=== PATIENT | female | born 1960 | race Caucasian/White ===

== ENCOUNTER 2021-04-23 08:30 | Inpatient (IN) ==
[~2021-04-23 08:30] MED LIST: MULTI-VITAMIN INFUSION 10 ML, THIAMINE HCL 100 MG, FOLIC ACID 1 MG in SODIUM CHLORIDE 0... IV ONE; SODIUM CHLORIDE 0.9% 1000ML 1,000 ML IV ONE; cefTRIAXone SODIUM 2,000 MG/70 ML BAG IV STA
--- NOTE | 2021-04-23 08:54 | Emergency Department Note ---
Impression & Plan Hypothermia, Acute kidney injury, Wide-complex tachycardia, Acute alteration in mental status, History of alcohol abuse, Hypokalemia ED Provider Note NAME: JUNG METCALF AGE: 60 SEX: F : 1960 ARRIVES VIA: Ambulance INFORMANT: EMS ED PROVIDER(S): Lico Delgadillo DO CHIEF COMPLAINT: Altered mental status HPI: The patient is a 60-year-old female who presented to the emergency department for evaluation of altered mental status. According to the patient's significant other she has been ill over the course the last week. She has had nausea and vomiting as well as diarrhea. She has a history of chronic alcohol abuse and has not been drinking for the last week. The patient was not feeling well but appeared to be answering questions well last night when her significant other went to work. Went over the significant other came to check on her this morning she was obtunded and not answering questions. We received a prehospital notification about the patient. She is not answering questions. She was found to be very cold and mottled. Her blood pressure was low. She was not answering questions. The patient was placed directly in room D1. ROS: See above HPI for pertinent positives & negatives. A total of 10 systems reviewed and were otherwise negative. PAST MEDICAL HISTORY: See Below PAST SURGICAL HISTORY: See Below FAMILY HISTORY: See Below SOCIAL HISTORY: See Below HOME MEDICATIONS: See Below ALLERGIES: See Below VITALS: See Below PHYSICAL EXAMINATION: GENERAL: The patient is looking around the room. She does not follow commands or answer questions appropriately. EYES: The conjunctivae are pale. The pupils are round and reactive. EARS, NOSE, MOUTH AND THROAT: The nose is without any evidence of any deformity. Mucous membranes are dry NECK: The neck is nontender and supple. RESPIRATORY: Shallow respirations were noted. There is no definite rales rhonchi or wheezing. CARDIOVASCULAR: Regular rate and rhythm was noted to auscultation. Heart sounds were very distant. GASTROINTESTINAL: The abdomen was mildly distended. There was no guarding or rigidity. MUSCULOSKELETAL/EXTREMITIES: There is no evidence of gross deformity full range of motion is noted in the hips and shoulders. SKIN: Skin was cold and mottled. There was no significant pedal edema. Pulses were symmetric but diminished in both groins and feet. NEUROLOGIC: Patient is looking around the room. She does not follow commands or answer questions. She intermittently moves her extremities and appears to move both sides. MEDICAL DECISION MAKING: The patient is a 60-year-old female who presented to emergency department for altered mental status. The patient was unable to give much history initially. The patient's significant other stated that she was having episodes of blurred vision and maybe double vision but also diarrhea and some vomiting. The patient was hypotensive and mottled initially. She was treated with aggressive IV hydration. Delatorre catheter was placed. Triple-lumen catheter was also placed. The patient tolerated this procedure well. The patient was reevaluated multiple times. I discussed the patient's laboratory and radiographic studies with her significant other. [facility] have agreed to evaluate the patient in the emergency department for further management and disposition. The patient's symptoms slowly improved while she was in the emergency department. She was treated with external warming. She was treated with warm fluids. She started having episodes of intermittent wide-complex tachycardia. Initially I thought this could be the patient shivering or possibly an abnormality with her monitoring but she continued to have episodes throughout her stay. They were very brief and not prolonged. It could be related to the hypothermia so I thought best that we continue to monitor and not start the patient on antidysrhythmic's until her temperature was stabilized. Triage Nursing notes reviewed. Prior medical records reviewed Vital Signs: reviewed and remarkable for hypotension tachycardia and hypothermia. Differential diagnosis: Infection, hypoglycemia, electrolyte abnormalities, overdose, toxicologic, cardiac sources, intracerebral event, neurologic, trauma, as well as other pathologies. ER treatment provided: See below Diagnostics interpreted by me: ECG: EKG was obtained in the emergency department. My interpretation is poor baseline with probably underlying sinus rhythm. [address] segment abnormalities were noted. A second EKG was obtained in the emergency department. It appears to be consistent with rapid atrial fibrillation with a wide complex underlying. It appears to be 182 bpm. This is difficult to ascertain if this is just poor baseline or an underlying rapid atrial fibrillation. Cardiac Monitoring: An order was placed for continuous cardiac monitoring. The monitor shows a rate of 90 bpm with sinus rhythm. Laboratory studies: As stated above and show below. Imaging studies: See below Consultation(s): I discussed this case with Norma Parish who [facility] They will evaluate the patient in the emergency department. ED COURSE: Procedures: Lumbar Puncture Indication: Altered mental status. Verbal consent was obtained after the risks and benefits were explained, including but not limited to headache, bleeding/clotting, scarring, infection, pain, and bone/joint/nerve damage. At this time, the risks of the procedure are less than the risks of NOT performing the procedure. A time out was taken and the correct patient and site identified. The patient was placed in the left lateral recumbentposition and the back was prepped with betadine and draped in the standard fashion. The L3 intervertebral space was identified, anesthetized locally with 1% lidocaine without epinephrine, and the spinal needle was inserted through the skin with the bevel parallel to the dural fibers. The needle was carefully advanced into the lumbar cistern and 4 tubes of clearCSF wa s obtained. The stylet was replaced and the needle was removed. A bandaid was placed and the patient was placed in the supine position. The patient tolerated the procedure well and there were no complications. Femoral Central Venous Catheter Indication: Sepsis and hypothermia Catheter Type: Triple-lumen Location: Left femoral vein Verbal consent was obtained after the risks and benefits were explained, including but not limited to intra-abdominal injury, vessel injury, bleeding, scarring, infection, pain, and bone/joint/nerve damage. At this time, the risks of the procedure are less than the risks of NOT performing the procedure. A time out was taken and the correct patient and site identified. The patient was placed in the supine position and the skin was prepped in the standard fashion with chlorhexidine and full sterile drapes applied. The proper landmarks were identified with ultrasound, anesthetized with 1% lidocaine without epinephrine, and the needle was inserted through the skin in the standard fashion. The needle was carefully advanced into blood vessel lumen with ultrasound guidance. The guidewire was placed uneventfully. The vessel is dilated and the catheter was placed. It was sutured into position. There was good blood return from all ports. The patient tolerated the procedure well and there were no complications. PDMP:reviewed and no issues Critical Care: I have personally spent greater than 120 minutes of critical care time in the direct management of this patient. This includes bedside care, interpretation of diagnostic studies, and testing, discussion with consultants, patient, and family members, and other required patient management activities. This 120 minutes is in excess of all separately billable procedures. Past Med/Surg History Medical History (Updated 04/23/21 @ 16:12 by Lico Delgadillo DO) Alcohol abuse Cirrhosis Diabetes mellitus, type II Hypertension Surgical History (Updated 04/23/21 @ 14:24 by Norma Parish PA-C) H/O colonoscopy History of cryosurgery History of esophagogastroduodenoscopy (EGD) Family History Other Diabetes Hypertension Kidney disease Social History Smoking Status: Unknown if ever smoked Preferred Language: Malay Feels Safe at Home: Yes Allergies Allergies Allergy/AdvReac Type Severity Reaction Status Date / Time Bactrim Allergy Unknown RASH Verified 06/14/17 07:47 Penicillins Allergy Unknown unknown Unverified 04/23/21 09:58 sulfamethoxazole Allergy Unknown RASH Verified 04/23/21 09:58 trimethoprim Allergy Unknown RASH Verified 04/23/21 09:58 SULFA Allergy Unknown RASH Uncoded 04/23/21 09:58 Home Meds Home Medications Medication Instructions Recorded Confirmed omeprazole 20 mg capsule,delayed 20 mg PO DAILY 04/23/21 04/23/21 release Results & Data (ED) Vital Signs Vital Signs - 24 hr 04/23/21 08:50 04/23/21 08:55 04/23/21 09:00 Temperature 32.9 C L Temperature Source Rectal Pulse Rate 91 H 84 90 Pulse Rate from SpO2 Sensor 78 84 Respiratory Rate 21 17 20 Respiratory Effort / Characteristics Non-Labored Spontaneous Respiratory Depth Normal Respiratory Pattern Regular Blood Pressure 126/90 Blood Pressure Mean 102 Blood Pressure Position Lying Pulse Oximetry 100 100 96 Oxygen Delivery Method Room Air Room Air Room Air Sepsis Recent Fever Within 48 Hours No Sepsis New/Unexplained Change in Mental Status Yes Sepsis Action Taken by Nursing Previously Notified 04/23/21 09:01 04/23/21 09:10 04/23/21 09:20 Temperature Temperature Source Pulse Rate 104 H 111 H Pulse Rate from SpO2 Sensor 71 74 Respiratory Rate 17 17 Respiratory Effort / Characteristics Respiratory Depth Respiratory Pattern Blood Pressure Blood Pressure Mean Blood Pressure Position Pulse Oximetry 100 100 Oxygen Delivery Method Room Air Room Air Room Air Sepsis Recent Fever Within 48 Hours Sepsis New/Unexplained Change in Mental Status Sepsis Action Taken by Nursing 04/23/21 09:30 04/23/21 09:39 04/23/21 09:45 Temperature Temperature Source Pulse Rate 73 73 Pulse Rate from SpO2 Sensor 74 Respiratory Rate 15 19 Respiratory Effort / Characteristics Respiratory Depth Respiratory Pattern Blood Pressure Blood Pressure Mean Blood Pressure Position Pulse Oximetry 100 Oxygen Delivery Method Room Air Room Air Sepsis Recent Fever Within 48 Hours Sepsis New/Unexplained Change in Mental Status Sepsis Action Taken by Nursing 04/23/21 10:00 04/23/21 10:30 04/23/21 10:39 Temperature 32.1 C L Temperature Source Rectal Pulse Rate 93 H 80 Pulse Rate from SpO2 Sensor 75 82 Respiratory Rate 16 13 Respiratory Effort / Characteristics Respiratory Depth Respiratory Pattern Blood Pressure 103/69 Blood Pressure Mean 80 Blood Pressure Position Pulse Oximetry 100 Oxygen Delivery Method Sepsis Recent Fever Within 48 Hours Sepsis New/Unexplained Change in Mental Status Sepsis Action Taken by Nursing 04/23/21 10:40 04/23/21 10:45 04/23/21 11:00 Temperature Temperature Source Pulse Rate 80 81 Pulse Rate from SpO2 Sensor 82 81 Respiratory Rate 22 14 Respiratory Effort / Characteristics Non-Labored Spontaneous Respiratory Depth Respiratory Pattern Blood Pressure 94/68 L 104/67 Blood Pressure Mean 76 79 Blood Pressure Position Pulse Oximetry 93 100 Oxygen Delivery Method Sepsis Recent Fever Within 48 Hours Sepsis New/Unexplained Change in Mental Status Sepsis Action Taken by Nursing 04/23/21 11:15 04/23/21 11:30 04/23/21 11:45 Temperature Temperature Source Pulse Rate 82 84 Pulse Rate from SpO2 Sensor 82 88 Respiratory Rate 15 Respiratory Effort / Characteristics Respiratory Depth Respiratory Pattern Blood Pressure 102/74 127/88 105/75 Blood Pressure Mean 83 101 85 Blood Pressure Position Pulse Oximetry 100 95 Oxygen Delivery Method Sepsis Recent Fever Within 48 Hours Sepsis New/Unexplained Change in Mental Status Sepsis Action Taken by Nursing 04/23/21 12:00 04/23/21 12:15 04/23/21 12:30 Temperature Temperature Source Pulse Rate 86 88 88 Pulse Rate from SpO2 Sensor 86 89 89 Respiratory Rate 15 15 21 Respiratory Effort / Characteristics Respiratory Depth Respiratory Pattern Blood Pressure 103/78 104/77 114/73 Blood Pressure Mean 86 86 86 Blood Pressure Position Pulse Oximetry 100 100 96 Oxygen Delivery Method Sepsis Recent Fever Within 48 Hours Sepsis New/Unexplained Change in Mental Status Sepsis Action Taken by Nursing 04/23/21 12:45 04/23/21 13:00 04/23/21 13:01 Temperature 34.5 C L Temperature Source Delatorre Cath ( Temp Sensing) Pulse Rate 91 H 92 H Pulse Rate from SpO2 Sensor 92 H 91 H Respiratory Rate 18 16 Respiratory Effort / Characteristics Respiratory Depth Respiratory Pattern Blood Pressure 97/73 L 99/62 L Blood Pressure Mean 81 74 Blood Pressure Position Pulse Oximetry 100 100 Oxygen Delivery Method Sepsis Recent Fever Within 48 Hours Sepsis New/Unexplained Change in Mental Status Sepsis Action Taken by Nursing 04/23/21 13:15 04/23/21 13:30 04/23/21 13:45 Temperature Temperature Source Pulse Rate 90 150 H Pulse Rate from SpO2 Sensor 80 90 95 H Respiratory Rate 19 20 19 Respiratory Effort / Characteristics Respiratory Depth Respiratory Pattern Blood Pressure 80/58 L Blood Pressure Mean 65 Blood Pressure Position Pulse Oximetry 100 97 Oxygen Delivery Method Sepsis Recent Fever Within 48 Hours Sepsis New/Unexplained Change in Mental Status Sepsis Action Taken by [facility]sp Medications Current Medication List: was personally reviewed by me Laboratory Data Attestation: I reviewed the patient's lab results. Result diagrams: 04/23/21 08:45 04/23/21 08:45 Lab Results 04/23/21 04/23/21 04/23/21 Range/Units 08:45 08:45 08:45 WBC 11.17 H (4.8-10.8) K/uL RBC 4.00 L (4.2-5.4) M/uL Hgb 12.9 (12.0-16.0) g/dL Hct 37.7 (37-47) % MCV 94.3 (80-100) fL MCH 32.3 (25-34) pg MCHC 34.2 (32-36) g/dL RDW Std Deviation 57.6 H (36.4-46.3) fL RDW Coeff of Radha 16.7 H (11.5-14.5) % Plt Count 222 (130-400) K/uL MPV 10.3 (7.4-10.4) fL Immature Gran % (Auto) 0.3 % Neut % (Auto) 77.8 % Lymph % (Auto) 15.8 % [place] % (Auto) 5.8 % Eos % (Auto) 0.2 % Baso % (Auto) 0.1 % Neut # (Auto) 8.70 H (1.4-6.5) K/uL Lymph # (Auto) 1.76 (1.2-3.4) K/uL [place] # (Auto) 0.65 H (0.11-0.59) K/uL Eos # (Auto) 0.02 (0-0.5) K/uL Baso # (Auto) 0.01 (0-0.2) K/uL Immature Gran # (Auto) 0.03 H (0.00-0.02) K/uL Absolute Nucleated RBC 0.05 H (0-0) K/uL Nucleated RBC % (auto) 0.5 % PT 12.9 H (9.0-12.0) Seconds INR 1.3 H (0.9-1.1) APTT 29.2 (21.0-31.0) Seconds PTT Ratio 1.1 VBG pH (7.36-7.41) VBG pCO2 (38-50) mmHg VBG pO2 mmHg VBG HCO3 mmol/L VBG O2 Saturation % VBG Base Excess mEq/L Barometric Pressure mm/Hg Sodium 131 L (136-145) mmol/L Potassium 2.3 L* (3.5-5.1) mmol/L Chloride 86 L (98-107) mmol/L Carbon Dioxide 22 (21-32) mmol/L Anion Gap 23.0 H (3-11) BUN 63 H (7-18) mg/dl Creatinine 3.08 H (0.6-1.2) mg/dl Est Cr Clr Drug Dosing 17.9 ml/min Est GFR ( Amer) 18.5 ml/min Est GFR (Non-Af Amer) 15.9 ml/min BUN/Creatinine Ratio 20.3 H (10-20) Glucose 175 H (70-99) mg/dl Lactate (0.4-2.0) mmol/L Calcium 10.3 H (8.5-10.1) mg/dl Magnesium 1.9 (1.8-2.4) mg/dl Total Bilirubin 1.2 H (0.2-1) mg/dl AST 73 H (15-37) U/L ALT 91 H (12-78) U/L Alkaline Phosphatase 225 H (45-117) U/L Total Creatine Kinase 54 (26-192) U/L CK-MB (CK-2) 1.1 (0.5-3.6) ng/ml CK/CKMB % Calc 2.0 (0-3.0) Troponin I < 0.015 (0-0.045) ng/ml C-Reactive Protein (0-0.29) mg/dl Total Protein 8.5 H (6.4-8.2) gm/dl Albumin 3.0 L (3.4-5.0) gm/dl Globulin 5.5 H (2.5-4.0) gm/dl Albumin/Globulin Ratio 0.5 L (0.9-2) Procalcitonin (0-0.5) ng/ml TSH 3.880 (0.300-4.500) uIu/ml Fluid Comment CSF Appearance CSF Color Xanthrochromic CSF WBC (0-5) /uL CSF RBC (0-) /uL CSF Cell Count Tube # CSF Chemistry Tube # CSF Glucose (40-70) mg/dl CSF Total Protein (15-45) mg/dl CSF C.neoform/gat PCR (NotDetected) CSF CMV DNA (PCR) (NotDetected) CSF Enterovirus (PCR) (NotDetected) CSF E. coli K1 (PCR) (NotDetected) CSF H. influenzae (PCR) (NotDetected) CSF HSV I (PCR) (NotDetected) CSF HSV II (PCR) (NotDetected) CSF HHV 6 (PCR) (NotDetected) CSF L.monocytogenes PCR (NotDetected) CSF N. meningitidis PCR (NotDetected) CSF Parechovirus (PCR) (NotDetected) CSF S. agalactiae (PCR) (NotDetected) CSF S. pneumoniae (PCR) (NotDetected) CSF VZV DNA (PCR) (NotDetected) Nasal Screen MRSA (PCR) (Negative) Salicylates (2.8-20) mg/dl Acetaminophen (10-30) ug/ml Ethyl Alcohol mg/dL (0-3) mg/dl Adenovirus (PCR) (NotDetected) B. pertussis DNA (PCR) (NotDetected) B.parapertussis DNA PCR (NotDetected) C. pneumoniae DNA (PCR) (NotDetected) Coronavirus OC43 (PCR) (NotDetected) Coronavirus HKU1 (PCR) (NotDetected) Coronavirus 229E (PCR) (NotDetected) SARS-CoV-2 (PCR) (NotDetected) Coronavirus NL63 (PCR) (NotDetected) Human Metapneumovir PCR (NotDetected) Influenza Type A (PCR) (NotDetected) Influenza Type B (PCR) (NotDetected) M. pneumoniae (PCR) (NotDetected) Parainfluenza 1 (PCR) (NotDetected) Parainfluenza 2 (PCR) (NotDetected) Parainfluenza 3 (PCR) (NotDetected) Parainfluenza 4 (PCR) (NotDetected) RSV (PCR) (NotDetected) Entero/Rhino (PCR) (NotDetected) Blood Type Antibody Screen 04/23/21 04/23/21 04/23/21 Range/Units 08:45 08:45 08:45 WBC (4.8-10.8) K/uL RBC (4.2-5.4) M/uL Hgb (12.0-16.0) g/dL Hct (37-47) % MCV (80-100) fL MCH (25-34) pg MCHC (32-36) g/dL RDW Std Deviation (36.4-46.3) fL RDW Coeff of Radha (11.5-14.5) % Plt Count (130-400) K/uL MPV (7.4-10.4) fL Immature Gran % (Auto) % Neut % (Auto) % Lymph % (Auto) % [place] % (Auto) % Eos % (Auto) % Baso % (Auto) % Neut # (Auto) (1.4-6.5) K/uL Lymph # (Auto) (1.2-3.4) K/uL [place] # (Auto) (0.11-0.59) K/uL Eos # (Auto) (0-0.5) K/uL Baso # (Auto) (0-0.2) K/uL Immature Gran # (Auto) (0.00-0.02) K/uL Absolute Nucleated RBC (0-0) K/uL Nucleated RBC % (auto) % PT (9.0-12.0) Seconds INR (0.9-1.1) APTT (21.0-31.0) Seconds PTT Ratio VBG pH (7.36-7.41) VBG pCO2 (38-50) mmHg VBG pO2 mmHg VBG HCO3 mmol/L VBG O2 Saturation % VBG Base Excess mEq/L Barometric Pressure mm/Hg Sodium (136-145) mmol/L Potassium (3.5-5.1) mmol/L Chloride (98-107) mmol/L Carbon Dioxide (21-32) mmol/L Anion Gap (3-11) BUN (7-18) mg/dl Creatinine (0.6-1.2) mg/dl Est Cr Clr Drug Dosing ml/min Est GFR ( Amer) ml/min Est GFR (Non-Af Amer) ml/min BUN/Creatinine Ratio (10-20) Glucose (70-99) mg/dl Lactate 3.6 H* (0.4-2.0) mmol/L Calcium (8.5-10.1) mg/dl Magnesium (1.8-2.4) mg/dl Total Bilirubin (0.2-1) mg/dl AST (15-37) U/L ALT (12-78) U/L Alkaline Phosphatase (45-117) U/L Total Creatine Kinase (26-192) U/L CK-MB (CK-2) (0.5-3.6) ng/ml CK/CKMB % Calc (0-3.0) Troponin I (0-0.045) ng/ml C-Reactive Protein (0-0.29) mg/dl Total Protein (6.4-8.2) gm/dl Albumin (3.4-5.0) gm/dl Globulin (2.5-4.0) gm/dl Albumin/Globulin Ratio (0.9-2) Procalcitonin 0.75 H (0-0.5) ng/ml TSH (0.300-4.500) uIu/ml Fluid Comment CSF Appearance CSF Color Xanthrochromic CSF WBC (0-5) /uL CSF RBC (0-) /uL CSF Cell Count Tube # CSF Chemistry Tube # CSF Glucose (40-70) mg/dl CSF Total Protein (15-45) mg/dl CSF C.neoform/gat PCR (NotDetected) CSF CMV DNA (PCR) (NotDetected) CSF Enterovirus (PCR) (NotDetected) CSF E. coli K1 (PCR) (NotDetected) CSF H. influenzae (PCR) (NotDetected) CSF HSV I (PCR) (NotDetected) CSF HSV II (PCR) (NotDetected) CSF HHV 6 (PCR) (NotDetected) CSF L.monocytogenes PCR (NotDetected) CSF N. meningitidis PCR (NotDetected) CSF Parechovirus (PCR) (NotDetected) CSF S. agalactiae (PCR) (NotDetected) CSF S. pneumoniae (PCR) (NotDetected) CSF VZV DNA (PCR) (NotDetected) Nasal Screen MRSA (PCR) (Negative) Salicylates (2.8-20) mg/dl Acetaminophen (10-30) ug/ml Ethyl Alcohol mg/dL (0-3) mg/dl Adenovirus (PCR) Not Detected (NotDetected) B. pertussis DNA (PCR) Not Detected (NotDetected) B.parapertussis DNA PCR Not Detected (NotDetected) C. pneumoniae DNA (PCR) Not Detected (NotDetected) Coronavirus OC43 (PCR) Not Detected (NotDetected) Coronavirus HKU1 (PCR) Not Detected (NotDetected) Coronavirus 229E (PCR) Not Detected (NotDetected) SARS-CoV-2 (PCR) Not Detected (NotDetected) Coronavirus NL63 (PCR) Not Detected (NotDetected) Human Metapneumovir PCR Not Detected (NotDetected) Influenza Type A (PCR) Not Detected (NotDetected) Influenza Type B (PCR) Not Detected (NotDetected) M. pneumoniae (PCR) Not Detected (NotDetected) Parainfluenza 1 (PCR) Not Detected (NotDetected) Parainfluenza 2 (PCR) Not Detected (NotDetected) Parainfluenza 3 (PCR) Not Detected (NotDetected) Parainfluenza 4 (PCR) Not Detected (NotDetected) RSV (PCR) Not Detected (NotDetected) Entero/Rhino (PCR) Not Detected (NotDetected) Blood Type Antibody Screen 04/23/21 04/23/21 04/23/21 Range/Units 08:45 09:16 09:16 WBC (4.8-10.8) K/uL RBC (4.2-5.4) M/uL Hgb (12.0-16.0) g/dL Hct (37-47) % MCV (80-100) fL MCH (25-34) pg MCHC (32-36) g/dL RDW Std Deviation (36.4-46.3) fL RDW Coeff of Radha (11.5-14.5) % Plt Count (130-400) K/uL MPV (7.4-10.4) fL Immature Gran % (Auto) % Neut % (Auto) % Lymph % (Auto) % [place] % (Auto) % Eos % (Auto) % Baso % (Auto) % Neut # (Auto) (1.4-6.5) K/uL Lymph # (Auto) (1.2-3.4) K/uL [place] # (Auto) (0.11-0.59) K/uL Eos # (Auto) (0-0.5) K/uL Baso # (Auto) (0-0.2) K/uL Immature Gran # (Auto) (0.00-0.02) K/uL Absolute Nucleated RBC (0-0) K/uL Nucleated RBC % (auto) % PT (9.0-12.0) Seconds INR (0.9-1.1) APTT (21.0-31.0) Seconds PTT Ratio VBG pH (7.36-7.41) VBG pCO2 (38-50) mmHg VBG pO2 mmHg VBG HCO3 mmol/L VBG O2 Saturation % VBG Base Excess mEq/L Barometric Pressure mm/Hg Sodium (136-145) mmol/L Potassium (3.5-5.1) mmol/L Chloride (98-107) mmol/L Carbon Dioxide (21-32) mmol/L Anion Gap (3-11) BUN (7-18) mg/dl Creatinine (0.6-1.2) mg/dl Est Cr Clr Drug Dosing ml/min Est GFR ( Amer) ml/min Est GFR (Non-Af Amer) ml/min BUN/Creatinine Ratio (10-20) Glucose (70-99) mg/dl Lactate (0.4-2.0) mmol/L Calcium (8.5-10.1) mg/dl Magnesium (1.8-2.4) mg/dl Total Bilirubin (0.2-1) mg/dl AST (15-37) U/L ALT (12-78) U/L Alkaline Phosphatase (45-117) U/L Total Creatine Kinase (26-192) U/L CK-MB (CK-2) (0.5-3.6) ng/ml CK/CKMB % Calc (0-3.0) Troponin I (0-0.045) ng/ml C-Reactive Protein 4.16 H (0-0.29) mg/dl Total Protein (6.4-8.2) gm/dl Albumin (3.4-5.0) gm/dl Globulin (2.5-4.0) gm/dl Albumin/Globulin Ratio (0.9-2) Procalcitonin (0-0.5) ng/ml TSH (0.300-4.500) uIu/ml Fluid Comment CSF Appearance CSF Color Xanthrochromic CSF WBC (0-5) /uL CSF RBC (0-) /uL CSF Cell Count Tube # CSF Chemistry Tube # CSF Glucose (40-70) mg/dl CSF Total Protein (15-45) mg/dl CSF C.neoform/gat PCR (NotDetected) CSF CMV DNA (PCR) (NotDetected) CSF Enterovirus (PCR) (NotDetected) CSF E. coli K1 (PCR) (NotDetected) CSF H. influenzae (PCR) (NotDetected) CSF HSV I (PCR) (NotDetected) CSF HSV II (PCR) (NotDetected) CSF HHV 6 (PCR) (NotDetected) CSF L.monocytogenes PCR (NotDetected) CSF N. meningitidis PCR (NotDetected) CSF Parechovirus (PCR) (NotDetected) CSF S. agalactiae (PCR) (NotDetected) CSF S. pneumoniae (PCR) (NotDetected) CSF VZV DNA (PCR) (NotDetected) Nasal Screen MRSA (PCR) (Negative) Salicylates (2.8-20) mg/dl Acetaminophen (10-30) ug/ml Ethyl Alcohol mg/dL < 3.0 (0-3) mg/dl Adenovirus (PCR) (NotDetected) B. pertussis DNA (PCR) (NotDetected) B.parapertussis DNA PCR (NotDetected) C. pneumoniae DNA (PCR) (NotDetected) Coronavirus OC43 (PCR) (NotDetected) Coronavirus HKU1 (PCR) (NotDetected) Coronavirus 229E (PCR) (NotDetected) SARS-CoV-2 (PCR) (NotDetected) Coronavirus NL63 (PCR) (NotDetected) Human Metapneumovir PCR (NotDetected) Influenza Type A (PCR) (NotDetected) Influenza Type B (PCR) (NotDetected) M. pneumoniae (PCR) (NotDetected) Parainfluenza 1 (PCR) (NotDetected) Parainfluenza 2 (PCR) (NotDetected) Parainfluenza 3 (PCR) (NotDetected) Parainfluenza 4 (PCR) (NotDetected) RSV (PCR) (NotDetected) Entero/Rhino (PCR) (NotDetected) Blood Type O Negative Antibody Screen NEGATIVE 04/23/21 04/23/21 04/23/21 Range/Units 09:16 09:16 11:29 WBC (4.8-10.8) K/uL RBC (4.2-5.4) M/uL Hgb (12.0-16.0) g/dL Hct (37-47) % MCV (80-100) fL MCH (25-34) pg MCHC (32-36) g/dL RDW Std Deviation (36.4-46.3) fL RDW Coeff of Radha (11.5-14.5) % Plt Count (130-400) K/uL MPV (7.4-10.4) fL Immature Gran % (Auto) % Neut % (Auto) % Lymph % (Auto) % [place] % (Auto) % Eos % (Auto) % Baso % (Auto) % Neut # (Auto) (1.4-6.5) K/uL Lymph # (Auto) (1.2-3.4) K/uL [place] # (Auto) (0.11-0.59) K/uL Eos # (Auto) (0-0.5) K/uL Baso # (Auto) (0-0.2) K/uL Immature Gran # (Auto) (0.00-0.02) K/uL Absolute Nucleated RBC (0-0) K/uL Nucleated RBC % (auto) % PT (9.0-12.0) Seconds INR (0.9-1.1) APTT (21.0-31.0) Seconds PTT Ratio VBG pH 7.43 H (7.36-7.41) VBG pCO2 28 L (38-50) mmHg VBG pO2 50 mmHg VBG HCO3 18 mmol/L VBG O2 Saturation 80.3 % VBG Base Excess -5.7 mEq/L Barometric Pressure 727.1 mm/Hg Sodium (136-145) mmol/L Potassium (3.5-5.1) mmol/L Chloride (98-107) mmol/L Carbon Dioxide (21-32) mmol/L Anion Gap (3-11) BUN (7-18) mg/dl Creatinine (0.6-1.2) mg/dl Est Cr Clr Drug Dosing ml/min Est GFR ( Amer) ml/min Est GFR (Non-Af Amer) ml/min BUN/Creatinine Ratio (10-20) Glucose (70-99) mg/dl Lactate 1.0 (0.4-2.0) mmol/L Calcium (8.5-10.1) mg/dl Magnesium (1.8-2.4) mg/dl Total Bilirubin (0.2-1) mg/dl AST (15-37) U/L ALT (12-78) U/L Alkaline Phosphatase (45-117) U/L Total Creatine Kinase (26-192) U/L CK-MB (CK-2) (0.5-3.6) ng/ml CK/CKMB % Calc (0-3.0) Troponin I (0-0.045) ng/ml C-Reactive Protein (0-0.29) mg/dl Total Protein (6.4-8.2) gm/dl Albumin (3.4-5.0) gm/dl Globulin (2.5-4.0) gm/dl Albumin/Globulin Ratio (0.9-2) Procalcitonin (0-0.5) ng/ml TSH (0.300-4.500) uIu/ml Fluid Comment CSF Appearance CSF Color Xanthrochromic CSF WBC (0-5) /uL CSF RBC (0-) /uL CSF Cell Count Tube # CSF Chemistry Tube # CSF Glucose (40-70) mg/dl CSF Total Protein (15-45) mg/dl CSF C.neoform/gat PCR (NotDetected) CSF CMV DNA (PCR) (NotDetected) CSF Enterovirus (PCR) (NotDetected) CSF E. coli K1 (PCR) (NotDetected) CSF H. influenzae (PCR) (NotDetected) CSF HSV I (PCR) (NotDetected) CSF HSV II (PCR) (NotDetected) CSF HHV 6 (PCR) (NotDetected) CSF L.monocytogenes PCR (NotDetected) CSF N. meningitidis PCR (NotDetected) CSF Parechovirus (PCR) (NotDetected) CSF S. agalactiae (PCR) (NotDetected) CSF S. pneumoniae (PCR) (NotDetected) CSF VZV DNA (PCR) (NotDetected) Nasal Screen MRSA (PCR) (Negative) Salicylates < 1.7 L (2.8-20) mg/dl Acetaminophen 8 L (10-30) ug/ml Ethyl Alcohol mg/dL (0-3) mg/dl Adenovirus (PCR) (NotDetected) B. pertussis DNA (PCR) (NotDetected) B.parapertussis DNA PCR (NotDetected) C. pneumoniae DNA (PCR) (NotDetected) Coronavirus OC43 (PCR) (NotDetected) Coronavirus HKU1 (PCR) (NotDetected) Coronavirus 229E (PCR) (NotDetected) SARS-CoV-2 (PCR) (NotDetected) Coronavirus NL63 (PCR) (NotDetected) Human Metapneumovir PCR (NotDetected) Influenza Type A (PCR) (NotDetected) Influenza Type B (PCR) (NotDetected) M. pneumoniae (PCR) (NotDetected) Parainfluenza 1 (PCR) (NotDetected) Parainfluenza 2 (PCR) (NotDetected) Parainfluenza 3 (PCR) (NotDetected) Parainfluenza 4 (PCR) (NotDetected) RSV (PCR) (NotDetected) Entero/Rhino (PCR) (NotDetected) Blood Type Antibody Screen 04/23/21 04/23/21 04/23/21 Range/Units 11:45 11:45 11:45 WBC (4.8-10.8) K/uL RBC (4.2-5.4) M/uL Hgb (12.0-16.0) g/dL Hct (37-47) % MCV (80-100) fL MCH (25-34) pg MCHC (32-36) g/dL RDW Std Deviation (36.4-46.3) fL RDW Coeff of Radha (11.5-14.5) % Plt Count (130-400) K/uL MPV (7.4-10.4) fL Immature Gran % (Auto) % Neut % (Auto) % Lymph % (Auto) % [place] % (Auto) % Eos % (Auto) % Baso % (Auto) % Neut # (Auto) (1.4-6.5) K/uL Lymph # (Auto) (1.2-3.4) K/uL [place] # (Auto) (0.11-0.59) K/uL Eos # (Auto) (0-0.5) K/uL Baso # (Auto) (0-0.2) K/uL Immature Gran # (Auto) (0.00-0.02) K/uL Absolute Nucleated RBC (0-0) K/uL Nucleated RBC % (auto) % PT (9.0-12.0) Seconds INR (0.9-1.1) APTT (21.0-31.0) Seconds PTT Ratio VBG pH (7.36-7.41) VBG pCO2 (38-50) mmHg VBG pO2 mmHg VBG HCO3 mmol/L VBG O2 Saturation % VBG Base Excess mEq/L Barometric Pressure mm/Hg Sodium (136-145) mmol/L Potassium (3.5-5.1) mmol/L Chloride (98-107) mmol/L Carbon Dioxide (21-32) mmol/L Anion Gap (3-11) BUN (7-18) mg/dl Creatinine (0.6-1.2) mg/dl Est Cr Clr Drug Dosing ml/min Est GFR ( Amer) ml/min Est GFR (Non-Af Amer) ml/min BUN/Creatinine Ratio (10-20) Glucose (70-99) mg/dl Lactate (0.4-2.0) mmol/L Calcium (8.5-10.1) mg/dl Magnesium (1.8-2.4) mg/dl Total Bilirubin (0.2-1) mg/dl AST (15-37) U/L ALT (12-78) U/L Alkaline Phosphatase (45-117) U/L Total Creatine Kinase (26-192) U/L CK-MB (CK-2) (0.5-3.6) ng/ml CK/CKMB % Calc (0-3.0) Troponin I (0-0.045) ng/ml C-Reactive Protein (0-0.29) mg/dl Total Protein (6.4-8.2) gm/dl Albumin (3.4-5.0) gm/dl Globulin (2.5-4.0) gm/dl Albumin/Globulin Ratio (0.9-2) Procalcitonin (0-0.5) ng/ml TSH (0.300-4.500) uIu/ml Fluid Comment CSF Appearance Clear CSF Color Colorless Xanthrochromic No xanthochromia CSF WBC 0 (0-5) /uL CSF RBC 1 (0-) /uL CSF Cell Count Tube # 3 CSF Chemistry Tube # 1 CSF Glucose 98 H (40-70) mg/dl CSF Total Protein 100.8 H (15-45) mg/dl CSF C.neoform/gat PCR Not Detected (NotDetected) CSF CMV DNA (PCR) Not Detected (NotDetected) CSF Enterovirus (PCR) Not Detected (NotDetected) CSF E. coli K1 (PCR) Not Detected (NotDetected) CSF H. influenzae (PCR) Not Detected (NotDetected) CSF HSV I (PCR) Not Detected (NotDetected) CSF HSV II (PCR) Not Detected (NotDetected) CSF HHV 6 (PCR) Not Detected (NotDetected) CSF L.monocytogenes PCR Not Detected (NotDetected) CSF N. meningitidis PCR Not Detected (NotDetected) CSF Parechovirus (PCR) Not Detected (NotDetected) CSF S. agalactiae (PCR) Not Detected (NotDetected) CSF S. pneumoniae (PCR) Not Detected (NotDetected) CSF VZV DNA (PCR) Not Detected (NotDetected) Nasal Screen MRSA (PCR) (Negative) Salicylates (2.8-20) mg/dl Acetaminophen (10-30) ug/ml Ethyl Alcohol mg/dL (0-3) mg/dl Adenovirus (PCR) (NotDetected) B. pertussis DNA (PCR) (NotDetected) B.parapertussis DNA PCR (NotDetected) C. pneumoniae DNA (PCR) (NotDetected) Coronavirus OC43 (PCR) (NotDetected) Coronavirus HKU1 (PCR) (NotDetected) Coronavirus 229E (PCR) (NotDetected) SARS-CoV-2 (PCR) (NotDetected) Coronavirus NL63 (PCR) (NotDetected) Human Metapneumovir PCR (NotDetected) Influenza Type A (PCR) (NotDetected) Influenza Type B (PCR) (NotDetected) M. pneumoniae (PCR) (NotDetected) Parainfluenza 1 (PCR) (NotDetected) Parainfluenza 2 (PCR) (NotDetected) Parainfluenza 3 (PCR) (NotDetected) Parainfluenza 4 (PCR) (NotDetected) RSV (PCR) (NotDetected) Entero/Rhino (PCR) (NotDetected) Blood Type Antibody Screen 04/23/21 Range/Units 12:55 WBC (4.8-10.8) K/uL RBC (4.2-5.4) M/uL Hgb (12.0-16.0) g/dL Hct (37-47) % MCV (80-100) fL MCH (25-34) pg MCHC (32-36) g/dL RDW Std Deviation (36.4-46.3) fL RDW Coeff of Radha (11.5-14.5) % Plt Count (130-400) K/uL MPV (7.4-10.4) fL Immature Gran % (Auto) % Neut % (Auto) % Lymph % (Auto) % [place] % (Auto) % Eos % (Auto) % Baso % (Auto) % Neut # (Auto) (1.4-6.5) K/uL Lymph # (Auto) (1.2-3.4) K/uL [place] # (Auto) (0.11-0.59) K/uL Eos # (Auto) (0-0.5) K/uL Baso # (Auto) (0-0.2) K/uL Immature Gran # (Auto) (0.00-0.02) K/uL Absolute Nucleated RBC (0-0) K/uL Nucleated RBC % (auto) % PT (9.0-12.0) Seconds INR (0.9-1.1) APTT (21.0-31.0) Seconds PTT Ratio VBG pH (7.36-7.41) VBG pCO2 (38-50) mmHg VBG pO2 mmHg VBG HCO3 mmol/L VBG O2 Saturation % VBG Base Excess mEq/L Barometric Pressure mm/Hg Sodium (136-145) mmol/L Potassium (3.5-5.1) mmol/L Chloride (98-107) mmol/L Carbon Dioxide (21-32) mmol/L Anion Gap (3-11) BUN (7-18) mg/dl Creatinine (0.6-1.2) mg/dl Est Cr Clr Drug Dosing ml/min Est GFR ( Amer) ml/min Est GFR (Non-Af Amer) ml/min BUN/Creatinine Ratio (10-20) Glucose (70-99) mg/dl Lactate (0.4-2.0) mmol/L Calcium (8.5-10.1) mg/dl Magnesium (1.8-2.4) mg/dl Total Bilirubin (0.2-1) mg/dl AST (15-37) U/L ALT (12-78) U/L Alkaline Phosphatase (45-117) U/L Total Creatine Kinase (26-192) U/L CK-MB (CK-2) (0.5-3.6) ng/ml CK/CKMB % Calc (0-3.0) Troponin I (0-0.045) ng/ml C-Reactive Protein (0-0.29) mg/dl Total Protein (6.4-8.2) gm/dl Albumin (3.4-5.0) gm/dl Globulin (2.5-4.0) gm/dl Albumin/Globulin Ratio (0.9-2) Procalcitonin (0-0.5) ng/ml TSH (0.300-4.500) uIu/ml Fluid Comment CSF Appearance CSF Color Xanthrochromic CSF WBC (0-5) /uL CSF RBC (0-) /uL CSF Cell Count Tube # CSF Chemistry Tube # CSF Glucose (40-70) mg/dl CSF Total Protein (15-45) mg/dl CSF C.neoform/gat PCR (NotDetected) CSF CMV DNA (PCR) (NotDetected) CSF Enterovirus (PCR) (NotDetected) CSF E. coli K1 (PCR) (NotDetected) CSF H. influenzae (PCR) (NotDetected) CSF HSV I (PCR) (NotDetected) CSF HSV II (PCR) (NotDetected) CSF HHV 6 (PCR) (NotDetected) CSF L.monocytogenes PCR (NotDetected) CSF N. meningitidis PCR (NotDetected) CSF Parechovirus (PCR) (NotDetected) CSF S. agalactiae (PCR) (NotDetected) CSF S. pneumoniae (PCR) (NotDetected) CSF VZV DNA (PCR) (NotDetected) Nasal Screen MRSA (PCR) Negative (Negative) Salicylates (2.8-20) mg/dl Acetaminophen (10-30) ug/ml Ethyl Alcohol mg/dL (0-3) mg/dl Adenovirus (PCR) (NotDetected) B. pertussis DNA (PCR) (NotDetected) B.parapertussis DNA PCR (NotDetected) C. pneumoniae DNA (PCR) (NotDetected) Coronavirus OC43 (PCR) (NotDetected) Coronavirus HKU1 (PCR) (NotDetected) Coronavirus 229E (PCR) (NotDetected) SARS-CoV-2 (PCR) (NotDetected) Coronavirus NL63 (PCR) (NotDetected) Human Metapneumovir PCR (NotDetected) Influenza Type A (PCR) (NotDetected) Influenza Type B (PCR) (NotDetected) M. pneumoniae (PCR) (NotDetected) Parainfluenza 1 (PCR) (NotDetected) Parainfluenza 2 (PCR) (NotDetected) Parainfluenza 3 (PCR) (NotDetected) Parainfluenza 4 (PCR) (NotDetected) RSV (PCR) (NotDetected) Entero/Rhino (PCR) (NotDetected) Blood Type Antibody Screen Administered Medications Potassium Chloride 40 meq/ (Sodium Chloride) 1,020 mls @ 125 mls/hr IV .Q8H10M ALEXIS Stop: 05/23/21 12:29 Last Admin: 04/23/21 12:43 Dose: 125 mls/hr Documented by: [id number] Doxycycline Hyclate 100 mg/ (Dextrose) 110 mls @ 55 mls/hr IV Q12H ALEXIS Stop: 04/30/21 11:59 Last Infusion: 04/23/21 14:37 Dose: 0 mls/hr Documented by: [id number] Admin: 04/23/21 12:37 Dose: 55 mls/hr Documented by: [id number] Thiamine HCl 500 mg/ Sodium (Chloride) 55 mls @ 220 mls/hr IV Q8H ALEXIS Stop: 05/23/21 13:59 Last Infusion: 04/23/21 14:10 Dose: 0 mls/hr Documented by: [id number] Admin: 04/23/21 13:55 Dose: 220 mls/hr Documented by: [id number] Norepinephrine Bitartrate (Levophed/D5w) 8 mg in 508 mls @ 12.783 mls/hr IV .Q24H ALEXIS; Protocol Stop: 05/23/21 13:59 Last Titration: 04/23/21 15:46 Dose: 0.07 mcg/kg/min, 17.9 mls/hr Documented by: [id number] Admin: 04/23/21 14:22 Dose: 0.05 mcg/kg/min, 12.8 mls/hr Documented by: [id number] Cosigned by: [id number] Sodium Chloride (Nss 1000ml) 1,000 mls @ 999 mls/hr IV .Q1H1M ONE Stop: 04/23/21 16:25 Last Admin: 04/23/21 15:50 Dose: Not Given Documented by: [id number] Discontinued Medications Sodium Chloride (Nss 1000ml) 1,000 mls @ 999 mls/hr IV .Q1H1M ONE Stop: 04/23/21 09:30 Last Infusion: 04/23/21 09:59 Dose: 0 mls/hr Documented by: [id number] Admin: 04/23/21 09:02 Dose: 999 mls/hr Documented by: [id number] Ceftriaxone Sodium (Rocephin) 2,000 mg in 70 mls @ 140 mls/hr IV NOW STA Stop: 04/23/21 08:59 Last Infusion: 04/23/21 09:59 Dose: 0 mls/hr Documented by: [id number] Admin: 04/23/21 09:27 Dose: 140 mls/hr Documented by: [id number] Multivitamins 10 ml/ Thiamine HCl 100 mg/ Folic Acid 1 mg/Sodium Chloride 1,011.2 mls @ 1,011.2 mls/hr IV .Q1H ONE Stop: 04/23/21 09:29 Last Infusion: 04/23/21 09:59 Dose: 0 mls/hr Documented by: [id number] Admin: 04/23/21 09:03 Dose: 1,011.2 mls/hr Documented by: [id number] Potassium Chloride (K Leroy / Wtr) 10 meq in 100 mls @ 100 mls/hr IV ONE ONE Stop: 04/23/21 10:38 Last Infusion: 04/23/21 11:00 Dose: 0 mls/hr Documented by: [id number] Admin: 04/23/21 09:53 Dose: 100 mls/hr Documented by: [id number] Sodium Chloride (Nss 1000ml) 1,000 mls @ 999 mls/hr IV .Q1H1M ONE Stop: 04/23/21 10:39 Last Infusion: 04/23/21 11:07 Dose: 0 mls/hr Documented by: [id number] Admin: 04/23/21 09:59 Dose: 999 mls/hr Documented by: [id number] Potassium Chloride (K Leroy / Wtr) 10 meq in 100 mls @ 100 mls/hr IV Q1H ALEXIS Stop: 04/23/21 15:04 Last Infusion: 04/23/21 15:51 Dose: 0 mls/hr Documented by: [id number] Admin: 04/23/21 14:26 Dose: 100 mls/hr Documented by: [id number] Infusion: 04/23/21 14:26 Dose: 0 mls/hr Documented by: [id number] Admin: 04/23/21 13:25 Dose: 100 mls/hr Documented by: [id number] Infusion: 04/23/21 13:25 Dose: 0 mls/hr Documented by: [id number] Admin: 04/23/21 12:19 Dose: 100 mls/hr Documented by: [id number] Lactated Ringer's (Lr) 1,000 mls @ 999 mls/hr IV .Q1H1M ONE Stop: 04/23/21 12:44 Last Admin: 04/23/21 12:37 Dose: Not Given Documented by: [id number] Vancomycin HCl 1,250 mg/ (Sodium Chloride) 275 mls @ 200 mls/hr IV ONE STA Stop: 04/23/21 13:11 Last Infusion: 04/23/21 13:53 Dose: 0 mls/hr Documented by: [id number] Admin: 04/23/21 12:29 Dose: 200 mls/hr Documented by: [id number] Piperacillin Sod/Tazobactam (Sod 3.375 gm/ Dextrose) 115 mls @ 230 mls/hr IV NOW ONE; Protocol Stop: 04/23/21 14:29 Last Infusion: 04/23/21 15:50 Dose: 0 mls/hr Documented by: [id number] Admin: 04/23/21 14:42 Dose: 230 mls/hr Documented by: [id number] Imaging Data Radiologist's Impression: Chest X-Ray 04/23/21 08:30 XR chest 1V portable CLINICAL HISTORY: SEPSIS. Evaluate cardiopulmonary status COMPARISON STUDY: 08/12/2019 TECHNIQUE: 1 view of the chest FINDINGS: Single frontal view of the chest demonstrates the cardiomediastinal silhouette to be within normal limits. The lungs are clear of alveolar opacities. There is no evidence for pleural effusion. There is no evidence for vascular congestion. There is no acute osseous pathology. IMPRESSION: No acute cardiopulmonary disease. ACT 112: Negative or not required by law. Electronically signed by: Kobi Bear M.D. 04/23/2021 9:[address] 04/23/21 08:30 CT head/brain wo con CLINICAL HISTORY: Altered mental status. Patient found down and unresponsive COMPARISON STUDY: 08/12/2019 TECHNIQUE: Standard CT of the Brain was performed without IV contrast. A dose lowering technique was utilized adhering to the principles of ALARA. FINDINGS: Extraaxial space: There is no evidence for subdural hematoma. There are no extra-axial fluid collections. Ventricles and cisterns: The ventricles are mildly dilated bilaterally. There is no evidence for midline shift or mass effect. Parenchyma: There is no subarachnoid or intraparenchymal hemorrhage. There is no evidence for an acute infarct or cerebral edema. There is homogeneous attenuation of the brain parenchyma. There are no gross mass lesions. Osseous structures: There is no evidence for an acute fracture. The visualized paranasal sinuses are clear. The mastoid air cells are clear bilaterally. Soft tissues: There is no evidence for focal soft tissue swelling. IMPRESSION: No acute intracerebral pathology. ACT 112: Negative or not required by law. Electronically signed by: Kobi Bear M.D. 04/23/2021 10:[address] 04/23/21 08:38 CT cervical spine wo con CLINICAL HISTORY: Altered mental status. Patient found down and unresponsive. COMPARISON STUDY: No previous studies for comparison. CT DOSE: 2098.21 mGy.cm TECHNIQUE: Standard CT of the Cervical Spine was performed without IV contrast. A dose lowering technique was utilized adhering to the principles of ALARA. FINDINGS: Bones: There is no evidence for an acute fracture or malalignment. The heights of the vertebral bodies are maintained. The vertebral bodies are in anatomic alignment. The odontoid is intact. Degenerative changes are seen at the atlantoaxial articulation. Disc spaces:There is mild to moderate disc space narrowing from C5 through C7 with minimal endplate osteophyte formation. Apophyseal joints:Mild degenerative apophyseal joint disease is also present bilaterally. Soft tissues:The prevertebral soft tissues are within normal limits. IMPRESSION: No acute abnormality with mild degenerative disc and degenerative naveen int disease. ACT 112: Negative or not required by law. Electronically signed by: Kobi Bear M.D. 04/23/2021 10:41 AM Abdomen/Pelvis CT 04/23/21 09:41 CT abd pelvis wo con CLINICAL HISTORY: Altered mental status. Patient found down unresponsive. Abdominal distention. COMPARISON STUDY: No previous studies for comparison. TECHNIQUE: Standard CT of the Abdomen and Pelvis was performed without IV contrast. The patient did not receive oral contrast. A dose lowering technique was utilized adhering to the principles of ALARA. FINDINGS: Abdominal cavity: There is no evidence for abdominal mass, adenopathy or ascites. Liver: The liver is homogeneous in attenuation on these limited noncontrast images.. Spleen: The spleen is homogeneous in attenuation on these limited noncontrast images. Pancreas: The pancreas is homogeneous in attenuation on these limited noncontrast images. Gall Bladder: The gallbladder is distended with cholelithiasis. There is no CT evidence for acute cholecystitis. Adrenal glands: The adrenal glands are normal in size and attenuation on these limited noncontrast images. Kidneys: The kidneys are homogeneous in attenuation on these limited noncontrast images. There is no evidence for gross renal mass, calculus or hydronephrosis bilaterally. Bowel: The stomach is distended with liquid and food stuff. The bowel loops are normally placed within the abdomen and pelvis without evidence for dilatation or obstruction. There is no evidence for mass lesion. There are no inflammatory changes present. There is no evidence for free air. There is a normal appendix in the right lower quadrant. Bladder: Delatorre catheter is present within the bladder. : There is no evidence for pelvic mass or adenopathy. Vasculature: There is no evidence for focal aneurysmal dilatation of the abdominal aorta. Atherosclerotic calcification is present. Osseous structures: There is no acute osseous pathology. Degenerative changes are seen within the spine. IMPRESSION: 1. The stomach is distended with liquid and food stuff. 2. The gallbladder is distended with cholelithiasis. There is no CT evidence for acute cholecystitis. 3. No other evidence for acute intra-abdominal or pelvic abnormality on these limited noncontrast images. 4. Additional nonacute findings as delineated above. ACT 112: Negative or not required by law. Electronically signed by: Kobi Bear M.D. 04/23/2021 11:[address] 04/23/21 09:41 CT chest diagnostic wo con CLINICAL HISTORY: ams . Patient found down and unresponsive COMPARISON STUDY: No previous studies for comparison. TECHNIQUE: Standard CT of the Chest was performed without IV contrast. A dose lowering technique was utilized adhering to the principles of ALARA. FINDINGS: Airway: The airway is clear. No endobronchial lesion is identified. Lungs: There are small patchy alveolar opacities within the right lower lobe posteromedially suspicious for early pneumonia. No air bronchograms are seen. The remainder of the lungs are clear of acute alveolar opacities, air bronchograms or pulmonary nodules. Pleura: There is no evidence for pleural effusion. There is no evidence for pneumothorax. Mediastinum: There is no evidence for pathologic adenopathy on these limited noncontrast images. The heart size is within normal limits. The thoracic aorta is within normal limits. There is no evidence for pericardial effusion. Osseous structures: There is no acute osseous pathology. IMPRESSION: 1. There are small patchy alveolar opacities within the right lower lobe posterior medially suspicious for early pneumonia. 2. There is no other evidence for no acute chest disease on these noncontrast images. ACT 112: Negative or not required by law. Electronically signed by: Kobi Bear M.D. 04/23/2021 10:52 AM Discharge Plan Visit Data Chief Complaint: Hypothermia Stated Complaint: ILLNESS ED Provider: Lico Delgadillo Discharge Problem: Hypothermia, Acute kidney injury, Wide-complex tachycardia, Acute alteration in mental status, History of alcohol abuse, Hypokalemia Patient Disposition: Admitted As Inpatient Discharge Instructions Interventions: ED Discharge Assessment Last Done: 04/23/21 15:23
[2021-04-23 09:02] LABS: Basophils # (auto) 0.01 K/uL (0-0.2); Basophils % (auto) 0.1 %; Eosinophils # (auto) 0.02 K/uL (0-0.5); Eosinophils % (auto) 0.2 %; Hematocrit (blood only) 37.7 % (37-47); Hemoglobin 12.9 g/dL (12.0-16.0); Immature Granulocytes # (auto) 0.03 K/uL (0.00-0.02); Immature Granulocytes % (auto) 0.3 %; Lymphocytes # (auto) 1.76 K/uL (1.2-3.4); Lymphocytes % (auto) 15.8 %; Mean Corpuscular Hemoglobin 32.3 pg (25-34); Mean Corpuscular Hgb Conc 34.2 g/dL (32-36); Mean Corpuscular Volume 94.3 fL (80-100); Mean Platelet Volume 10.3 fL (7.4-10.4); Monocytes # (auto) 0.65 K/uL (0.11-0.59); Monocytes % (auto) 5.8 %; Neutrophils % (auto) 77.8 %; Nucleated RBC # (auto) 0.05 K/uL (0-0); Nucleated RBC % (auto) 0.5 %; Platelet Count 222 K/uL (130-400); RDW Coefficient of Variation 16.7 % (11.5-14.5); RDW Standard Deviation 57.6 fL (36.4-46.3); White Blood Count 11.17 K/uL (4.8-10.8)
[2021-04-23 09:12] LABS: INR 1.3 (0.9-1.1); Partial Thromboplastin Ratio 1.1; Partial Thromboplastin Time 29.2 Seconds (21.0-31.0); Prothrombin Time 12.9 Seconds (9.0-12.0)
[2021-04-23 09:19] LABS: Appearance Urine Clear (Clear); Bacteria Urine Automated Negative (Negative); Blood Urine Negative (Negative); Color Urine Orange; Epithelial Cell Urine Auto 20-30 /lpf (0-5); Glucose Urine UA Negative (Negative); Ketones Urine Negative (Negative); Leukocyte Esterase Urine 1+ (Negative); Nitrite Urine Positive (Negative); Protein Urine 1+ (Negative); RBC Urine Automated 0-4 /hpf (0-4); Specific Gravity Urine 1.024 (1.000-1.030); Urobilinogen Urine Negative (Negative)
[2021-04-23 09:30] LABS: Base Excess VBG -5.7 mEq/L; Oxygen Saturation VBG 80.3 %; pH VBG 7.43 (7.36-7.41)
[2021-04-23 09:31] LABS: Bilirubin Urine 3+ (Negative)
[2021-04-23 09:38] LABS: Alanine Aminotransferase 91 U/L (12-78); Albumin Globulin Ratio 0.5 (0.9-2); Alkaline Phosphatase 225 U/L (45-117); Aspartate Aminotransferase 73 U/L (15-37); BUN Creatinine Ratio 20.3 (10-20); Bilirubin,Total 1.2 mg/dl (0.2-1); Blood Urea Nitrogen 63 mg/dl (7-18); Calcium 10.3 mg/dl (8.5-10.1); Carbon Dioxide 22 mmol/L (21-32); Chloride 86 mmol/L (98-107); Creatine Kinase 54 U/L (26-192); Creatine Kinase MB 1.1 ng/ml (0.5-3.6); Creatinine Clr Calc Pharmacy 17.9 ml/min; Est GFR (African American) 18.5 ml/min; Est GFR (Non-African American) 15.9 ml/min; Globulin 5.5 gm/dl (2.5-4.0); Glucose 175 mg/dl (70-99); Magnesium 1.9 mg/dl (1.8-2.4); Potassium 2.3 mmol/L (3.5-5.1); Sodium 131 mmol/L (136-145); Total Protein 8.5 gm/dl (6.4-8.2); Troponin I < 0.015 ng/ml (0-0.045)
[2021-04-23] MEDS ORDERED: POTASSIUM CHLORIDE / WTR 10 MEQ/100 ML PLCT IV ONE (09:39)
[2021-04-23] MEDS ORDERED: SODIUM CHLORIDE 0.9% 1000ML 1,000 ML IV ONE ×2 (09:39→15:25)
[2021-04-23 09:59] LABS: Adenovirus PCR Not Detected (NotDetected); Bordetella parapertussis PCR Not Detected (NotDetected); Bordetella pertussis PCR Not Detected (NotDetected); Chlamydia pneumoniae PCR Not Detected (NotDetected); Coronavirus 229E PCR Not Detected (NotDetected); Coronavirus CoV-2 (COVID19)PCR Not Detected (NotDetected); Coronavirus HKU1 PCR Not Detected (NotDetected); Coronavirus NL63 PCR Not Detected (NotDetected); Coronavirus OC43PCR Not Detected (NotDetected); Human Metapneumovirus PCR Not Detected (NotDetected); Influenza A PCR Not Detected (NotDetected); Influenza B PCR Not Detected (NotDetected); Mycoplasma pneumoniae PCR Not Detected (NotDetected); Parainfluenza Virus 1 PCR Not Detected (NotDetected); Parainfluenza Virus 2 PCR Not Detected (NotDetected); Parainfluenza Virus 3 PCR Not Detected (NotDetected); Parainfluenza Virus 4 PCR Not Detected (NotDetected); Respiratory Syncytial VirusPCR Not Detected (NotDetected); Rhinovirus/Enterovirus PCR Not Detected (NotDetected)
--- NOTE | 2021-04-23 09:59 | XRay Report ---
XR chest 1V portable CLINICAL HISTORY: SEPSIS. Evaluate cardiopulmonary status COMPARISON STUDY: 08/12/2019 TECHNIQUE: 1 view of the chest FINDINGS: Single frontal view of the chest demonstrates the cardiomediastinal silhouette to be within normal li mits. The lungs are clear of alveolar opacities. There is no evidence for pleural effusion. There is no evidence for vascular congestion. There is no acute osseous pathology. IMPRESSION: No acute cardiopulmonary disease. ACT 112: Negative or not required by law. Electronically signed by: Kobi Bear M.D. 04/23/2021 9:57 AM
[2021-04-23 10:01] LABS: Acetaminophen 8 ug/ml (10-30); Salicylate < 1.7 mg/dl (2.8-20)
[2021-04-23 10:14] LABS: Amphetamines+Metham, Urine Neg (Neg); Barbiturates, Urine Neg (Neg); Benzodiazepine, Urine Neg (Neg); Cocaine, Urine Neg (Neg); MDMA (Ecstacy), Urine Neg (Neg); Methadone, Urine Neg (Neg); Opiate, Urine Neg (Neg); Phencyclidine, Urine Neg (Neg)
--- NOTE | 2021-04-23 10:38 | CT Scan Report ---
CT head/brain wo con CLINICAL HISTORY: Altered mental status. Patient found down and unresponsive COMPARISON STUDY: 08/12/2019 TECHNIQUE: Standard CT of the Brain was performed without IV contrast. A dose lowering technique was utilized adhering to the principles of ALARA. FINDINGS: Extraaxial space: There is no evidence for subdural hematoma. There are no extra-axial fluid collecti ons. Ventricles and cisterns: The ventricles are mildly dilated bilaterally. There is no evidence for mid line shift or mass effect. Parenchyma: There is no subarachnoid or intraparenchymal hemorrhage. There is no evidence for an acu te infarct or cerebral edema. There is homogeneous attenuation of the brain parenchyma. There are no gross mass lesions. Osseous structures: There is no evidence for an acute fracture. The visualized paranasal sinuses are clear. The mastoid air cells are clear bilaterally. Soft tissues: There is no evidence for focal soft tissue swelling. IMPRESSION: No acute intracerebral pathology. ACT 112: Negative or not required by law. Electronically signed by: Kobi Bear M.D. 04/23/2021 10:36 AM
--- NOTE | 2021-04-23 10:42 | CT Scan Report ---
CT cervical spine wo con CLINICAL HISTORY: Altered mental status. Patient found down and unresponsive. COMPARISON STUDY: No previous studies for comparison. CT DOSE: 2098.21 mGy.cm TECHNIQUE: Standard CT of the Cervical Spine was performed without IV contrast. A dose lowering te chnique was utilized adhering to the principles of ALARA. FINDINGS: Bones: There is no evidence for an acute fracture or malalignment. The heights of the vertebral margarita s are maintained. The vertebral bodies are in anatomic alignment. The odontoid is intact. Degenerativ e changes are seen at the atlantoaxial articulation. Disc spaces:There is mild to moderate disc space narrowing from C5 through C7 with minimal endplate o steophyte formation. Apophyseal joints:Mild degenerative apophyseal joint disease is also present bilaterally. Soft tissues:The prevertebral soft tissues are within normal limits. IMPRESSION: No acute abnormality with mild degenerative disc and degenerative joint disease. ACT 112: Negative or not required by law. Electronically signed by: Kobi Bear M.D. 04/23/2021 10:41 AM
--- NOTE | 2021-04-23 10:46 | Electrocardiogram Report ---
Test Reason : Blood Pressure : / mmHG Vent. Rate : 073 BPM Atrial Rate : 073 BPM P-R Int : 176 ms QRS Dur : 092 ms QT Int : 508 ms P-R-T Axes : 102 074 -69 degrees QTc Int : 559 ms Poor data quality, interpretation may be adversely affected Sinus rhythm with Premature supraventricular complexes possible Inferior infarct (cited on or before 12-AUG-2019) Abnormal ECG When compared with ECG of 12-AUG-2019 11:39, Premature supraventricular complexes are now Present T wave inversion now evident in Inferior leads QT has lengthened Confirmed by Tim Ragland ([id number]) on 04/23/2021 10:46:22 AM Referred By: NO PCP Confirmed By:Ramon Ragland
--- NOTE | 2021-04-23 10:54 | CT Scan Report ---
CT chest diagnostic wo con CLINICAL HISTORY: ams . Patient found down and unresponsive COMPARISON STUDY: No previous studies for comparison. TECHNIQUE: Standard CT of the Chest was performed without IV contrast. A dose lowering technique was utilized adhering to the principles of ALARA. FINDINGS: Airway: The airway is clear. No endobronchial lesion is identified. Lungs: There are small patchy alveolar opacities within the right lower lobe posteromedially suspicio us for early pneumonia. No air bronchograms are seen. The remainder of the lungs are clear of acute a lveolar opacities, air bronchograms or pulmonary nodules. Pleura: There is no evidence for pleural effusion. There is no evidence for pneumothorax. Mediastinum: There is no evidence for pathologic adenopathy on these limited noncontrast images. The heart size is within normal limits. The thoracic aorta is within normal limits. There is no evidence for pericardial effusion. Osseous structures: There is no acute osseous pathology. IMPRESSION: 1. There are small patchy alveolar opacities within the right lower lobe posterior medially suspiciou s for early pneumonia. 2. There is no other evidence for no acute chest disease on these noncontrast images. ACT 112: Negative or not required by law. Electronically signed by: Kobi Bear M.D. 04/23/2021 10:52 AM
--- NOTE | 2021-04-23 11:03 | CT Scan Report ---
CT abd pelvis wo con CLINICAL HISTORY: Altered mental status. Patient found down unresponsive. Abdominal distention. COMPARISON STUDY: No previous studies for comparison. TECHNIQUE: Standard CT of the Abdomen and Pelvis was performed without IV contrast. The patient did not receive oral contrast. A dose lowering technique was utilized adhering to the principles of SELIN Lacey. FINDINGS: Abdominal cavity: There is no evidence for abdominal mass, adenopathy or ascites. Liver: The liver is homogeneous in attenuation on these limited noncontrast images.. Spleen: The spleen is homogeneous in attenuation on these limited noncontrast images. Pancreas: The pancreas is homogeneous in attenuation on these limited noncontrast images. Gall Bladder: The gallbladder is distended with cholelithiasis. There is no CT evidence for acute cho lecystitis. Adrenal glands: The adrenal glands are normal in size and attenuation on these limited noncontrast im ages. Kidneys: The kidneys are homogeneous in attenuation on these limited noncontrast images. There is no evidence for gross renal mass, calculus or hydronephrosis bilaterally. Bowel: The stomach is distended with liquid and food stuff. The bowel loops are normally placed withi n the abdomen and pelvis without evidence for dilatation or obstruction. There is no evidence for mas s lesion. There are no inflammatory changes present. There is no evidence for free air. There is a no rmal appendix in the right lower quadrant. Bladder: Delatorre catheter is present within the bladder. : There is no evidence for pelvic mass or adenopathy. Vasculature: There is no evidence for focal aneurysmal dilatation of the abdominal aorta. Atheroscler otic calcification is present. Osseous structures: There is no acute osseous pathology. Degenerative changes are seen within the spi ne. IMPRESSION: 1. The stomach is distended with liquid and food stuff. 2. The gallbladder is distended with cholelithiasis. There is no CT evidence for acute cholecystitis. 3. No other evidence for acute intra-abdominal or pelvic abnormality on these limited noncontrast jessi ges. 4. Additional nonacute findings as delineated above. ACT 112: Negative or not required by law. Electronically signed by: Kobi Bear M.D. 04/23/2021 11:01 AM
[2021-04-23] MEDS ORDERED: LACTATED RINGER'S 1,000 ML IV ONE (11:44)
--- NOTE | 2021-04-23 11:47 | History & Physical Report ---
Date of Service April 23, 2021 Assessment & Plan (1) Septic shock: Plan: This is a 60yo F with a PMH of alcoholism with cirrhosis, history of esophageal varices, type 2 diabetes, hypertension and other medical problems listed below who presents with altered mental status known since this morning presenting with hypothermia and septic shock. Found to be obtunded and covered in vomit this morning by boyfriend after 6 days of intractable nausea, vomiting and generalized weakness Presented with AMS temp of 32 C, as well as hypotensive with SBP 80s-90s Initial lactate 3, normalized with fluid resuscitation. Procalcitonin 0.75 Mentation has improved with 4 L fluid given total including banana bag. SBP still high 80s-90s. Norepi ordered Wearing Bertrand hugger with temp improved to now 34.[address] head, c-spine without abnormality. CXR with possible RLL PNA. CT abd/pelvis with stomach distended with liquid. GB with cholelithiasis but not cholecystitis. Otherwise no evidence of acute intra-abdominal or pelvic abn Started on zosyn, vanco and doxy for empiric coverage LP performed in ED showing elevated CSF protein of 100.8. No WBC, CSF glucose 98. Remainder of infectious LP labs pending Discussed with Dr. Coto of neuro, who feels CSF protein elevation consistent with sepsis. Recommends ID consult Dr. Dominguez aware and patient will go to unit if still requiring pressors (2) Acute metabolic encephalopathy: Plan: In setting of sepsis, concern for Wernicke's encephalopathy given chronic alcoholism, poor nutrition, oculomotor irregularities and hypothermia CT head, c-spine without abnormality LP with elevated protein and glucose. WBC wnl Continue empiric antibiotics, follow cultures. UDS unremarkable Continue IV fluid resuscitation Initiated IV Thiamine 500 Q8H for concern for Wernicke's, obtain brain MRI once stable Neuro consulted (3) Hypothermia: Plan: Temp initially 32 C, improved to 34.5 C with bertrand hugger in place In setting of sepsis and concern for Wernike's encephalopathy Continue warmer (4) Acute hypokalemia: Plan: In setting of nausea and vomiting over past week Replacing potassium, repeat BMP at 1500 Telemetry monitoring (5) Cardiac arrhythmia: Plan: Arrhythmia while in ED - artifact vs wide complex tachycardia Reviewed rhythm strips with Dr Muniz who feels consistent with artifact Expect improvement with lyte replacement, warming, abx Repeat EKG pending. Initial troponin negative Routine cardiology consult (6) Acute kidney injury: Plan: Cr elevated at 3 (baseline ~ 0.9) in setting of sepsis, poor PO intake Expect pre-renal etiology, repeat BMP pending for this afternoon Avoid nephrotoxic agents when able (7) Alcohol abuse: (8) Cirrhosis: Plan: Denies etoh use for past week. No s/sx of seizure, CK wnl On diuretics per [facility] med rec, will need to clarify medrec with patient when mentation improves (9) Hypertension: Plan: Currently requiring IV pressor support for low BP in setting of sepsis (10) Diabetes mellitus, type II: Plan: Most recent a1c 6.7 in 08/13. Will repeat in AM Hold home agents SSI while in-patient BSG AC HS DVT Ppx: SQ heparin Code status: FULL PCP: Sammy Dispo: Admitted to ICU Patient seen in collaboration with Dr. Ortega. Please see addendum. History of Present Illness Chief Complaint: nausea, AMS, double vision Primary Care Provider: Jesse Christianson DO This is a 60yo F with a PMH of alcoholism with cirrhosis, history of esophageal varices, type 2 diabetes, hypertension and other medical problems listed below who presents with altered mental status known since this morning. History obtained from patient and boyfriend at bedside. Patient has been feeling unwell for the past week with nausea and vomiting. Limited ability to keep down food and water with bilious emesis intermittently over the past week. Did have one episode that was red in color this morning but boyfriend attributes this to multivitamin Gummies. Has felt to weak and sick to get out of bed. Patient has been week and endorses falling out of bed 3 days ago, remaining on the floor for 12 hours. Since then, boyfriend has noticed unusual eye movements and staring. Patient also complaining of double vision over the past few days. Does have history of vertigo but states this feels different and vision is more affected. No focal weakness. Has been intermittently confused over the past few days and refused medical care, per boyfriend. When he returned from working overnight shift he found patient obtunded and covered in vomit in bed. Called EMS and patient was brought to ED for further evaluation. Was initially disoriented with T of 32 C and hypotensive with SBP 80s-90s. Mentation has improved with 4 L fluid given total including banana bag. SBP still 80s-90. Wearing Bertrand hugger with T now 34.5 C. Continues to experience double vision but not feeling nausea at the moment. Denies any headache. Unsure if she has had fever at home but endorses chills. Intermittent chest and abdominal discomfort in past few days but does not have either right now. No palpitations. Most recent vomiting this morning. No dysuria. No bowel movement in past 5 days in setting of limited PO intake. Is a chronic drinker but has not felt well enough to drink for past week. Allergies Allergy/AdvReac Type Severity Reaction Status Date / Time Bactrim Allergy Unknown RASH Verified 06/14/17 07:47 Penicillins Allergy Unknown unknown Unverified 04/23/21 09:58 sulfamethoxazole Allergy Unknown RASH Verified 04/23/21 09:58 trimethoprim Allergy Unknown RASH Verified 04/23/21 09:58 SULFA Allergy Unknown RASH Uncoded 04/23/21 09:58 Home Medications Medication Instructions Recorded Confirmed Type atorvastatin 40 mg tablet 40 mg PO DAILY 04/23/21 04/23/21 History ferrous sulfate 325 mg (65 mg 325 mg PO BID 04/23/21 04/23/21 History iron) tablet magnesium chloride 64 mg 128 mg PO DAILY 04/23/21 04/23/21 History tablet,extended release metformin 500 mg tablet,extended 1,000 mg PO BID 04/23/21 04/23/21 History release 24 hr multivitamin 1 tab PO DAILY 04/23/21 04/23/21 History omeprazole 20 mg capsule,delayed 20 mg PO DAILY 04/23/21 04/23/21 History release pantoprazole 40 mg tablet,delayed 40 mg PO DAILY 04/23/21 04/23/21 History release propranolol 60 mg tablet 60 mg PO DAILY 04/23/21 04/23/21 History semaglutide (Ozempic) See Rx Instructions .ROUTE .COMPLEX 04/23/21 History spironolactone 100 mg tablet 100 mg PO DAILY 04/23/21 04/23/21 History Past Med/Surg History Medical History (Updated 04/23/21 @ 16:12 by Lico Delgadillo DO) Alcohol abuse Cirrhosis Diabetes mellitus, type II Hypertension Surgical History (Updated 04/23/21 @ 14:24 by Norma Parish PA-C) H/O colonoscopy History of cryosurgery History of esophagogastroduodenoscopy (EGD) Family History Other Diabetes Hypertension Kidney disease Social History Smoking Status: Former smoker Hx Alcohol Use: Yes Alcohol type: wine Hx Substance Use: No Preferred Language: Turkmen Communication Ability: Effective Agency Recruiter Required: No Beliefs That Will Affect Care: None Current Living Situation: Other Current Living Situation Comment: Lives with friend Other Information That Helps Us Care for You: No Feels Safe at Home: Yes Safety Concerns: Feels Safe At This Time Assistive Devices: Walker Review of Systems Review of Systems: At least ten systems reviewed and negative except as noted in the HPI. Physical Exam Physical Exam: General Appearance: vitals as above, lying in bed, alert and responding to questions, shivering with Bertrand hugger in place Head: normocephalic, atraumatic Eyes: PERRL, conjunctivae normal, anicteric sclerae, + L eye with lateral gaze palsy ENT: external ear and nose normal, oropharynx normal Neck: normal visual inspection, trachea midline, no thyromegaly Respiratory: normal respiratory effort, coarse breath sounds, no wheeze, rales, rhonchi. No accessory muscle use Cardiovascular: regular rate, rhythm, no murmur appreciated, normal peripheral pulses, no BLE edema. Vessels: no JVD Chest: normal inspection of chest Abdomen/GI: normal bowel sounds, soft, nontender, no hepatosplenomegaly Extremities/Musculoskeletal: no cyanosis or clubbing, extremities motor strength 5/5 Neurologic: PERRL, EOMI, accommodation nl, no face palsy, no dysarthria, CN's II-XI intact bilaterally and moves all extremities Psychiatric: A+Ox3, euthymic affect Skin: no rashes, normal color, warm/dry Results & Data Results & Data ([facility]) Vital Signs (Past 12 Hours) Vital Signs Temp Pulse Resp BP Pulse Ox 04/23/21 10:39 32.1 C L 04/23/21 09:30 73 15 100 04/23/21 09:20 111 H 17 100 04/23/21 09:10 104 H 17 100 04/23/21 09:00 90 20 96 04/23/21 08:55 32.9 C L 84 17 126/90 100 04/23/21 08:50 91 H 21 100 Laboratory Results Short CBC 04/23/21 Range/Units 08:45 WBC 11.17 H (4.8-10.8) K/uL Hgb 12.9 (12.0-16.0) g/dL Hct 37.7 (37-47) % Plt Count 222 (130-400) K/uL BMP 04/23/21 08:45 Sodium 131 L Potassium 2.3 L* Chloride 86 L Carbon Dioxide 22 BUN 63 H Creatinine 3.08 H Glucose 175 H Calcium 10.3 H Cardiac Enzymes 04/23/21 Range/Units 08:45 Total Creatine Kinase 54 (26-192) U/L CK-MB (CK-2) 1.1 (0.5-3.6) ng/ml Troponin I < 0.015 (0-0.045) ng/ml Liver Function 04/23/21 Range/Units 08:45 Total Bilirubin 1.2 H (0.2-1) mg/dl AST 73 H (15-37) U/L ALT 91 H (12-78) U/L Alkaline Phosphatase 225 H (45-117) U/L Albumin 3.0 L (3.4-5.0) gm/dl Urine 04/23/21 Range/Units Unknown Urine Color Ware Urine Appearance Clear (Clear) Urine pH 5.0 (4.5-7.5) Ur Specific [place] 1.024 (1.000-1.030) Urine Protein 1+ H (Negative) Urine Glucose (UA) Negative (Negative) Diagnostic Findings Chest X-Ray 04/23/21 08:30 XR chest 1V portable CLINICAL HISTORY: SEPSIS. Evaluate cardiopulmonary status COMPARISON STUDY: 08/12/2019 TECHNIQUE: 1 view of the chest FINDINGS: Single frontal view of the chest demonstrates the cardiomediastinal silhouette to be within normal limits. The lungs are clear of alveolar opacities. There is no evidence for pleural effusion. There is no evidence for vascular congestion. There is no acute osseous pathology. IMPRESSION: No acute cardiopulmonary disease. ACT 112: Negative or not required by law. Electronically signed by: Kobi Bear M.D. 04/23/2021 9:[address] 04/23/21 08:30 CT head/brain wo con CLINICAL HISTORY: Altered mental status. Patient found down and unresponsive COMPARISON STUDY: 08/12/2019 TECHNIQUE: Standard CT of the Brain was performed without IV contrast. A dose lowering technique was utilized adhering to the principles of ALARA. FINDINGS: Extraaxial space: There is no evidence for subdural hematoma. There are no extra-axial fluid collections. Ventricles and cisterns: The ventricles are mildly dilated bilaterally. There is no evidence for midline shift or mass effect. Parenchyma: There is no subarachnoid or intraparenchymal hemorrhage. There is no evidence for an acute infarct or cerebral edema. There is homogeneous attenuation of the brain parenchyma. There are no gross mass lesions. Osseous structures: There is no evidence for an acute fracture. The visualized paranasal sinuses are clear. The mastoid air cells are clear bilaterally. Soft tissues: There is no evidence for focal soft tissue swelling. IMPRESSION: No acute intracerebral pathology. ACT 112: Negative or not required by law. Electronically signed by: Kobi Bear M.D. 04/23/2021 10:[address] 04/23/21 08:38 CT cervical spine wo con CLINICAL HISTORY: Altered mental status. Patient found down and unresponsive. COMPARISON STUDY: No previous studies for comparison. CT DOSE: 2098.21 mGy.cm TECHNIQUE: Standard CT of the Cervical Spine was performed without IV contrast. A dose lowering technique was utilized adhering to the principles of ALARA. FINDINGS: Bones: There is no evidence for an acute fracture or malalignment. The heights of the vertebral bodies are maintained. The vertebral bodies are in anatomic alignment. The odontoid is intact. Degenerative changes are seen at the atlantoaxial articulation. Disc spaces:There is mild to moderate disc space narrowing from C5 through C7 with minimal endplate osteophyte formation. Apophyseal joints:Mild degenerative apophyseal joint disease is also present bilaterally. Soft tissues:The prevertebral soft tissues are within normal limits. IMPRESSION: No acute abnormality with mild degenerative disc and degenerative joint disease. ACT 112: Negative or not required by law. Electronically signed by: Kobi Bear M.D. 04/23/2021 10:41 AM Abdomen/Pelvis CT 04/23/21 09:41 CT abd pelvis wo con CLINICAL HISTORY: Altered mental status. Patient found down unresponsive. Abdominal distention. COMPARISON STUDY: No previous studies for comparison. TECHNIQUE: Standard CT of the Abdomen and Pelvis was performed without IV co ntrast. The patient did not receive oral contrast. A dose lowering technique was utilized adhering to the principles of ALARA. FINDINGS: Abdominal cavity: There is no evidence for abdominal mass, adenopathy or ascites. Liver: The liver is homogeneous in attenuation on these limited noncontrast images.. Spleen: The spleen is homogeneous in attenuation on these limited noncontrast images. Pancreas: The pancreas is homogeneous in attenuation on these limited noncontrast images. Gall Bladder: The gallbladder is distended with cholelithiasis. There is no CT evidence for acute cholecystitis. Adrenal glands: The adrenal glands are normal in size and attenuation on these limited noncontrast images. Kidneys: The kidneys are homogeneous in attenuation on these limited noncontrast images. There is no evidence for gross renal mass, calculus or hydronephrosis bilaterally. Bowel: The stomach is distended with liquid and food stuff. The bowel loops are normally placed within the abdomen and pelvis without evidence for dilatation or obstruction. There is no evidence for mass lesion. There are no inflammatory changes present. There is no evidence for free air. There is a normal appendix in the right lower quadrant. Bladder: Delatorre catheter is present within the bladder. : There is no evidence for pelvic mass or adenopathy. Vasculature: There is no evidence for focal aneurysmal dilatation of the abdominal aorta. Atherosclerotic calcification is present. Osseous structures: There is no acute osseous pathology. Degenerative changes are seen within the spine. IMPRESSION: 1. The stomach is distended with liquid and food stuff. 2. The gallbladder is distended with cholelithiasis. There is no CT evidence for acute cholecystitis. 3. No other evidence for acute intra-abdominal or pelvic abnormality on these limited noncontrast images. 4. Additional nonacute findings as delineated above. ACT 112: Negative or not required by law. Electronically signed by: Kobi Bear M.D. 04/23/2021 11:[address] 04/23/21 09:41 CT chest diagnostic wo con CLINICAL HISTORY: ams . Patient found down and unresponsive COMPARISON STUDY: No previous studies for comparison. TECHNIQUE: Standard CT of the Chest was performed without IV contrast. A dose lowering technique was utilized adhering to the principles of ALARA. FINDINGS: Airway: The airway is clear. No endobronchial lesion is identified. Lungs: There are small patchy alveolar opacities within the right lower lobe posteromedially suspicious for early pneumonia. No air bronchograms are seen. The remainder of the lungs are clear of acute alveolar opacities, air bronchograms or pulmonary nodules. Pleura: There is no evidence for pleural effusion. There is no evidence for pneumothorax. Mediastinum: There is no evidence for pathologic adenopathy on these limited noncontrast images. The heart size is within normal limits. The thoracic aorta is within normal limits. There is no evidence for pericardial effusion. Osseous structures: There is no acute osseous pathology. IMPRESSION: 1. There are small patchy alveolar opacities within the right lower lobe posterior medially suspicious for early pneumonia. 2. There is no other evidence for no acute chest disease on these noncontrast images. ACT 112: Negative or not required by law. Electronically signed by: Kobi Bear M.D. 04/23/2021 10:52 AM Supervising Physician Co-Signing Physician Notes Attending addendum: Patient was seen and examined in the emergency room in presence of significant other She has been almost bedbound for the last 7 days with weakness, nausea and vomiting and minimal pain in the abdomen. She has had diplopia today or yesterday and has had a fall recently. This morning she was noted to be very weak and lethargic and hypothermic and was brought in to the emergency room for further evaluation. During my examination she was conversing normally with me and she did not have any diplopia and remains generally weak. Denies any fever and/or chills,. Denies any problem with urine and or bowel habit. Has generalized weakness but no focal weakness. No photophobia and/or headache. On examination Blood pressure was noted to be in the lower side at systolic 80s Remained hypothermic Chest-decreased breath sounds bilaterally Heart-S1-S2, irregular Abdomen-not distended, nontender, bowel sounds sluggish Extremities-no edema NUMEROLOGIST-alert and awake. Generally weak. No dysarthria and/or dysphagia, no facial droop, no visual abnormalities and no diplopia on examination. Generally weak without any focal neuro deficit Her admission labs, EKG and imaging studies reviewed Presented with hypothermia and sepsis with septic shock Received intravenous antibiotic and fluid boluses and required pressor agents to maintain blood pressure Acute metabolic Encephalopathy with questionable diplopia and noted to have high CSF protein without any elevation of white count Could be secondary to Wernicke type encephalopathy-neuro consulted and high doses of vitamin B1 administered Significant history of alcoholism with significant electrolyte abnormalities, we will watch out for any withdrawal symptoms Acute renal failure likely secondary to significant dehydration Has cirrhosis and will check ammonia level Agree with assessment and plan as outlined above by DARSHAN Hackett Dr
[2021-04-23] MEDS ORDERED: VANCOMYCIN HCL 1,250 MG in SODIUM CHLORIDE 0.9% 250 ML IV STA (11:49)
[2021-04-23] MEDS ORDERED: VANCOMYCIN CONSULT ACTIVE PRN (11:52)
[2021-04-23 12:17] LABS: Appearance CSF Clear; CSF Count Tube # 3; CSF Xanthrochromic No xanthochromia; Color CSF Colorless; Red Blood Cell CSF (A) 1 /uL (0-); Red Blood Cell CSF (B) 3 /uL (0-); White Blood Cell CSF (A) 0 /uL (0-5); White Blood Cell CSF (B) 0 /uL (0-5)
[2021-04-23] MEDS: POTASSIUM CHLORIDE / WTR 10 MEQ/100 ML PLCT IV SCH ×3 (12:19→14:26)
[2021-04-23] MEDS ORDERED: POTASSIUM CHLORIDE 40 MEQ in SODIUM CHLORIDE 0.9% 1000ML 1,000 ML IV SCH (12:30)
[2021-04-23 12:33] LABS: Total Protein CSF 100.8 mg/dl (15-45)
[2021-04-23] MEDS: DOXYCYCLINE HYCLATE 100 MG in DEXTROSE 5% 100 ML IV SCH (12:37)
[2021-04-23 13:38] LABS: Cryptococcus neoformans/ga PCR Not Detected (NotDetected); Cytomegalovirus PCR Not Detected (NotDetected); Enterovirus PCR Not Detected (NotDetected); Escherichia coli K1 PCR Not Detected (NotDetected); Haemophilius influenzae PCR Not Detected (NotDetected); Herpes Simplex Virus 1 PCR Not Detected (NotDetected); Herpes Simplex Virus 2 PCR Not Detected (NotDetected); Human Herpes Virus 6 PCR Not Detected (NotDetected); Human Parechovirus PCR Not Detected (NotDetected); Listeria monocytogenes PCR Not Detected (NotDetected); Neisseria meningitidis PCR Not Detected (NotDetected); Streptococcus agalactiae PCR Not Detected (NotDetected); Streptococcus pneumoniae PCR Not Detected (NotDetected); Varicella Zoster Virus PCR Not Detected (NotDetected)
[2021-04-23] MEDS: THIAMINE HCL 500 MG in SODIUM CHLORIDE 0.9% 50 ML IV SCH ×2 (13:55→21:51)
[2021-04-23] MEDS ORDERED: STAT IV Infusion **Titration per Protocol STA (13:58)
[2021-04-23] MEDS ORDERED: PIPERACILLIN/TAZOBACTAM 3.375 GM in DEXTROSE 5% 100 ML IV ONE (14:00)
[2021-04-23] MEDS ORDERED: NOREPINEPHRINE/D5W 8 MG/508 ML BAG IV SCH (14:00)
[2021-04-23] MEDS ORDERED: PIPERACILL/TAZOBAC CONSULT ACTIVE PRN (15:23)
--- NOTE | 2021-04-23 15:41 | Pharmacy Report ---
Pharmacy Vanc AUC Short Note - Date of Service April 23, 2021 - Assessment & Plan Assessment * 60 year old F receiving VANCOMYCIN + DOXYCYCLINE + ZOSYN for treatment of septic shock, possibly from GI or pulm source (concern for aspiration). * Pertinent microbiologic data includes: MRSA nasal swab pending, CSF with elevated protein but no WBC - BioFire pending, BLCX's x 2 ordered * PMH significant for: EtOH use, cirrhosis, varicies, and DM * Day # 1 of antimicrobial therapy. Plan Vancomycin * AUC/BRADLEY is the preferred PK/PD target for vancomycin HOWEVER this patient is not a candidate due to severe JAZMINE * Patient received 1250mg IV x 1 (~19mg/kg) * Given predicted half-life of > 24 hrs, will order random levels to guide redosing. Random level has been ordered w/ AM labs tomorrow. Plan to redose when level < 20 or anticipated to be so. Zosyn * eCrCl < 20, BMI < 35, however pt critically ill and requiring pressor support therefore will use higher dose of 4.5gm EI Q 12 hrs Pharmacy will continue to follow and will adjust dose/frequency as necessary. Thank you.
[2021-04-23] MEDS ORDERED: ICU PROTOCOL FOR HYPERGLYCEMIA PRN (15:48)
[2021-04-23 16:33] LABS: BUN Creatinine Ratio 25.9 (10-20); Calcium 7.8 mg/dl (8.5-10.1); Creatinine Clr Calc Pharmacy 26.5 ml/min; Est GFR (African American) 29.7 ml/min; Est GFR (Non-African American) 25.6 ml/min; Potassium 2.8 mmol/L (3.5-5.1)
--- NOTE | 2021-04-23 17:06 | Consultation Report ---
NEUROLOGY CONSULTATION NOTE DATE OF CONSULTATION: 04/23/2021. CHIEF COMPLAINT: Altered mental status. HISTORY OF PRESENT ILLNESS: A 60-year-old woman with a history of chronic alcohol use and cirrhosis as well as type 2 diabetes and hypertension, admitted to the Emergency Department or presenting to [facility] Emergency Department this morning for altered mental status. The patient upon arrival was hypother mireille and concerned for septic shock. She was obtunded and covered in vomit this morning. Family or s ignificant other noted that she had 6 days of intractable nausea, vomiting and generalized weakness. On arrival, she had a temperature of 32 degrees Celsius as well as was hypotensive with systolic blo od pressure in the 80s to 90s. Procalcitonin was mildly elevated. Mentation improved with 4 liters of fluids. A Amber Hugger was placed due to the low temperature. CT head and cervical spine imaging was negative. Chest x-ray showed possible right lower lobe pneumonia. CT chest, abdomen, and pelvis showed cholelithiasis. She was started on Zosyn, vancomycin and doxycycline for empiric coverage. A lumbar puncture was performed in the Emergency Department, which showed elevated CSF protein, no WB Cs. CSF glucose was elevated. Neurology was consulted upon admission. ALLERGIES: BACTRIM, PENICILLINS, SULFAMETHOXAZOLE, TRIMETHOPRIM, SULFA. HOME MEDICATIONS: Omeprazole. PAST MEDICAL HISTORY: Chronic alcohol use, type 2 diabetes, hypertension, esophageal varices, cirrho sis. PAST SURGICAL HISTORY: Colonoscopy, cryosurgery, EGD. FAMILY HISTORY: Diabetes, hypertension, chronic kidney disease. SOCIAL HISTORY: Nonsmoker, chronically uses alcohol. States she drinks 2 glasses of wine per day. She is currently not working. REVIEW OF SYSTEMS: Positive for nausea, vomiting, poor appetite, weakness, double vision. All other review of systems were negative. PHYSICAL EXAMINATION: GENERAL: Appears acutely ill under a Amber Hugger. Appears older than stated age. HEENT: Head is normocephalic and atraumatic. Normal eyelids. Eyes are midline. NECK: Supple. LUNGS: Normal respiratory effort. CARDIAC: Pulses are normal. ABDOMEN: Nondistended. SKIN: Dry skin on the lower extremities. NEUROLOGIC: Flat affect, she is awake, oriented to age and place. Speech is slow and soft. She is following commands. Speech is clear. Extraocular movements are sluggish. Pupils are symmetric. Fac ial sensation is intact. No facial asymmetry. Tongue is midline with no abrasions. Gait evaluation deferred. She has mild tremor with outstretched hands, sensation is intact to light touch. Muscle tone is normal. No focal weakness. DIAGNOSTIC TESTING AND LABORATORY VALUES: WBC 11.17, hemoglobin 12.9, platelet count 222. Sodium 13 1, potassium 2.3, chloride 86, BUN 63, creatinine 3.08, glucose 175. Lactate 3.6, AST 73, ALT 91, al kaline phosphatase 225, creatine kinase is 54. Troponin was negative. CRP was 4.16. Procalcitonin was 0.75. TSH was 3.88. Urinalysis showed positive nitrites, 3+ bilirubin. Chest CT showed small pa tchy alveolar opacities within the right lower lobe suspicious for early pneumonia. CT head noncontr ast showed no acute intracranial pathology. ASSESSMENT AND PLAN: A 60-year-old woman with a history of chronic alcohol use, and recent poor p.o. intake due to nausea, vomiting and diarrhea, admitted with encephalopathy, which may be multifactori al due to acute renal failure or acute kidney injury versus septic shock versus Wernicke's encephalop athy. The patient hypothermic on arrival with reported diplopia earlier today and sluggish eye movem ents. This would be supportive of possible Wernicke's encephalopathy. Patient is high risk given th e chronic alcohol use as well as recent poor p.o. intake. Discussed with primary care team and recom mend starting IV thiamine aggressively as well as obtaining a thiamine level. Would recommend obtain ing an MRI of the brain without contrast. CSF studies reviewed with Norma Parish PA-C and elevated p rotein nonspecific, although may be suggestive of underlying sepsis. We will defer to primary team f or broad spectrum antimicrobial coverage/further workup of possible septic shock. Mentation does jose ear to have improved with the use of fluid resuscitation. Hypokalemia, as well as other electrolyte abnormalities may be responsible for generalized weakness. No obvious focal neuro deficits noted on exam this afternoon. Neurology will continue to follow. Job ID: [id number]
[2021-04-23] MEDS ORDERED: FLUARIX QUADRIVALENT 0.5 ML SYR IM ONE (17:09)
--- NOTE | 2021-04-23 17:20 | Electrocardiogram Report ---
Test Reason : Blood Pressure : / mmHG Vent. Rate : 090 BPM Atrial Rate : 090 BPM P-R Int : 174 ms QRS Dur : 084 ms QT Int : 464 ms P-R-T Axes : 057 047 076 degrees QTc Int : 567 ms Normal sinus rhythm Possible Left atrial enlargement Low voltage QRS Inferior infarct (cited on or before 12-AUG-2019) Prolonged QT Abnormal ECG When compared with ECG of 23-APR-2021 13:37, (unconfirmed) Nonspecific T wave abnormality no longer evident in Inferior leads Confirmed by Tim Ragland ([id number]) on 04/23/2021 5:19:38 PM Referred By: NO PCP Confirmed By:Ramon Ragland
--- NOTE | 2021-04-23 17:20 | Electrocardiogram Report ---
Test Reason : Blood Pressure : / mmHG Vent. Rate : 095 BPM Atrial Rate : 095 BPM P-R Int : 156 ms QRS Dur : 086 ms QT Int : 458 ms P-R-T Axes : 067 061 068 degrees QTc Int : 575 ms Poor data quality, interpretation may be adversely affected probably Normal sinus rhythm Inferior infarct (cited on or before 12-AUG-2019) Abnormal ECG When compared with ECG of 23-APR-2021 09:31, (unconfirmed) Vent. rate has decreased BY 87 BPM Right bundle branch block is no longer Present Borderline criteria for Lateral infarct are no longer Present Confirmed by Tim Ragland ([id number]) on 04/23/2021 5:19:31 PM Referred By: NO PCP Confirmed By:Ramon Ragland
--- NOTE | 2021-04-23 17:21 | Electrocardiogram Report ---
Test Reason : Blood Pressure : / mmHG Vent. Rate : 182 BPM Atrial Rate : 077 BPM P-R Int : 000 ms QRS Dur : 162 ms QT Int : 288 ms P-R-T Axes : 000 100 214 degrees QTc Int : 501 ms Poor data quality, interpretation may be adversely affected Not interpretable Confirmed by Tim Ragland ([id number]) on 04/23/2021 5:20:43 PM Referred By: NO PCP Confirmed By:Ramon Ragland
--- NOTE | 2021-04-23 19:24 | Critical Care Consultation ---
Date of Consultation April 23, 2021 Assessment & Plan (1) Admitted to intensive care unit: Reason Critically Ill: 60-year-old female with severe sepsis and septic shock in the setting of possible UTI versus pulmonary pathology requiring close hemodynamic monitoring status post aggressive IV fluid resuscitation and current need for vasopressor support. Patient also with profound hypokalemia requiring aggressive replacement and monitoring for dysrhythmia. NEURO - * CAM ICU: NEGATIVE * Altered mental status: * Has apparently shown some improvement from initial presentation. * No focal neurological deficits on exam. * CT head without acute findings. * CSF analysis not consistent with meningitis. * Mental status improving. * Continue to monitor improvement in mental status as clinical status improves. * Likely more related to acuity of illness at this point. * Continue with high-dose thiamine in the setting of alcohol abuse. * History of alcohol abuse: * Will hold on AWSS protocol until patient shows more improvement from her presenting conditions. * Patient ~1wk out from last drink which is encouraging that she is note having worsening withdraw symptoms to this point. CARDIAC/VASCULAR - * Hypotension: * In the setting of sepsis and ARF. * Received appropriate IVF --> Levophed. * Titrate down pressors as tolerated. * Continue w/ IVF * AM Cortisol * EKG: NSR w/ poor quality ECG. Rate [address] elevations noted. QTc 567ms. * Monitor on telemetry. RESPIRATORY - * ??RLL Pneumonia: * Noted on CT chest. * Agree with aggressive antibiotics including anaerobic coverage w/ recent h/o vomiting. * Saturating well on room air currently. GI/NUTRITION - * N/V/D: * Of ?? etiology at this point. Could add stool studies if she is noted to have increased output. ?? degree of withdraw related symptoms as she has not drank in ~1 wk as well. * Continue to provide IVF and antiemetics as needed. * Will add Lipase * Cirrhosis: * Likely 2/2 h/o EtOH abuse. * No concerning laboratory or imaging findings at this time. * Encourage abstinence from EtOH * Outpatient GI f/u * Prophylaxis: Famotidine RENAL/LYTES - * ARF: * Cr >3 w/ baseline <1. * Likely prerenal in the setting of GI losses and sepsis. * Received appropriate IVF resuscitation. * Pressors for now. * Continue w/ IVF and monitor urine output closely. * Hypokalemia: * Likely 2/2 GI losses. * Received supplementation in the ED. * Will trend labs and replace as needed. * IVF: Normosol @ 125 mL/hr - * Delatorre in place - Strict I&Os. ENDO - * DMII * BSGs per unit protocol. ISS --> gtt per unit policy. HEME - * Stable H&H ID - * Severe Sepsis: * ?? Urinary source. Small RLL pna likely not resulting in presenting sympt oms. * PCT wnl. * Lactate trending down. * Question if this may all be profound dehydration. * Regardless, continue Abx while cultures pend. LINES/IV ACCESS - * PIVs x2 * RIGHT Femoral CVL * Delatorre DVT PROPHYLAXIS - * Heparin sq * SCDs I have personally spent 45 minutes of critical care time in the direct management of this patient. This is a life/limb threatening event. This includes time spent evaluating patient, direct bedside care, chart review, placing orders, interpretation of diagnostic studies, discussion with consultants, patient, and family members, as well as other required patient management activities. This time is exclusive of all separately billable procedures, and teaching time and separate from and in addition to any other critical care service time. Thank you for allowing us to participate in the care of this patient. Please refer to my attending physician's documentation for any further recommendations. (2) Septic shock: (3) Pneumonia: (4) UTI (urinary tract infection): (5) Cirrhosis: (6) Diabetes mellitus, type II: (7) Hypothermia: (8) Acute hypokalemia: (9) Acute metabolic encephalopathy: (10) History of alcohol abuse: (11) Acute kidney injury: History of Present Illness Attending Physician: Monica Ortega MD History of Present Illness Patient is a 60-year-old female with a significant past medical history of alcohol abuse, hypertension, type 2 diabetes. She presented to the emergency department earlier this morning when her significant other found her to be altered. Apparently, the patient does have a significant past medical history of alcohol abuse with associated cirrhosis. She reportedly has not drank for the past week as she is felt to poor. She has had associated nausea and vomiting over the last week. She was mentating fine last evening, but was found to be altered and confused which prompted visit to the emergency department today. Initially, the patient was found to be hypothermic and hypotensive upon arrival in the emergency department. She was resuscitated with IV fluid and was rewarmed. Despite this, the patient had persistent hypotension and eventually required initiation of Levophed. Central line had been placed in the emergency department upon arrival. CT of head and neck were otherwise unremarkable. CSF fluid was assessed and did not suggest pattern of meningitis. Chest x-ray concerning for possible RIGHT lower lobe infiltrative process. The patient was treated with Zosyn, vancomycin, and doxycycline. Patient admitted to the ICU for ongoing management and close hemodynamic monitoring. Upon evaluation in the ICU, the patient is alert yet confused. She answers si mple questions appropriately. She does complain of some pain to her shins bilaterally which she reports has been ongoing since her fall a few days ago. She states that she does have a history of hypertension and was supposed to be taking medications, but has not taken them for the past year or so after losing her job and her insurance. She reports that she does follow with [employer], but again has not followed with them since losing her insurance. She admits to a history of alcohol abuse and states that she drinks 2 to 3 glasses of red wine when it is available, but reports that she has not done so over the last week. Currently, the patient denies complaints of headaches, chest pain, palpitations, shortness of breath, pleuritic pain, nausea, vomiting, or abdominal discomfort. Allergies Allergy/AdvReac Type Severity Reaction Status Date / Time Bactrim Allergy Unknown RASH Verified 06/14/17 07:47 Penicillins Allergy Unknown unknown Unverified 04/23/21 09:58 sulfamethoxazole Allergy Unknown RASH Verified 04/23/21 09:58 trimethoprim Allergy Unknown RASH Verified 04/23/21 09:58 SULFA Allergy Unknown RASH Uncoded 04/23/21 09:58 Home Medications Medication Instructions Recorded Confirmed Type atorvastatin 40 mg tablet 40 mg PO DAILY 04/23/21 04/23/21 History ferrous sulfate 325 mg (65 mg 325 mg PO BID 04/23/21 04/23/21 History iron) tablet magnesium chloride 64 mg 128 mg PO DAILY 04/23/21 04/23/21 History tablet,extended release metformin 500 mg tablet,extended 1,000 mg PO BID 04/23/21 04/23/21 History release 24 hr multivitamin 1 tab PO DAILY 04/23/21 04/23/21 History omeprazole 20 mg capsule,delayed 20 mg PO DAILY 04/23/21 04/23/21 History release pantoprazole 40 mg tablet,delayed 40 mg PO DAILY 04/23/21 04/23/21 History release propranolol 60 mg tablet 60 mg PO DAILY 04/23/21 04/23/21 History semaglutide (Ozempic) See Rx Instructions .ROUTE .COMPLEX 04/23/21 History spironolactone 100 mg tablet 100 mg PO DAILY 04/23/21 04/23/21 History Patient History Medical History Alcohol abuse Cirrhosis Diabetes mellitus, type II Hypertension Surgical History H/O colonoscopy History of cryosurgery History of esophagogastroduodenoscopy (EGD) Family History Other Diabetes Hypertension Kidney disease Social History Smoking Status: Former smoker Hx Alcohol Use: Yes Alcohol type: wine Hx Substance Use: No Preferred Language: [place]ian Communication Ability: Effective Looper Operator Required: No Beliefs That Will Affect Care: None Current Living Situation: Other Current Living Situation Comment: Lives with friend Other Information That Helps Us Care for You: No Feels Safe at Home: Yes Safety Concerns: Feels Safe At This Time Assistive Devices: Walker Review of Systems 2 Review of Systems: A complete 10 point review of systems was reviewed with the patient with pertinent positives and negatives as per history of present illness . All else were negative. Physical Exam Physical Exam: VITAL SIGNS - Vital signs and nursing notes were reviewed. GENERAL - 60-year-old female appearing her stated age who is in no acute distress. Pleasantly confused, but does answer some questions appropriately. SKIN - Without rashes. HEAD - NC/AT. EYES - PERRL with EOMI bilaterally. Sclera anicteric. Palpebral conjunctiva pink and moist with no injection noted. EARS - No deformities of external structures noted on gross examination bilaterally. NOSE - Midline and without cyanosis. No epistaxis or purulent drainage noted. MOUTH/OROPHARYNX - Without perioral cyanosis. Buccal mucosa pink and dry. NECK - Neck with FROM. Supple to palpation. No nuchal rigidity. LUNGS - Chest wall symmetric without accessory muscle use, intercostals retractions, or central cyanosis. Normal vesicular breath sounds CTA B/L. No wheezes, rales, or rhonchi appreciated. CARDIAC - RRR with S1/S2. No murmur, rubs, or gallops appreciated. ABDOMEN - Abdominal contour protuberant without pulsations or visible masses. BS normoactive all four quadrants. No tenderness, palpable masses, hepatosplenomegaly noted. EXTREMITIES - No clubbing or peripheral cyanosis. No pretibial edema present. +2/5 radial and dorsalis pedis pulses palpated throughout. +4/5 strength noted in UE/LE bilaterally. NEUROLOGIC - Cranial nerves II through XII grossly intact. Sensory intact to light touch throughout. PSYCH - A&Ox3 but drowsy and slightly confused. Does appear to be answering questions more appropriately than on presentation, but still not the best historian. Results & Data Results & Data ([facility]) Vital Signs (Past 12 Hours) Vital Signs Temp Pulse Pulse Resp BP BP Pulse Ox 04/23/21 18:00 36.6 C 89 14 98/65 L 99 04/23/21 17:50 88 04/23/21 17:45 36.6 C 91 H 22 101/67 96 04/23/21 17:30 36.6 C 91 H 15 97/62 L 100 04/23/21 17:15 36.6 C 92 H 12 101/65 100 04/23/21 17:00 36.7 C 94 H 13 89/63 L 98 04/23/21 16:45 36.7 C 90 23 119/70 88 L 04/23/21 16:30 36.7 C 90 17 100 04/23/21 16:15 36.6 C 92 H 89 15 100 04/23/21 16:02 36.8 C 97 H 17 104/67 99 04/23/21 15:46 36.7 C 98 H 14 77/55 L 99 04/23/21 14:34 35.8 C L 04/23/21 14:30 136 H 20 100/71 99 04/23/21 14:15 104 H 21 68/51 L 99 04/23/21 14:00 108 H 24 100 04/23/21 13:45 150 H 19 97 04/23/21 13:30 20 80/58 L 100 04/23/21 13:15 90 19 04/23/21 13:01 34.5 C L 04/23/21 13:00 92 H 16 99/62 L 100 04/23/21 12:45 91 H 18 97/73 L 100 04/23/21 12:30 88 21 114/73 96 04/23/21 12:15 88 15 104/77 100 04/23/21 12:00 86 15 103/78 100 04/23/21 11:45 84 105/75 95 04/23/21 11:30 127/88 100 04/23/21 11:15 82 15 102/74 04/23/21 11:00 81 14 104/67 100 04/23/21 10:45 80 22 94/68 L 93 04/23/21 10:39 32.1 C L 04/23/21 10:30 80 13 04/23/21 10:00 93 H 16 103/69 100 04/23/21 09:45 73 19 04/23/21 09:30 73 15 100 04/23/21 09:20 111 H 17 100 04/23/21 09:10 104 H 17 100 04/23/21 09:00 90 20 96 04/23/21 08:55 32.9 C L 84 17 126/90 100 04/23/21 08:50 91 H 21 100 Coding Level of Care Code Critical Care 1st 30-74 mins Diagnoses Admitted to intensive care unit Z78.9 Septic shock A41.9; R65.21 Pneumonia J18.9 UTI (urinary tract infection) N39.0 Cirrhosis K74.60 Diabetes mellitus, type II E11.9 Hypothermia T68.XXXA Acute hypokalemia E87.6 Acute metabolic encephalopathy G93.41 History of alcohol abuse F10.11 Acute kidney injury N17.9 Time Spent (min) 45
[2021-04-23 20:12] LABS: BUN Creatinine Ratio 24.2 (10-20); Calcium 7.8 mg/dl (8.5-10.1); Creatinine Clr Calc Pharmacy 25.8 ml/min; Est GFR (African American) 28.7 ml/min; Est GFR (Non-African American) 24.7 ml/min; Magnesium 1.2 mg/dl (1.8-2.4); Potassium 2.9 mmol/L (3.5-5.1)
[2021-04-23 20:17] LABS: Albumin Globulin Ratio 0.5 (0.9-2); Bilirubin,Total 0.9 mg/dl (0.2-1); Phosphorus 2.3 mg/dl (2.5-4.9)
[2021-04-23] MEDS: PIPERACILLIN/TAZOBACTAM 4.5 GM in DEXTROSE 5% 100 ML IV SCH (21:51)
[2021-04-23] MEDS: HEPARIN SOD 5,000 UNIT/0.5 ML VIAL SQ SCH (21:51)
[2021-04-23] MEDS ORDERED: POTASSIUM PHOS 3 MMOL/1 ML INFUSION IV STA (21:54)
[2021-04-23] MEDS: MAGNESIUM SULFATE / D5W 1 GM/100 ML BAG IV SCH (22:30)
[2021-04-23] MEDS ORDERED: POTASSIUM PHOSPHATE 15 MMOL in SODIUM CHLORIDE 0.9% 250 ML IV ONE (22:30)
[2021-04-23] MEDS: NORMOSOL-R 1,000 ML IV SCH (22:30)
[2021-04-23] MEDS: POTASSIUM CHLORIDE / WTR 20 MEQ/100 ML PLCT IV SCH (22:35)
[2021-04-24] MEDS: POTASSIUM CHLORIDE / WTR 20 MEQ/100 ML PLCT IV SCH ×3 (00:03→08:19)
[2021-04-24] MEDS: MAGNESIUM SULFATE / D5W 1 GM/100 ML BAG IV SCH ×2 (00:03→01:51)
[2021-04-24] MEDS: DOXYCYCLINE HYCLATE 100 MG in DEXTROSE 5% 100 ML IV SCH ×3 (01:02→23:31)
[2021-04-24] MEDS: THIAMINE HCL 500 MG in SODIUM CHLORIDE 0.9% 50 ML IV SCH ×3 (05:19→21:16)
[2021-04-24] MEDS: NORMOSOL-R 1,000 ML IV SCH ×2 (05:20→13:40)
[2021-04-24] MEDS: HEPARIN SOD 5,000 UNIT/0.5 ML VIAL SQ SCH ×2 (05:20→13:41)
[2021-04-24 05:43] LABS: Albumin Level 1.9 gm/dl (3.4-5.0); BUN Creatinine Ratio 23.5 (10-20); Calcium 8.3 mg/dl (8.5-10.1); Creatinine Clr Calc Pharmacy 29.6 ml/min; Est GFR (African American) 30.7 ml/min; Est GFR (Non-African American) 26.5 ml/min; Magnesium 2.6 mg/dl (1.8-2.4); Potassium 3.2 mmol/L (3.5-5.1)
[2021-04-24 05:46] LABS: INR 1.2 (0.9-1.1); Prothrombin Time 11.7 Seconds (9.0-12.0)
[2021-04-24 05:51] LABS: Bilirubin Direct 0.5 mg/dl (0-0.2); Bilirubin,Total 0.8 mg/dl (0.2-1); Phosphorus 3.3 mg/dl (2.5-4.9); Total Protein 5.7 gm/dl (6.4-8.2)
[2021-04-24 06:14] LABS: Eosinophils # (auto) 0.05 K/uL (0-0.5); Eosinophils % (auto) 0.6 %; Hematocrit (blood only) 25.5 % (37-47); Hemoglobin 8.4 g/dL (12.0-16.0); Immature Granulocytes # (auto) 0.03 K/uL (0.00-0.02); Immature Granulocytes % (auto) 0.3 %; Lymphocytes % (auto) 17.2 %; Mean Corpuscular Hemoglobin 31.5 pg (25-34); Mean Corpuscular Hgb Conc 32.9 g/dL (32-36); Mean Corpuscular Volume 95.5 fL (80-100); Mean Platelet Volume 9.3 fL (7.4-10.4); Monocytes # (auto) 0.64 K/uL (0.11-0.59); Monocytes % (auto) 7.3 %; Neutrophils % (auto) 74.6 %; Platelet Count 139 K/uL (130-400); RDW Standard Deviation 59.3 fL (36.4-46.3); Red Blood Count 2.67 M/uL (4.2-5.4); White Blood Count 8.72 K/uL (4.8-10.8)
--- NOTE | 2021-04-24 07:21 | Critical Care Progress Note ---
Date of Service April 24, 2021 Assessment & Plan (1) Admitted to intensive care unit: Plan: Reason critically ill: 60-year-old female with severe sepsis and septic shock in the setting of possible UTI versus pulmonary pathology requiring close hemodyn amic monitoring status post aggressive IV fluid resuscitation and current need for vasopressor support. Patient also with profound hypokalemia requiring aggressive replacement and monitoring for dysrhythmia. NEURO: CAM ICU: NEGATIVE Altered mental status: Has apparently shown some improvement from initial presentation. No focal neurological deficits on exam. CT head without acute findings. CSF analysis not consistent with meningitis. Mental status improving. Continue to monitor improvement in mental status as clinical status improves. Likely more related to acuity of illness at this point. Continue with high-dose thiamine in the setting of alcohol abuse. History of alcohol abuse: Will hold on AWSS protocol until patient shows more improvement from her presenting conditions. Patient ~1wk out from last drink which is encouraging that she is note having worsening withdraw symptoms to this point. CARDIAC/VASCULAR: Hypotension: In the setting of sepsis and ARF. Received appropriate IVF --> Levophed. Titrate down pressors as tolerated. Continue w/ IVF AM Cortisol EKG: NSR w/ poor quality ECG. Rate [address] elevations noted. QTc 567ms. Monitor on telemetry. RESPIRATORY: ??RLL Pneumonia: Noted on CT chest. Agree with aggressive antibiotics including anaerobic coverage w/ recent h/o vomiting. Saturating well on room air currently. GI/NUTRITION: N/V/D: Of ?? etiology at this point. Could add stool studies if she is noted to have increased output. ?? degree of withdraw related symptoms as she has not drank in ~1 wk as well. Continue to provide IVF and antiemetics as needed. Lipase wnl Cirrhosis: Likely 2/2 h/o EtOH abuse. No concerning laboratory or imaging findings at this time. Encourage abstinence from EtOH Outpatient GI f/u Prophylaxis: Famotidine RENAL/LYTES: ARF: Cr >3 w/ baseline <1. Likely prerenal in the setting of GI losses and sepsis. Received appropriate IVF resuscitation. Pressors for now. Continue w/ IVF and monitor urine output closely. Hypokalemia: Likely 2/2 GI losses. Received supplementation in the ED. Will trend labs and replace as needed. IVF: Normosol @ 125 mL/hr : Delatorre in place - Strict I&Os ENDO: DMII: BSGs per unit protocol, ISS --> gtt per unit policy HEME: Anemia: Hgb fell from 12.9 to 8.4 on hospital day 2, likely some element of hemodilution given proportional drops in all cell lines ID: Severe sepsis: ?? Urinary source. Small RLL pna likely not resulting in presenting symptoms. PCT wnl. Lactate trending down. Question if this may all be profound dehydration. Regardless, continue Abx while cultures pend. LINES/IV ACCESS: PIVs x2 RIGHT Femoral CVL Delatorre DVT PROPHYLAXIS: Heparin sq, SCDs Thank you for allowing us to participate in the care of this patient. Please refer to Dr. Reyez's documentation for any further recommendations. (2) Acute alteration in mental status: (3) Pneumonia: (4) Septic shock: Admission and Anticipated Discharge Date Admission Date: April 23, 2021 Results & Data Results & Data ([facility]) Vital Signs (Past 12 Hours) Vital Signs Temp Pulse Resp BP Pulse Ox 04/24/21 05:30 36.1 C L 83 20 86/67 L 100 04/24/21 05:00 36.2 C L 77 16 93/67 L 100 04/24/21 04:30 36.3 C L 21 95/62 L 97 04/24/21 04:00 36.3 C L 77 19 99/72 L 100 04/24/21 03:30 36.3 C L 83 17 105/74 100 04/24/21 03:00 36.3 C L 79 17 98/69 L 99 04/24/21 02:30 36.3 C L 81 17 87/67 L 100 04/24/21 02:00 36.3 C L 77 21 98/73 L 99 04/24/21 01:30 36.4 C L 77 14 105/70 99 04/24/21 01:00 36.5 C 80 16 129/76 100 04/24/21 00:30 36.5 C 83 18 100/70 100 04/24/21 00:00 36.5 C 82 17 104/68 100 04/23/21 23:30 36.5 C 81 18 105/73 100 04/23/21 23:11 82 04/23/21 23:00 36.6 C 85 16 104/70 100 04/23/21 22:30 36.6 C 82 19 102/71 100 04/23/21 22:15 36.7 C 91 H 20 102/64 100 04/23/21 22:00 36.7 C 90 17 103/70 100 04/23/21 21:45 36.7 C 104 H 16 101/70 100 04/23/21 21:30 36.7 C 83 16 106/70 100 04/23/21 21:15 36.7 C 82 21 108/72 04/23/21 21:00 36.7 C 83 19 101/73 100 04/23/21 20:45 36.6 C 84 26 H 99/71 L 84 L 04/23/21 20:30 36.6 C 87 19 100 04/23/21 20:15 36.6 C 81 16 126/53 L 100 04/23/21 20:00 36.6 C 85 18 100/66 100 04/23/21 19:45 36.6 C 87 30 H 94/58 L 98 04/23/21 19:30 36.6 C 90 15 99/67 L 100
[2021-04-24 07:50] LABS: Estimated Average Glucose 111 mg/dl; Hemoglobin A1C 5.5 % (4.5-5.6)
--- NOTE | 2021-04-24 08:15 | Critical Care Progress Note ---
Date of Service April 24, 2021 Assessment & Plan (1) Admitted to intensive care unit: Plan: Reason Critically Ill: 60-year-old female with severe sepsis and septic shock in the setting of possible UTI versus pulmonary pathology requiring close hemodynamic monitoring status post aggressive IV fluid resuscitation and current need for vasopressor support. Patient also with profound hypokalemia requiring aggressive replacement and monitoring for dysrhythmia. NEURO - * CAM ICU: NEGATIVE * Altered mental status: * Has apparently shown some improvement from initial presentation. * No focal neurological deficits on exam. * CT head without acute findings. * CSF analysis not consistent with meningitis. * Mental status improving. * Continue with high-dose thiamine in the setting of alcohol abuse due to concerns of Wernicke's encephalopathy. * MRI brain ordered per neuro recommendations. Appreciate their input. * History of alcohol abuse: * Will hold on AWSS protocol until patient shows more improvement from her presenting conditions. * Patient ~1wk out from last drink which is encouraging that she is note having worsening withdraw symptoms to this point. CARDIAC/VASCULAR - * Hypotension: * In the setting of sepsis and ARF. * Received appropriate IVF --> Levophed. * Weaning levophed off. * Continue w/ IVF * AM Cortisol * EKG: NSR w/ poor quality ECG. Rate [address] elevations noted. QTc 567ms. * Monitor on telemetry. RESPIRATORY - * ??RLL Pneumonia: * Noted on CT chest. * Agree with aggressive antibiotics including anaerobic coverage w/ recent h/o vomiting. * Saturating well on room air currently. GI/NUTRITION - * N/V/D: * Of ?? etiology at this point. Could add stool studies if she is noted to have increased output. ?? degree of withdraw related symptoms as she has not drank in ~1 wk as well. * Continue to provide IVF and antiemetics as needed. * Lipase wnl * Cirrhosis: * Likely 2/2 h/o EtOH abuse. * No concerning laboratory or imaging findings at this time. * Encourage abstinence from EtOH * Outpatient GI f/u * Prophylaxis: Famotidine changed to 40 mg IV BID RENAL/LYTES - * ARF: * Cr >3 w/ baseline <1. * Likely prerenal JAZMINE in the setting of GI losses and sepsis, improving. * Received appropriate IVF resuscitation. * Pressors for now. * Continue w/ IVF and monitor urine output closely. * Hypokalemia: * Likely 2/2 GI losses. * Received supplementation in the ED. * Will trend labs and replace as needed. * IVF: Normosol @ 125 mL/hr - * Delatorre in place - Strict I&Os. ENDO - * DMII * BSGs per unit protocol. ISS --> gtt per unit policy. HEME - * H/H decreased. Possible hemodilution. Monitor for signs of bleeding. Will recheck cbc. ID - * Severe Sepsis: * ?? Urinary source. * PCT wnl. * Lactate trending down. * Question if this may all be profound dehydration. * Regardless, continue Abx while cultures pend. * Procal trending down LINES/IV ACCESS - * PIVs x2 * RIGHT Femoral CVL * Delatorre DVT PROPHYLAXIS - * Heparin sq on hold. * SCDs I have personally spent 41 minutes of critical care time in the direct management of this patient. This is a life/limb threatening event. This includes time spent evaluating patient, direct bedside care, chart review, placing orders, interpretation of diagnostic studies, discussion with consultants, patient, and family members, as well as other required patient management activities. This time is exclusive of all separately billable procedures, and teaching time and separate from and in addition to any other critical care service time. Thank you for allowing us to participate in the care of this patient. Please refer to my attending physician's documentation for any further recommendations. (2) Septic shock: (3) Pneumonia: (4) UTI (urinary tract infection): (5) Cirrhosis: (6) Diabetes mellitus, type II: (7) Hypothermia: (8) Acute hypokalemia: (9) Acute metabolic encephalopathy: (10) History of alcohol abuse: (11) Acute kidney injury: Admission and Anticipated Discharge Date Admission Date: April 23, 2021 Subjective Patient seen and examined. Remains slightly encephalopathic. She thinks that she is currently at home. She endorses pain in her knees and shins. She denies chest pain. No nausea or vomiting this morning. She remains on low-dose of Levophed. Review of Systems Review of Systems: All systems reviewed & are unremarkable except as noted in HPI & below Physical Exam Physical Exam: VITAL SIGNS - Vital signs and nursing notes were reviewed. GENERAL - 60-year-old female appearing her stated age who is in no acute distress. Pleasantly confused, but does answer some questions appropriately. SKIN - Without rashes. HEAD - NC/AT. EYES - PERRL with EOMI bilaterally. Sclera anicteric. Palpebral conjunctiva pink and moist with no injection noted. EARS - No deformities of external structures noted on gross examination bilaterally. NOSE - Midline and without cyanosis. No epistaxis or purulent drainage noted. MOUTH/OROPHARYNX - Without perioral cyanosis. Buccal mucosa pink and dry. NECK - Neck with FROM. Supple to palpation. No nuchal rigidity. LUNGS - Chest wall symmetric without accessory muscle use, intercostals retractions, or central cyanosis. Normal vesicular breath sounds CTA B/L. No wheezes, rales, or rhonchi appreciated. CARDIAC - RRR with S1/S2. No murmur, rubs, or gallops appreciated. ABDOMEN - Abdominal contour protuberant without pulsations or visible masses. BS normoactive all four quadrants. No tenderness, palpable masses, hepatosplenomegaly noted. EXTREMITIES - No clubbing or peripheral cyanosis. No pretibial edema present. +2/5 radial and dorsalis pedis pulses palpated throughout. +4/5 strength noted in UE/LE bilaterally. NEUROLOGIC - Cranial nerves II through XII grossly intact. Sensory intact to light touch throughout. PSYCH -does not appear overly anxious. Drowsy at times. She is not oriented to place. She is oriented to person and time. Results & Data Results & Data ([facility]) Vital Signs (Past 12 Hours) Vital Signs Temp Pulse Resp BP Pulse Ox 04/24/21 05:30 36.1 C L 83 20 86/67 L 100 04/24/21 05:00 36.2 C L 77 16 93/67 L 100 04/24/21 04:30 36.3 C L 21 95/62 L 97 04/24/21 04:00 36.3 C L 77 19 99/72 L 100 04/24/21 03:30 36.3 C L 83 17 105/74 100 04/24/21 03:00 36.3 C L 79 17 98/69 L 99 04/24/21 02:30 36.3 C L 81 17 87/67 L 100 04/24/21 02:00 36.3 C L 77 21 98/73 L 99 04/24/21 01:30 36.4 C L 77 14 105/70 99 04/24/21 01:00 36.5 C 80 16 129/76 100 04/24/21 00:30 36.5 C 83 18 100/70 100 04/24/21 00:00 36.5 C 82 17 104/68 100 04/23/21 23:30 36.5 C 81 18 105/73 100 04/23/21 23:11 82 04/23/21 23:00 36.6 C 85 16 104/70 100 04/23/21 22:30 36.6 C 82 19 102/71 100 04/23/21 22:15 36.7 C 91 H 20 102/64 100 04/23/21 22:00 36.7 C 90 17 103/70 100 04/23/21 21:45 36.7 C 104 H 16 101/70 100 04/23/21 21:30 36.7 C 83 16 106/70 100 04/23/21 21:15 36.7 C 82 21 108/72 04/23/21 21:00 36.7 C 83 19 101/73 100 04/23/21 20:45 36.6 C 84 26 H 99/71 L 84 L 04/23/21 20:30 36.6 C 87 19 100 04/23/21 20:15 36.6 C 81 16 126/[address] chest reviewed from yesterday with patchy opacities in the right lower lobe concerning for possible aspiration pneumonitis. Coding Level of Care Code Critical Care 1st 30-74 mins Diagnoses Admitted to intensive care unit Z78.9 Septic shock A41.9; R65.21 Pneumonia J18.9 UTI (urinary tract infection) N39.0 Cirrhosis K74.60 Diabetes mellitus, type II E11.9 Hypothermia T68.XXXA Acute hypokalemia E87.6 Acute metabolic encephalopathy G93.41 History of alcohol abuse F10.11 Acute kidney injury N17.9 Time Spent (min) 41
[2021-04-24] MEDS ORDERED: FAMOTIDINE 20 MG in SYRINGE 3 ML IV SCH (09:00)
[2021-04-24 09:33] LABS: Hematocrit (blood only) 24.8 % (37-47); Hemoglobin 8.4 g/dL (12.0-16.0); Mean Corpuscular Hemoglobin 32.4 pg (25-34); Mean Corpuscular Hgb Conc 33.9 g/dL (32-36); Mean Corpuscular Volume 95.8 fL (80-100); Mean Platelet Volume 9.3 fL (7.4-10.4); Platelet Count 116 K/uL (130-400); RDW Coefficient of Variation 17.1 % (11.5-14.5); RDW Standard Deviation 59.5 fL (36.4-46.3); Red Blood Count 2.59 M/uL (4.2-5.4); White Blood Count 7.44 K/uL (4.8-10.8)
[2021-04-24] MEDS: PIPERACILLIN/TAZOBACTAM 4.5 GM in DEXTROSE 5% 100 ML IV SCH ×2 (09:44→18:32)
[2021-04-24] MEDS: PANTOprazole 40 MG in SYRINGE 0 ML IV SCH ×2 (09:44→21:39)
--- NOTE | 2021-04-24 10:00 | Cardiology Consultation ---
Date of Consultation April 24, 2021 Assessment & Plan (1) Septic shock: (2) Cardiac arrhythmia: (3) Hypothermia: (4) Acute hypokalemia: Telemetry this morning reveals sinus rhythm in the 80s, without significant arrhythmia. Although transient wide-complex tachycardia captured on twelve-lead EKG on presentation to emergency room, this took place in the setting of hypothermia, tremor, and electrolyte imbalance. The patient has had serial EKG tracings in the meantime, most of which have been technically limited due to tremor, however tracing performed this morning at 456 is a much better quality revealing sinus rhythm 81 bpm, mild nonspecific repolarization changes: The QT interval does remain prolonged at 578 ms. Compared to her baseline tracing dating back to 2019, mild QT prolongation of 490 ms noted at that time, as well as age-indeterminate inferior infarction pattern noted on 01/14/2020 tracing. At present, would recommend ongoing efforts with regards to optimizing her electrolytes including her potassium and magnesium. Avoid QT prolonging agents. Ongoing supportive care for presumed sepsis. I have ordered a resting transthoracic echocardiogram for assessment of underlying structural heart disease. Agree with SQ heparin for DVT prophylaxis. Case discussed with patient's nurse and Dr Reyez for coordination of care. History of Present Illness Attending Physician: Giancarlo Maldonado MD History of Present Illness Marcelina Sanchez is a 60 year old female seen in cardiology consultation per the request of Norma Parish PA-C for the evaluation of arrhythmia. Patient is a history of alcoholism with cirrhosis, esophageal varices, type 2 diabetes mellitus and hypertension. She presented on 04/23/2021 with 1 week history of nauseousness and vomiting. Her boyfriend found her in bed on the morning of presentation, obtunded, covered in vomit. She was hypothermic on presentation with initial temperature 32 C and her systolic blood pressure was in the 80s to 90s. She has since been admitted to the intensive care unit, has received fluid resuscitation, is on a low-dose of norepinephrine for blood pressure support, with most recent blood pressure measurement of 86/67, with tentative working diagnosis of sepsis related to pneumonia or urinary tract infection. At the time of presentation, an EKG was concerning for wide-complex tachycardia, however per review of the tracing, paper copy on patient's chart, is difficult to interpret with noted baseline artifact, patient had tremor at that time, as noted was hypothermic, and potassium was low on presentation at 2.3 mmol/L. The patient has been warmed, although I do not think her mental status is normal, it has improved significantly over the last 24 hours, she remains mildly hypertensive, but her temperature is trending toward improvement. Potassium the most recent measurement this morning was 3.2 mmol/L, and she continues to receive electrolyte replacement. Allergies Allergy/AdvReac Type Severity Reaction Status Date / Time Bactrim Allergy Unknown RASH Verified 06/14/17 07:47 Penicillins Allergy Unknown unknown Unverified 04/24/21 08:29 sulfamethoxazole Allergy Unknown RASH Verified 04/23/21 09:58 trimethoprim Allergy Unknown RASH Verified 04/23/21 09:58 Home Medications Medication Instructions Recorded Confirmed Type atorvastatin 40 mg tablet 40 mg PO DAILY 04/23/21 04/23/21 History ferrous sulfate 325 mg (65 mg 325 mg PO BID 04/23/21 04/23/21 History iron) tablet magnesium chloride 64 mg 128 mg PO DAILY 04/23/21 04/23/21 History tablet,extended release metformin 500 mg tablet,extended 1,000 mg PO BID 04/23/21 04/23/21 History release 24 hr multivitamin 1 tab PO DAILY 04/23/21 04/23/21 History omeprazole 20 mg capsule,delayed 20 mg PO DAILY 04/23/21 04/23/21 History release pantoprazole 40 mg tablet,delayed 40 mg PO DAILY 04/23/21 04/23/21 History release propranolol 60 mg tablet 60 mg PO DAILY 04/23/21 04/23/21 History semaglutide (Ozempic) See Rx Instructions .ROUTE .COMPLEX 04/23/21 History spironolactone 100 mg tablet 100 mg PO DAILY 04/23/21 04/23/21 History Patient History Medical History Alcohol abuse Cirrhosis Diabetes mellitus, type II Hypertension Surgical History H/O colonoscopy History of cryosurgery History of esophagogastroduodenoscopy (EGD) Family History Other Diabetes Hypertension Kidney disease Social History Smoking Status: Former smoker Hx Alcohol Use: Yes Alcohol type: wine Hx Substance Use: No Preferred Language: Arabic Communication Ability: Effective Mine Expert Required: No Beliefs That Will Affect Care: None Current Living Situation: Other Current Living Situation Comment: Lives with friend Other Information That Helps Us Care for You: No Feels Safe at Home: Yes Safety Concerns: Feels Safe At This Time Assistive Devices: Walker Review of Systems Review of Systems: Other (Comprehensive review of systems somewhat limited due to patient's mental status. No current complaints.) Physical Exam Physical Exam: Temp Pulse Resp BP Pulse Ox 36.1 C L 83 20 86/67 L 100 04/24/21 05:30 04/24/21 05:30 04/24/21 05:30 04/24/21 05:30 04/24/21 05:30 Constitutional: + ill appearing; no acute distress Respiratory: normal respiratory effort, lungs clear to auscultation Cardiovascular: RRR, no murmur, no edema Gastrointestinal (Abdomen): normal bowel sounds, soft, nontender, no hepatosplenomegaly Neurologic: follow commands, moves all 4 extremities Genitourinary: Delatorre catheter in place, draining clear yellow urine. Results & Data ([facility]) Vital Signs (Past 12 Hours) Vital Signs Temp Pulse Resp BP Pulse Ox 04/24/21 05:30 36.1 C L 83 20 86/67 L 100 04/24/21 05:00 36.2 C L 77 16 93/67 L 100 04/24/21 04:30 36.3 C L 21 95/62 L 97 04/24/21 04:00 36.3 C L 77 19 99/72 L 100 04/24/21 03:30 36.3 C L 83 17 105/74 100 04/24/21 03:00 36.3 C L 79 17 98/69 L 99 04/24/21 02:30 36.3 C L 81 17 87/67 L 100 04/24/21 02:00 36.3 C L 77 21 98/73 L 99 04/24/21 01:30 36.4 C L 77 14 105/70 99 04/24/21 01:00 36.5 C 80 16 129/76 100 04/24/21 00:30 36.5 C 83 18 100/70 100 11/29/21 00:00 36.5 C 82 17 104/68 100 04/23/21 23:30 36.5 C 81 18 105/73 100 04/23/21 23:11 82 04/23/21 23:00 36.6 C 85 16 104/70 100 04/23/21 22:30 36.6 C 82 19 102/71 100 04/23/21 22:15 36.7 C 91 H 20 102/64 100 04/23/21 22:00 36.7 C 90 17 103/70 100 Laboratory Results Cardiac Enzymes 04/23/21 04/24/21 Range/Units 19:44 05:12 AST 57 H 50 H (15-37) U/L Coagulation 04/24/21 Range/Units 05:12 PT 11.7 (9.0-12.0) Seconds CBC 04/24/21 04/24/21 Range/Units 05:12 09:21 WBC 8.72 7.44 (4.8-10.8) K/uL RBC 2.67 L 2.59 L (4.2-5.4) M/uL Hgb 8.4 L D 8.4 L (12.0-16.0) g/dL Hct 25.5 L 24.8 L (37-47) % Plt Count 139 116 L (130-400) K/uL Neut # (Auto) 6.50 (1.4-6.5) K/uL Lymph # (Auto) 1.50 (1.2-3.4) K/uL Routt # (Auto) 0.64 H (0.11-0.59) K/uL Eos # (Auto) 0.05 (0-0.5) K/uL Baso # (Auto) 0.00 (0-0.2) K/uL Comprehensive Metabolic Panel 04/23/21 04/23/21 04/24/21 Range/Units 16:02 19:44 05:12 Sodium 136 139 137 (136-145) mmol/L Potassium 2.8 L D 2.9 L 3.2 L (3.5-5.1) mmol/L Chloride 101 104 104 (98-107) mmol/L Carbon Dioxide 22 18 L 20 L (21-32) mmol/L BUN 54 H 52 H 47 H (7-18) mg/dl Creatinine 2.08 H D 2.14 H 2.02 H (0.6-1.2) mg/dl Glucose 107 H 96 139 H (70-99) mg/dl Calcium 7.8 L D 7.8 L 8.3 L (8.5-10.1) mg/dl Direct Bilirubin 0.5 H (0-0.2) mg/dl AST 57 H 50 H (15-37) U/L ALT 63 57 (12-78) U/L Alkaline Phosphatase 155 H 149 H (45-117) U/L Total Protein 6.0 L D 5.7 L (6.4-8.2) gm/dl Albumin 2.0 L 1.9 L (3.4-5.0) gm/dl Intake and Output 04/23/21 04/24/21 04/24/21 22:59 06:59 14:59 Intake Total 1325.522 / 7143.940 1997.218 / 7143.940 100 / 100 Output Total 105 / 1030 225 / 1030 Balance 1220.522 / 6113.940 1772.218 / 6113.940 100 / 100 Intake: IV 1325.522 / 7143.940 1997.218 / 7143.940 100 / 100 Doxycycline Hyclate 100 mg In 110 / 220 Dextrose 5% 100 ml @ 55 mls/hr IV Q12H [facility] Rx#:[id number] Magnesium Sulfate / D5w 1 gm In 267.5 / 267.5 100 ml @ 50 mls/hr IV Q2H [facility] Rx#:[id number] Norepinephrine/D5w 8 mg In 508 35.522 / 197.740 162.218 / 197.740 ml @ 0.03 MCG/KG/MIN 7.67 mls/ hr IV .Q24H [facility] Rx#:[id number] Normosol-R 1,000 ml @ 125 mls/ 854.167 / 854.[address] [facility] Rx#:[id number] Piperacillin/Tazobactam 3.375 115 / 115 gm In Dextrose 5% 100 ml @ 230 mls/hr IV NOW ONE Rx#:[id number] Piperacillin/Tazobactam 4.5 gm 120 / 120 In Dextrose 5% 100 ml @ 30 mls/ hr IV Q12H [facility] Rx#:[id number] Potassium Chloride / Wtr 10 meq 100 / 300 In 100 ml @ 100 mls/hr IV Q1H [facility] Rx#:[id number] Potassium Chloride / Wtr 20 meq 173.333 / 173.333 100 / 100 In 100 ml @ 50 mls/hr IV Q2H [facility] Rx#:[id number] Potassium Chloride 40 meq In 1020 / 1020 Sodium Chloride 0.9% 1000ML 1, 000 ml @ 125 mls/hr IV .Q8H10M [facility] Rx#:[id number] Potassium Phosphate 15 mmol In 255 / 255 Sodium Chloride 0.9% 250 ml @ 125 mls/hr IV ONE ONE Rx#: [id number] Thiamine HCl 500 mg In Sodium 55 / 165 55 / 165 Chloride 0.9% 50 ml @ 220 mls/ hr IV Q8H [facility] Rx#:[id number] Oral 0 / 0 Output: Urine 75 / 75 Urine Amount (Catheter) 105 / 955 150 / 955 Delatorre/Indwelling 105 / 955 150 / 955 Other: Weight 66.9 kg 68.8 kg Weight Measurement Method Built in [facility] Built in [facility]
[2021-04-24] MEDS ORDERED: GLUCOSE 40% GEL 15 GM TUBE PO PRN (11:00)
[2021-04-24] MEDS ORDERED: DEXTROSE 50% 50 ML SYRINGE IV PRN (11:00)
[2021-04-24] MEDS ORDERED: GLUCOSE 10 TABS/TUBE PO PRN (11:00)
[2021-04-24] MEDS ORDERED: CARBOHYDRATES FOR HYPOGLYCEMIA PO PRN (11:00)
[2021-04-24] MEDS ORDERED: GLUCAGON FOR INJ 1 MG VIAL IM PRN (11:00)
[2021-04-24] MEDS: INSULIN ASPART 100 UNITS/ML 3 ML PEN SC SCH ×3 (11:39→21:07)
--- NOTE | 2021-04-24 13:16 | Magnetic Resonance Report ---
MRI OF THE BRAIN WITHOUT IV CONTRAST CLINICAL HISTORY: Encephalopathy. COMPARISON STUDY: CT of the brain dated 04/23/2021 TECHNIQUE: MRI of the brain was performed utilizing various T1 and T2-weighted sequences in the axial , sagittal, and coronal planes. IV contrast was not administered for this examination. FINDINGS: Brain parenchyma: There is age-related involutional change noting mild subcortical and periventricula r microangiopathic disease. There is no hemorrhage or mass effect. There is no restricted diffusion t o suggest acute ischemia. Galaviz-white matter differentiation is preserved. No extra-axial fluid collec tion is seen. The cerebellar tonsils are normal in configuration. Ventricles, sulci, and cisterns: Prominent secondary to involutional change. Pituitary and sella: Unremarkable. Intracranial vasculature: Normal flow voids are maintained at the skull base. Orbits: The bony orbits are grossly intact. Orbital contents are normal in appearance. Sinuses and mastoids: There is mild mucosal thickening within the maxillary antra. Trace fluid is not ed in the sphenoid sinuses. There is also trace mucosal thickening in the ethmoid sinuses. The mastoi d air cells are clear. Calvarium: Unremarkable. Cervical cord: Partially visualized cervical spinal cord is normal in morphology and signal intensity . IMPRESSION: No acute intracranial abnormality. ACT 112: Negative or not required by law. Electronically signed by: Guille Chery M.D. 04/24/2021 1:15 PM
--- NOTE | 2021-04-24 14:26 | Electrocardiogram Report ---
Test Reason : Blood Pressure : / mmHG Vent. Rate : 081 BPM Atrial Rate : 081 BPM P-R Int : 172 ms QRS Dur : 086 ms QT Int : 498 ms P-R-T Axes : 062 055 045 degrees QTc Int : 578 ms Poor data quality, interpretation may be adversely affected Normal sinus rhythm Nonspecific ST and T wave abnormality Abnormal ECG When compared with ECG of 23-APR-2021 13:47, Criteria for Inferior infarct are no longer Present Confirmed by Tim Ragland ([id number] on 04/24/2021 2:26:03 PM Referred By: NO PCP Confirmed By:Ramon Ragland
--- NOTE | 2021-04-24 18:24 | Hospitalist Progress Note ---
Date of Service April 24, 2021 Assessment & Plan (1) Septic shock: Plan: Per admitting service notes with addendum including the assessment and below This is a 60yo F with a PMH of alcoholism with cirrhosis, history of esophageal varices, type 2 diabetes, hypertension and other medical problems listed below who presents with altered mental status known since this morning presenting with hypothermia and septic shock. Found to be obtunded and covered in vomit this morning by boyfriend after 6 days of intractable nausea, vomiting and generalized weakness Presented with AMS temp of 32 C, as well as hypotensive with SBP 80s-90s Initial lactate 3, normalized with fluid resuscitation. Procalcitonin 0.75 Mentation has improved with 4 L fluid given total including banana bag. SBP still high 80s-90s. Norepi ordered Wearing Amber hugger with temp improved to now 34.[address] head, c-spine without abnormality. CXR with possible RLL PNA. CT abd/pelvis with stomach distended with liquid. GB with cholelithiasis but not cholecystitis. Otherwise no evidence of acute intra-abdominal or pelvic abn Started on zosyn, vanco and doxy for empiric coverage LP performed in ED showing elevated CSF protein of 100.8. No WBC, CSF glucose 98. Remainder of infectious LP labs pending Discussed with Dr. Coto of neuro, who feels CSF protein elevation consistent with sepsis. Recommends ID consult Dr. Dominguez aware and patient will go to unit if still requiring pressors 04/24/2021 Off Levophed Blood pressure stable since 12:00 Follow-up cultures Continue Zosyn and doxycycline (2) Acute metabolic encephalopathy: Plan: In setting of sepsis, concern for Wernicke's encephalopathy given chronic alcoholism, poor nutrition, oculomotor irregularities and hypothermia CT head, c-spine without abnormality LP with elevated protein and glucose. WBC wnl Continue empiric antibiotics, follow cultures. UDS unremarkable Continue IV fluid resuscitation Initiated IV Thiamine 500 Q8H for concern for Wernicke's, obtain brain MRI once stable Neuro consulted 04/24/2021 Seems to be improving Continue antibiotics for management of sepsis Continue thiamine for Wernicke's encephalopathy PT OT evaluation (3) Hypothermia: Plan: Temp initially 32 C, improved to 34.5 C with amber hugger in place In setting of sepsis and concern for Wernike's encephalopathy Continue warmer 04/24/2021 Temperature now stable (4) Acute hypokalemia: Plan: In setting of nausea and vomiting over past week Replacing potassium, repeat BMP at 1500 Telemetry monitoring 04/24/2021 Continue monitoring and replacement as needed (5) Cardiac arrhythmia: Plan: Arrhythmia while in ED - artifact vs wide complex tachycardia Reviewed rhythm strips with Dr Muniz who feels consistent with artifact Expect improvement with lyte replacement, warming, abx Repeat EKG pending. Initial troponin negative Routine cardiology consult 04/24/2021 Likely related to septic shock, hypothermia Echocardiogram pending Appreciate cardiology service recommendations (6) Acute kidney injury: Plan: Cr elevated at 3 (baseline ~ 0.9) in setting of sepsis, poor PO intake Expect pre-renal etiology, repeat BMP pending for this afternoon Avoid nephrotoxic agents when able 04/24/2021 Creatinine improving from 3-2 Continue IV fluids (7) Alcohol abuse: (8) Cirrhosis: Plan: Denies etoh use for past week. No s/sx of seizure, CK wnl On diuretics per [facility] med rec, will need to clarify medrec with patient when mentation improves 04/24/2021 No signs of acute withdrawal at this time Continue to monitor Ammonia level normal (9) Hypertension: Plan: Off Levophed (10) Diabetes mellitus, type II: Plan: Most recent a1c 6.7 in 08/13. Will repeat in AM Hold home agents SSI while in-patient BSG AC HS DVT Ppx: SQ heparin Code status: FULL PCP: Sammy Dispo: Pending Lives at home PT OT evaluation Admission and Anticipated Discharge Date Admission Date: April 23, 2021 Subjective Follow-up for septic shock, pneumonia, encephalopathy, etc. Seen sitting up in bed, comfortable, not in distress Awake, alert, oriented x2, somewhat slow to answer but answers most questions appropriately Denies headache, dizziness, focal neurologic symptoms no chest pain, dyspnea, palpitations, dizziness Denies shortness of breath, has occasional cough No fevers or chills Denies abdominal pain, nausea vomiting No other symptom Review of Systems Review of Systems: all noted and negative except for above Physical Exam Physical Exam: General- oriented x 2, not in distress, speaks in sentences with no effort or accessory muscle use Head- atraumatic Eyes- PERRL, EOMI, anicteric ENT- oropharynx clear Neck- supple, no JVD, no adenopathy, no thyromegaly; carotids +2/2, no bruits appreciated Lungs-mild rhonchi right base, clear on the left No wheezing Heart- normal rate, regular rhythm; no murmur, no gallop, no rub appreciated Abdomen- normal bowel sounds, nondistended, soft, nontender, no masses or hepatosplenomegaly Extremities- no pretibial edema, no calf tenderness; peripheral pulses intact Neuro- alert, oriented x 3; CN 2-12 grossly intact; motor 5/5 bilaterally;sensation 100% on all extremities; no other gross focal neurologic deficits Skin- warm & dry Results & Data Results & Data ([facility]) Vital Signs (Past 12 Hours) Vital Signs Temp Pulse Pulse Resp BP BP Pulse Ox 04/24/21 17:45 36.5 C 79 17 99 04/24/21 17:30 36.5 C 81 17 96 04/24/21 17:15 36.5 C 79 20 96 04/24/21 17:00 36.5 C 79 20 100/68 90 04/24/21 16:45 36.5 C 81 24 96 04/24/21 16:30 36.5 C 83 20 92 04/24/21 16:15 36.4 C L 80 20 97 04/24/21 16:00 36.4 C L 80 19 99/69 L 95 04/24/21 15:45 36.3 C L 82 18 96 04/24/21 15:30 36.3 C L 80 20 96 04/24/21 15:15 36.3 C L 83 18 97 04/24/21 15:00 36.3 C L 80 22 105/62 97 04/24/21 14:45 36.3 C L 81 24 95 04/24/21 14:30 36.3 C L 83 17 98 04/24/21 14:15 36.3 C L 84 22 95 04/24/21 14:00 36.3 C L 87 11 L 93/65 L 95 04/24/21 13:45 36.3 C L 80 16 103/63 96 04/24/21 13:30 80 16 100/61 96 04/24/21 13:15 83 25 H 96/63 L 04/24/21 13:14 83 19 04/24/21 13:05 83 106/57 L 96 04/24/21 12:47 83 99/60 L 95 04/24/21 12:15 36.5 C 85 14 95/64 L 97 04/24/21 12:00 36.4 C L 80 15 96 04/24/21 11:45 36.5 C 84 9 L 98 04/24/21 11:30 36.4 C L 79 13 97/61 L 93 04/24/21 11:15 36.3 C L 19 100 04/24/21 11:00 36.3 C L 93 H 19 100 04/24/21 10:45 36.3 C L 81 15 100 04/24/21 10:30 36.4 C L 80 19 96/64 L 100 04/24/21 10:15 36.4 C L 78 18 96 04/24/21 10:00 36.4 C L 82 14 99/65 L 100 04/24/21 09:00 36.4 C L 82 12 107/59 L 99 04/24/21 08:00 36.3 C L 81 21 101/72 100 04/24/21 07:00 36.1 C L 81 16 102/69 100 Pulse Ox 04/24/21 17:45 04/24/21 17:30 04/24/21 17:15 04/24/21 17:00 04/24/21 16:45 04/24/21 16:30 04/24/21 16:15 04/24/21 16:00 04/24/21 15:45 04/24/21 15:30 04/24/21 15:15 04/24/21 15:00 04/24/21 14:45 04/24/21 14:30 04/24/21 14:15 04/24/21 14:00 04/24/21 13:45 04/24/21 13:30 04/24/21 13:15 04/24/21 13:14 04/24/21 13:05 04/24/21 12:47 04/24/21 12:15 04/24/21 12:00 04/24/21 11:45 04/24/21 11:30 04/24/21 11:15 04/24/21 11:00 04/24/21 10:45 04/24/21 10:30 04/24/21 10:15 04/24/21 10:00 04/24/21 09:00 100 04/24/21 08:00 04/24/21 07:00 all noted and reviewed including below
--- NOTE | 2021-04-24 19:04 | XRay Report ---
LEFT KNEE 2 VIEWS CLINICAL HISTORY: Fall. Left knee pain. FINDINGS: AP and crosstable lateral views of the left knee are compared to study dated 03/09/2016. Th e skeletal structures are osteopenic. No acute fracture is identified. There is chronic posttraumatic deformity of the proximal tibial metadiaphysis. There is mild to moderate tricompartmental degenerat zulay joint space narrowing, greatest in the medial and patellofemoral compartments. There are marginal osteophytes. A calcified fabella is incidentally noted. There a small joint effusion. Mild prepatell ar soft tissue swelling is observed. IMPRESSION: Soft tissue swelling and small joint effusion with no fracture identified. Electronically signed by: Guille Chery M.D. 04/24/2021 7:03 PM
--- NOTE | 2021-04-24 19:08 | XRay Report ---
RIGHT KNEE 2 VIEWS CLINICAL HISTORY: Fall with right knee injury. FINDINGS: AP and crosstable lateral views of the right knee are obtained. No prior studies are availa ble for comparison at the time of dictation. The skeletal structures are osteopenic. No fracture is i dentified. There is mild tricompartmental degenerative joint space narrowing. Marginal osteophytes ar e observed. A calcified fabella is incidentally noted. There is a small joint effusion. Mild soft tis aruna edema is seen around the knee. IMPRESSION: Soft tissue swelling and small joint effusion with no acute bony abnormality identified. Electronically signed by: Guille Chery M.D. 04/24/2021 7:07 PM
[2021-04-24] MEDS: ACETAMINOPHEN 1,000 MG/100 ML VIAL IV SCH (19:11)
[2021-04-24 20:03] LABS: Hematocrit (blood only) 22.3 % (37-47); Hemoglobin 7.4 g/dL (12.0-16.0); Mean Corpuscular Hgb Conc 33.2 g/dL (32-36); Mean Corpuscular Volume 96.5 fL (80-100); Mean Platelet Volume 9.9 fL (7.4-10.4); Platelet Count 102 K/uL (130-400); RDW Standard Deviation 59.9 fL (36.4-46.3); Red Blood Count 2.31 M/uL (4.2-5.4); White Blood Count 5.73 K/uL (4.8-10.8)
--- NOTE | 2021-04-24 20:27 | Progress Notes ---
NEUROLOGY PROGRESS NOTE DATE OF SERVICE: 04/24/2021 A 60-year-old female. CHIEF COMPLAINT: Altered mental status, diplopia. SUBJECTIVE: The patient was seen and examined. The patient is awake, lying in bed. Son is at the b edside. The patient reports feeling much better, although states she feels generalized weak and unab le to walk. She denies double vision. She is feeling better compared to yesterday. She denies any other new symptoms. OBJECTIVE: VITAL SIGNS: Blood pressure 103/63, pulse is 80, respiratory rate 16, temperature is 36.3 degrees Ce lsius. The patient is awake, alert, oriented to person, place, and time. Speech is slow, speech is soft. S he is following simple commands. Tongue is midline without abrasion. Eyes are midline. Pupils are symmetric. Face is symmetric. Breathing is nonlabored. Cardiac pulses are intact. She has a amarilis l mood. She is moving all 4 extremities. Sensation is intact to light touch. Extraocular muscles a re intact. She has no tremor or myoclonic jerks. Some mild tremulous with outstretched arms. DIAGNOSTIC TESTING: WBC 7.44, hemoglobin 8.4, platelet count 116. INR is 1.2. Glucose is 104. Sod ium is 137, potassium 3.2, chloride 104, carbon dioxide 20, BUN 47, creatinine 2.02, glucose 139. He moglobin A1c 5.5. Magnesium 2.6. AST 50, ALT 57. Random cortisol 21.98. Procalcitonin 0.40. Lipas e 78. CSF Gram stain and culture showed no growth. Blood culture showed no growth to date. MRI bra in imaging without contrast showed age-related involutional changes noting mild subcortical and periv entricular microangiopathic disease. No hemorrhage or mass effect. No acute intracranial abnormalit y. ASSESSMENT AND PLAN: A 60-year-old woman with a history of chronic alcoholism, presenting with encep halopathy, likely multifactorial due to acute kidney injury, dehydration, and multiple electrolyte ab normalities as well as suspected nutritional deficiencies. High concern for thiamine deficiency give n chronic alcohol use and poor p.o. intake. Recommend to continue aggressive thiamine replacement. The patient's mental status does appear improved with the use of fluid as well as electrolyte replace ment. Potassium as well as magnesium remain low, although are trending in the right direction. Kidne y function is also improving. To date, infectious workup looks reassuring. Blood cultures and cereb rospinal fluid cultures are negative. We will defer to the primary team for deescalation of antimicr obials as appropriate. Otherwise, would continue thiamine 100 mg daily indefinitely after receiving intravenous replacement for 5 days. No additional neurological testing is necessary at this time. N eurology will sign off for now. Please contact me with any additional questions or concerns. Job ID: [id number]
[2021-04-24 20:28] LABS: Basophils # (auto) 0.01 K/uL (0-0.2); Basophils % (auto) 0.2 %; Eosinophils # (auto) 0.06 K/uL (0-0.5); Immature Granulocytes # (auto) 0.01 K/uL (0.00-0.02); Immature Granulocytes % (auto) 0.2 %; Lymphocytes # (auto) 1.08 K/uL (1.2-3.4); Lymphocytes % (auto) 18.8 %; Monocytes # (auto) 0.41 K/uL (0.11-0.59); Monocytes % (auto) 7.2 %; Neutrophils # (auto) 4.16 K/uL (1.4-6.5); Neutrophils % (auto) 72.6 %; RBC Morphology Unremarkable
[2021-04-25] MEDS: PIPERACILLIN/TAZOBACTAM 4.5 GM in DEXTROSE 5% 100 ML IV SCH ×3 (03:50→18:39)
[2021-04-25] MEDS: THIAMINE HCL 500 MG in SODIUM CHLORIDE 0.9% 50 ML IV SCH ×3 (05:32→21:07)
[2021-04-25] MEDS: ACETAMINOPHEN 1,000 MG/100 ML VIAL IV SCH ×2 (05:32→18:39)
[2021-04-25 06:47] LABS: Creatinine Clr Calc Pharmacy 36.5 ml/min; Est GFR (African American) 39.3 ml/min; Est GFR (Non-African American) 33.9 ml/min
[2021-04-25] MEDS: INSULIN ASPART 100 UNITS/ML 3 ML PEN SC SCH ×4 (07:39→21:19)
[2021-04-25 09:44] LABS: Hematocrit (blood only) 23.9 % (37-47); Hemoglobin 7.8 g/dL (12.0-16.0); Mean Corpuscular Hemoglobin 31.5 pg (25-34); Mean Corpuscular Hgb Conc 32.6 g/dL (32-36); Mean Corpuscular Volume 96.4 fL (80-100); RDW Coefficient of Variation 16.9 % (11.5-14.5); RDW Standard Deviation 59.6 fL (36.4-46.3); Red Blood Count 2.48 M/uL (4.2-5.4); White Blood Count 4.57 K/uL (4.8-10.8)
[2021-04-25 10:04] LABS: Albumin Level 1.8 gm/dl (3.4-5.0); Calcium 8.7 mg/dl (8.5-10.1); Creatinine Clr Calc Pharmacy 34.4 ml/min; Est GFR (African American) 36.6 ml/min; Est GFR (Non-African American) 31.5 ml/min; Magnesium 2.2 mg/dl (1.8-2.4); Potassium 3.4 mmol/L (3.5-5.1)
[2021-04-25 10:05] LABS: Basophils # (auto) 0.01 K/uL (0-0.2); Basophils % (auto) 0.2 %; Eosinophils # (auto) 0.05 K/uL (0-0.5); Eosinophils % (auto) 1.1 %; Immature Granulocytes # (auto) 0.02 K/uL (0.00-0.02); Immature Granulocytes % (auto) 0.4 %; Lymphocytes % (auto) 21.9 %; Mean Platelet Volume 9.2 fL (7.4-10.4); Monocytes # (auto) 0.54 K/uL (0.11-0.59); Monocytes % (auto) 11.8 %; Neutrophils # (auto) 2.95 K/uL (1.4-6.5); Neutrophils % (auto) 64.6 %; Platelet Count 98 K/uL (130-400); Platelet Estimate Decreased (Normal)
[2021-04-25 10:07] LABS: Albumin Globulin Ratio 0.4 (0.9-2); Bilirubin,Total 0.9 mg/dl (0.2-1); Globulin 4.2 gm/dl (2.5-4.0)
[2021-04-25] MEDS ORDERED: POTASSIUM CHLORIDE CRTAB 20 MEQ TABCR PO STA ×2 (10:07→12:42)
--- NOTE | 2021-04-25 10:11 | Cardiology Progress Note ---
Date of Service April 25, 2021 Assessment & Plan (1) Acute hypokalemia: Plan: K 3.2 today, add potassium chloride 40 meq this am. Mg is normal. (2) Septic shock: Plan: BP improved. Off norepinephrine. (3) Wide-complex tachycardia: Plan: Likely artifactual. No further arrhythmias. (4) Acute kidney injury: Plan: Creatinine trending toward improvement. Plan: THROMBOCYTOPENIA Platelets down to 98 K. Follow on SQ heparin. Echo with normal biventricular function. Grade II diastolic dysfunction noted. Admission and Anticipated Discharge Date Admission Date: April 23, 2021 Subjective Patient seen in cardiology follow up. She is awake, but not oriented to being in the hospital. Telemetry reveals SR in the 70s to 80s without arrhythmia. Review of Systems Review of Systems: Unobtainable due to cognitive status Physical Exam Physical Exam: Temp Pulse Resp BP Pulse Ox 36.0 C L 76 16 133/74 99 04/25/21 08:00 04/25/21 09:46 04/25/21 08:00 04/25/21 08:00 04/25/21 08:00 Constitutional: WD/WN, vitals as above Respiratory: normal respiratory effort, lungs clear to auscultation Gastrointestinal (Abdomen): normal bowel sounds, soft, nontender, no hepatosplenomegaly Neurologic: confused, moves all 4 extremities Results & Data ([facility]) Vital Signs (Past 12 Hours) Vital Signs Temp Pulse Pulse Resp BP Pulse Ox 04/25/21 09:46 76 04/25/21 08:00 36.0 C L 81 16 133/74 99 04/25/21 04:00 36.2 C L 84 20 102/67 98 04/24/21 23:30 35.9 C L 78 79 18 105/71 99
[2021-04-25] MEDS: PANTOprazole 40 MG in SYRINGE 0 ML IV SCH ×2 (11:06→20:53)
--- NOTE | 2021-04-25 13:25 | Electrocardiogram Report ---
Test Reason : Blood Pressure : / mmHG Vent. Rate : 079 BPM Atrial Rate : 079 BPM P-R Int : 168 ms QRS Dur : 094 ms QT Int : 460 ms P-R-T Axes : 045 015 002 degrees QTc Int : 527 ms Sinus rhythm with Premature atrial complexes Low voltage QRS Prolonged QT Abnormal ECG When compared with ECG of 24-APR-2021 04:56, Premature atrial complexes are now Present Nonspecific T wave abnormality no longer evident in Anterior leads QT has shortened Confirmed by Tim Ragland ([id number] on 04/25/2021 1:25:04 PM Referred By: RENAY PCP Confirmed By:Ramon Ragland
[2021-04-25] MEDS: NSS + 20MEQ KCL 20 MEQ/1,000 ML BAG IV SCH (13:32)
[2021-04-25] MEDS: DOXYCYCLINE HYCLATE 100 MG in DEXTROSE 5% 100 ML IV SCH (13:33)
[2021-04-25] MEDS ORDERED: LORazepam 0.5 MG/1 ML VIAL IV PRN (19:03)
[2021-04-25] MEDS ORDERED: LORazepam 1 MG/2 ML VIAL IV PRN (19:23)
[2021-04-25] MEDS ORDERED: GABAPENTIN 600 MG TAB PO ONE (19:23)
[2021-04-25] MEDS ORDERED: GABAPENTIN 1200MG ALCOHOL WITHDRAWAL LOAD PO STA (19:23)
--- NOTE | 2021-04-25 19:31 | Hospitalist Progress Note ---
Date of Service April 25, 2021 delayed entry date of service noted above Assessment & Plan (1) Septic shock: Plan: Per admitting service notes with addendum including the assessment and below This is a 60yo F with a PMH of alcoholism with cirrhosis, history of esophageal varices, type 2 diabetes, hypertension and other medical problems listed below who presents with altered mental status known since this morning presenting with hypothermia and septic shock. Found to be obtunded and covered in vomit this morning by boyfriend after 6 days of intractable nausea, vomiting and generalized weakness Presented with AMS temp of 32 C, as well as hypotensive with SBP 80s-90s Initial lactate 3, normalized with fluid resuscitation. Procalcitonin 0.75 Mentation has improved with 4 L fluid given total including banana bag. SBP still high 80s-90s. Norepi ordered Wearing Amber hugger with temp improved to now 34.[address] head, c-spine without abnormality. CXR with possible RLL PNA. CT abd/pelvis with stomach distended with liquid. GB with cholelithiasis but not ch olecystitis. Otherwise no evidence of acute intra-abdominal or pelvic abn Started on zosyn, vanco and doxy for empiric coverage LP performed in ED showing elevated CSF protein of 100.8. No WBC, CSF glucose 98. Remainder of infectious LP labs pending Discussed with Dr. Coto of neuro, who feels CSF protein elevation consistent with sepsis. Recommends ID consult Dr. Dominguez aware and patient will go to unit if still requiring pressors 04/24/2021 Off Levophed Blood pressure stable since 12:00 Follow-up cultures Continue Zosyn and doxycycline 04/25 BP stable, afebrile WBC 4.7 cultures negative so far continue Zosyn + Doxy Day 2 (2) Acute metabolic encephalopathy: Plan: In setting of sepsis, concern for Wernicke's encephalopathy given chronic alcoholism, poor nutrition, oculomotor irregularities and hypothermia CT head, c-spine without abnormality LP with elevated protein and glucose. WBC wnl Continue empiric antibiotics, follow cultures. UDS unremarkable Continue IV fluid resuscitation Initiated IV Thiamine 500 Q8H for concern for Wernicke's, obtain brain MRI once stable Neuro consulted 04/24/2021 Seems to be improving Continue antibiotics for management of sepsis Continue thiamine for Wernicke's encephalopathy PT OT evaluation confusion has escalated also having tremors possible Alcohol Withdrawal start Alcohol Withdrawal Protocol, including Gabapentin protocol continue IV Thiamine for Wernicke's encephalopathy (3) Hypothermia: Plan: Temp initially 32 C, improved to 34.5 C with amber hugger in place In setting of sepsis and concern for Wernike's encephalopathy Continue warmer 04/25/2021 Temperature now stable (4) Acute hypokalemia: Plan: In setting of nausea and vomiting over past week Replacing potassium, repeat BMP at 1500 Telemetry monitoring 04/25/2021 Continue monitoring and replacement as needed (5) Cardiac arrhythmia: Plan: Arrhythmia while in ED - artifact vs wide complex tachycardia Reviewed rhythm strips with Dr Muniz who feels consistent with artifact Expect improvement with lyte replacement, warming, abx Repeat EKG pending. Initial troponin negative Routine cardiology consult 04/25/2021 Likely related to septic shock, hypothermia Echocardiogram EF 55%, Grade II diastolic dysfunction Appreciate cardiology service recommendations (6) Acute kidney injury: Plan: Cr elevated at 3 (baseline ~ 0.9) in setting of sepsis, poor PO intake Expect pre-renal etiology, repeat BMP pending for this afternoon Avoid nephrotoxic agents when able 04/25/2021 Creatinine improving from 3--> 2 --> 1.7 Continue IV fluids (7) Alcohol abuse: (8) Cirrhosis: Plan: Denies etoh use for past week. No s/sx of seizure, CK wnl On diuretics per [facility] med rec, will need to clarify medrec with patient when mentation improves 04/25/2021 Ammonia level normal Alcohol Withdrawal management as per #2 (9) Hypertension: Plan: Off Levophed (10) Diabetes mellitus, type II: Plan: a1c 5.5 Hold home agents SSI while in-patient BSG AC HS DVT Ppx: SQ heparin Code status: FULL PCP: Sammy Dispo: Pending Lives at home PT OT evaluation Admission and Anticipated Discharge Date Admission Date: April 23, 2021 Subjective ff up for septic shock, pneumonia, encephalopathy etc seen resting in bed, not in distress, comfortable patient confused, not oriented saying illogical things per RN, patient has been having visual hallucinations denies chest pain, dyspnea, palpitations, dizziness denies cough, abdominal pain ,nausea no other symptoms Review of Systems Review of Systems: all noted and negative except for above Physical Exam Physical Exam: General- oriented x0 , not in distress, speaks in sentences with no effort or accessory muscle use Eyes- anicteric Neck- no JVD Lungs- clear breath sounds bilaterally, no rales/wheezes Heart- normal rate, regular rhythm; no murmurs Abdomen- normal bowel sounds, nondistended, soft, nontender Extremities- no pretibial edema, no calf tenderness (+) mild tremors bilateral hands Neuro- alert, oriented x 0;very confused, no gross focal neurologic deficits Skin- warm & dry Results & Data Results & Data ([facility]) Vital Signs (Past 12 Hours) Vital Signs Temp Pulse Pulse Resp BP Pulse Ox 04/25/21 13:53 36.1 C L 93 H 18 100/67 98 04/25/21 09:46 76 04/25/21 08:00 36.0 C L 81 16 133/74 99 all noted and reviewed including below
[2021-04-26] MEDS: DOXYCYCLINE HYCLATE 100 MG in DEXTROSE 5% 100 ML IV SCH ×2 (00:25→13:54)
[2021-04-26] MEDS: NSS + 20MEQ KCL 20 MEQ/1,000 ML BAG IV SCH ×2 (01:39→14:03)
[2021-04-26] MEDS: PIPERACILLIN/TAZOBACTAM 4.5 GM in DEXTROSE 5% 100 ML IV SCH ×3 (01:40→17:47)
[2021-04-26] MEDS: THIAMINE HCL 500 MG in SODIUM CHLORIDE 0.9% 50 ML IV SCH (05:40)
[2021-04-26] MEDS: ACETAMINOPHEN 1,000 MG/100 ML VIAL IV SCH ×2 (05:40→16:56)
[2021-04-26 05:56] LABS: Basophils # (auto) 0.01 K/uL (0-0.2); Basophils % (auto) 0.2 %; Eosinophils # (auto) 0.07 K/uL (0-0.5); Eosinophils % (auto) 1.5 %; Hematocrit (blood only) 24.9 % (37-47); Hemoglobin 8.2 g/dL (12.0-16.0); Immature Granulocytes # (auto) 0.03 K/uL (0.00-0.02); Immature Granulocytes % (auto) 0.6 %; Lymphocytes # (auto) 0.86 K/uL (1.2-3.4); Lymphocytes % (auto) 18.2 %; Mean Corpuscular Hemoglobin 31.9 pg (25-34); Mean Corpuscular Hgb Conc 32.9 g/dL (32-36); Mean Corpuscular Volume 96.9 fL (80-100); Mean Platelet Volume 9.6 fL (7.4-10.4); Monocytes # (auto) 0.63 K/uL (0.11-0.59); Monocytes % (auto) 13.3 %; Neutrophils # (auto) 3.12 K/uL (1.4-6.5); Neutrophils % (auto) 66.2 %; Platelet Count 114 K/uL (130-400); Red Blood Count 2.57 M/uL (4.2-5.4); White Blood Count 4.72 K/uL (4.8-10.8)
[2021-04-26 06:33] LABS: BUN Creatinine Ratio 18.6 (10-20); Calcium 9.2 mg/dl (8.5-10.1); Creatinine Clr Calc Pharmacy 42.4 ml/min; Est GFR (African American) 47.1 ml/min; Est GFR (Non-African American) 40.6 ml/min; Potassium 3.6 mmol/L (3.5-5.1)
[2021-04-26 06:46] LABS: RBC Morphology Unremarkable
[2021-04-26] MEDS: INSULIN ASPART 100 UNITS/ML 3 ML PEN SC SCH ×4 (08:51→21:00)
[2021-04-26] MEDS: GABAPENTIN 600 MG TAB PO SCH ×2 (08:52→16:51)
[2021-04-26] MEDS: FOLIC ACID 1 MG TAB PO SCH (08:52)
[2021-04-26] MEDS: PANTOprazole 40 MG in SYRINGE 0 ML IV SCH ×2 (08:54→21:39)
--- NOTE | 2021-04-26 10:46 | Cardiology Progress Note ---
Date of Service April 26, 2021 Assessment & Plan (1) Acute hypokalemia: Plan: K 3.6 today, continue normal saline and KCL at 75 ml/hr. (2) Septic shock: Plan: BP improved. Off norepinephrine. Continue antibiotics. (3) Wide-complex tachycardia: Plan: Likely artifactual. No further arrhythmias. (4) Acute kidney injury: Plan: Creatinine trending toward improvement. was 3.08 on admission, down to 1.42 Plan: THROMBOCYTOPENIA Platelets down to 98 on 04/25, 114 K today. SQ heparin on hold. Echo with normal biventricular function. Grade II diastolic dysfunction noted. Admission and Anticipated Discharge Date Admission Date: April 23, 2021 Subjective Pt seen in cardiology follow up. Still not oriented to place. Telemetry reveals SR in the 80s without arrhythmia. Review of Systems Review of Systems: Unobtainable due to cognitive status Physical Exam Physical Exam: Temp Pulse Resp BP Pulse Ox 35.9 C L 81 18 122/89 100 04/26/21 07:55 04/26/21 08:00 04/26/21 07:55 04/26/21 07:55 04/26/21 07:55 Constitutional: WD/WN, vitals as above Respiratory: normal respiratory effort, lungs clear to auscultation Cardiovascular: RRR, no murmur, no edema Gastrointestinal (Abdomen): normal bowel sounds, soft, nontender, no hepatosplenomegaly Neurologic: moves all 4 extremities. Results & Data ([facility]) Vital Signs (Past 12 Hours) Vital Signs Temp Pulse Pulse Resp BP BP Pulse Ox 04/26/21 08:00 81 04/26/21 07:55 35.9 C L 72 18 122/89 100 04/26/21 04:00 36.0 C L 81 21 128/92 99 04/26/21 01:00 35.8 C L 70 20 124/79 99 04/26/21 00:30 35.8 C L 77 19 116/74 97 04/26/21 00:00 35.8 C L 70 19 126/83 98 04/25/21 23:30 35.7 C L 71 19 127/89 97 04/25/21 23:00 35.7 C L 80 22 124/77 100 Laboratory Results 04/26/21 04/26/21 04/26/21 Range/Units 07:34 05:21 05:21 WBC 4.72 L (4.8-10.8) K/uL RBC 2.57 L (4.2-5.4) M/uL Hgb 8.2 L (12.0-16.0) g/dL Hct 24.9 L (37-47) % MCV 96.9 (80-100) fL MCH 31.9 (25-34) pg MCHC 32.9 (32-36) g/dL RDW Std Deviation 60.0 H (36.4-46.3) fL RDW Coeff of Radha 17.0 H (11.5-14.5) % Plt Count 114 L (130-400) K/uL MPV 9.6 (7.4-10.4) fL Immature Gran % (Auto) 0.6 % Neut % (Auto) 66.2 % Lymph % (Auto) 18.2 % Maries % (Auto) 13.3 % Eos % (Auto) 1.5 % Baso % (Auto) 0.2 % Neut # (Auto) 3.12 (1.4-6.5) K/uL Lymph # (Auto) 0.86 L (1.2-3.4) K/uL Maries # (Auto) 0.63 H (0.11-0.59) K/uL Eos # (Auto) 0.07 (0-0.5) K/uL Baso # (Auto) 0.01 (0-0.2) K/uL Immature Gran # (Auto) 0.03 H (0.00-0.02) K/uL RBC Morphology Unremarkable Sodium 140 (136-145) mmol/L Potassium 3.6 (3.5-5.1) mmol/L Chloride 114 H (98-107) mmol/L Carbon Dioxide 18 L (21-32) mmol/L Anion Gap 8.0 (3-11) BUN 26 H (7-18) mg/dl Creatinine 1.42 H D (0.6-1.2) mg/dl Est Cr Clr Drug Dosing 42.4 ml/min Est GFR ( Amer) 47.1 ml/min Est GFR (Non-Af Amer) 40.6 ml/min BUN/Creatinine Ratio 18.6 (10-20) Glucose 77 (70-99) mg/dl POC Glucose 76 (70-99) mg/dl Calcium 9.2 (8.5-10.1) mg/dl 04/25/21 04/25/21 Range/Units 21:19 11:30 WBC (4.8-10.8) K/uL RBC (4.2-5.4) M/uL Hgb (12.0-16.0) g/dL Hct (37-47) % MCV (80-100) fL MCH (25-34) pg MCHC (32-36) g/dL RDW Std Deviation (36.4-46.3) fL RDW Coeff of Radha (11.5-14.5) % Plt Count (130-400) K/uL MPV (7.4-10.4) fL Immature Gran % (Auto) % Neut % (Auto) % Lymph % (Auto) % Maries % (Auto) % Eos % (Auto) % Baso % (Auto) % Neut # (Auto) (1.4-6.5) K/uL Lymph # (Auto) (1.2-3.4) K/uL Maries # (Auto) (0.11-0.59) K/uL Eos # (Auto) (0-0.5) K/uL Baso # (Auto) (0-0.2) K/uL Immature Gran # (Auto) (0.00-0.02) K/uL RBC Morphology Sodium (136-145) mmol/L Potassium (3.5-5.1) mmol/L Chloride (98-107) mmol/L Carbon Dioxide (21-32) mmol/L Anion Gap (3-11) BUN (7-18) mg/dl Creatinine (0.6-1.2) mg/dl Est Cr Clr Drug Dosing ml/min Est GFR ( Amer) ml/min Est GFR (Non-Af Amer) ml/min BUN/Creatinine Ratio (10-20) Glucose (70-99) mg/dl POC Glucose 82 86 (70-99) mg/dl Calcium (8.5-10.1) mg/dl
--- NOTE | 2021-04-26 18:45 | Hospitalist Progress Note ---
Date of Service April 26, 2021 Assessment & Plan (1) Septic shock: Plan: Patient is a 60 yr female with H/O Alcoholism with cirrhosis, history of esophageal varices, type 2 diabetes, hypertension and other medical problems listed below who presents with altered mental status known since this morning presenting with hypothermia and septic shock. (As per Admitting team: Found to be obtunded and covered in vomit this morning by boyfriend after 6 days of intractable nausea, vomiting and generalized weakness. Presented with AMS temp of 32 C, as well as hypotensive with SBP 80s-90s) Septic shock Hypothermia Pneumonia, possibly due to aspiration Lactic acidosis: Normalized with IV fluids Procalcitonin 0.75 Blood cultures negative to date S/P LP: CSF culture negative Off pressors Currently on Zosyn, doxy Day #3 Appreciate critical care, neurology input Appreciate ID input We will plan to stop antibiotics and observe as recommended by ID tomorrow. (2) Acute metabolic encephalopathy: Plan: Acute Metabolic Encephalopathy--Likely Multifactorial -MRI Brain:No acute intracranial abnormality As per Prior hospitalist:In setting of sepsis, concern for Wernicke's encephalopathy given chronic alcoholism, poor nutrition, oculomotor irregularities and hypothermia Continue IV thiamine Appreciate Neurology Input Mental status improving Continue to monitor for withdrawal On gabapentin protocol (3) Hypothermia: Plan: Temp initially 32 C Improving Continue current management (4) Acute hypokalemia: Plan: Likely secondary to GI losses :nausea and vomiting, poor oral intake Replace electrolytes as needed Monitor (5) Cardiac arrhythmia: Plan: Wide-complex tachycardia Likely artifactual Continue monitor Appreciate cardiology input Replace electrolytes as needed (6) Acute kidney injury: Plan: Cr elevated at 3 (baseline ~ 0.9) Creatinine improved to 1.42 Continue IV fluids Avoid nephrotoxic agents as able (7) Alcohol abuse: Plan: Counseled to quit (8) Cirrhosis: Plan: On diuretics per [employer] med rec Normal ammonia level Resume home diuretics as able (clarify with patient when mentation improves) (9) Hypertension: Plan: Off Levophed (10) Diabetes mellitus, type II: Plan: HbA1c 5.5 Monitor blood glucose levels SSI while in-patient Thrombocytopenia Likely secondary to cirrhosis, alcohol use Monitor DVT Px: SQ heparin Code status: FULL CODE Disposition PT OT prior to discharge Admission and Anticipated Discharge Date Admission Date: April 23, 2021 Subjective Patient is seen and examined at bedside On and off confused as per RN Patient is oriented during my encounter States having chronic leg pain Denies any chest pain, shortness of breath, dizziness, nausea, abdominal pain Offers no other complaints Review of Systems Review of Systems: All systems reviewed & are unremarkable except as noted in Subjective Physical Exam Physical Exam: Physical Exam: Vitals signs as noted above General Appearance:Moderately built and nourished, no apparent distress Head: normocephalic, Atraumatic Eyes: normal inspection, EOMI Neck: supple, Trachea midline Respiratory/Chest: Normal breath sounds, CTA, No accessory muscle use Cardiovascular: S1, S2, No murmur Abdomen/GI:Soft, Non tender, Bowel sounds present Extremities/Musculoskeletal:normal inspection, no edema Neurologic/Psych:AAO, grossly no focal neurological deficits Skin: normal color, warm Results & Data Results & Data ([facility]) Vital Signs (Past 12 Hours) Vital Signs Temp Pulse Pulse Resp BP Pulse Ox 04/26/21 16:00 81 04/26/21 14:56 36.6 C 80 11 L 120/78 99 04/26/21 11:00 36.3 C L 83 20 126/79 98 04/26/21 08:00 81 04/26/21 07:55 35.9 C L 72 18 122/89 100 Laboratory Results Short CBC 04/26/21 Range/Units 05:21 WBC 4.72 L (4.8-10.8) K/uL Hgb 8.2 L (12.0-16.0) g/dL Hct 24.9 L (37-47) % Plt Count 114 L (130-400) K/uL BMP 04/26/21 05:21 Sodium 140 Potassium 3.6 Chloride 114 H Carbon Dioxide 18 L BUN 26 H Creatinine 1.42 H D Glucose 77 Calcium 9.2
[2021-04-27] MEDS: GABAPENTIN 600 MG TAB PO SCH ×3 (01:08→16:29)
[2021-04-27] MEDS: DOXYCYCLINE HYCLATE 100 MG in DEXTROSE 5% 100 ML IV SCH ×2 (01:09→11:44)
[2021-04-27] MEDS: PIPERACILLIN/TAZOBACTAM 4.5 GM in DEXTROSE 5% 100 ML IV SCH ×3 (03:08→16:33)
[2021-04-27] MEDS: NSS + 20MEQ KCL 20 MEQ/1,000 ML BAG IV SCH (03:09)
[2021-04-27 05:52] LABS: Basophils # (auto) 0.02 K/uL (0-0.2); Basophils % (auto) 0.4 %; Eosinophils % (auto) 1.8 %; Hematocrit (blood only) 25.7 % (37-47); Hemoglobin 8.4 g/dL (12.0-16.0); Immature Granulocytes # (auto) 0.03 K/uL (0.00-0.02); Immature Granulocytes % (auto) 0.5 %; Lymphocytes # (auto) 1.12 K/uL (1.2-3.4); Lymphocytes % (auto) 19.8 %; Mean Corpuscular Hemoglobin 32.1 pg (25-34); Mean Corpuscular Hgb Conc 32.7 g/dL (32-36); Mean Corpuscular Volume 98.1 fL (80-100); Mean Platelet Volume 10.6 fL (7.4-10.4); Monocytes # (auto) 0.68 K/uL (0.11-0.59); Neutrophils % (auto) 65.5 %; Platelet Count 130 K/uL (130-400); RDW Coefficient of Variation 17.7 % (11.5-14.5); RDW Standard Deviation 62.4 fL (36.4-46.3); Red Blood Count 2.62 M/uL (4.2-5.4); White Blood Count 5.65 K/uL (4.8-10.8)
[2021-04-27 06:27] LABS: BUN Creatinine Ratio 14.8 (10-20); Calcium 9.3 mg/dl (8.5-10.1); Creatinine Clr Calc Pharmacy 42.4 ml/min; Est GFR (African American) 47.1 ml/min; Est GFR (Non-African American) 40.6 ml/min; Magnesium 1.5 mg/dl (1.8-2.4)
[2021-04-27] MEDS: ACETAMINOPHEN 1,000 MG/100 ML VIAL IV SCH (06:44)
[2021-04-27] MEDS: INSULIN ASPART 100 UNITS/ML 3 ML PEN SC SCH ×4 (07:48→20:34)
[2021-04-27] MEDS: FOLIC ACID 1 MG TAB PO SCH (07:50)
[2021-04-27] MEDS: PANTOprazole 40 MG in SYRINGE 0 ML IV SCH ×2 (07:51→20:41)
--- NOTE | 2021-04-27 09:52 | Cardiology Progress Note ---
Date of Service April 27, 2021 Assessment & Plan (1) Acute hypokalemia: (2) Prolonged QT interval: Plan: EKG performed 04/25, Sr at 79 with occasional PACs, QT prolongation QTc 527. Potassium normal today, 4 mmol/l. Magnesium 1.5- will replace. Avoid QT prolonging agents. No cardiomyopathy on echocardiogram. Continue supportive care / antibiotics. Platelets up to 130 K. SQ heparin on hold. Differ DVT prophylaxis to primary service, needs to be reassessed daily. Admission and Anticipated Discharge Date Admission Date: April 23, 2021 Subjective Pt seen in follow up. Mental status a bit improved. Aware she is in hospital. Telemetry reveals SR at 80 bpm with rare PVCs. No sustained arrhythmias. Review of Systems Review of Systems: Other (limited due to cognitive status, but negative.) Physical Exam Constitutional: no acute distress Respiratory: normal respiratory effort, lungs clear to auscultation Cardiovascular: RRR, no murmur, no edema Gastrointestinal (Abdomen): normal bowel sounds, soft, nontender, no hepatosplenomegaly Neurologic: moves all 4 extremities Genitourinary: Delatorre catheter in place draining clear yellow urine. Results & Data ([facility]) Vital Signs (Past 12 Hours) Vital Signs Temp Pulse Pulse Resp BP BP Pulse Ox 04/27/21 07:22 36.7 C 86 19 114/72 97 04/27/21 04:00 98 H 18 123/72 99 04/27/21 00:00 36.7 C 83 85 11 L 109/45 L 100 Laboratory Results CBC 04/27/21 Range/Units 05:16 WBC 5.65 (4.8-10.8) K/uL RBC 2.62 L (4.2-5.4) M/uL Hgb 8.4 L (12.0-16.0) g/dL Hct 25.7 L (37-47) % Plt Count 130 (130-400) K/uL Neut # (Auto) 3.70 (1.4-6.5) K/uL Lymph # (Auto) 1.12 L (1.2-3.4) K/uL [place] # (Auto) 0.68 H (0.11-0.59) K/uL Eos # (Auto) 0.10 (0-0.5) K/uL Baso # (Auto) 0.02 (0-0.2) K/uL Comprehensive Metabolic Panel 04/27/21 Range/Units 05:16 Sodium 141 (136-145) mmol/L Potassium 4.0 (3.5-5.1) mmol/L Chloride 115 H (98-107) mmol/L Carbon Dioxide 18 L (21-32) mmol/L BUN 21 H (7-18) mg/dl Creatinine 1.42 H (0.6-1.2) mg/dl Glucose 80 (70-99) mg/dl Calcium 9.3 (8.5-10.1) mg/dl Intake and Output 04/26/21 04/27/21 04/27/21 22:59 06:59 14:59 Intake Total 450 / 3565.0 1685.0 / 3565.0 Output Total 2375 1950 / 2376 Balance 449 / 1189.0 -265.0 / 1189.0 Intake: IV 450 / 2585.0 1205.0 / 2585.0 Acetaminophen 1,000 mg In 100 100 / 100 ml @ 400 mls/hr IV Q12H [facility] Rx# :[id number] Doxycycline Hyclate 100 mg In 110 / 220 110 / 220 Dextrose 5% 100 ml @ 55 mls/hr IV Q12H [facility] Rx#:[id number] Nss + 20Meq KCl 20 meq In 1,000 982.5 / 1912.5 ml @ 75 mls/hr IV .[id number] [facility] Rx#:[id number] Piperacillin/Tazobactam 4.5 gm 240 / 352.5 112.5 / 352.5 In Dextrose 5% 100 ml @ 30 mls/ hr IV Q8H [facility] Rx#:[id number] Oral 480 / 980 Output: Urine 1275 / 1275 Urine Amount (Catheter) 675 / 1100 Delatorre/Indwelling 675 / 1100 # Bowel Movements Other: Weight 72.2 kg Weight Measurement Method Built in [facility]
[2021-04-27] MEDS: MAGNESIUM SULFATE / D5W 1 GM/100 ML BAG IV SCH ×2 (10:09→11:47)
[2021-04-27] MEDS: LACTATED RINGER'S 1,000 ML IV SCH ×2 (10:10→22:02)
--- NOTE | 2021-04-27 16:43 | Hospitalist Progress Note ---
Date of Service April 27, 2021 Assessment & Plan (1) Septic shock: Plan: Patient is a 60 yr female with H/O Alcoholism with cirrhosis, history of esophageal varices, type 2 diabetes, hypertension and other medical problems listed below who presents with altered mental status known since this morning presenting with hypothermia and septic shock. (As per Admitting team: Found to be obtunded and covered in vomit this morning by boyfriend after 6 days of intractable nausea, vomiting and generalized weakness. Presented with AMS temp of 32 C, as well as hypotensive with SBP 80s-90s) Septic shock Hypothermia Pneumonia, possibly due to aspiration Lactic acidosis: Normalized with IV fluids Procalcitonin 0.75 Blood cultures negative to date S/P LP: CSF culture negative Off pressors Currently on Zosyn, doxy Day #4/5 Appreciate critical care, neurology input Appreciate ID input (2) Acute metabolic encephalopathy: Plan: Acute Metabolic Encephalopathy--Likely Multifactorial -MRI Brain:No acute intracranial abnormality As per Prior hospitalist:In setting of sepsis, concern for Wernicke's encephalopathy given chronic alcoholism, poor nutrition, oculomotor irregularities and hypothermia Continue IV thiamine Appreciate Neurology Input Continue to monitor for withdrawal On gabapentin protocol Mental status slowly improved (3) Hypothermia: Plan: Temp initially 32 C Improving Continue current management (4) Acute hypokalemia: Plan: Likely secondary to GI losses :nausea and vomiting, poor oral intake Replace electrolytes as needed Monitor Hypomagnesemia Replace electrolytes as needed (5) Cardiac arrhythmia: Plan: Wide-complex tachycardia Likely artifactual Continue monitor Appreciate cardiology input Replace electrolytes as needed (6) Acute kidney injury: Plan: Cr elevated at 3 (baseline ~ 0.9) Creatinine improved to 1.42 Continue IV fluids Avoid nephrotoxic agents as able (7) Alcohol abuse: Plan: Counseled to quit (8) Cirrhosis: Plan: On diuretics per [employer] med rec Normal ammonia level Resume home diuretics as able (clarify with patient when mentation improves) (9) Hypertension: Plan: BP stable (10) Diabetes mellitus, type II: Plan: HbA1c 5.5 Monitor blood glucose levels SSI while in-patient Thrombocytopenia Likely secondary to cirrhosis, alcohol use Monitor DVT Px: SQ heparin Code status: FULL CODE Disposition PT OT prior to discharge Admission and Anticipated Discharge Date Admission Date: April 23, 2021 Subjective Patient is seen and examined at bedside Mental status slowly improving Denies any hallucinations Denies any chest pain, shortness of breath, dizziness, nausea, abdominal pain Minimal Tremor on exam Review of Systems Review of Systems: All systems reviewed & are unremarkable except as noted in Subjective Physical Exam Physical Exam: Physical Exam: Vitals signs as noted above General Appearance:Moderately built and nourished, no apparent distress Head: normocephalic, Atraumatic Eyes: normal inspection, EOMI Neck: supple, Trachea midline Respiratory/Chest: Normal breath sounds, CTA, No accessory muscle use Cardiovascular: S1, S2, No murmur Abdomen/GI:Soft, Non tender, Bowel sounds present Extremities/Musculoskeletal:normal inspection, no edema Neurologic/Psych:AAO, grossly no focal neurological deficits Skin: normal color, warm Results & Data Results & Data ([facility]) Vital Signs (Past 12 Hours) Vital Signs Temp Pulse Pulse Resp BP Pulse Ox 04/27/21 16:20 36.7 C 94 H 14 119/78 98 04/27/21 13:00 36.3 C L 89 19 124/72 100 04/27/21 08:00 96 H 04/27/21 07:22 36.7 C 86 19 114/72 97 Laboratory Results Short CBC 04/27/21 Range/Units 05:16 WBC 5.65 (4.8-10.8) K/uL Hgb 8.4 L (12.0-16.0) g/dL Hct 25.7 L (37-47) % Plt Count 130 (130-400) K/uL BMP 04/27/21 05:16 Sodium 141 Potassium 4.0 Chloride 115 H Carbon Dioxide 18 L BUN 21 H Creatinine 1.42 H Glucose 80 Calcium 9.3
[2021-04-27] MEDS ORDERED: PROMETHAZINE HCL 12.5 MG in SODIUM CHLORIDE 0.9% 50 ML IV PRN (20:02)
[2021-04-27] MEDS: THIAMINE HCL 250 MG in SODIUM CHLORIDE 0.9% 50 ML IV SCH (22:02)
[2021-04-27] MEDS: HEPARIN SOD 5,000 UNIT/0.5 ML VIAL SQ SCH (22:03)
[2021-04-28] MEDS: DOXYCYCLINE HYCLATE 100 MG in DEXTROSE 5% 100 ML IV SCH ×2 (00:30→13:34)
[2021-04-28] MEDS: PIPERACILLIN/TAZOBACTAM 4.5 GM in DEXTROSE 5% 100 ML IV SCH ×3 (02:01→16:51)
[2021-04-28 04:56] LABS: Hematocrit (blood only) 24.9 % (37-47); Hemoglobin 8.1 g/dL (12.0-16.0)
[2021-04-28 05:23] LABS: BUN Creatinine Ratio 14.1 (10-20); Calcium 9.2 mg/dl (8.5-10.1); Est GFR (African American) 44.4 ml/min; Est GFR (Non-African American) 38.3 ml/min; Magnesium 1.6 mg/dl (1.8-2.4); Potassium 3.7 mmol/L (3.5-5.1)
[2021-04-28] MEDS: GABAPENTIN 600 MG TAB PO SCH ×2 (05:32→16:50)
[2021-04-28] MEDS ORDERED: STAT IV STA (08:06)
[2021-04-28] MEDS ORDERED: SODIUM BICARBONATE 8.4% 75 MEQ in SODIUM CHLORIDE 0.45 % 1,000 ML IV ONE (08:07)
[2021-04-28] MEDS: INSULIN ASPART 100 UNITS/ML 3 ML PEN SC SCH ×4 (08:09→22:12)
[2021-04-28] MEDS: MAGNESIUM SULFATE / D5W 1 GM/100 ML BAG IV SCH ×2 (08:17→09:06)
[2021-04-28] MEDS: MAGNESIUM CHLORIDE 64MG DELAYED REL TAB PO SCH ×2 (08:22→21:39)
[2021-04-28] MEDS: FOLIC ACID 1 MG TAB PO SCH (08:22)
[2021-04-28] MEDS: HEPARIN SOD 5,000 UNIT/0.5 ML VIAL SQ SCH ×2 (08:23→21:39)
[2021-04-28] MEDS: PANTOprazole 40 MG in SYRINGE 0 ML IV SCH ×2 (08:24→21:39)
--- NOTE | 2021-04-28 08:54 | Ultrasound Report ---
RENAL ULTRASOUND CLINICAL HISTORY: Acute kidney injury. COMPARISON STUDY: CT of the abdomen and pelvis April 23, 2021. TECHNIQUE: Sonography of the kidneys and the urinary bladder was performed. FINDINGS: There is no hydronephrosis. The right kidney measures 11.3 x 5.8 x 7.5 cm and the left saba ures 11.2 x 6.1 x 6.8 cm. The kidneys appear mildly echogenic. Trace right perinephric fluid is of do ubtful significance. Delatorre balloon within the bladder is noted. Small amount of pelvic ascites is pre sent. IMPRESSION: 1. No hydronephrosis. 2. Mild increased renal echogenicity. 3. Small amount of fluid within the pelvis. ACT 112: Negative or not required by law. Electronically signed by: Rao Brown M.D. 04/28/2021 8:52 AM
[2021-04-28] MEDS: THIAMINE HCL 250 MG in SODIUM CHLORIDE 0.9% 50 ML IV SCH ×2 (08:55→21:40)
[2021-04-28] MEDS ORDERED: POTASSIUM CHLORIDE CRTAB 20 MEQ TABCR PO STA (09:49)
--- NOTE | 2021-04-28 09:55 | Cardiology Progress Note ---
Date of Service April 28, 2021 Assessment & Plan (1) Septic shock: Plan: BP improved. Off pressors. Given development of narrow complex tachycardia on telemetry of 108 -110 bpm, update EKG. Start metoprolol tartrate 12.5 mg BID. (2) Acute hypokalemia: Plan: Potassium improved, but still below goal, with measurement of 3.7 mmol/l today. Replace with KCl 40 meq. Typically on spironolactone 100 mg as outpt, will resume at 25 mg daily as BP is stable. (3) Prolonged QT interval: Plan: Repeat EKG, add meoprolol for now. On nonselective BBocker propranolol as outpt due to h/o liver disease, varices. Plan: DVT prophylaxis: Platelet count improved to 130 K, SQ heparin resumed. SCDs ordered. Admission and Anticipated Discharge Date Admission Date: April 23, 2021 Subjective Pt seen in follow up. No complaints. Mental status still not normal, but stable. Review of Systems Review of Systems: Unobtainable due to cognitive status Physical Exam Constitutional: no acute distress Respiratory: normal respiratory effort, lungs clear to auscultation Cardiovascular: RRR, no murmur, no edema Gastrointestinal (Abdomen): normal bowel sounds, soft, nontender, no hepatosplenomegaly Neurologic: moves all 4 extremities Results & Data ([facility]) Vital Signs (Past 12 Hours) Vital Signs Temp Pulse Pulse Resp BP Pulse Ox 04/28/21 07:51 106 H 04/28/21 07:00 37 C 82 19 126/88 100 04/28/21 03:03 37 C 93 H 20 132/87 99 04/27/21 22:59 36.1 C L 114 H 18 125/89 95
[2021-04-28] MEDS: METOPROLOL TARTRATE 25 MG TAB PO SCH ×2 (11:34→21:39)
[2021-04-28] MEDS: SPIRONOLACTONE 25 MG TAB PO SCH (11:34)
--- NOTE | 2021-04-28 11:46 | Communication Note ---
Date of Service: April 28, 2021 EKG 04/28/21= SR at 94 with age undetermined inferior infarct and anterior infarct patterns (noted intermittently on prior tracings), QTC improved to 452 ms. Continue with plans to replace potassium, trial of low dose Beta justine. Consider transition back to propranolol if BP remains stable.
--- NOTE | 2021-04-28 14:02 | Hospitalist Progress Note ---
Date of Service April 28, 2021 Assessment & Plan (1) Septic shock: Plan: Patient is a 60 yr female with H/O Alcoholism with cirrhosis, history of esophageal varices, type 2 diabetes, hypertension and other medical problems listed below who presents with altered mental status known since this morning presenting with hypothermia and septic shock. (As per Admitting team: Found to be obtunded and covered in vomit this morning by boyfriend after 6 days of intractable nausea, vomiting and generalized weakness. Presented with AMS temp of 32 C, as well as hypotensive with SBP 80s-90s) Septic shock Hypothermia Pneumonia, possibly due to aspiration Lactic acidosis: Normalized with IV fluids Procalcitonin 0.75 Blood cultures negative to date S/P LP: CSF culture negative Off pressors Plan to complete 5 day course of Zosyn, doxy and STOP Appreciate critical care, neurology input Appreciate ID input Hypothermia resolved (2) Acute metabolic encephalopathy: Plan: Acute Metabolic Encephalopathy--Likely Multifactorial -MRI Brain:No acute intracranial abnormality As per Prior hospitalist:In setting of sepsis, concern for Wernicke's e ncephalopathy given chronic alcoholism, poor nutrition, oculomotor irregularities and hypothermia Continue IV thiamine Appreciate Neurology Input Continue to monitor for withdrawal On gabapentin protocol Oriented but Mental status not completely back to baseline (3) Hypothermia: Plan: Temp initially 32 C Continue current management (4) Acute hypokalemia: Plan: Likely secondary to GI losses :nausea and vomiting, poor oral intake Replace electrolytes as needed Monitor Hypomagnesemia Replace electrolytes as needed (5) Cardiac arrhythmia: Plan: Wide-complex tachycardia Likely artifactual Continue monitor Appreciate cardiology input Replace electrolytes as needed Trial of Metoprolol 12.5mg BID Plan to transition back to Propranolol if BP remains stable as per Cardiology (6) Acute kidney injury: Plan: Metabolic acidosis Cr elevated at 3 (baseline ~ 0.9) Creatinine improved to 1.42 Continue IV fluids Avoid nephrotoxic agents as able (7) Alcohol abuse: Plan: Counseled to quit (8) Cirrhosis: Plan: On diuretics per [employer] med rec Normal ammonia level Resume home diuretics as able (clarify with patient when mentation improves) (9) Hypertension: Plan: BP stable (10) Diabetes mellitus, type II: Plan: HbA1c 5.5 Monitor blood glucose levels SSI while in-patient Thrombocytopenia Likely secondary to cirrhosis, alcohol use Monitor DVT Px: SQ heparin Code status: FULL CODE Disposition PT OT prior to discharge Admission and Anticipated Discharge Date Admission Date: April 23, 2021 Subjective Patient is seen and examined at bedside Oriented but Mental status not back to baseline yet Denies any chest pain, shortness of breath, dizziness, nausea, abdominal pain No signs of withdrawal Review of Systems Review of Systems: All systems reviewed & are unremarkable except as noted in Subjective Physical Exam Physical Exam: Physical Exam: Vitals signs as noted above General Appearance:Moderately built and nourished, no apparent distress Head: normocephalic, Atraumatic Eyes: normal inspection, EOMI Neck: supple, Trachea midline Respiratory/Chest: Normal breath sounds, CTA, No accessory muscle use Cardiovascular: S1, S2, No murmur Abdomen/GI:Soft, Non tender, Bowel sounds present Extremities/Musculoskeletal:normal inspection, no edema Neurologic/Psych:AAO, grossly no focal neurological deficits Skin: normal color, warm Results & Data Results & Data ([facility]) Vital Signs (Past 12 Hours) Vital Signs Temp Pulse Pulse Resp BP BP Pulse Ox 04/28/21 11:40 36.6 C 98 H 14 119/79 99 04/28/21 07:51 106 H 04/28/21 07:00 37 C 82 19 126/88 100 04/28/21 03:03 37 C 93 H 20 132/87 99 Laboratory Results Short CBC 04/28/21 Range/Units 04:00 Hgb 8.1 L (12.0-16.0) g/dL Hct 24.9 L (37-47) % BMP 04/28/21 04:00 Sodium 141 Potassium 3.7 Chloride 115 H Carbon Dioxide 17 L BUN 21 H Creatinine 1.49 H Glucose 110 H Calcium 9.2
[2021-04-29] MEDS: PIPERACILLIN/TAZOBACTAM 4.5 GM in DEXTROSE 5% 100 ML IV SCH ×2 (02:12→09:10)
[2021-04-29 05:54] LABS: Basophils # (auto) 0.01 K/uL (0-0.2); Basophils % (auto) 0.2 %; Eosinophils # (auto) 0.08 K/uL (0-0.5); Eosinophils % (auto) 1.6 %; Hematocrit (blood only) 24.5 % (37-47); Hemoglobin 7.9 g/dL (12.0-16.0); Immature Granulocytes # (auto) 0.04 K/uL (0.00-0.02); Immature Granulocytes % (auto) 0.8 %; Lymphocytes # (auto) 0.94 K/uL (1.2-3.4); Lymphocytes % (auto) 18.8 %; Mean Corpuscular Hemoglobin 31.7 pg (25-34); Mean Corpuscular Hgb Conc 32.2 g/dL (32-36); Mean Corpuscular Volume 98.4 fL (80-100); Mean Platelet Volume 10.5 fL (7.4-10.4); Neutrophils # (auto) 3.33 K/uL (1.4-6.5); Neutrophils % (auto) 66.6 %; Platelet Count 143 K/uL (130-400); RDW Coefficient of Variation 18.5 % (11.5-14.5); RDW Standard Deviation 65.4 fL (36.4-46.3); Red Blood Count 2.49 M/uL (4.2-5.4)
[2021-04-29 06:13] LABS: BUN Creatinine Ratio 13.9 (10-20); Calcium 9.1 mg/dl (8.5-10.1); Creatinine Clr Calc Pharmacy 43.4 ml/min; Est GFR (African American) 46.7 ml/min; Est GFR (Non-African American) 40.3 ml/min; Magnesium 1.5 mg/dl (1.8-2.4); Potassium 3.7 mmol/L (3.5-5.1)
[2021-04-29 06:28] LABS: RBC Morphology Unremarkable
[2021-04-29] MEDS ORDERED: GABAPENTIN 600 MG TAB PO SCH (07:30)
[2021-04-29] MEDS: INSULIN ASPART 100 UNITS/ML 3 ML PEN SC SCH ×4 (08:58→22:04)
[2021-04-29] MEDS: HEPARIN SOD 5,000 UNIT/0.5 ML VIAL SQ SCH ×2 (08:59→22:04)
[2021-04-29] MEDS: FOLIC ACID 1 MG TAB PO SCH (08:59)
[2021-04-29] MEDS: METOPROLOL TARTRATE 25 MG TAB PO SCH ×2 (09:00→22:05)
[2021-04-29] MEDS: SPIRONOLACTONE 25 MG TAB PO SCH (09:01)
[2021-04-29] MEDS: THIAMINE HCL 250 MG in SODIUM CHLORIDE 0.9% 50 ML IV SCH ×2 (09:10→22:08)
[2021-04-29] MEDS: PANTOprazole 40 MG in SYRINGE 0 ML IV SCH ×2 (09:30→22:05)
[2021-04-29] MEDS: MAGNESIUM CHLORIDE 64MG DELAYED REL TAB PO SCH ×3 (09:39→22:07)
[2021-04-29] MEDS: MAGNESIUM SULFATE / D5W 1 GM/100 ML BAG IV SCH ×2 (10:40→12:37)
--- NOTE | 2021-04-29 12:05 | Electrocardiogram Report ---
Test Reason : Blood Pressure : / mmHG Vent. Rate : 094 BPM Atrial Rate : 094 BPM P-R Int : 160 ms QRS Dur : 088 ms QT Int : 362 ms P-R-T Axes : 040 021 016 degrees QTc Int : 452 ms Normal sinus rhythm Low voltage QRS Inferior infarct , age undetermined Poor R wave progression, consider anterior ID vs. lead placement vs. LVH Abnormal ECG When compared with ECG of 25-APR-2021 05:53, Premature atrial complexes are no longer Present QT has shortened Confirmed by Lico Blue ([id number]) on 04/29/2021 12:04:39 PM Referred By: NO PCP Confirmed By:Lico Blue
--- NOTE | 2021-04-29 16:09 | Cardiology Progress Note ---
Date of Service April 29, 2021 Assessment & Plan (1) Septic shock: Plan: BP improved. Off pressors. She has tolerated initiation of metoprolol tartrate 12.5 mg twice daily, on 04/28/2021. She remains on Zosyn. (2) Acute hypokalemia: Plan: Potassium 3.7. Continue spironolactone. (3) Prolonged QT interval: Plan: Corrected QT interval improved to 452 ms on EKG 04/28/2021. Continue metoprolol tartrate. On nonselective BBocker propranolol as outpt due to h/o liver disease, varices. Plan: DVT prophylaxis: Continue subcutaneous heparin Admission and Anticipated Discharge Date Admission Date: April 23, 2021 Subjective Patient seen in follow-up. Mental status about the same as yesterday. She is working on ordering her dinner at the time of my assessment. Telemetry reveals sinus rhythm in the range of 8090 bpm. Review of Systems Review of Systems: Unobtainable due to cognitive status Physical Exam Physical Exam: Temp Pulse Resp BP Pulse Ox 35.9 C L 81 18 122/89 100 04/26/21 07:55 04/26/21 08:00 04/26/21 07:55 04/26/21 07:55 04/26/21 07:55 Constitutional: WD/WN, vitals as above + ill appearing; no acute distress Respiratory: normal respiratory effort, lungs clear to auscultation Cardiovascular: RRR, no murmur, no edema Gastrointestinal (Abdomen): normal bowel sounds, soft, nontender, no hepatosplenomegaly Results & Data ([facility]) Vital Signs (Past 12 Hours) Vital Signs Temp Pulse Pulse Resp BP BP Pulse Ox 04/29/21 11:30 36.7 C 86 13 115/72 98 04/29/21 08:00 87 04/29/21 07:36 36.6 C 80 17 127/86 98 Laboratory Results CBC 04/29/21 Range/Units 05:32 WBC 5.00 (4.8-10.8) K/uL RBC 2.49 L (4.2-5.4) M/uL Hgb 7.9 L (12.0-16.0) g/dL Hct 24.5 L (37-47) % Plt Count 143 (130-400) K/uL Neut # (Auto) 3.33 (1.4-6.5) K/uL Lymph # (Auto) 0.94 L (1.2-3.4) K/uL [place] # (Auto) 0.60 H (0.11-0.59) K/uL Eos # (Auto) 0.08 (0-0.5) K/uL Baso # (Auto) 0.01 (0-0.2) K/uL Comprehensive Metabolic Panel 04/29/21 Range/Units 05:32 Sodium 141 (136-145) mmol/L Potassium 3.7 (3.5-5.1) mmol/L Chloride 114 H (98-107) mmol/L Carbon Dioxide 20 L (21-32) mmol/L BUN 20 H (7-18) mg/dl Creatinine 1.43 H (0.6-1.2) mg/dl Glucose 136 H (70-99) mg/dl Calcium 9.1 (8.5-10.1) mg/dl Intake and Output 04/29/21 04/29/21 04/29/21 06:59 14:59 22:59 Intake Total 420 / 3690.833 270.0 / 370.0 100 / 370.0 Output Total 325 / 2124 850 / 850 Balance 95 / 1565.833 -580.0 / -480.0 100 / -480.0 Intake: IV 120 / 2790.833 270.0 / 370.0 100 / 370.0 Magnesium Sulfate / D5w 1 gm In 97.5 / 197.5 100 / 197.5 100 ml @ 50 mls/hr IV TODAY@ 0945,1145 [facility] Rx#:[id number] Piperacillin/Tazobactam 4.5 gm 120 / 360 120 / 120 In Dextrose 5% 100 ml @ 30 mls/ hr IV Q8H [facility] Rx#:[id number] Thiamine HCl 250 mg In Sodium 52.5 / 52.5 Chloride 0.9% 50 ml @ 210 mls/ hr IV BID [facility] Rx#:[id number] Oral 300 / 900 Output: Urine Amount (Catheter) 2124 850 / 850 Delatorre/Indwelling 2124 850 / 850 Other: Weight 74.6 kg Weight Measurement Method Built in [facility]
--- NOTE | 2021-04-29 19:03 | Hospitalist Progress Note ---
Date of Service April 29, 2021 Assessment & Plan (1) Septic shock: Plan: Patient is a 60 yr female with H/O Alcoholism with cirrhosis, history of esophageal varices, type 2 diabetes, hypertension and other medical problems listed below who presents with altered mental status known since this morning presenting with hypothermia and septic shock. (As per Admitting team: Found to be obtunded and covered in vomit this morning by boyfriend after 6 days of intractable nausea, vomiting and generalized weakness. Presented with AMS temp of 32 C, as well as hypotensive with SBP 80s-90s) Septic shock Hypothermia Pneumonia, possibly due to aspiration Lactic acidosis: Normalized with IV fluids Procalcitonin 0.75 Blood cultures negative to date S/P LP: CSF culture negative Off pressors Completed 5-day course of antibiotics :Zosyn doxy Appreciate critical care, neurology input Appreciate ID input Hypothermia resolved Monitor off antibiotics IV fluids discontinued (2) Acute metabolic encephalopathy: Plan: Acute Metabolic Encephalopathy--Likely Multifactorial -MRI Brain:No acute intracranial abnormality As per Prior hospitalist:In setting of sepsis, concern for Wernicke's encephalopathy given chronic alcoholism, poor nutrition, oculomotor irregularities and hypothermia Continue IV thiamine Appreciate Neurology Input Continue to monitor for withdrawal Completed gabapentin protocol Mental status slowly improving (3) Hypothermia: Plan: Temp initially 32 C Continue current management (4) Acute hypokalemia: Plan: Likely secondary to GI losses :nausea and vomiting, poor oral intake Replace electrolytes as needed Monitor Hypomagnesemia Replace electrolytes as needed (5) Cardiac arrhythmia: Plan: Wide-complex tachycardia Likely artifactual Continue monitor Appreciate cardiology input Replace electrolytes as needed Trial of Metoprolol 12.5mg BID Was on propranolol (6) Acute kidney injury: Plan: Metabolic acidosis Cr elevated at 3 (baseline ~ 0.9) Creatinine improved to 1.4 Received IV fluids Avoid nephrotoxic agents as able (7) Alcohol abuse: Plan: Counseled to quit (8) Cirrhosis: Plan: On diuretics per [facility] med rec Normal ammonia level Resumed on spironolactone (9) Hypertension: Plan: BP stable (10) Diabetes mellitus, type II: Plan: HbA1c 5.5 Monitor blood glucose levels SSI while in-patient Thrombocytopenia Likely secondary to cirrhosis, alcohol use Monitor DVT Px: SQ heparin Code status: FULL CODE Disposition PT OT prior to discharge Admission and Anticipated Discharge Date Admission Date: April 23, 2021 Subjective Patient is seen and examined at bedside States having neuropathy leg pain Mental status about the same as yesterday Slow to respond Denies any chest pain, shortness of breath, dizziness, nausea, abdominal pain l Review of Systems Review of Systems: All systems reviewed & are unremarkable except as noted in Subjective Physical Exam Physical Exam: Physical Exam: Vitals signs as noted above General Appearance:Moderately built and nourished, no apparent distress Head: normocephalic, Atraumatic Eyes: normal inspection, EOMI Neck: supple, Trachea midline Respiratory/Chest: Normal breath sounds, CTA, No accessory muscle use Cardiovascular: S1, S2, No murmur Abdomen/GI:Soft, Non tender, Bowel sounds present Extremities/Musculoskeletal:normal inspection, no edema Neurologic/Psych:AAO, grossly no focal neurological deficits Skin: normal color, warm Results & Data Results & Data ([facility]) Vital Signs (Past 12 Hours) Vital Signs Temp Pulse Pulse Resp BP BP Pulse Ox 04/29/21 16:00 82 04/29/21 11:30 36.7 C 86 13 115/72 98 04/29/21 08:00 87 04/29/21 07:36 36.6 C 80 17 127/86 98 Laboratory Results Short CBC 04/29/21 Range/Units 05:32 WBC 5.00 (4.8-10.8) K/uL Hgb 7.9 L (12.0-16.0) g/dL Hct 24.5 L (37-47) % Plt Count 143 (130-400) K/uL BMP 04/29/21 05:32 Sodium 141 Potassium 3.7 Chloride 114 H Carbon Dioxide 20 L BUN 20 H Creatinine 1.43 H Glucose 136 H Calcium 9.1
[2021-04-29] MEDS: GABAPENTIN 100 MG CAP PO SCH (22:03)
[2021-04-30 07:10] LABS: Hematocrit (blood only) 23.7 % (37-47); Hemoglobin 7.8 g/dL (12.0-16.0)
[2021-04-30] MEDS: INSULIN ASPART 100 UNITS/ML 3 ML PEN SC SCH ×4 (07:43→21:33)
[2021-04-30 07:47] LABS: BUN Creatinine Ratio 14.6 (10-20); Calcium 9.6 mg/dl (8.5-10.1); Creatinine Clr Calc Pharmacy 47.5 ml/min; Est GFR (African American) 52.4 ml/min; Est GFR (Non-African American) 45.2 ml/min; Magnesium 1.7 mg/dl (1.8-2.4); Potassium 3.9 mmol/L (3.5-5.1)
[2021-04-30] MEDS: PANTOprazole 40 MG in SYRINGE 0 ML IV SCH (08:08)
[2021-04-30] MEDS: METOPROLOL TARTRATE 25 MG TAB PO SCH ×2 (08:08→21:51)
[2021-04-30] MEDS: SPIRONOLACTONE 25 MG TAB PO SCH (08:08)
[2021-04-30] MEDS: MAGNESIUM CHLORIDE 64MG DELAYED REL TAB PO SCH ×3 (08:08→21:34)
[2021-04-30] MEDS: THIAMINE HCL 250 MG in SODIUM CHLORIDE 0.9% 50 ML IV SCH (08:08)
[2021-04-30] MEDS: FOLIC ACID 1 MG TAB PO SCH (08:09)
[2021-04-30] MEDS: GABAPENTIN 100 MG CAP PO SCH ×2 (08:09→21:34)
[2021-04-30] MEDS: HEPARIN SOD 5,000 UNIT/0.5 ML VIAL SQ SCH ×2 (08:09→21:32)
[2021-04-30] MEDS ORDERED: MAGNESIUM SULFATE / D5W 1 GM/100 ML BAG IV ONE (08:30)
--- NOTE | 2021-04-30 15:53 | Cardiology Progress Note ---
Date of Service April 30, 2021 Assessment & Plan (1) Septic shock: Plan: BP improved. Off pressors. Off antibiotics. (2) Acute hypokalemia: Plan: Potassium 3.9. Continue spironolactone. (3) Prolonged QT interval: Plan: Corrected QT interval improved to 452 ms on EKG 04/28/2021. Transition to propranolol 05/01/2021, as she is on this as an outpatient given her history of esophageal varices. Stable degree of anemia noted, hemoglobin 7.8. Plan: DVT prophylaxis: Continue subcutaneous heparin Admission and Anticipated Discharge Date Admission Date: April 23, 2021 Subjective Patient seen in follow-up. Denies subjective complaints. Mental status is still subnormal. Telemetry reveals sinus rhythm and sinus tachycardia with rates of 90 to 100 bpm. Blood pressure is trended up. Physical Exam Constitutional: no acute distress Respiratory: normal respiratory effort, lungs clear to auscultation Cardiovascular: RRR, no murmur, no edema Gastrointestinal (Abdomen): normal bowel sounds, soft, nontender, no hepatosplenomegaly Genitourinary: Delatorre catheter draining clear yellow urine Results & Data ([facility]) Vital Signs (Past 12 Hours) Vital Signs Temp Pulse Pulse Resp BP Pulse Ox 04/30/21 08:00 36.6 C 96 H 95 H 16 142/90 H 95 04/30/21 04:11 37.1 C 97 H 16 136/84 97
--- NOTE | 2021-04-30 16:20 | Hospitalist Progress Note ---
Date of Service April 30, 2021 Assessment & Plan (1) Septic shock: Plan: Patient is a 60 yr female with H/O Alcoholism with cirrhosis, history of esophageal varices, type 2 diabetes, hypertension and other medical problems listed below who presents with altered mental status known since this morning presenting with hypothermia and septic shock. (As per Admitting team: Found to be obtunded and covered in vomit this morning by boyfriend after 6 days of intractable nausea, vomiting and generalized weakness. Presented with AMS temp of 32 C, as well as hypotensive with SBP 80s-90s) Septic shock Hypothermia Pneumonia, possibly due to aspiration Lactic acidosis: Normalized with IV fluids Procalcitonin 0.75 Blood cultures negative to date S/P LP: CSF culture negative Off pressors Completed 5-day course of antibiotics :arun Andrew Appreciate critical care, neurology input Appreciate ID input Hypothermia resolved Monitor off antibiotics IV fluids discontinued Resolved (2) Acute metabolic encephalopathy: Plan: Acute Metabolic Encephalopathy--Likely Multifactorial -MRI Brain:No acute intracranial abnormality As per Prior hospitalist:In setting of sepsis, concern for Wernicke's encephalopathy given chronic alcoholism, poor nutrition, oculomotor irregularities and hypothermia Continue IV thiamine >> transition to p.o. thiamine tomorrow Appreciate Neurology Input Continue to monitor for withdrawal Completed gabapentin protocol Mental status slowly improving (3) Hypothermia: Plan: Temp initially 32 C Continue current management (4) Acute hypokalemia: Plan: Likely secondary to GI losses :nausea and vomiting, poor oral intake Replace electrolytes as needed Monitor Hypomagnesemia Replace electrolytes as needed (5) Cardiac arrhythmia: Plan: Wide-complex tachycardia Likely artifactual Continue monitor Appreciate cardiology input Replace electrolytes as needed On Metoprolol 12.5mg BID>> Transition to propranolol tomorrow given H/O esophageal varices (6) Acute kidney injury: Plan: Metabolic acidosis Cr elevated at 3 (baseline ~ 0.9) Creatinine improved to 1.4 Received IV fluids Avoid nephrotoxic agents as able (7) Alcohol abuse: Plan: Counseled to quit (8) Cirrhosis: Plan: On diuretics per [facility] rec Normal ammonia level Resumed on spironolactone (9) Hypertension: Plan: BP stable (10) Diabetes mellitus, type II: Plan: HbA1c 5.5 Monitor blood glucose levels SSI while in-patient Thrombocytopenia Likely secondary to cirrhosis, alcohol use Monitor DVT Px: SQ heparin Code status: FULL CODE Disposition PT OT prior to discharge Admission and Anticipated Discharge Date Admission Date: April 23, 2021 Subjective Patient is seen and examined at bedside Mental status seem to be slowly improving but but not back to baseline Neuropathy flank pain improving Remains slow to respond Denies any chest pain, shortness of breath, dizziness, nausea, abdominal pain No new complaints Review of Systems Review of Systems: All systems reviewed & are unremarkable except as noted in Subjective Physical Exam Physical Exam: Physical Exam: Vitals signs as noted above General Appearance:Moderately built and nourished, no apparent distress Head: normocephalic, Atraumatic Eyes: normal inspection, EOMI Neck: supple, Trachea midline Respiratory/Chest: Normal breath sounds, CTA, No accessory muscle use Cardiovascular: S1, S2, No murmur Abdomen/GI:Soft, Non tender, Bowel sounds present Extremities/Musculoskeletal:normal inspection, no edema Neurologic/Psych:AAO, grossly no focal neurological deficits Skin: normal color, warm Results & Data Results & Data ([facility]) Vital Signs (Past 12 Hours) Vital Signs Temp Pulse Pulse Resp BP Pulse Ox 04/30/21 15:56 36.6 C 95 H 18 140/90 95 04/30/21 08:00 36.6 C 96 H 95 H 16 142/90 H 95 Laboratory Results Short CBC 04/30/21 Range/Units 06:41 Hgb 7.8 L (12.0-16.0) g/dL Hct 23.7 L (37-47) % BMP 04/30/21 06:41 Sodium 140 Potassium 3.9 Chloride 112 H Carbon Dioxide 22 BUN 19 H Creatinine 1.30 H Glucose 99 Calcium 9.6
[2021-04-30] MEDS: PANTOprazole 40 MG TAB PO SCH (21:34)
[2021-05-01 05:27] LABS: Hematocrit (blood only) 23.7 % (37-47); Hemoglobin 7.7 g/dL (12.0-16.0); Mean Corpuscular Hemoglobin 32.2 pg (25-34); Mean Corpuscular Hgb Conc 32.5 g/dL (32-36); Mean Corpuscular Volume 99.2 fL (80-100); Mean Platelet Volume 9.4 fL (7.4-10.4); Platelet Count 189 K/uL (130-400); RDW Coefficient of Variation 18.7 % (11.5-14.5); RDW Standard Deviation 67.4 fL (36.4-46.3); Red Blood Count 2.39 M/uL (4.2-5.4)
--- NOTE | 2021-05-01 05:37 | Communication Note ---
Date of Service: May 01, 2021 Hematochezia without abdominal pain complaints as per RN this anthony Calderon GIB Hold heparin subcu for now Will relay to AM provider.
[2021-05-01 05:47] LABS: BUN Creatinine Ratio 15.4 (10-20); Calcium 9.6 mg/dl (8.5-10.1); Creatinine Clr Calc Pharmacy 48.3 ml/min; Est GFR (African American) 53.4 ml/min; Magnesium 1.5 mg/dl (1.8-2.4); Potassium 3.5 mmol/L (3.5-5.1)
[2021-05-01] MEDS: PROPRANOLOL HCL LA 80 MG CAPCR PO SCH (07:49)
[2021-05-01] MEDS: THIAMINE HCL 100 MG TAB PO SCH (07:49)
[2021-05-01] MEDS: SPIRONOLACTONE 25 MG TAB PO SCH (07:49)
[2021-05-01] MEDS: PANTOprazole 40 MG TAB PO SCH ×2 (07:49→19:44)
[2021-05-01] MEDS: MAGNESIUM CHLORIDE 64MG DELAYED REL TAB PO SCH ×3 (07:49→19:51)
[2021-05-01] MEDS: FOLIC ACID 1 MG TAB PO SCH (07:50)
[2021-05-01] MEDS: GABAPENTIN 100 MG CAP PO SCH ×2 (07:50→19:43)
[2021-05-01] MEDS: INSULIN ASPART 100 UNITS/ML 3 ML PEN SC SCH ×4 (07:51→19:46)
[2021-05-01] MEDS ORDERED: MAGNESIUM SULFATE / D5W 1 GM/100 ML BAG IV ONE (08:00)
[2021-05-01] MEDS ORDERED: POTASSIUM CHLORIDE CRTAB 20 MEQ TABCR PO ONE ×2 (08:01→10:45)
--- NOTE | 2021-05-01 11:03 | Cardiology Progress Note ---
Date of Service May 01, 2021 Assessment & Plan (1) Septic shock: Plan: BP improved. Off pressors. Off antibiotics. (2) Acute hypokalemia: Plan: Potassium 3.5. Continue spironolactone. Add daily KCL 20 meq. (3) Prolonged QT interval: Plan: Corrected QT interval improved to 452 ms on EKG 04/28/2021. Transitioned to propranolol 05/01/2021, as she is on this as an outpatient given her history of esophageal varices. Stable degree of anemia noted, hemoglobin 7.7.Normacytic anemia, in setting of ETOH use and liver disease.Continue folic acid and thiamine. -doing well with the exception of mental status still not appropriate. She was covered in Cheerios at tme of my interview with her (which I helped her throw away) and still unable to tell me that she is in the hospital. Brain MRI OK earlier this hospital stay. Remains on SQ heparin for DVT prophylaxis. Plan: DVT prophylaxis: Continue subcutaneous heparin Admission and Anticipated Discharge Date Admission Date: April 23, 2021 Subjective Pt seen in follow up. Remains in ICU room 104. She remains off of pressors and BP had trended to normal. Telemetry reveals SR in the 90s. Review of Systems Review of Systems: Unobtainable due to cognitive status Physical Exam Physical Exam: Temp Pulse Resp BP Pulse Ox 36.9 C 101 H 13 138/89 97 05/01/21 04:23 05/01/21 08:00 05/01/21 04:23 05/01/21 04:23 05/01/21 04:23 Constitutional: WD/WN, vitals as above + ill appearing; no acute distress Respiratory: normal respiratory effort, lungs clear to auscultation Cardiovascular: RRR, no murmur, no edema Gastrointestinal (Abdomen): normal bowel sounds, soft, nontender, no hepatosplenomegaly Results & Data ([facility]) Vital Signs (Past 12 Hours) Vital Signs Temp Pulse Pulse Resp BP BP Pulse Ox 05/01/21 08:00 101 H 05/01/21 04:23 36.9 C 107 H 13 138/89 97 05/01/21 00:04 36.7 C 110 H 23 140/81 98
[2021-05-01 12:18] LABS: Hematocrit (blood only) 24.7 % (37-47); Hemoglobin 7.9 g/dL (12.0-16.0)
--- NOTE | 2021-05-01 17:27 | Hospitalist Progress Note ---
Date of Service May 01, 2021 Assessment & Plan (1) Septic shock: Plan: Patient is a 60 yr female with H/O Alcoholism with cirrhosis, history of esophageal varices, type 2 diabetes, hypertension and other medical problems listed below who presents with altered mental status known since this morning presenting with hypothermia and septic shock. (As per Admitting team: Found to be obtunded and covered in vomit this morning by boyfriend after 6 days of intractable nausea, vomiting and generalized weakness. Presented with AMS temp of 32 C, as well as hypotensive with SBP 80s-90s) Septic shock Hypothermia Pneumonia, possibly due to aspiration Lactic acidosis: Normalized with IV fluids Procalcitonin 0.75 Blood cultures negative to date S/P LP: CSF culture negative Off pressors Completed 5-day course of antibiotics :arun Andrew Appreciate critical care, neurology input Appreciate ID input Hypothermia resolved Monitor off antibiotics IV fluids discontinued Resolved Hematochezia H/O esophageal varices Hold anticoagulation Continue PPI We will consider GI evaluation if recurrence of bleeding Monitor CBC (2) Acute metabolic encephalopathy: Plan: Acute Metabolic Encephalopathy--Likely Multifactorial -MRI Brain:No acute intracranial abnormality As per Prior hospitalist:In setting of sepsis, concern for Wernicke's ence phalopathy given chronic alcoholism, poor nutrition, oculomotor irregularities and hypothermia Continue IV thiamine >> transition to p.o. thiamine tomorrow Appreciate Neurology Input Continue to monitor for withdrawal Completed gabapentin protocol Mental status slowly improving (3) Hypothermia: Plan: Temp initially 32 C Continue current management (4) Acute hypokalemia: Plan: Likely secondary to GI losses :nausea and vomiting, poor oral intake Replace electrolytes as needed Monitor Hypomagnesemia Replace electrolytes as needed (5) Cardiac arrhythmia: Plan: Wide-complex tachycardia Likely artifactual Continue monitor Appreciate cardiology input Replace electrolytes as needed On Metoprolol 12.5mg BID>> Transition to propranolol tomorrow given H/O esophageal varices (6) Acute kidney injury: Plan: Metabolic acidosis Cr elevated at 3 (baseline ~ 0.9) Creatinine improved to 1.4 Received IV fluids Avoid nephrotoxic agents as able (7) Alcohol abuse: Plan: Counseled to quit (8) Cirrhosis: Plan: On diuretics per [facility] rec Normal ammonia level Resumed on spironolactone (9) Hypertension: Plan: BP stable (10) Diabetes mellitus, type II: Plan: HbA1c 5.5 Monitor blood glucose levels SSI while in-patient Thrombocytopenia Likely secondary to cirrhosis, alcohol use Monitor DVT Px: Was on Heparin SQ SCDs Re: Hematochezia Code status: FULL CODE Disposition PT OT prior to discharge Admission and Anticipated Discharge Date Admission Date: April 23, 2021 Subjective Patient is seen and examined at bedside Mental status is improving Had hematochezia overnight Denies any active bleeding Denies any chest pain, shortness of breath, dizziness, nausea, abdominal pain Review of Systems Review of Systems: All systems reviewed & are unremarkable except as noted in Subjective Physical Exam Physical Exam: Physical Exam: Vitals signs as noted above General Appearance:Moderately built and nourished, no apparent distress Head: normocephalic, Atraumatic Eyes: normal inspection, EOMI Neck: supple, Trachea midline Respiratory/Chest: Normal breath sounds, CTA, No accessory muscle use Cardiovascular: S1, S2, No murmur Abdomen/GI:Soft, Non tender, Bowel sounds present Extremities/Musculoskeletal:normal inspection, no edema Neurologic/Psych:AAO, grossly no focal neurological deficits Skin: normal color, warm Results & Data Results & Data ([facility] [place]) Vital Signs (Past 12 Hours) Vital Signs Temp Pulse Pulse Resp BP Pulse Ox 05/01/21 11:00 36.8 C 81 16 146/76 H 99 05/01/21 08:00 101 H Laboratory Results Short CBC 05/01/21 05/01/21 Range/Units 05:14 11:45 WBC 4.20 L (4.8-10.8) K/uL Hgb 7.7 L 7.9 L (12.0-16.0) g/dL Hct 23.7 L 24.7 L (37-47) % Plt Count 189 (130-400) K/uL BMP 05/01/21 05:14 Sodium 138 Potassium 3.5 Chloride 110 H Carbon Dioxide 22 BUN 20 H Creatinine 1.28 H Glucose 114 H Calcium 9.6
[2021-05-02] MEDS: FERROUS SULFATE 325 MG TAB PO SCH ×3 (04:52→20:38)
[2021-05-02 07:43] LABS: BUN Creatinine Ratio 17.1 (10-20); Calcium 9.9 mg/dl (8.5-10.1); Creatinine Clr Calc Pharmacy 63.7 ml/min; Est GFR (African American) 74.6 ml/min; Est GFR (Non-African American) 64.4 ml/min; Magnesium 1.5 mg/dl (1.8-2.4); Potassium 3.6 mmol/L (3.5-5.1)
[2021-05-02 08:19] LABS: Hemoglobin 7.6 g/dL (12.0-16.0)
[2021-05-02] MEDS: ATORVASTATIN 40 MG TAB PO SCH (08:29)
[2021-05-02] MEDS: MAGNESIUM CHLORIDE 64MG DELAYED REL TAB PO SCH ×3 (08:30→20:36)
[2021-05-02] MEDS: POTASSIUM CHLORIDE CRTAB 20 MEQ TABCR PO SCH (08:30)
[2021-05-02] MEDS: THIAMINE HCL 100 MG TAB PO SCH (08:30)
[2021-05-02] MEDS: PROPRANOLOL HCL LA 80 MG CAPCR PO SCH (08:30)
[2021-05-02] MEDS: MULTIVITAMIN TAB PO SCH (08:30)
[2021-05-02] MEDS: SPIRONOLACTONE 25 MG TAB PO SCH (08:31)
[2021-05-02] MEDS: GABAPENTIN 100 MG CAP PO SCH ×2 (08:31→20:38)
[2021-05-02] MEDS: FOLIC ACID 1 MG TAB PO SCH (08:31)
[2021-05-02] MEDS: PANTOprazole 40 MG TAB PO SCH ×2 (08:31→20:37)
[2021-05-02] MEDS: INSULIN ASPART 100 UNITS/ML 3 ML PEN SC SCH ×4 (08:34→20:36)
[2021-05-02] MEDS ORDERED: MAGNESIUM SULFATE / D5W 1 GM/100 ML BAG IV ONE (10:15)
[2021-05-02 13:22] LABS: Hematocrit (blood only) 26.7 % (37-47); Hemoglobin 8.6 g/dL (12.0-16.0)
--- NOTE | 2021-05-02 14:19 | Cardiology Progress Note ---
Date of Service May 02, 2021 Assessment & Plan (1) Septic shock: Plan: BP improved. Off pressors. Off antibiotics. (2) Acute hypokalemia: Plan: Potassium 3.5. Continue spironolactone. Add daily KCL 20 meq. (3) Prolonged QT interval: Plan: Tolerating the reinitiation of propranolol, 80 mg, RN blood pressure stable. Magnesium level low today, 1.5, replaced intravenously. Potassium level 3.6, continue potassium chloride and spironolactone 25 mg daily. Remains on SQ heparin for DVT prophylaxis. Plan: DVT prophylaxis: Continue subcutaneous heparin Admission and Anticipated Discharge Date Admission Date: April 23, 2021 Subjective Patient transferred out of the intensive care unit, reassessed in room 285-1. No complaints. Telemetry reveals sinus rhythm in the 80s. Delatorre catheter remains in place Physical Exam Physical Exam: Temp Pulse Resp BP Pulse Ox 36.6 C 87 20 124/75 98 05/02/21 07:34 05/02/21 07:34 05/02/21 07:34 05/02/21 07:34 05/02/21 07:34 Constitutional: WD/WN, vitals as above + ill appearing; no acute distress Respiratory: normal respiratory effort, lungs clear to auscultation Cardiovascular: RRR, no murmur, no edema Gastrointestinal (Abdomen): normal bowel sounds, soft, nontender, no hepatosplenomegaly Results & Data ([facility]) Vital Signs (Past 12 Hours) Vital Signs Temp Pulse Pulse Resp BP Pulse Ox 05/02/21 07:34 36.6 C 87 20 124/75 98 05/02/21 07:30 89
--- NOTE | 2021-05-02 17:35 | Hospitalist Progress Note ---
Date of Service May 02, 2021 Assessment & Plan (1) Septic shock: Plan: Patient is a 60 yr female with H/O Alcoholism with cirrhosis, history of esophageal varices, type 2 diabetes, hypertension and other medical problems listed below who presents with altered mental status known since this morning presenting with hypothermia and septic shock. (As per Admitting team: Found to be obtunded and covered in vomit this morning by boyfriend after 6 days of intractable nausea, vomiting and generalized weakness. Presented with AMS temp of 32 C, as well as hypotensive with SBP 80s-90s) Septic shock Hypothermia Pneumonia, possibly due to aspiration Lactic acidosis: Normalized with IV fluids Procalcitonin 0.75 Blood cultures negative to date S/P LP: CSF culture negative Off pressors Completed 5-day course of antibiotics :arun Andrew Appreciate critical care, neurology input Appreciate ID input Hypothermia resolved Monitor off antibiotics IV fluids discontinued Resolved Hematochezia H/O esophageal varices Hold anticoagulation Continue PPI We will consider GI evaluation if recurrence of bleeding Monitor CBC Hb stable No bleeding issues today Diarrhea Check stool for C. difficile (2) Acute metabolic encephalopathy: Plan: Acute Metabolic Encephalopathy--Likely Multifactorial -MRI Brain:No acute intracranial abnormality As per Prior hospitalist:In setting of sepsis, concern for Wernicke's encephalopathy given chronic alcoholism, poor nutrition, oculomotor irregularities and hypothermia Continue IV thiamine >> transition to p.o. thiamine tomorrow Appreciate Neurology Input Continue to monitor for withdrawal Completed gabapentin protocol Mental status better (3) Hypothermia: Plan: Temp initially 32 C Continue current management (4) Acute hypokalemia: Plan: Likely secondary to GI losses :nausea and vomiting, poor oral intake Replace electrolytes as needed Monitor Hypomagnesemia Replace electrolytes as needed (5) Cardiac arrhythmia: Plan: Wide-complex tachycardia Likely artifactual Continue monitor Appreciate cardiology input Replace electrolytes as needed On Metoprolol 12.5mg BID>> Transition to propranolol tomorrow given H/O esophageal varices (6) Acute kidney injury: Plan: Metabolic acidosis Cr elevated at 3 (baseline ~ 0.9) Creatinine improved to 1.4 Received IV fluids Avoid nephrotoxic agents as able (7) Alcohol abuse: Plan: Counseled to quit (8) Cirrhosis: Plan: On diuretics per [facility] rec Normal ammonia level Resumed on spironolactone (9) Hypertension: Plan: BP stable (10) Diabetes mellitus, type II: Plan: HbA1c 5.5 Monitor blood glucose levels SSI while in-patient Thrombocytopenia Likely secondary to cirrhosis, alcohol use Monitor DVT Px: Was on Heparin SQ SCDs Re: Hematochezia Code status: FULL CODE Disposition Needs Rehab Placement Admission and Anticipated Discharge Date Admission Date: April 23, 2021 Subjective Patient is seen and examined at bedside States having 2 loose bowel movements Mental status better Denies any chest pain, shortness of breath, dizziness, nausea, abdominal pain Review of Systems Review of Systems: All systems reviewed & are unremarkable except as noted in Subjective Physical Exam Physical Exam: Physical Exam: Vitals signs as noted above General Appearance:Moderately built and nourished, no apparent distress Head: normocephalic, Atraumatic Eyes: normal inspection, EOMI Neck: supple, Trachea midline Respiratory/Chest: Normal breath sounds, CTA, No accessory muscle use Cardiovascular: S1, S2, No murmur Abdomen/GI:Soft, Non tender, Bowel sounds present Extremities/Musculoskeletal:normal inspection, no edema Neurologic/Psych:AAO, grossly no focal neurological deficits Skin: normal color, warm Results & Data Results & Data ([facility]) Vital Signs (Past 12 Hours) Vital Signs Temp Pulse Pulse Resp BP Pulse Ox 05/02/21 15:32 36.5 C 81 20 130/81 96 05/02/21 14:42 79 05/02/21 07:34 36.6 C 87 20 124/75 98 05/02/21 07:30 89 Laboratory Results Short CBC 05/02/21 05/02/21 Range/Units 06:24 12:42 Hgb 7.6 L 8.6 L (12.0-16.0) g/dL Hct 23.0 L 26.7 L (37-47) % BMP 05/02/21 06:22 Sodium 138 Potassium 3.6 Chloride 110 H Carbon Dioxide 20 L BUN 17 Creatinine 0.97 D Glucose 103 H Calcium 9.9
[2021-05-02] MEDS ORDERED: CYANOCOBALAMIN 1000 MCG/ML VIAL IM ONE (21:49)
[2021-05-02] MEDS ORDERED: THIAMINE HCL 200 MG in SODIUM CHLORIDE 0.9% 50 ML IV ONE (22:00)
[2021-05-03 06:27] LABS: Hematocrit (blood only) 23.8 % (37-47); Hemoglobin 7.6 g/dL (12.0-16.0)
[2021-05-03 06:56] LABS: BUN Creatinine Ratio 11.6 (10-20); Blood Urea Nitrogen 14 mg/dl (7-18); Calcium 9.7 mg/dl (8.5-10.1); Carbon Dioxide 21 mmol/L (21-32); Chloride 114 mmol/L (98-107); Est GFR (Non-African American) 48.3 ml/min; Glucose 95 mg/dl (70-99); Phosphorus 4.2 mg/dl (2.5-4.9); Sodium 142 mmol/L (136-145)
[2021-05-03] MEDS: SPIRONOLACTONE 25 MG TAB PO SCH (09:30)
[2021-05-03] MEDS: THIAMINE HCL 100 MG TAB PO SCH (09:30)
[2021-05-03] MEDS: PROPRANOLOL HCL LA 80 MG CAPCR PO SCH (09:30)
[2021-05-03] MEDS: MAGNESIUM CHLORIDE 64MG DELAYED REL TAB PO SCH ×3 (09:31→20:30)
[2021-05-03] MEDS: FOLIC ACID 1 MG TAB PO SCH (09:31)
[2021-05-03] MEDS: MULTIVITAMIN TAB PO SCH (09:31)
[2021-05-03] MEDS: FERROUS SULFATE 325 MG TAB PO SCH ×2 (09:31→20:30)
[2021-05-03] MEDS: ATORVASTATIN 40 MG TAB PO SCH (09:31)
[2021-05-03] MEDS: GABAPENTIN 100 MG CAP PO SCH ×2 (09:31→20:30)
[2021-05-03] MEDS: PANTOprazole 40 MG TAB PO SCH ×2 (09:31→20:30)
[2021-05-03] MEDS: INSULIN ASPART 100 UNITS/ML 3 ML PEN SC SCH ×4 (09:33→20:30)
[2021-05-03] MEDS: POTASSIUM CHLORIDE CRTAB 20 MEQ TABCR PO SCH (10:02)
[2021-05-03] MEDS: CYANOCOBALAMIN 500 MCG TABLET (VITAMIN B-12) PO SCH (10:43)
--- NOTE | 2021-05-03 12:58 | Hospitalist Progress Note ---
Date of Service May 03, 2021 Assessment & Plan (1) Septic shock: Plan: 60 yr F with H/O Alcoholism with cirrhosis, hx of esophageal varices, type 2 diabetes, hypertension who presents with altered mental status known since this morning presenting with hypothermia and septic shock. (As per Admitting team: Found to be obtunded and covered in vomit this morning by boyfriend after 6 days of intractable nausea, vomiting and generalized weakness. Presented with AMS temp of 32 C, as well as hypotensive with SBP 80s-90s) Septic shock Hypothermia Pneumonia, possibly due to aspiration Lactic acidosis: Normalized with IV fluids Procalcitonin 0.75 Blood cultures negative to date S/P LP: CSF culture negative Off pressors Completed 5-day course of antibiotics : arun Andrew Appreciate critical care, neurology input Appreciate ID input Hypothermia resolved Monitor off antibiotics IV fluids discontinued Resolved Hematochezia H/O esophageal varices Hold anticoagulation Continue PPI We will consider GI evaluation if recurrence of bleeding Monitor CBC Hb stable No bleeding issues today Diarrhea C. difficile - negative (2) Acute metabolic encephalopathy: Plan: Acute Metabolic Encephalopathy--Likely Multifactorial -MRI Brain:No acute intracranial abnormality As per Prior hospitalist:In setting of sepsis, concern for Wernicke's encephalopathy given chronic alcoholism, poor nutrition, oculomotor irreg ularities and hypothermia Continue IV thiamine >> transition to p.o. thiamine tomorrow Appreciate Neurology Input Continue to monitor for withdrawal Completed gabapentin protocol Mental status better (3) Hypothermia: Plan: Temp initially 32 C Continue current management Resolved (4) Acute hypokalemia: Plan: Likely secondary to GI losses :nausea and vomiting, poor oral intake Replace electrolytes as needed Monitor Hypomagnesemia Replace electrolytes as needed (5) Cardiac arrhythmia: Plan: Wide-complex tachycardia Likely artifactual Continue monitor Appreciate cardiology input Replace electrolytes as needed On Metoprolol 12.5mg BID>> Transitioned to propranolol given H/O esophageal varices (6) Acute kidney injury: Plan: Metabolic acidosis Cr elevated at 3 (baseline ~ 0.9) Creatinine improved to 1.23 Received IV fluids Avoid nephrotoxic agents as able (7) Alcohol abuse: Plan: Counseled to quit (8) Cirrhosis: Plan: On diuretics per [employer] rec Normal ammonia level Resumed on spironolactone (9) Hypertension: Plan: BP stable (10) Diabetes mellitus, type II: Plan: HbA1c 5.5 Monitor blood glucose levels SSI while in-patient Thrombocytopenia Likely secondary to cirrhosis, alcohol use Monitor DVT Px: Was on Heparin SQ SCDs Re: Hematochezia Code status: FULL CODE Disposition: Needs Rehab Placement Admission and Anticipated Discharge Date Admission Date: April 23, 2021 Subjective Patient is seen in follow-up of encephalopathy, alcohol use Currently she is lying in bed, in acute distress Mental status is much improved, she is able to answer simple questions appropriately She can tell me that she is in the hospital, correct year, and her name, she can also tell me that 2 sons live with her but they travel quite a bit She also tells me that she has had balance issues for some time Denies any chest pain, shortness of breath, dizziness, nausea, abdominal pain Hgb 7.6 Had a several bowel movements overnight, patient reports they were soft, no blood in the stool however possibly dark FOBT positive, C. difficile negative We will test FOBT again and monitor for signs of bleeding closely Patient is also on iron supplement Per last PT visit -attempted to have patient in a chair, however she was off ba oliver, leaning forward Review of Systems Review of Systems: All systems reviewed & are unremarkable except as noted in Subjective Physical Exam Physical Exam: General Appearance:Moderately built and nourished, no apparent distress Head: normocephalic, Atraumatic Eyes: normal inspection, EOMI Neck: supple, Trachea midline Respiratory/Chest: Normal breath sounds, CTA, No accessory muscle use Cardiovascular: S1, S2, No murmur Abdomen/GI:Soft, Non tender, Bowel sounds present Extremities/Musculoskeletal:normal inspection, no edema Neurologic/Psych:AAOx3, speech fluent, no facial symmetry, moves extremities, however moves all extremities very slowly Skin: normal color, warm Results & Data Results & Data ([facility]) Vital Signs (Past 12 Hours) Vital Signs Temp Pulse Pulse Resp BP BP Pulse Ox 05/03/21 10:55 37.1 C 95 H 18 122/71 98 05/03/21 07:26 78 05/03/21 07:25 36.5 C 81 16 127/80 99 05/03/21 04:00 36.9 C 88 18 140/84 97 Laboratory Results 05/03/21 05/03/21 05/03/21 Range/Units 11:25 07:31 06:16 Hgb (12.0-16.0) g/dL Hct (37-47) % Sodium 142 (136-145) mmol/L Potassium TNP Chloride 114 H (98-107) mmol/L Carbon Dioxide 21 (21-32) mmol/L Anion Gap 6.0 (3-11) BUN 14 (7-18) mg/dl Creatinine 1.23 H (0.6-1.2) mg/dl Est Cr Clr Drug Dosing 50.0 ml/min Est GFR ( Amer) 56.0 ml/min Est GFR (Non-Af Amer) 48.3 ml/min BUN/Creatinine Ratio 11.6 (10-20) Glucose 95 (70-99) mg/dl POC Glucose 131 H 92 (70-99) mg/dl Calcium 9.7 (8.5-10.1) mg/dl Phosphorus 4.2 (2.5-4.9) mg/dl Magnesium TNP Stl C. diff Tox B Gene (Neg) 05/03/21 05/03/21 05/02/21 Range/Units 06:16 06:00 20:15 Hgb 7.6 L (12.0-16.0) g/dL Hct 23.8 L (37-47) % Sodium (136-145) mmol/L Potassium Chloride (98-107) mmol/L Carbon Dioxide (21-32) mmol/L Anion Gap (3-11) BUN (7-18) mg/dl Creatinine (0.6-1.2) mg/dl Est Cr Clr Drug Dosing ml/min Est GFR ( Amer) ml/min Est GFR (Non-Af Amer) ml/min BUN/Creatinine Ratio (10-20) Glucose (70-99) mg/dl POC Glucose 114 H (70-99) mg/dl Calcium (8.5-10.1) mg/dl Phosphorus (2.5-4.9) mg/dl Magnesium Stl C. diff Tox B Gene Negative Cdiff Gene (Neg) 05/02/21 05/02/21 Range/Units 16:24 12:42 Hgb 8.6 L (12.0-16.0) g/dL Hct 26.7 L (37-47) % Sodium (136-145) mmol/L Potassium Chloride (98-107) mmol/L Carbon Dioxide (21-32) mmol/L Anion Gap (3-11) BUN (7-18) mg/dl Creatinine (0.6-1.2) mg/dl Est Cr Clr Drug Dosing ml/min Est GFR ( Amer) ml/min Est GFR (Non-Af Amer) ml/min BUN/Creatinine Ratio (10-20) Glucose (70-99) mg/dl POC Glucose 107 H (70-99) mg/dl Calcium (8.5-10.1) mg/dl Phosphorus (2.5-4.9) mg/dl Magnesium Stl C. diff Tox B Gene (Neg) Medications Administered Current Inpatient Medications Atorvastatin Calcium (Atorvastatin 40 Mg Tab) 40 mg PO DAILY [facility] Stop: 06/01/21 08:59 Last Admin: 05/03/21 09:31 Dose: 40 mg Documented by: Cyanocobalamin (Cyanocobalamin 500 Mcg Tablet (Vitamin B-12)) 1,000 mcg PO QAM [facility] Stop: 06/02/21 08:59 Last Admin: 05/03/21 10:43 Dose: 1,000 mcg Documented by: Dextrose (Dextrose 50% 50 Ml Syringe) 25 - 50 ml IV UD PRN; Protocol PRN Reason: Hypoglycemia Protocol Stop: 05/24/21 10:59 Ferrous Sulfate (Ferrous Sulfate 325 Mg Tab) 325 mg PO BID [facility] Stop: 06/01/21 01:44 Last Admin: 05/03/21 09:31 Dose: 325 mg Documented by: Folic Acid (Folic Acid 1 Mg Tab) 1 mg PO QAM [facility] Stop: 05/26/21 08:59 Last Admin: 05/03/21 09:31 Dose: 1 mg Documented by: Gabapentin (Gabapentin 100 Mg Cap) 100 mg PO BID [facility] Stop: 05/29/21 20:59 Last Admin: 05/03/21 09:31 Dose: 100 mg Documented by: Glucagon (Glucagon For Inj 1 Mg Vial) 1 mg IM UD PRN; Protocol PRN Reason: Hypoglycemia Protocol Stop: 05/24/21 10:59 Glucose (Glucose 40% Gel 15 Gm Tube) 15 - 30 gm PO UD PRN; Protocol PRN Reason: Hypoglycemia Protocol Stop: 05/24/21 10:59 Glucose (Glucose 10 Tabs/Tube) 4 - 8 tabs PO UD PRN; Protocol PRN Reason: Hypoglycemia Protocol Stop: 05/24/21 10:59 Heparin Sodium (Porcine) (Heparin Sod 5,000 Unit/0.5 Ml Vial) 5,000 units SQ Q12 [facility] Stop: 05/26/21 20:59 Last Admin: 04/30/21 21:32 Dose: 5,000 units Documented by: Lorazepam (Ativan) 0.5 mg in 1 mls @ 1 mls/min IV Q4H PRN PRN Reason: Agitation Stop: 05/25/21 19:02 Last Admin: 04/25/21 19:29 Dose: 1 mls/min Documented by: Lorazepam (Ativan) 1 mg in 2 mls @ 2 mls/min IV ONE PRN; Protocol PRN Reason: EtoH Withdrawal AWSS 6-10 Stop: 05/25/21 19:22 Promethazine HCl 12.5 mg/ (Sodium Chloride) 50.5 mls @ 202 mls/hr IV Q6H PRN PRN Reason: Nausea And Vomiting Stop: 05/27/21 20:01 Last Infusion: 04/27/21 20:45 Dose: Infused Documented by: Insulin Aspart (Insulin Aspart 100 Units/Ml 3 Ml Pen) 0 units SC ACHS [facility] Stop: 05/24/21 11:29 Last Admin: 05/03/21 09:33 Dose: 3 units Documented by: Magnesium Chloride (Magnesium Chloride 64mg Delayed Rel Tab) 64 mg PO TID [facility] Stop: 05/29/21 13:59 Last Admin: 05/03/21 09:31 Dose: 64 mg Documented by: Miscellaneous (Carbohydrates For Hypoglycemia ) 15 - 30 gm PO UD PRN PRN Reason: Hypoglycemia Treatment Stop: 05/24/21 10:59 Multivitamins (Multivitamin Tab) 1 tab PO DAILY [facility] Stop: 06/01/21 08:59 Last Admin: 05/03/21 09:31 Dose: 1 tab Documented by: Pantoprazole Sodium (Pantoprazole 40 Mg Tab) 40 mg PO BID [facility] Stop: 05/30/21 20:59 Last Admin: 05/03/21 09:31 Dose: 40 mg Documented by: Potassium Chloride (Potassium Chloride Crtab 20 Meq Tabcr) 20 meq PO QAM [facility] Stop: 06/01/21 08:59 Last Admin: 05/03/21 10:02 Dose: 20 meq Documented by: Propranolol HCl (Propranolol Hcl La 80 Mg Capcr) 80 mg PO QAM [facility] Stop: 05/31/21 08:59 Last Admin: 05/03/21 09:30 Dose: 80 mg Documented by: Spironolactone (Spironolactone 25 Mg Tab) 25 mg PO [facility] Stop: 05/28/21 09:59 Last Admin: 05/03/21 09:30 Dose: 25 mg Documented by: Thiamine HCl (Thiamine Hcl 100 Mg Tab) 100 mg PO [facility] Stop: 05/31/21 08:59 Last Admin: 05/03/21 09:30 Dose: 100 mg Documented by:
[2021-05-03] MEDS ORDERED: FOLIC ACID 1 MG in SYRINGE 9.8 ML IV ONE (13:45)
[2021-05-03] MEDS ORDERED: THIAMINE HCL 200 MG in SODIUM CHLORIDE 0.9% 50 ML IV ONE (13:45)
[2021-05-04 07:16] LABS: BUN Creatinine Ratio 11.4 (10-20); Calcium 10.2 mg/dl (8.5-10.1); Est GFR (Non-African American) 57.8 ml/min; Magnesium 1.5 mg/dl (1.8-2.4); Phosphorus 4.4 mg/dl (2.5-4.9); Potassium 3.6 mmol/L (3.5-5.1)
[2021-05-04] MEDS: PANTOprazole 40 MG TAB PO SCH ×2 (08:33→21:01)
[2021-05-04] MEDS: CYANOCOBALAMIN 500 MCG TABLET (VITAMIN B-12) PO SCH (08:33)
[2021-05-04] MEDS: THIAMINE HCL 100 MG TAB PO SCH (08:33)
[2021-05-04] MEDS: FOLIC ACID 1 MG TAB PO SCH (08:33)
[2021-05-04] MEDS: PROPRANOLOL HCL LA 80 MG CAPCR PO SCH (08:33)
[2021-05-04] MEDS: MAGNESIUM CHLORIDE 64MG DELAYED REL TAB PO SCH ×3 (08:33→21:01)
[2021-05-04] MEDS: FERROUS SULFATE 325 MG TAB PO SCH ×2 (08:33→21:01)
[2021-05-04] MEDS: MULTIVITAMIN TAB PO SCH (08:33)
[2021-05-04] MEDS: ATORVASTATIN 40 MG TAB PO SCH (08:33)
[2021-05-04] MEDS: SPIRONOLACTONE 25 MG TAB PO SCH (08:33)
[2021-05-04] MEDS: GABAPENTIN 100 MG CAP PO SCH ×2 (08:33→21:01)
[2021-05-04] MEDS: INSULIN ASPART 100 UNITS/ML 3 ML PEN SC SCH ×4 (08:35→20:51)
[2021-05-04] MEDS: POTASSIUM CHLORIDE CRTAB 20 MEQ TABCR PO SCH (08:36)
[2021-05-04 08:57] LABS: Hematocrit (blood only) 22.7 % (37-47); Hemoglobin 7.3 g/dL (12.0-16.0)
[2021-05-04] MEDS ORDERED: POTASSIUM CHLORIDE CRTAB 20 MEQ TABCR PO STA (10:03)
--- NOTE | 2021-05-04 10:05 | Hospitalist Progress Note ---
Date of Service May 04, 2021 Assessment & Plan (1) Septic shock: Plan: 60 yr F with H/O Alcoholism with cirrhosis, hx of esophageal varices, type 2 diabetes, hypertension who presents with altered mental status known since this morning presenting with hypothermia and septic shock. (As per Admitting team: Found to be obtunded and covered in vomit this morning by boyfriend after 6 days of intractable nausea, vomiting and generalized weakness. Presented with AMS temp of 32 C, as well as hypotensive with SBP 80s-90s) Septic shock Hypothermia Pneumonia, possibly due to aspiration Lactic acidosis: Normalized with IV fluids Procalcitonin 0.75 Blood cultures negative to date S/P LP: CSF culture negative Off pressors Completed 5-day course of antibiotics : arun Andrew Appreciate critical care, neurology input Appreciate ID input Hypothermia resolved Monitor off antibiotics IV fluids discontinued Resolved Hematochezia H/O esophageal varices Hold anticoagulation Continue PPI We will consider GI evaluation if recurrence of bleeding Monitor CBC Hb stable No bleeding issues today Diarrhea C. difficile - negative (2) Acute metabolic encephalopathy: Plan: Acute Metabolic Encephalopathy--Likely Multifactorial -MRI Brain:No acute intracranial abnormality As per Prior hospitalist:In setting of sepsis, concern for Wernicke's encephalopathy given chronic alcoholism, poor nutrition, oculomotor irreg ularities and hypothermia Continue IV thiamine >> transitioned to p.o. thiamine Appreciate Neurology Input Continue to monitor for withdrawal Completed gabapentin protocol Mental status better (3) Hypothermia: Plan: Temp initially 32 C Continue current management Resolved (4) Acute hypokalemia: Plan: Likely secondary to GI losses :nausea and vomiting, poor oral intake Replace electrolytes as needed Monitor Hypomagnesemia Replace electrolytes as needed (5) Cardiac arrhythmia: Plan: Wide-complex tachycardia Likely artifactual Continue monitor Appreciate cardiology input Replace electrolytes as needed On Metoprolol 12.5mg BID>> Transitioned to propranolol given H/O esophageal varices (6) Acute kidney injury: Plan: Metabolic acidosis Cr elevated at 3 (baseline ~ 0.9) Creatinine improved to 1.23 Received IV fluids Avoid nephrotoxic agents as able (7) Alcohol abuse: Plan: Counseled to quit (8) Cirrhosis: Plan: On diuretics per [employer] med rec Normal ammonia level Resumed on spironolactone (9) Hypertension: Plan: BP stable (10) Diabetes mellitus, type II: Plan: HbA1c 5.5 Monitor blood glucose levels SSI while in-patient Thrombocytopenia Likely secondary to cirrhosis, alcohol use Monitor DVT Px: Was on Heparin SQ SCDs Re: Hematochezia Code status: FULL CODE Disposition: Needs Rehab Placement however due to insurance, patient may not be able to go to rehab. Likely discharge home with family help. Admission and Anticipated Discharge Date Admission Date: April 23, 2021 Subjective Patient is seen in follow-up of encephalopathy, alcohol use Currently she is lying in bed, in acute distress Mental status is much improved, she is able to answer simple questions appropriately She is able to tell me that she is in the hospital, correct year, her name however she does not remember talking to me yesterday She also tells me that she has had balance issues for some time, difficulty standing, and sometimes she has to stay in bed for while at home Denies any chest pain, shortness of breath, dizziness, nausea, abdominal pain PT recommends rehab, however due to patient's insurance, patient is not able to do rehab. Also per CM not interested in rehab. Likely discharge home with family help. Hgb stable, no stools today, yesterday had BMs, that were reportedly soft and brown/dark but no blood Review of Systems Review of Systems: All systems reviewed & are unremarkable except as noted in Subjective Physical Exam Physical Exam: General Appearance:Moderately built and nourished, no apparent distress Head: normocephalic, Atraumatic Eyes: normal inspection, EOMI Neck: supple, Trachea midline Respiratory/Chest: Normal breath sounds, CTA, No accessory muscle use Cardiovascular: S1, S2, No murmur Abdomen/GI:Soft, Non tender, Bowel sounds present Extremities/Musculoskeletal:normal inspection, no edema Neurologic/Psych:AAOx3, speech fluent, no facial asymmetry, moves extremities while laying in bed however very slowly Skin: normal color, warm Results & Data Results & Data ([facility]) Vital Signs (Past 12 Hours) Vital Signs Temp Pulse Pulse Resp BP Pulse Ox 05/04/21 07:28 36.5 C 83 20 145/87 H 98 05/04/21 07:19 88 05/04/21 04:00 36.7 C 79 18 148/89 H 96 05/04/21 00:43 86 05/03/21 23:00 36.5 C 83 18 134/77 96 Laboratory Results 05/04/21 05/04/21 05/04/21 Range/Units 07:53 05:46 05:46 Hgb 7.3 L (12.0-16.0) g/dL Hct 22.7 L (37-47) % Sodium 139 (136-145) mmol/L Potassium 3.6 (3.5-5.1) mmol/L Chloride 111 H (98-107) mmol/L Carbon Dioxide 20 L (21-32) mmol/L Anion Gap 8.0 (3-11) BUN 12 (7-18) mg/dl Creatinine 1.06 (0.6-1.2) mg/dl Est Cr Clr Drug Dosing 58.0 ml/min Est GFR ( Amer) 67.0 ml/min Est GFR (Non-Af Amer) 57.8 ml/min BUN/Creatinine Ratio 11.4 (10-20) Glucose 102 H (70-99) mg/dl POC Glucose 103 H (70-99) mg/dl Calcium 10.2 H (8.5-10.1) mg/dl Phosphorus 4.4 (2.5-4.9) mg/dl Magnesium 1.5 L (1.8-2.4) mg/dl Stool Occult Bld Scrn (Negative) 05/03/21 05/03/21 05/03/21 Range/Units 20:03 16:32 14:30 Hgb (12.0-16.0) g/dL Hct (37-47) % Sodium (136-145) mmol/L Potassium (3.5-5.1) mmol/L Chloride (98-107) mmol/L Carbon Dioxide (21-32) mmol/L Anion Gap (3-11) BUN (7-18) mg/dl Creatinine (0.6-1.2) mg/dl Est Cr Clr Drug Dosing ml/min Est GFR ( Amer) ml/min Est GFR (Non-Af Amer) ml/min BUN/Creatinine Ratio (10-20) Glucose (70-99) mg/dl POC Glucose 139 H 123 H (70-99) mg/dl Calcium (8.5-10.1) mg/dl Phosphorus (2.5-4.9) mg/dl Magnesium (1.8-2.4) mg/dl Stool Occult Bld Scrn Positive A (Negative) 05/03/21 Range/Units 11:25 Hgb (12.0-16.0) g/dL Hct (37-47) % Sodium (136-145) mmol/L Potassium (3.5-5.1) mmol/L Chloride (98-107) mmol/L Carbon Dioxide (21-32) mmol/L Anion Gap (3-11) BUN (7-18) mg/dl Creatinine (0.6-1.2) mg/dl Est Cr Clr Drug Dosing ml/min Est GFR ( Amer) ml/min Est GFR (Non-Af Amer) ml/min BUN/Creatinine Ratio (10-20) Glucose (70-99) mg/dl POC Glucose 131 H (70-99) mg/dl Calcium (8.5-10.1) mg/dl Phosphorus (2.5-4.9) mg/dl Magnesium (1.8-2.4) mg/dl Stool Occult Bld Scrn (Negative) Medications Administered Current Inpatient Medications Atorvastatin Calcium (Atorvastatin 40 Mg Tab) 40 mg PO DAILY [facility] Stop: 06/01/21 08:59 Last Admin: 05/04/21 08:33 Dose: 40 mg Documented by: Cyanocobalamin (Cyanocobalamin 500 Mcg Tablet (Vitamin B-12)) 1,000 mcg PO QAM [facility] Stop: 06/02/21 08:59 Last Admin: 05/04/21 08:33 Dose: 1,000 mcg Documented by: Dextrose (Dextrose 50% 50 Ml Syringe) 25 - 50 ml IV UD PRN; Protocol PRN Reason: Hypoglycemia Protocol Stop: 05/24/21 10:59 Ferrous Sulfate (Ferrous Sulfate 325 Mg Tab) 325 mg PO BID [facility] Stop: 06/01/21 01:44 Last Admin: 05/04/21 08:33 Dose: 325 mg Documented by: Folic Acid (Folic Acid 1 Mg Tab) 1 mg PO QAM [facility] Stop: 05/26/21 08:59 Last Admin: 05/04/21 08:33 Dose: 1 mg Documented by: Gabapentin (Gabapentin 100 Mg Cap) 100 mg PO BID [facility] Stop: 05/29/21 20:59 Last Admin: 05/04/21 08:33 Dose: 100 mg Documented by: Glucagon (Glucagon For Inj 1 Mg Vial) 1 mg IM UD PRN; Protocol PRN Reason: Hypoglycemia Protocol Stop: 05/24/21 10:59 Glucose (Glucose 40% Gel 15 Gm Tube) 15 - 30 gm PO UD PRN; Protocol PRN Reason: Hypoglycemia Protocol Stop: 05/24/21 10:59 Glucose (Glucose 10 Tabs/Tube) 4 - 8 tabs PO UD PRN; Protocol PRN Reason: Hypoglycemia Protocol Stop: 05/24/21 10:59 Heparin Sodium (Porcine) (Heparin Sod 5,000 Unit/0.5 Ml Vial) 5,000 units SQ Q12 [facility] Stop: 05/26/21 20:59 Last Admin: 04/30/21 21:32 Dose: 5,000 units Documented by: Lorazepam (Ativan) 0.5 mg in 1 mls @ 1 mls/min IV Q4H PRN PRN Reason: Agitation Stop: 05/25/21 19:02 Last Admin: 04/25/21 19:29 Dose: 1 mls/min Documented by: Lorazepam (Ativan) 1 mg in 2 mls @ 2 mls/min IV ONE PRN; Protocol PRN Reason: EtoH Withdrawal AWSS 6-10 Stop: 05/25/21 19:22 Promethazine HCl 12.5 mg/ (Sodium Chloride) 50.5 mls @ 202 mls/hr IV Q6H PRN PRN Reason: Nausea And Vomiting Stop: 05/27/21 20:01 Last Infusion: 04/27/21 20:45 Dose: Infused Documented by: Magnesium Sulfate/Dextrose (Magnesium Sulfate / D5w) 1 gm in 100 mls @ 50 mls/hr IV Q2H [facility] Stop: 05/04/21 14:29 Insulin Aspart (Insulin Aspart 100 Units/Ml 3 Ml Pen) 0 units SC ACHS [facility] Stop: 05/24/21 11:29 Last Admin: 05/04/21 08:35 Dose: Not Given Documented by: Magnesium Chloride (Magnesium Chloride 64mg Delayed Rel Tab) 64 mg PO TID [facility] Stop: 05/29/21 13:59 Last Admin: 05/04/21 08:33 Dose: 64 mg Documented by: Miscellaneous (Carbohydrates For Hypoglycemia ) 15 - 30 gm PO UD PRN PRN Reason: Hypoglycemia Treatment Stop: 05/24/21 10:59 Multivitamins (Multivitamin Tab) 1 tab PO DAILY [facility] Stop: 06/01/21 08:59 Last Admin: 05/04/21 08:33 Dose: 1 tab Documented by: Pantoprazole Sodium (Pantoprazole 40 Mg Tab) 40 mg PO BID [facility] Stop: 05/30/21 20:59 Last Admin: 05/04/21 08:33 Dose: 40 mg Documented by: Potassium Chloride (Potassium Chloride Crtab 20 Meq Tabcr) [facility] Stop: 06/01/21 08:59 Last Admin: 05/04/21 08:36 Dose: 20 meq Documented by: Potassium Chloride (Potassium Chloride Crtab 20 Meq Tabcr) 40 meq PO [facility] Stop: 05/04/21 10:04 Propranolol HCl (Propranolol Hcl La 80 Mg Capcr) 80 mg PO [facility] Stop: 05/31/21 08:59 Last Admin: 05/04/21 08:33 Dose: 80 mg Documented by: Spironolactone (Spironolactone 25 Mg Tab) 25 [facility] Stop: 05/28/21 09:59 Last Admin: 05/04/21 08:33 Dose: 25 mg Documented by: Thiamine HCl (Thiamine Hcl 100 Mg Tab) 100 mg PO [facility] Stop: 05/31/21 08:59 Last Admin: 05/04/21 08:33 Dose: 100 mg Documented by:
[2021-05-04] MEDS: MAGNESIUM SULFATE / D5W 1 GM/100 ML BAG IV SCH ×2 (11:00→12:57)
[2021-05-04] MEDS: MAGNESIUM OXIDE 400 MG TAB PO SCH (21:01)
[2021-05-05] MEDS ORDERED: ACETAMINOPHEN 325 MG TAB PO STA (05:49)
[2021-05-05 08:10] LABS: Hematocrit (blood only) 22.6 % (37-47); Hemoglobin 7.2 g/dL (12.0-16.0)
[2021-05-05] MEDS: GABAPENTIN 100 MG CAP PO SCH ×2 (08:17→21:16)
[2021-05-05] MEDS: FERROUS SULFATE 325 MG TAB PO SCH ×2 (08:17→21:15)
[2021-05-05] MEDS: MULTIVITAMIN TAB PO SCH (08:18)
[2021-05-05] MEDS: FOLIC ACID 1 MG TAB PO SCH (08:18)
[2021-05-05] MEDS: THIAMINE HCL 100 MG TAB PO SCH (08:18)
[2021-05-05] MEDS: MAGNESIUM OXIDE 400 MG TAB PO SCH ×2 (08:18→21:18)
[2021-05-05] MEDS: ATORVASTATIN 40 MG TAB PO SCH (08:18)
[2021-05-05] MEDS: PROPRANOLOL HCL LA 80 MG CAPCR PO SCH (08:18)
[2021-05-05] MEDS: PANTOprazole 40 MG TAB PO SCH ×2 (08:18→21:18)
[2021-05-05] MEDS: MAGNESIUM CHLORIDE 64MG DELAYED REL TAB PO SCH ×3 (08:18→21:18)
[2021-05-05] MEDS: CYANOCOBALAMIN 500 MCG TABLET (VITAMIN B-12) PO SCH (08:18)
[2021-05-05] MEDS: SPIRONOLACTONE 25 MG TAB PO SCH (08:18)
[2021-05-05] MEDS: INSULIN ASPART 100 UNITS/ML 3 ML PEN SC SCH ×4 (08:23→21:35)
[2021-05-05] MEDS: POTASSIUM CHLORIDE CRTAB 20 MEQ TABCR PO SCH (08:24)
[2021-05-05 08:48] LABS: BUN Creatinine Ratio 10.9 (10-20); Creatinine Clr Calc Pharmacy 54.6 ml/min; Est GFR (African American) 71.1 ml/min; Est GFR (Non-African American) 61.3 ml/min; Magnesium 1.6 mg/dl (1.8-2.4); Phosphorus 4.2 mg/dl (2.5-4.9); Potassium 4.2 mmol/L (3.5-5.1)
--- NOTE | 2021-05-05 15:37 | Hospitalist Progress Note ---
Date of Service May 05, 2021 Assessment & Plan (1) Septic shock: Plan: 60 yr F with H/O Alcoholism with cirrhosis, hx of esophageal varices, type 2 diabetes, hypertension who presents with altered mental status known since this morning presenting with hypothermia and septic shock. (As per Admitting team: Found to be obtunded and covered in vomit this morning by boyfriend after 6 days of intractable nausea, vomiting and generalized weakness. Presented with AMS temp of 32 C, as well as hypotensive with SBP 80s-90s) Septic shock Hypothermia Pneumonia, possibly due to aspiration Lactic acidosis: Normalized with IV fluids Procalcitonin 0.75 Blood cultures negative to date S/P LP: CSF culture negative Off pressors Completed 5-day course of antibiotics : arun Andrew Appreciate critical care, neurology input Appreciate ID input Hypothermia resolved Monitor off antibiotics IV fluids discontinued Resolved Hematochezia H/O esophageal varices Hold anticoagulation Continue PPI We will consider GI evaluation if recurrence of bleeding Monitor CBC Hb stable No bleeding issues today Diarrhea C. difficile - negative (2) Acute metabolic encephalopathy: Plan: Acute Metabolic Encephalopathy--Likely Multifactorial -MRI Brain:No acute intracranial abnormality As per Prior hospitalist:In setting of sepsis, concern for Wernicke's encephalopathy given chronic alcoholism, poor nutrition, oculomotor irre gularities and hypothermia Continue IV thiamine >> transitioned to p.o. thiamine Appreciate Neurology Input Continue to monitor for withdrawal Completed gabapentin protocol Mental status better (3) Hypothermia: Plan: Temp initially 32 C Continue current management Resolved (4) Acute hypokalemia: Plan: Likely secondary to GI losses :nausea and vomiting, poor oral intake Replace electrolytes as needed Monitor Hypomagnesemia Replace electrolytes as needed (5) Cardiac arrhythmia: Plan: Wide-complex tachycardia Likely artifactual Continue monitor Appreciate cardiology input Replace electrolytes as needed On Metoprolol 12.5mg BID>> Transitioned to propranolol given H/O esophageal varices (6) Acute kidney injury: Plan: Metabolic acidosis Cr elevated at 3 (baseline ~ 0.9) Creatinine improved to 1.23 Received IV fluids Avoid nephrotoxic agents as able (7) Alcohol abuse: Plan: Counseled to quit (8) Cirrhosis: Plan: On diuretics per [facility] med rec Normal ammonia level Resumed on spironolactone (9) Hypertension: Plan: BP stable (10) Diabetes mellitus, type II: Plan: HbA1c 5.5 Monitor blood glucose levels SSI while in-patient Thrombocytopenia Likely secondary to cirrhosis, alcohol use Monitor DVT Px: Was on Heparin SQ SCDs Re: Hematochezia Code status: FULL CODE Disposition: Needs Rehab Placement, plan for [facility] Admission and Anticipated Discharge Date Admission Date: April 23, 2021 Subjective Patient is seen in follow-up of encephalopathy, alcohol use Currently she is lying in bed, in acute distress Mental status is much improved, she is able to answer simple questions appropriately Continues to be however very weak, and it is recommended that she would go to rehab after her hospital discharge Denies any chest pain, shortness of breath, dizziness, nausea, abdominal pain Hgb stable, normal BM today Plan for possible [facility] Review of Systems Review of Systems: All systems reviewed & are unremarkable except as noted in Subjective Physical Exam Physical Exam: General Appearance:Moderately built and nourished, no apparent distress Head: normocephalic, Atraumatic Eyes: normal inspection, EOMI Neck: supple, Trachea midline Respiratory/Chest: Normal breath sounds, CTA, No accessory muscle use Cardiovascular: S1, S2, No murmur Abdomen/GI:Soft, Non tender, Bowel sounds present Extremities/Musculoskeletal:normal inspection, no edema Neurologic/Psych:AAOx3, speech fluent, no facial asymmetry, moves extremities while laying in bed however very slowly Skin: normal color, warm Results & Data Results & Data ([facility]) Vital Signs (Past 12 Hours) Vital Signs Temp Pulse Pulse Resp BP Pulse Ox 05/05/21 15:09 36.7 C 84 20 139/83 97 05/05/21 11:29 36.7 C 87 20 115/74 98 05/05/21 07:54 36.6 C 79 20 149/80 H 98 05/05/21 07:27 81 05/05/21 04:00 36.4 C L 82 18 142/94 H 98 Laboratory Results 05/05/21 05/05/21 05/05/21 Range/Units 11:42 07:57 07:57 Hgb 7.2 L (12.0-16.0) g/dL Hct 22.6 L (37-47) % Sodium 139 (136-145) mmol/L Potassium 4.2 D (3.5-5.1) mmol/L Chloride 111 H (98-107) mmol/L Carbon Dioxide 20 L (21-32) mmol/L Anion Gap 9.0 (3-11) BUN 11 (7-18) mg/dl Creatinine 1.01 (0.6-1.2) mg/dl Est Cr Clr Drug Dosing 54.6 ml/min Est GFR ( Amer) 71.1 ml/min Est GFR (Non-Af Amer) 61.3 ml/min BUN/Creatinine Ratio 10.9 (10-20) Glucose 90 (70-99) mg/dl POC Glucose 122 H (70-99) mg/dl Calcium 10.0 (8.5-10.1) mg/dl Phosphorus 4.2 (2.5-4.9) mg/dl Magnesium 1.6 L (1.8-2.4) mg/dl 05/05/21 05/04/21 05/04/21 Range/Units 07:34 20:23 16:33 Hgb (12.0-16.0) g/dL Hct (37-47) % Sodium (136-145) mmol/L Potassium (3.5-5.1) mmol/L Chloride (98-107) mmol/L Carbon Dioxide (21-32) mmol/L Anion Gap (3-11) BUN (7-18) mg/dl Creatinine (0.6-1.2) mg/dl Est Cr Clr Drug Dosing ml/min Est GFR ( Amer) ml/min Est GFR (Non-Af Amer) ml/min BUN/Creatinine Ratio (10-20) Glucose (70-99) mg/dl POC Glucose 99 95 115 H (70-99) mg/dl Calcium (8.5-10.1) mg/dl Phosphorus (2.5-4.9) mg/dl Magnesium (1.8-2.4) mg/dl Medications Administered Current Inpatient Medications Acetaminophen (Acetaminophen 325 Mg Tab) 650 mg PO Q4H PRN PRN Reason: Pain Stop: 06/04/21 14:21 Atorvastatin Calcium (Atorvastatin 40 Mg Tab) 40 mg PO DAILY [facility] Stop: 06/01/21 08:59 Last Admin: 05/05/21 08:18 Dose: 40 mg Documented by: Cyanocobalamin (Cyanocobalamin 500 Mcg Tablet (Vitamin B-12)) 1,000 mcg PO QAM [facility] Stop: 06/02/21 08:59 Last Admin: 05/05/21 08:18 Dose: 1,000 mcg Documented by: Dextrose (Dextrose 50% 50 Ml Syringe) 25 - 50 ml IV UD PRN; Protocol PRN Reason: Hypoglycemia Protocol Stop: 05/24/21 10:59 Ferrous Sulfate (Ferrous Sulfate 325 Mg Tab) 325 mg PO BID [facility] Stop: 06/01/21 01:44 Last Admin: 05/05/21 08:17 Dose: 325 mg Documented by: Folic Acid (Folic Acid 1 Mg Tab) 1 mg PO QAM [facility] Stop: 05/26/21 08:59 Last Admin: 05/05/21 08:18 Dose: 1 mg Documented by: Gabapentin (Gabapentin 100 Mg Cap) 100 mg PO BID [facility] Stop: 05/29/21 20:59 Last Admin: 05/05/21 08:17 Dose: 100 mg Documented by: Glucagon (Glucagon For Inj 1 Mg Vial) 1 mg IM UD PRN; Protocol PRN Reason: Hypoglycemia Protocol Stop: 05/24/21 10:59 Glucose (Glucose 40% Gel 15 Gm Tube) 15 - 30 gm PO UD PRN; Protocol PRN Reason: Hypoglycemia Protocol Stop: 05/24/21 10:59 Glucose (Glucose 10 Tabs/Tube) 4 - 8 tabs PO UD PRN; Protocol PRN Reason: Hypoglycemia Protocol Stop: 05/24/21 10:59 Heparin Sodium (Porcine) (Heparin Sod 5,000 Unit/0.5 Ml Vial) 5,000 units SQ Q12 [facility] Stop: 05/26/21 20:59 Last Admin: 04/30/21 21:32 Dose: 5,000 units Documented by: Lorazepam (Ativan) 0.5 mg in 1 mls @ 1 mls/min IV Q4H PRN PRN Reason: Agitation Stop: 05/25/21 19:02 Last Admin: 04/25/21 19:29 Dose: 1 mls/min Documented by: Lorazepam (Ativan) 1 mg in 2 mls @ 2 mls/min IV ONE PRN; Protocol PRN Reason: EtoH Withdrawal AWSS 6-10 Stop: 05/25/21 19:22 Promethazine HCl 12.5 mg/ (Sodium Chloride) 50.5 mls @ 202 mls/hr IV Q6H PRN PRN Reason: Nausea And Vomiting Stop: 05/27/21 20:01 Last Infusion: 04/27/21 20:45 Dose: Infused Documented by: Insulin Aspart (Insulin Aspart 100 Units/Ml 3 Ml Pen) 0 units SC ACHS [facility] Stop: 05/24/21 11:29 Last Admin: 05/05/21 12:38 Dose: 4 units Documented by: Magnesium Chloride (Magnesium Chloride 64mg Delayed Rel Tab) 64 mg PO TID [facility] Stop: 05/29/21 13:59 Last Admin: 05/05/21 08:18 Dose: 64 mg Documented by: Magnesium Oxide (Magnesium Oxide 400 Mg Tab) 400 mg PO BID [facility] Stop: 06/03/21 20:59 Last Admin: 05/05/21 08:18 Dose: 400 mg Documented by: Miscellaneous (Carbohydrates For Hypoglycemia ) 15 - 30 gm PO UD PRN PRN Reason: Hypoglycemia Treatment Stop: 05/24/21 10:59 Multivitamins (Multivitamin Tab) 1 tab PO DAILY [facility] Stop: 06/01/21 08:59 Last Admin: 05/05/21 08:18 Dose: 1 tab Documented by: Pantoprazole Sodium (Pantoprazole 40 Mg Tab) 40 mg PO BID [facility] Stop: 05/30/21 20:59 Last Admin: 05/05/21 08:18 Dose: 40 mg Documented by: Potassium Chloride (Potassium Chloride Crtab 20 Meq Tabcr) 20 meq PO QAM [facility] Stop: 06/01/21 08:59 Last Admin: 05/05/21 08:24 Dose: 20 meq Documented by: Propranolol HCl (Propranolol Hcl La 80 Mg Capcr) 80 mg PO QAM [facility] Stop: 05/31/21 08:59 Last Admin: 05/05/21 08:18 Dose: 80 mg Documented by: Spironolactone (Spironolactone 25 Mg Tab) 25 mg PO QAM [facility] Stop: 05/28/21 09:59 Last Admin: 05/05/21 08:18 Dose: 25 mg Documented by: Thiamine HCl (Thiamine Hcl 100 Mg Tab) 100 mg PO QAM [facility] Stop: 05/31/21 08:59 Last Admin: 05/05/21 08:18 Dose: 100 mg Documented by:
[2021-05-05] MEDS: ACETAMINOPHEN 325 MG TAB PO PRN (15:49)
[2021-05-06 07:05] LABS: BUN Creatinine Ratio 10.9 (10-20); Creatinine Clr Calc Pharmacy 50.2 ml/min; Est GFR (African American) 64.1 ml/min; Est GFR (Non-African American) 55.3 ml/min; Potassium 3.9 mmol/L (3.5-5.1)
--- NOTE | 2021-05-06 07:51 | Hospitalist Progress Note ---
Date of Service May 06, 2021 Assessment & Plan (1) Septic shock: Plan: 60 yr F with H/O Alcoholism with cirrhosis, hx of esophageal varices, type 2 diabetes, hypertension who presents with altered mental status known since this morning presenting with hypothermia and septic shock. (As per Admitting team: Found to be obtunded and covered in vomit this morning by boyfriend after 6 days of intractable nausea, vomiting and generalized weakness. Presented with AMS temp of 32 C, as well as hypotensive with SBP 80s-90s) Septic shock Hypothermia Pneumonia, possibly due to aspiration Lactic acidosis: Normalized with IV fluids Procalcitonin 0.75 Blood cultures negative to date S/P LP: CSF culture negative Off pressors Completed 5-day course of antibiotics : arun Andrew Appreciate critical care, neurology input Appreciate ID input Hypothermia resolved Monitor off antibiotics IV fluids discontinued Resolved Hematochezia H/O esophageal varices Hold anticoagulation Continue PPI We will consider GI evaluation if recurrence of bleeding Monitor CBC Hb stable No bleeding issues today Diarrhea C. difficile - negative (2) Acute metabolic encephalopathy: Plan: Acute Metabolic Encephalopathy--Likely Multifactorial -MRI Brain:No acute intracranial abnormality As per Prior hospitalist:In setting of sepsis, concern for Wernicke's encephalopathy given chronic alcoholism, poor nutrition, oculomotor irre gularities and hypothermia Continue IV thiamine >> transitioned to p.o. thiamine Appreciate Neurology Input Continue to monitor for withdrawal Completed gabapentin protocol Mental status better (3) Hypothermia: Plan: Temp initially 32 C Continue current management Resolved (4) Acute hypokalemia: Plan: Likely secondary to GI losses :nausea and vomiting, poor oral intake Replace electrolytes as needed Monitor Hypomagnesemia Replace electrolytes as needed (5) Cardiac arrhythmia: Plan: Wide-complex tachycardia Likely artifactual Continue monitor Appreciate cardiology input Replace electrolytes as needed On Metoprolol 12.5mg BID>> Transitioned to propranolol given H/O esophageal varices (6) Acute kidney injury: Plan: Metabolic acidosis Cr elevated at 3 (baseline ~ 0.9) Creatinine improved to 1 Received IV fluids Avoid nephrotoxic agents as able Resolved (7) Alcohol abuse: Plan: Counseled to quit (8) Cirrhosis: Plan: On diuretics per [facility] med rec Normal ammonia level Resumed on spironolactone (9) Hypertension: Plan: BP stable (10) Diabetes mellitus, type II: Plan: HbA1c 5.5 Monitor blood glucose levels SSI while in-patient Thrombocytopenia Likely secondary to cirrhosis, alcohol use Monitor DVT Px: Was on Heparin SQ SCDs Re: Hematochezia Code status: FULL CODE Disposition: Needs Rehab Placement, plan for [facility] Admission and Anticipated Discharge Date Admission Date: April 23, 2021 Subjective Patient is seen in follow-up of encephalopathy, alcohol use Currently she is lying in bed, in acute distress Mental status is much improved, she is able to answer simple questions appropriately Yesterday she had a visitor, however she cannot remember who came to see her. Continues to be however very weak, and it is recommended that she would go to rehab after her hospital discharge Denies any chest pain, shortness of breath, dizziness, nausea, abdominal pain Hgb stable, normal BM, no blood in stool per RN Plan for possible [facility] Review of Systems Review of Systems: All systems reviewed & are unremarkable except as noted in Subjective Physical Exam Physical Exam: General Appearance:Moderately built and nourished, no apparent distress Head: normocephalic, Atraumatic Eyes: normal inspection, EOMI Neck: supple, Trachea midline Respiratory/Chest: Normal breath sounds, CTA, No accessory muscle use Cardiovascular: S1, S2, No murmur Abdomen/GI:Soft, Non tender, Bowel sounds present Extremities/Musculoskeletal:normal inspection, no edema Neurologic/Psych:AAOx3, speech fluent, no facial asymmetry, moves extremities while laying in bed however very slowly Skin: normal color, warm Results & Data Results & Data ([facility]) Vital Signs (Past 12 Hours) Vital Signs Temp Pulse Pulse Resp BP BP Pulse Ox 05/06/21 07:45 94 H 05/06/21 07:25 36.8 C 78 16 150/81 H 98 05/06/21 04:00 36.5 C 85 18 158/93 H 97 05/06/21 01:41 84 05/05/21 23:00 36.3 C L 80 18 140/87 98 Laboratory Results 05/06/21 05/05/21 05/05/21 Range/Units 06:19 20:08 16:31 Hgb (12.0-16.0) g/dL Hct (37-47) % Sodium 139 (136-145) mmol/L Potassium 3.9 (3.5-5.1) mmol/L Chloride 111 H (98-107) mmol/L Carbon Dioxide 22 (21-32) mmol/L Anion Gap 6.0 (3-11) BUN 12 (7-18) mg/dl Creatinine 1.10 (0.6-1.2) mg/dl Est Cr Clr Drug Dosing 50.2 ml/min Est GFR ( Amer) 64.1 ml/min Est GFR (Non-Af Amer) 55.3 ml/min BUN/Creatinine Ratio 10.9 (10-20) Glucose 104 H (70-99) mg/dl POC Glucose 113 H 137 H (70-99) mg/dl Calcium 11.0 H (8.5-10.1) mg/dl Phosphorus (2.5-4.9) mg/dl Magnesium (1.8-2.4) mg/dl 05/05/21 05/05/21 05/05/21 Range/Units 11:42 07:57 07:57 Hgb 7.2 L (12.0-16.0) g/dL Hct 22.6 L (37-47) % Sodium 139 (136-145) mmol/L Potassium 4.2 D (3.5-5.1) mmol/L Chloride 111 H (98-107) mmol/L Carbon Dioxide 20 L (21-32) mmol/L Anion Gap 9.0 (3-11) BUN 11 (7-18) mg/dl Creatinine 1.01 (0.6-1.2) mg/dl Est Cr Clr Drug Dosing 54.6 ml/min Est GFR ( Amer) 71.1 ml/min Est GFR (Non-Af Amer) 61.3 ml/min BUN/Creatinine Ratio 10.9 (10-20) Glucose 90 (70-99) mg/dl POC Glucose 122 H (70-99) mg/dl Calcium 10.0 (8.5-10.1) mg/dl Phosphorus 4.2 (2.5-4.9) mg/dl Magnesium 1.6 L (1.8-2.4) mg/dl Medications Administered Current Inpatient Medications Acetaminophen (Acetaminophen 325 Mg Tab) 650 mg PO Q4H PRN PRN Reason: Pain Stop: 06/04/21 14:21 Last Admin: 05/05/21 15:49 Dose: 650 mg Documented by: Atorvastatin Calcium (Atorvastatin 40 Mg Tab) 40 mg PO DAILY [facility] Stop: 06/01/21 08:59 Last Admin: 05/05/21 08:18 Dose: 40 mg Documented by: Cyanocobalamin (Cyanocobalamin 500 Mcg Tablet (Vitamin B-12)) 1,000 mcg PO QAM [facility] Stop: 06/02/21 08:59 Last Admin: 05/05/21 08:18 Dose: 1,000 mcg Documented by: Dextrose (Dextrose 50% 50 Ml Syringe) 25 - 50 ml IV UD PRN; Protocol PRN Reason: Hypoglycemia Protocol Stop: 05/24/21 10:59 Ferrous Sulfate (Ferrous Sulfate 325 Mg Tab) 325 mg PO BID [facility] Stop: 06/01/21 01:44 Last Admin: 05/05/21 21:15 Dose: 325 mg Documented by: Folic Acid (Folic Acid 1 Mg Tab) 1 mg PO QAM [facility] Stop: 05/26/21 08:59 Last Admin: 05/05/21 08:18 Dose: 1 mg Documented by: Gabapentin (Gabapentin 100 Mg Cap) 100 mg PO BID [facility] Stop: 05/29/21 20:59 Last Admin: 05/05/21 21:16 Dose: 100 mg Documented by: Glucagon (Glucagon For Inj 1 Mg Vial) 1 mg IM UD PRN; Protocol PRN Reason: Hypoglycemia Protocol Stop: 05/24/21 10:59 Glucose (Glucose 40% Gel 15 Gm Tube) 15 - 30 gm PO UD PRN; Protocol PRN Reason: Hypoglycemia Protocol Stop: 05/24/21 10:59 Glucose (Glucose 10 Tabs/Tube) 4 - 8 tabs PO UD PRN; Protocol PRN Reason: Hypoglycemia Protocol Stop: 05/24/21 10:59 Heparin Sodium (Porcine) (Heparin Sod 5,000 Unit/0.5 Ml Vial) 5,000 units SQ Q12 [facility] Stop: 05/26/21 20:59 Last Admin: 04/30/21 21:32 Dose: 5,000 units Documented by: Lorazepam (Ativan) 0.5 mg in 1 mls @ 1 mls/min IV Q4H PRN PRN Reason: Agitation Stop: 05/25/21 19:02 Last Admin: 04/25/21 19:29 Dose: 1 mls/min Documented by: Lorazepam (Ativan) 1 mg in 2 mls @ 2 mls/min IV ONE PRN; Protocol PRN Reason: EtoH Withdrawal AWSS 6-10 Stop: 05/25/21 19:22 Promethazine HCl 12.5 mg/ (Sodium Chloride) 50.5 mls @ 202 mls/hr IV Q6H PRN PRN Reason: Nausea And Vomiting Stop: 05/27/21 20:01 Last Infusion: 04/27/21 20:45 Dose: Infused Documented by: Insulin Aspart (Insulin Aspart 100 Units/Ml 3 Ml Pen) 0 units SC ACHS [facility] Stop: 05/24/21 11:29 Last Admin: 05/05/21 21:35 Dose: Not Given Documented by: Magnesium Chloride (Magnesium Chloride 64mg Delayed Rel Tab) 64 mg PO TID [facility] Stop: 05/29/21 13:59 Last Admin: 05/05/21 21:18 Dose: 64 mg Documented by: Magnesium Oxide (Magnesium Oxide 400 Mg Tab) 400 mg PO BID [facility] Stop: 06/03/21 20:59 Last Admin: 05/05/21 21:18 Dose: 400 mg Documented by: Miscellaneous (Carbohydrates For Hypoglycemia ) 15 - 30 gm PO UD PRN PRN Reason: Hypoglycemia Treatment Stop: 05/24/21 10:59 Multivitamins (Multivitamin Tab) 1 tab PO DAILY [facility] Stop: 06/01/21 08:59 Last Admin: 05/05/21 08:18 Dose: 1 tab Documented by: Pantoprazole Sodium (Pantoprazole 40 Mg Tab) 40 mg PO BID [facility] Stop: 05/30/21 20:59 Last Admin: 05/05/21 21:18 Dose: 40 mg Documented by: Potassium Chloride (Potassium Chloride Crtab 20 Meq Tabcr) [facility]: 06/01/21 08:59 Last Admin: 05/05/21 08:24 Dose: 20 meq Documented by: Propranolol HCl (Propranolol Hcl La 80 Mg Capcr) 80 mg PO [facility] Stop: 05/31/21 08:59 Last Admin: 05/05/21 08:18 Dose: 80 mg Documented by: Spironolactone (Spironolactone 25 Mg Tab) 25 mg PO QAM [facility] Stop: 05/28/21 09:59 Last Admin: 05/05/21 08:18 Dose: 25 mg Documented by: Thiamine HCl (Thiamine Hcl 100 Mg Tab) [facility] Stop: 05/31/21 08:59 Last Admin: 05/05/21 08:18 Dose: 100 mg Documented by:
[2021-05-06] MEDS: INSULIN ASPART 100 UNITS/ML 3 ML PEN SC SCH ×4 (09:15→20:56)
[2021-05-06] MEDS: CYANOCOBALAMIN 500 MCG TABLET (VITAMIN B-12) PO SCH (09:16)
[2021-05-06] MEDS: FERROUS SULFATE 325 MG TAB PO SCH ×2 (09:16→20:52)
[2021-05-06] MEDS: ATORVASTATIN 40 MG TAB PO SCH (09:16)
[2021-05-06] MEDS: MULTIVITAMIN TAB PO SCH (09:16)
[2021-05-06] MEDS: THIAMINE HCL 100 MG TAB PO SCH (09:16)
[2021-05-06] MEDS: FOLIC ACID 1 MG TAB PO SCH (09:16)
[2021-05-06] MEDS: PROPRANOLOL HCL LA 80 MG CAPCR PO SCH (09:16)
[2021-05-06] MEDS: MAGNESIUM OXIDE 400 MG TAB PO SCH ×2 (09:16→20:52)
[2021-05-06] MEDS: GABAPENTIN 100 MG CAP PO SCH ×2 (09:16→20:52)
[2021-05-06] MEDS: SPIRONOLACTONE 25 MG TAB PO SCH (09:16)
[2021-05-06] MEDS: PANTOprazole 40 MG TAB PO SCH ×2 (09:16→20:52)
[2021-05-06] MEDS: POTASSIUM CHLORIDE CRTAB 20 MEQ TABCR PO SCH (09:18)
[2021-05-06] MEDS ORDERED: CYANOCOBALAMIN 1000 MCG/ML VIAL IM ONE (14:00)
[2021-05-06] MEDS ORDERED: THIAMINE HCL 200 MG in SODIUM CHLORIDE 0.9% 50 ML IV ONE (14:00)
[2021-05-06] MEDS ORDERED: FOLIC ACID 1 MG in SYRINGE 9.8 ML IV ONE (14:00)
[2021-05-07 08:09] LABS: Hematocrit (blood only) 25.9 % (37-47); Hemoglobin 8.5 g/dL (12.0-16.0)
[2021-05-07 08:46] LABS: BUN Creatinine Ratio 13.8 (10-20); Calcium 10.8 mg/dl (8.5-10.1); Creatinine Clr Calc Pharmacy 50.2 ml/min; Est GFR (African American) 64.1 ml/min; Est GFR (Non-African American) 55.3 ml/min; Magnesium 1.4 mg/dl (1.8-2.4); Potassium 3.9 mmol/L (3.5-5.1)
--- NOTE | 2021-05-07 08:53 | Hospitalist Progress Note ---
Date of Service May 07, 2021 Assessment & Plan (1) Septic shock: Plan: 60 yr F with H/O Alcoholism with cirrhosis, hx of esophageal varices, type 2 diabetes, hypertension who presents with altered mental status known since this morning presenting with hypothermia and septic shock. (As per Admitting team: Found to be obtunded and covered in vomit this morning by boyfriend after 6 days of intractable nausea, vomiting and generalized weakness. Presented with AMS temp of 32 C, as well as hypotensive with SBP 80s-90s) Septic shock Hypothermia Pneumonia, possibly due to aspiration Lactic acidosis: Normalized with IV fluids Procalcitonin 0.75 Blood cultures negative to date S/P LP: CSF culture negative Off pressors Completed 5-day course of antibiotics : arun Andrew Appreciate critical care, neurology input Appreciate ID input Hypothermia resolved Monitor off antibiotics IV fluids discontinued Resolved Hematochezia H/O esophageal varices Hold anticoagulation Continue PPI We will consider GI evaluation if recurrence of bleeding Monitor CBC Hb stable No bleeding issues today Diarrhea C. difficile - negative (2) Acute metabolic encephalopathy: Plan: Acute Metabolic Encephalopathy--Likely Multifactorial -MRI Brain:No acute intracranial abnormality As per Prior hospitalist:In setting of sepsis, concern for Wernicke's encephalopathy given chronic alcoholism, poor nutrition, oculomotor irre gularities and hypothermia Continue IV thiamine >> transitioned to p.o. thiamine Appreciate Neurology Input Continue to monitor for withdrawal Completed gabapentin protocol Mental status better (3) Hypothermia: Plan: Temp initially 32 C Continue current management Resolved (4) Acute hypokalemia: Plan: Likely secondary to GI losses :nausea and vomiting, poor oral intake Replace electrolytes as needed Monitor Hypomagnesemia Replace electrolytes as needed (5) Cardiac arrhythmia: Plan: Wide-complex tachycardia Likely artifactual Continue monitor Appreciate cardiology input Replace electrolytes as needed On Metoprolol 12.5mg BID>> Transitioned to propranolol given H/O esophageal varices (6) Acute kidney injury: Plan: Metabolic acidosis Cr elevated at 3 (baseline ~ 0.9) Creatinine improved to 1 Received IV fluids Avoid nephrotoxic agents as able Resolved (7) Alcohol abuse: Plan: Counseled to quit (8) Cirrhosis: Plan: On diuretics per [employer] med rec Normal ammonia level Resumed on spironolactone (9) Hypertension: Plan: BP stable (10) Diabetes mellitus, type II: Plan: HbA1c 5.5 Monitor blood glucose levels SSI while in-patient Thrombocytopenia Likely secondary to cirrhosis, alcohol use Monitor DVT Px: Was on Heparin SQ SCDs Re: Hematochezia Code status: FULL CODE Disposition: Needs Rehab Placement, plan for [facility] Admission and Anticipated Discharge Date Admission Date: April 23, 2021 Subjective Patient is seen in follow-up of encephalopathy, alcohol use Currently she is lying in bed, in acute distress Mental status has improved, she is able to answer simple questions appropriately Continues to be however very weak, and it is recommended that she would go to rehab after her hospital discharge Denies any chest pain, shortness of breath, dizziness, nausea, abdominal pain Hgb stable, normal BM, no blood in stool per RN Plan for possible [facility] Review of Systems Review of Systems: All systems reviewed & are unremarkable except as noted in Subjective Physical Exam Physical Exam: General Appearance:Moderately built and nourished, no apparent distress Head: normocephalic, Atraumatic Eyes: normal inspection, EOMI Neck: supple, Trachea midline Respiratory/Chest: Normal breath sounds, CTA, No accessory muscle use Cardiovascular: S1, S2, No murmur Abdomen/GI:Soft, Non tender, Bowel sounds present Extremities/Musculoskeletal:normal inspection, no edema Neurologic/Psych:AAOx3, speech fluent, no facial asymmetry, moves extremities while laying in bed however very slowly Skin: normal color, warm Results & Data Results & Data ([facility]) Vital Signs (Past 12 Hours) Vital Signs Temp Pulse Pulse Pulse Resp BP BP 05/07/21 07:46 95 H 05/07/21 07:33 36.4 C L 94 H 16 130/84 05/07/21 03:43 97 H 05/07/21 02:44 36.4 C L 98 H 18 137/83 05/06/21 23:00 36.9 C 98 H 18 127/71 Pulse Ox 05/07/21 07:46 05/07/21 07:33 99 05/07/21 03:43 05/07/21 02:44 97 05/06/21 23:00 95 Laboratory Results 05/07/21 05/07/21 05/07/21 Range/Units 07:47 07:47 07:25 Hgb 8.5 L (12.0-16.0) g/dL Hct 25.9 L (37-47) % Sodium 141 (136-145) mmol/L Potassium 3.9 (3.5-5.1) mmol/L Chloride 111 H (98-107) mmol/L Carbon Dioxide 19 L (21-32) mmol/L Anion Gap 11.0 (3-11) BUN 15 (7-18) mg/dl Creatinine 1.10 (0.6-1.2) mg/dl Est Cr Clr Drug Dosing 50.2 ml/min Est GFR ( Amer) 64.1 ml/min Est GFR (Non-Af Amer) 55.3 ml/min BUN/Creatinine Ratio 13.8 (10-20) Glucose 104 H (70-99) mg/dl POC Glucose 105 H (70-99) mg/dl Calcium 10.8 H (8.5-10.1) mg/dl Phosphorus Pending Magnesium 1.4 L (1.8-2.4) mg/dl 05/06/21 05/06/21 05/06/21 Range/Units 20:45 16:34 11:32 Hgb (12.0-16.0) g/dL Hct (37-47) % Sodium (136-145) mmol/L Potassium (3.5-5.1) mmol/L Chloride (98-107) mmol/L Carbon Dioxide (21-32) mmol/L Anion Gap (3-11) BUN (7-18) mg/dl Creatinine (0.6-1.2) mg/dl Est Cr Clr Drug Dosing ml/min Est GFR ( Amer) ml/min Est GFR (Non-Af Amer) ml/min BUN/Creatinine Ratio (10-20) Glucose (70-99) mg/dl POC Glucose 115 H 116 H 158 H (70-99) mg/dl Calcium (8.5-10.1) mg/dl Phosphorus Magnesium (1.8-2.4) mg/dl Medications Administered Current Inpatient Medications Acetaminophen (Acetaminophen 325 Mg Tab) 650 mg PO Q4H PRN PRN Reason: Pain Stop: 06/04/21 14:21 Last Admin: 05/05/21 15:49 Dose: 650 mg Documented by: Atorvastatin Calcium (Atorvastatin 40 Mg Tab) 40 mg PO DAILY [facility] Stop: 06/01/21 08:59 Last Admin: 05/06/21 09:16 Dose: 40 mg Documented by: Cyanocobalamin (Cyanocobalamin 500 Mcg Tablet (Vitamin B-12)) 1,000 mcg PO QAM [facility] Stop: 06/02/21 08:59 Last Admin: 05/06/21 09:16 Dose: 1,000 mcg Documented by: Dextrose (Dextrose 50% 50 Ml Syringe) 25 - 50 ml IV UD PRN; Protocol PRN Reason: Hypoglycemia Protocol Stop: 05/24/21 10:59 Ferrous Sulfate (Ferrous Sulfate 325 Mg Tab) 325 mg PO BID [facility] Stop: 06/01/21 01:44 Last Admin: 05/06/21 20:52 Dose: 325 mg Documented by: Folic Acid (Folic Acid 1 Mg Tab) 1 mg PO QAM [facility] Stop: 05/26/21 08:59 Last Admin: 05/06/21 09:16 Dose: 1 mg Documented by: Gabapentin (Gabapentin 100 Mg Cap) 100 mg PO BID [facility] Stop: 05/29/21 20:59 Last Admin: 05/06/21 20:52 Dose: 100 mg Documented by: Glucagon (Glucagon For Inj 1 Mg Vial) 1 mg IM UD PRN; Protocol PRN Reason: Hypoglycemia Protocol Stop: 05/24/21 10:59 Glucose (Glucose 40% Gel 15 Gm Tube) 15 - 30 gm PO UD PRN; Protocol PRN Reason: Hypoglycemia Protocol Stop: 05/24/21 10:59 Glucose (Glucose 10 Tabs/Tube) 4 - 8 tabs PO UD PRN; Protocol PRN Reason: Hypoglycemia Protocol Stop: 05/24/21 10:59 Heparin Sodium (Porcine) (Heparin Sod 5,000 Unit/0.5 Ml Vial) 5,000 units SQ Q12 [facility] Stop: 05/26/21 20:59 Last Admin: 04/30/21 21:32 Dose: 5,000 units Documented by: Lorazepam (Ativan) 0.5 mg in 1 mls @ 1 mls/min IV Q4H PRN PRN Reason: Agitation Stop: 05/25/21 19:02 Last Admin: 04/25/21 19:29 Dose: 1 mls/min Documented by: Lorazepam (Ativan) 1 mg in 2 mls @ 2 mls/min IV ONE PRN; Protocol PRN Reason: EtoH Withdrawal AWSS 6-10 Stop: 05/25/21 19:22 Promethazine HCl 12.5 mg/ (Sodium Chloride) 50.5 mls @ 202 mls/hr IV Q6H PRN PRN Reason: Nausea And Vomiting Stop: 05/27/21 20:01 Last Infusion: 04/27/21 20:45 Dose: Infused Documented by: Magnesium Sulfate/Dextrose (Magnesium Sulfate / D5w) 1 gm in 100 mls @ 50 mls/hr IV ONE ONE Stop: 05/07/21 10:50 Insulin Aspart (Insulin Aspart 100 Units/Ml 3 Ml Pen) 0 units SC ACHS [facility] Stop: 05/24/21 11:29 Last Admin: 05/06/21 20:56 Dose: Not Given Documented by: Magnesium Oxide (Magnesium Oxide 400 Mg Tab) 400 mg PO BID [facility] Stop: 06/03/21 20:59 Last Admin: 05/06/21 20:52 Dose: 400 mg Documented by: Miscellaneous (Carbohydrates For Hypoglycemia ) 15 - 30 gm PO UD PRN PRN Reason: Hypoglycemia Treatment Stop: 05/24/21 10:59 Multivitamins (Multivitamin Tab) 1 tab PO DAILY [facility] Stop: 06/01/21 08:59 Last Admin: 05/06/21 09:16 Dose: 1 tab Documented by: Pantoprazole Sodium (Pantoprazole 40 Mg Tab) 40 mg PO BID [facility] Stop: 05/30/21 20:59 Last Admin: 05/06/21 20:52 Dose: 40 mg Documented by: Potassium Chloride (Potassium Chloride Crtab 20 Meq Tabcr) 20 meq PO QAM [facility] Stop: 06/01/21 08:59 Last Admin: 05/06/21 09:18 Dose: 20 meq Documented by: Propranolol HCl (Propranolol Hcl La 80 Mg Capcr) [facility] [place] [facility] [place]: 05/31/21 08:59 Last Admin: 05/06/21 09:16 Dose: 80 mg Documented by: Spironolactone (Spironolactone 25 Mg Tab) 25 mg PO QAM [facility] Stop: 05/28/21 09:59 Last Admin: 05/06/21 09:16 Dose: 25 mg Documented by: Thiamine HCl (Thiamine Hcl 100 Mg Tab) 100 mg PO QAM [facility] Stop: 05/31/21 08:59 Last Admin: 05/06/21 09:16 Dose: 100 mg Documented by:
[2021-05-07] MEDS: INSULIN ASPART 100 UNITS/ML 3 ML PEN SC SCH ×4 (08:56→21:05)
[2021-05-07 08:59] LABS: Phosphorus 5.6 mg/dl (2.5-4.9)
[2021-05-07] MEDS ORDERED: MAGNESIUM SULFATE / D5W 1 GM/100 ML BAG IV ONE (09:00)
[2021-05-07] MEDS: FOLIC ACID 1 MG TAB PO SCH (09:03)
[2021-05-07] MEDS: MULTIVITAMIN TAB PO SCH (09:03)
[2021-05-07] MEDS: SPIRONOLACTONE 25 MG TAB PO SCH (09:03)
[2021-05-07] MEDS: ATORVASTATIN 40 MG TAB PO SCH (09:03)
[2021-05-07] MEDS: GABAPENTIN 100 MG CAP PO SCH ×2 (09:03→20:20)
[2021-05-07] MEDS: FERROUS SULFATE 325 MG TAB PO SCH ×2 (09:03→20:20)
[2021-05-07] MEDS: PROPRANOLOL HCL LA 80 MG CAPCR PO SCH (09:03)
[2021-05-07] MEDS: THIAMINE HCL 100 MG TAB PO SCH (09:03)
[2021-05-07] MEDS: CYANOCOBALAMIN 500 MCG TABLET (VITAMIN B-12) PO SCH (09:03)
[2021-05-07] MEDS: MAGNESIUM OXIDE 400 MG TAB PO SCH ×2 (09:03→20:21)
[2021-05-07] MEDS: PANTOprazole 40 MG TAB PO SCH ×2 (09:03→20:20)
[2021-05-07] MEDS: POTASSIUM CHLORIDE CRTAB 20 MEQ TABCR PO SCH (09:04)
[2021-05-08 06:25] LABS: Hematocrit (blood only) 25.6 % (37-47); Hemoglobin 8.1 g/dL (12.0-16.0)
[2021-05-08 06:49] LABS: BUN Creatinine Ratio 13.9 (10-20); Calcium 10.6 mg/dl (8.5-10.1); Creatinine Clr Calc Pharmacy 36.1 ml/min; Est GFR (Non-African American) 37.1 ml/min; Potassium 4.3 mmol/L (3.5-5.1)
[2021-05-08 06:55] LABS: Phosphorus 4.5 mg/dl (2.5-4.9)
[2021-05-08 07:01] LABS: Magnesium 1.6 mg/dl (1.8-2.4)
[2021-05-08] MEDS: CYANOCOBALAMIN 500 MCG TABLET (VITAMIN B-12) PO SCH (08:06)
[2021-05-08] MEDS: PROPRANOLOL HCL LA 80 MG CAPCR PO SCH (08:06)
[2021-05-08] MEDS: PANTOprazole 40 MG TAB PO SCH ×2 (08:06→21:12)
[2021-05-08] MEDS: THIAMINE HCL 100 MG TAB PO SCH (08:06)
[2021-05-08] MEDS: SPIRONOLACTONE 25 MG TAB PO SCH (08:06)
[2021-05-08] MEDS: ATORVASTATIN 40 MG TAB PO SCH (08:06)
[2021-05-08] MEDS: FOLIC ACID 1 MG TAB PO SCH (08:07)
[2021-05-08] MEDS: MAGNESIUM OXIDE 400 MG TAB PO SCH ×2 (08:07→21:10)
[2021-05-08] MEDS: GABAPENTIN 100 MG CAP PO SCH ×2 (08:07→21:10)
[2021-05-08] MEDS: FERROUS SULFATE 325 MG TAB PO SCH ×2 (08:07→21:09)
[2021-05-08] MEDS: POTASSIUM CHLORIDE CRTAB 20 MEQ TABCR PO SCH (08:12)
[2021-05-08] MEDS: INSULIN ASPART 100 UNITS/ML 3 ML PEN SC SCH ×4 (08:15→22:21)
[2021-05-08] MEDS: MULTIVITAMIN TAB PO SCH (08:23)
[2021-05-08] MEDS ORDERED: SODIUM CHLORIDE 0.9% 1000ML 500 ML IV ONE (09:27)
--- NOTE | 2021-05-08 09:31 | Hospitalist Progress Note ---
Date of Service May 08, 2021 Assessment & Plan (1) Septic shock: Plan: 60 yr F with H/O Alcoholism with cirrhosis, hx of esophageal varices, type 2 diabetes, hypertension who presents with altered mental status known since this morning presenting with hypothermia and septic shock. (As per Admitting team: Found to be obtunded and covered in vomit this morning by boyfriend after 6 days of intractable nausea, vomiting and generalized weakness. Presented with AMS temp of 32 C, as well as hypotensive with SBP 80s-90s) Septic shock Hypothermia Pneumonia, possibly due to aspiration Lactic acidosis: Normalized with IV fluids Procalcitonin 0.75 Blood cultures negative to date S/P LP: CSF culture negative Off pressors Completed 5-day course of antibiotics : arun Andrew Appreciate critical care, neurology input Appreciate ID input Hypothermia resolved Monitor off antibiotics IV fluids discontinued Resolved Hematochezia H/O esophageal varices Hold anticoagulation Continue PPI We will consider GI evaluation if recurrence of bleeding Monitor CBC Hb stable No bleeding issues today Diarrhea C. difficile - negative (2) Acute metabolic encephalopathy: Plan: Acute Metabolic Encephalopathy--Likely Multifactorial -MRI Brain:No acute intracranial abnormality As per Prior hospitalist:In setting of sepsis, concern for Wernicke's encephalopathy given chronic alcoholism, poor nutrition, oculomotor irre gularities and hypothermia Continue IV thiamine >> transitioned to p.o. thiamine Appreciate Neurology Input Continue to monitor for withdrawal Completed gabapentin protocol Mental status much better (3) Hypothermia: Plan: Temp initially 32 C Continue current management Resolved (4) Acute hypokalemia: Plan: Likely secondary to GI losses :nausea and vomiting, poor oral intake Replace electrolytes as needed Monitor Hypomagnesemia Replace electrolytes as needed (5) Cardiac arrhythmia: Plan: Wide-complex tachycardia Likely artifactual Continue monitor Appreciate cardiology input Replace electrolytes as needed On Metoprolol 12.5mg BID>> Transitioned to propranolol given H/O esophageal varices (6) Acute kidney injury: Plan: Metabolic acidosis Cr elevated at 3 (baseline ~ 0.9) Creatinine improved to 1 Received IV fluids Avoid nephrotoxic agents as able Resolved - Cr normal for several days 05/08 Cr up at 1.5 - likely d/t poor oral intake -will encourage p.o. intake, give gentle IV fluids (7) Alcohol abuse: Plan: Counseled to quit (8) Cirrhosis: Plan: On diuretics per [employer] rec Normal ammonia level Resumed on spironolactone (9) Hypertension: Plan: BP stable (10) Diabetes mellitus, type II: Plan: HbA1c 5.5 Monitor blood glucose levels SSI while in-patient Thrombocytopenia Likely secondary to cirrhosis, alcohol use Monitor DVT Px: Was on Heparin SQ SCDs Re: Hematochezia Code status: FULL CODE Disposition: Needs Rehab Placement, plan for [facility] Admission and Anticipated Discharge Date Admission Date: April 23, 2021 Subjective Patient is seen in follow-up of encephalopathy, alcohol use Currently she is lying in bed, in acute distress Mental status has improved, she is able to answer simple questions appropriately Continues to be however very weak, and it is recommended that she would go to re hab after her hospital discharge Denies any chest pain, shortness of breath, dizziness, nausea, abdominal pain Hgb stable, normal BM, no blood in stool per RN Plan for possible [facility] More sleepy today, says that she was up at night though, will need to check with nursing staff if this is true creatinine also slightly elevated today Per nursing staff though, she was up at bedside commode several times Review of Systems Review of Systems: All systems reviewed & are unremarkable except as noted in Subjective Physical Exam Physical Exam: General Appearance:Moderately built and nourished, no apparent distress Head: normocephalic, Atraumatic Eyes: normal inspection, EOMI Neck: supple, Trachea midline Respiratory/Chest: Normal breath sounds, CTA, No accessory muscle use Cardiovascular: S1, S2, No murmur Abdomen/GI:Soft, Non tender, Bowel sounds present Extremities/Musculoskeletal:normal inspection, no edema Neurologic/Psych:AAOx3, speech fluent, no facial asymmetry, moves extremities while laying in bed however very slowly Skin: normal color, warm Results & Data Results & Data ([facility]) Vital Signs (Past 12 Hours) Vital Signs Temp Pulse Pulse Resp BP BP Pulse Ox 05/08/21 07:43 36.5 C 88 20 118/73 99 05/08/21 07:13 97 H 05/08/21 04:23 36.6 C 94 H 20 144/84 H 98 05/08/21 00:48 94 H 05/08/21 00:21 36.6 C 93 H 20 132/87 98 05/08/21 00:18 36.6 C 93 H 20 132/87 98 Laboratory Results 05/08/21 05/08/21 05/08/21 Range/Units 07:28 05:35 05:35 Hgb 8.1 L (12.0-16.0) g/dL Hct 25.6 L (37-47) % Sodium 136 (136-145) mmol/L Potassium 4.3 (3.5-5.1) mmol/L Chloride 107 (98-107) mmol/L Carbon Dioxide 22 (21-32) mmol/L Anion Gap 7.0 (3-11) BUN 21 H (7-18) mg/dl Creatinine 1.53 H D (0.6-1.2) mg/dl Est Cr Clr Drug Dosing 36.1 ml/min Est GFR ( Amer) 43.0 ml/min Est GFR (Non-Af Amer) 37.1 ml/min BUN/Creatinine Ratio 13.9 (10-20) Glucose 104 H (70-99) mg/dl POC Glucose 108 H (70-99) mg/dl Calcium 10.6 H (8.5-10.1) mg/dl Phosphorus 4.5 D (2.5-4.9) mg/dl Magnesium 1.6 L (1.8-2.4) mg/dl 05/07/21 05/07/21 05/07/21 Range/Units 21:02 16:27 11:27 Hgb (12.0-16.0) g/dL Hct (37-47) % Sodium (136-145) mmol/L Potassium (3.5-5.1) mmol/L Chloride (98-107) mmol/L Carbon Dioxide (21-32) mmol/L Anion Gap (3-11) BUN (7-18) mg/dl Creatinine (0.6-1.2) mg/dl Est Cr Clr Drug Dosing ml/min Est GFR ( Amer) ml/min Est GFR (Non-Af Amer) ml/min BUN/Creatinine Ratio (10-20) Glucose (70-99) mg/dl POC Glucose 135 H 129 H 170 H (70-99) mg/dl Calcium (8.5-10.1) mg/dl Phosphorus (2.5-4.9) mg/dl Magnesium (1.8-2.4) mg/dl Medications Administered Current Inpatient Medications Acetaminophen (Acetaminophen 325 Mg Tab) 650 mg PO Q4H PRN PRN Reason: Pain Stop: 06/04/21 14:21 Last Admin: 05/05/21 15:49 Dose: 650 mg Documented by: Atorvastatin Calcium (Atorvastatin 40 Mg Tab) 40 mg PO DAILY [facility] Stop: 06/01/21 08:59 Last Admin: 05/08/21 08:06 Dose: 40 mg Documented by: Cyanocobalamin (Cyanocobalamin 500 Mcg Tablet (Vitamin B-12)) 1,000 mcg PO QAM [facility] Stop: 06/02/21 08:59 Last Admin: 05/08/21 08:06 Dose: 1,000 mcg Documented by: Dextrose (Dextrose 50% 50 Ml Syringe) 25 - 50 ml IV UD PRN; Protocol PRN Reason: Hypoglycemia Protocol Stop: 05/24/21 10:59 Ferrous Sulfate (Ferrous Sulfate 325 Mg Tab) 325 mg PO BID [facility] Stop: 06/01/21 01:44 Last Admin: 05/08/21 08:07 Dose: 325 mg Documented by: Folic Acid (Folic Acid 1 Mg Tab) 1 mg PO QAM [facility] Stop: 05/26/21 08:59 Last Admin: 05/08/21 08:07 Dose: 1 mg Documented by: Gabapentin (Gabapentin 100 Mg Cap) 100 mg PO BID [facility] Stop: 05/29/21 20:59 Last Admin: 05/08/21 08:07 Dose: 100 mg Documented by: Glucagon (Glucagon For Inj 1 Mg Vial) 1 mg IM UD PRN; Protocol PRN Reason: Hypoglycemia Protocol Stop: 05/24/21 10:59 Glucose (Glucose 40% Gel 15 Gm Tube) 15 - 30 gm PO UD PRN; Protocol PRN Reason: Hypoglycemia Protocol Stop: 05/24/21 10:59 Glucose (Glucose 10 Tabs/Tube) 4 - 8 tabs PO UD PRN; Protocol PRN Reason: Hypoglycemia Protocol Stop: 05/24/21 10:59 Heparin Sodium (Porcine) (Heparin Sod 5,000 Unit/0.5 Ml Vial) 5,000 units SQ Q12 [facility] Stop: 05/26/21 20:59 Last Admin: 04/30/21 21:32 Dose: 5,000 units Documented by: Lorazepam (Ativan) 0.5 mg in 1 mls @ 1 mls/min IV Q4H PRN PRN Reason: Agitation Stop: 05/25/21 19:02 Last Admin: 04/25/21 19:29 Dose: 1 mls/min Documented by: Lorazepam (Ativan) 1 mg in 2 mls @ 2 mls/min IV ONE PRN; Protocol PRN Reason: EtoH Withdrawal AWSS 6-10 Stop: 05/25/21 19:22 Promethazine HCl 12.5 mg/ (Sodium Chloride) 50.5 mls @ 202 mls/hr IV Q6H PRN PRN Reason: Nausea And Vomiting Stop: 05/27/21 20:01 Last Infusion: 04/27/21 20:45 Dose: Infused Documented by: Sodium Chloride (Nss 1000ml) 500 mls @ 999 mls/hr IV .Q31M ONE Stop: 05/08/21 09:57 Magnesium Sulfate/Dextrose (Magnesium Sulfate / D5w) 1 gm in 100 mls @ 50 mls/hr IV ONE ONE Stop: 05/08/21 11:26 Insulin Aspart (Insulin Aspart 100 Units/Ml 3 Ml Pen) 0 units SC ACHS [facility] Stop: 05/24/21 11:29 Last Admin: 05/08/21 08:15 Dose: Not Given Documented by: Magnesium Oxide (Magnesium Oxide 400 Mg Tab) 400 mg PO BID [facility] Stop: 06/03/21 20:59 Last Admin: 05/08/21 08:07 Dose: 400 mg Documented by: Miscellaneous (Carbohydrates For Hypoglycemia ) 15 - 30 gm PO UD PRN PRN Reason: Hypoglycemia Treatment Stop: 05/24/21 10:59 Multivitamins (Multivitamin Tab) 1 tab PO DAILY [facility] Stop: 06/01/21 08:59 Last Admin: 05/08/21 08:23 Dose: 1 tab Documented by: Pantoprazole Sodium (Pantoprazole 40 Mg Tab) 40 mg PO BID [facility] Stop: 05/30/21 20:59 Last Admin: 05/08/21 08:06 Dose: 40 mg Documented by: Potassium Chloride (Potassium Chloride Crtab 20 Meq Tabcr) 20 meq PO QAM [facility] Stop: 06/01/21 08:59 Last Admin: 05/08/21 08:12 Dose: 20 meq Documented by: Propranolol HCl (Propranolol Hcl La 80 Mg Capcr) 80 mg PO QAM [facility] Stop: 05/31/21 08:59 Last Admin: 05/08/21 08:06 Dose: 80 mg Documented by: Spironolactone (Spironolactone 25 Mg Tab) 25 mg PO [facility] Stop: 05/28/21 09:59 Last Admin: 05/08/21 08:06 Dose: 25 mg Documented by: Thiamine HCl (Thiamine Hcl 100 Mg Tab) 100 mg PO [facility] Stop: 05/31/21 08:59 Last Admin: 05/08/21 08:06 Dose: 100 mg Documented by:
[2021-05-08] MEDS ORDERED: MAGNESIUM SULFATE / D5W 1 GM/100 ML BAG IV ONE (09:45)
[2021-05-08] MEDS: SODIUM CHLORIDE 0.9% 1000ML 1,000 ML IV SCH (15:38)
[2021-05-09] MEDS: SODIUM CHLORIDE 0.9% 1000ML 1,000 ML IV SCH ×2 (04:12→16:26)
[2021-05-09 06:29] LABS: Calcium 10.4 mg/dl (8.5-10.1); Creatinine Clr Calc Pharmacy 44.5 ml/min; Est GFR (African American) 55.4 ml/min; Est GFR (Non-African American) 47.8 ml/min; Phosphorus 4.4 mg/dl (2.5-4.9); Potassium 4.2 mmol/L (3.5-5.1)
[2021-05-09 06:35] LABS: Magnesium 1.7 mg/dl (1.8-2.4)
[2021-05-09] MEDS: PANTOprazole 40 MG TAB PO SCH ×2 (08:06→20:51)
[2021-05-09] MEDS: FOLIC ACID 1 MG TAB PO SCH (08:06)
[2021-05-09] MEDS: GABAPENTIN 100 MG CAP PO SCH ×2 (08:06→20:51)
[2021-05-09] MEDS: CYANOCOBALAMIN 500 MCG TABLET (VITAMIN B-12) PO SCH (08:06)
[2021-05-09] MEDS: SPIRONOLACTONE 25 MG TAB PO SCH (08:06)
[2021-05-09] MEDS: ATORVASTATIN 40 MG TAB PO SCH (08:06)
[2021-05-09] MEDS: PROPRANOLOL HCL LA 80 MG CAPCR PO SCH (08:06)
[2021-05-09] MEDS: MAGNESIUM OXIDE 400 MG TAB PO SCH ×2 (08:06→20:50)
[2021-05-09] MEDS: MULTIVITAMIN TAB PO SCH (08:06)
[2021-05-09] MEDS: THIAMINE HCL 100 MG TAB PO SCH (08:06)
[2021-05-09] MEDS: FERROUS SULFATE 325 MG TAB PO SCH ×2 (08:06→20:51)
[2021-05-09] MEDS: INSULIN ASPART 100 UNITS/ML 3 ML PEN SC SCH ×4 (08:08→20:44)
[2021-05-09] MEDS: POTASSIUM CHLORIDE CRTAB 20 MEQ TABCR PO SCH (08:15)
--- NOTE | 2021-05-09 13:13 | Hospitalist Progress Note ---
Date of Service May 09, 2021 Assessment & Plan (1) Septic shock: Plan: 60 yr F with H/O Alcoholism with cirrhosis, hx of esophageal varices, type 2 diabetes, hypertension who presents with altered mental status known since this morning presenting with hypothermia and septic shock. (As per Admitting team: Found to be obtunded and covered in vomit this morning by boyfriend after 6 days of intractable nausea, vomiting and generalized weakness. Presented with AMS temp of 32 C, as well as hypotensive with SBP 80s-90s) Septic shock Hypothermia Pneumonia, possibly due to aspiration Lactic acidosis: Normalized with IV fluids Procalcitonin 0.75 Blood cultures negative to date S/P LP: CSF culture negative Off pressors Completed 5-day course of antibiotics : arun Andrew Appreciate critical care, neurology input Appreciate ID input Hypothermia resolved Monitor off antibiotics IV fluids discontinued Resolved Hematochezia H/O esophageal varices Hold anticoagulation Continue PPI We will consider GI evaluation if recurrence of bleeding Monitor CBC Hb stable No bleeding issues today Diarrhea C. difficile - negative (2) Acute metabolic encephalopathy: Plan: Acute Metabolic Encephalopathy--Likely Multifactorial -MRI Brain:No acute intracranial abnormality As per Prior hospitalist:In setting of sepsis, concern for Wernicke's encephalopathy given chronic alcoholism, poor nutrition, oculomotor irre gularities and hypothermia Continue IV thiamine >> transitioned to p.o. thiamine Appreciate Neurology Input Continue to monitor for withdrawal Completed gabapentin protocol Mental status much better (3) Hypothermia: Plan: Temp initially 32 C Continue current management Resolved (4) Acute hypokalemia: Plan: Likely secondary to GI losses :nausea and vomiting, poor oral intake Replace electrolytes as needed Monitor Hypomagnesemia Replace electrolytes as needed (5) Cardiac arrhythmia: Plan: Wide-complex tachycardia Likely artifactual Continue monitor Appreciate cardiology input Replace electrolytes as needed On Metoprolol 12.5mg BID>> Transitioned to propranolol given H/O esophageal varices (6) Acute kidney injury: Plan: Metabolic acidosis Cr elevated at 3 (baseline ~ 0.9) Creatinine improved to 1 Received IV fluids Avoid nephrotoxic agents as able Resolved - Cr normal for several days 05/08 Cr up at 1.5 - likely d/t poor oral intake -will encourage p.o. intake, give gentle IV fluids 05/09 Cr improved (7) Alcohol abuse: Plan: Counseled to quit (8) Cirrhosis: Plan: On diuretics per [facility] Normal ammonia level Resumed on spironolactone (9) Hypertension: Plan: BP stable (10) Diabetes mellitus, type II: Plan: HbA1c 5.5 Monitor blood glucose levels SSI while in-patient Thrombocytopenia Likely secondary to cirrhosis, alcohol use Monitor DVT Px: Was on Heparin SQ SCDs Re: Hematochezia Code status: FULL CODE Disposition: Needs Rehab Placement, plan for [facility] Admission and Anticipated Discharge Date Admission Date: April 23, 2021 Subjective Patient is seen in follow-up of encephalopathy, alcohol use Currently she is lying in bed, in acute distress Mental status has improved, she is able to answer simple questions appropriately Continues to be however very weak, and it is recommended that she would go to rehab after her hospital discharge Denies any chest pain, shortness of breath, dizziness, nausea, abdominal pain Hgb stable, normal BM, no blood in stool per RN Plan for possible [facility] Review of Systems Review of Systems: All systems reviewed & are unremarkable except as noted in Subjective Physical Exam Physical Exam: General Appearance:Moderately built and nourished, no apparent distress Head: normocephalic, Atraumatic Eyes: normal inspection, EOMI Neck: supple, Trachea midline Respiratory/Chest: Normal breath sounds, CTA, No accessory muscle use Cardiovascular: S1, S2, No murmur Abdomen/GI:Soft, Non tender, Bowel sounds present Extremities/Musculoskeletal:normal inspection, no edema Neurologic/Psych:AAOx3, speech fluent, no facial asymmetry, moves extremities while laying in bed however very slowly Skin: normal color, warm Results & Data Results & Data ([facility]) Vital Signs (Past 12 Hours) Vital Signs Temp Pulse Pulse Resp BP BP Pulse Ox 05/09/21 11:22 36.5 C 89 20 120/81 100 05/09/21 08:00 87 05/09/21 07:30 36.4 C L 89 20 135/86 100 05/09/21 04:25 36.6 C 90 20 173/93 H 95 Laboratory Results 05/09/21 05/09/21 05/09/21 Range/Units 11:49 07:22 05:40 Sodium 138 (136-145) mmol/L Potassium 4.2 (3.5-5.1) mmol/L Chloride 111 H (98-107) mmol/L Carbon Dioxide 20 L (21-32) mmol/L Anion Gap 7.0 (3-11) BUN 21 H (7-18) mg/dl Creatinine 1.24 H (0.6-1.2) mg/dl Est Cr Clr Drug Dosing 44.5 ml/min Est GFR ( Amer) 55.4 ml/min Est GFR (Non-Af Amer) 47.8 ml/min BUN/Creatinine Ratio 17.0 (10-20) Glucose 108 H (70-99) mg/dl POC Glucose 125 H 105 H (70-99) mg/dl Calcium 10.4 H (8.5-10.1) mg/dl Phosphorus 4.4 (2.5-4.9) mg/dl Magnesium 1.7 L (1.8-2.4) mg/dl 05/08/21 05/08/21 Range/Units 20:16 15:59 Sodium (136-145) mmol/L Potassium (3.5-5.1) mmol/L Chloride (98-107) mmol/L Carbon Dioxide (21-32) mmol/L Anion Gap (3-11) BUN (7-18) mg/dl Creatinine (0.6-1.2) mg/dl Est Cr Clr Drug Dosing ml/min Est GFR ( Amer) ml/min Est GFR (Non-Af Amer) ml/min BUN/Creatinine Ratio (10-20) Glucose (70-99) mg/dl POC Glucose 126 H 163 H (70-99) mg/dl Calcium (8.5-10.1) mg/dl Phosphorus (2.5-4.9) mg/dl Magnesium (1.8-2.4) mg/dl Medications Administered Current Inpatient Medications Acetaminophen (Acetaminophen 325 Mg Tab) 650 mg PO Q4H PRN PRN Reason: Pain Stop: 06/04/21 14:21 Last Admin: 05/05/21 15:49 Dose: 650 mg Documented by: Atorvastatin Calcium (Atorvastatin 40 Mg Tab) 40 mg PO DAILY [facility] Stop: 06/01/21 08:59 Last Admin: 05/09/21 08:06 Dose: 40 mg Documented by: Cyanocobalamin (Cyanocobalamin 500 Mcg Tablet (Vitamin B-12)) 1,000 mcg PO QAM [facility] Stop: 06/02/21 08:59 Last Admin: 05/09/21 08:06 Dose: 1,000 mcg Documented by: Dextrose (Dextrose 50% 50 Ml Syringe) 25 - 50 ml IV UD PRN; Protocol PRN Reason: Hypoglycemia Protocol Stop: 05/24/21 10:59 Ferrous Sulfate (Ferrous Sulfate 325 Mg Tab) 325 mg PO BID [facility] Stop: 06/01/21 01:44 Last Admin: 05/09/21 08:06 Dose: 325 mg Documented by: Folic Acid (Folic Acid 1 Mg Tab) 1 mg PO QAM [facility] Stop: 05/26/21 08:59 Last Admin: 05/09/21 08:06 Dose: 1 mg Documented by: Gabapentin (Gabapentin 100 Mg Cap) 100 mg PO BID [facility] Stop: 05/29/21 20:59 Last Admin: 05/09/21 08:06 Dose: 100 mg Documented by: Glucagon (Glucagon For Inj 1 Mg Vial) 1 mg IM UD PRN; Protocol PRN Reason: Hypoglycemia Protocol Stop: 05/24/21 10:59 Glucose (Glucose 40% Gel 15 Gm Tube) 15 - 30 gm PO UD PRN; Protocol PRN Reason: Hypoglycemia Protocol Stop: 05/24/21 10:59 Glucose (Glucose 10 Tabs/Tube) 4 - 8 tabs PO UD PRN; Protocol PRN Reason: Hypoglycemia Protocol Stop: 05/24/21 10:59 Heparin Sodium (Porcine) (Heparin Sod 5,000 Unit/0.5 Ml Vial) 5,000 units SQ Q12 [facility] Stop: 05/26/21 20:59 Last Admin: 04/30/21 21:32 Dose: 5,000 units Documented by: Lorazepam (Ativan) 0.5 mg in 1 mls @ 1 mls/min IV Q4H PRN PRN Reason: Agitation Stop: 05/25/21 19:02 Last Admin: 04/25/21 19:29 Dose: 1 mls/min Documented by: Lorazepam (Ativan) 1 mg in 2 mls @ 2 mls/min IV ONE PRN; Protocol PRN Reason: EtoH Withdrawal AWSS 6-10 Stop: 05/25/21 19:22 Promethazine HCl 12.5 mg/ (Sodium Chloride) 50.5 mls @ 202 mls/hr IV Q6H PRN PRN Reason: Nausea And Vomiting Stop: 05/27/21 20:01 Last Infusion: 04/27/21 20:45 Dose: Infused Documented by: Sodium Chloride (Nss 1000ml) 1,000 mls @ 80 mls/hr IV .[id number] [facility] Stop: 06/07/21 15:14 Last Admin: 05/09/21 04:12 Dose: 80 mls/hr Documented by: Magnesium Sulfate/Dextrose (Magnesium Sulfate / D5w) 1 gm in 100 mls @ 50 mls/hr IV ONE ONE Stop: 05/09/21 15:10 Insulin Aspart (Insulin Aspart 100 Units/Ml 3 Ml Pen) 0 units SC ACHS [facility] Stop: 05/24/21 11:29 Last Admin: 05/09/21 12:19 Dose: 3 units Documented by: Magnesium Oxide (Magnesium Oxide 400 Mg Tab) 400 mg PO BID [facility] Stop: 06/03/21 20:59 Last Admin: 05/09/21 08:06 Dose: 400 mg Documented by: Miscellaneous (Carbohydrates For Hypoglycemia ) 15 - 30 gm PO UD PRN PRN Reason: Hypoglycemia Treatment Stop: 05/24/21 10:59 Multivitamins (Multivitamin Tab) 1 tab PO DAILY [facility] Stop: 06/01/21 08:59 Last Admin: 05/09/21 08:06 Dose: 1 tab Documented by: Pantoprazole Sodium (Pantoprazole 40 Mg Tab) 40 mg PO BID [facility] Stop: 05/30/21 20:59 Last Admin: 05/09/21 08:06 Dose: 40 mg Documented by: Potassium Chloride (Potassium Chloride Crtab 20 Meq Tabcr) 20 meq PO QAM [facility] Stop: 06/01/21 08:59 Last Admin: 05/09/21 08:15 Dose: 20 meq Documented by: Propranolol HCl (Propranolol Hcl La 80 Mg Capcr) [facility] Stop: 05/31/21 08:59 Last Admin: 05/09/21 08:06 Dose: 80 mg Documented by: Spironolactone (Spironolactone 25 Mg Tab) 25 mg PO QAM [facility] Stop: 05/28/21 09:59 Last Admin: 05/09/21 08:06 Dose: 25 mg Documented by: Thiamine HCl (Thiamine Hcl 100 Mg Tab) 100 mg PO QAM [facility] Stop: 05/31/21 08:59 Last Admin: 05/09/21 08:06 Dose: 100 mg Documented by:
[2021-05-09] MEDS ORDERED: THIAMINE HCL 200 MG in SODIUM CHLORIDE 0.9% 50 ML IV ONE (13:45)
[2021-05-09] MEDS ORDERED: FOLIC ACID 1 MG in SYRINGE 9.8 ML IV ONE (13:45)
[2021-05-09] MEDS ORDERED: MAGNESIUM SULFATE / D5W 1 GM/100 ML BAG IV ONE (14:00)
[2021-05-10] MEDS: SODIUM CHLORIDE 0.9% 1000ML 1,000 ML IV SCH (04:53)
[2021-05-10] MEDS: INSULIN ASPART 100 UNITS/ML 3 ML PEN SC SCH ×5 (08:13→20:27)
[2021-05-10] MEDS: PANTOprazole 40 MG TAB PO SCH ×3 (08:14→20:44)
[2021-05-10] MEDS: MAGNESIUM OXIDE 400 MG TAB PO SCH ×3 (08:15→20:44)
[2021-05-10] MEDS: MULTIVITAMIN TAB PO SCH (08:15)
[2021-05-10] MEDS: SPIRONOLACTONE 25 MG TAB PO SCH (08:15)
[2021-05-10] MEDS: THIAMINE HCL 100 MG TAB PO SCH (08:15)
[2021-05-10] MEDS: CYANOCOBALAMIN 500 MCG TABLET (VITAMIN B-12) PO SCH (08:15)
[2021-05-10] MEDS: FOLIC ACID 1 MG TAB PO SCH (08:15)
[2021-05-10] MEDS: PROPRANOLOL HCL LA 80 MG CAPCR PO SCH (08:15)
[2021-05-10] MEDS: ATORVASTATIN 40 MG TAB PO SCH (08:15)
[2021-05-10] MEDS: GABAPENTIN 100 MG CAP PO SCH ×3 (08:15→20:44)
[2021-05-10] MEDS: FERROUS SULFATE 325 MG TAB PO SCH ×3 (08:16→20:44)
[2021-05-10] MEDS: POTASSIUM CHLORIDE CRTAB 20 MEQ TABCR PO SCH (08:20)
[2021-05-10 08:41] LABS: Hematocrit (blood only) 28.6 % (37-47); Hemoglobin 9.2 g/dL (12.0-16.0)
[2021-05-10 09:16] LABS: BUN Creatinine Ratio 14.6 (10-20); Calcium 10.7 mg/dl (8.5-10.1); Creatinine Clr Calc Pharmacy 54.1 ml/min; Est GFR (African American) 70.2 ml/min; Est GFR (Non-African American) 60.6 ml/min; Magnesium 1.7 mg/dl (1.8-2.4); Potassium 3.8 mmol/L (3.5-5.1)
--- NOTE | 2021-05-10 18:13 | Hospitalist Progress Note ---
Date of Service May 10, 2021 Assessment & Plan (1) Septic shock: Plan: Patient is a 60 yr F with H/O Alcoholism with cirrhosis, hx of esophageal varices, type 2 diabetes, hypertension who presents with altered mental status known since this morning presenting with hypothermia and septic shock. (As per Admitting team: Found to be obtunded and covered in vomit this morning by boyfriend after 6 days of intractable nausea, vomiting and generalized weakness. Presented with AMS temp of 32 C, as well as hypotensive with SBP 80s-90s) Septic shock Hypothermia Pneumonia possibly due to aspiration Lactic acidosis: resolved Procalcitonin 0.75 Blood cultures: negative S/P LP: CSF culture negative Off pressors Completed 5-day course of antibiotics : arun Andrew Appreciate critical care, neurology input Appreciate ID input Hypothermia resolved Shock Resolved Hematochezia H/O esophageal varices Hold anticoagulation Continue PPI We will consider GI evaluation if recurrence of bleeding Monitor CBC Hb stable Diarrhea C. difficile negative Resolved (2) Acute metabolic encephalopathy: Plan: Acute Metabolic Encephalopathy--Likely Multifactorial -MRI Brain:No acute intracranial abnormality DD: sepsis, Wernicke's encephalopathy Completed IV thiamine >> transitioned to p.o. thiamine Appreciate Neurology Input Completed gabapentin protocol Mental status improved (3) Hypothermia: Plan: Resolved (4) Acute hypokalemia: Plan: Likely secondary to GI losses :nausea and vomiting, poor oral intake Replace electrolytes as needed Monitor Hypomagnesemia Replace electrolytes as needed (5) Cardiac arrhythmia: Plan: Wide-complex tachycardia Likely artifactual Appreciate cardiology input Replace electrolytes as needed Metoprolol 12.5mg BID>> Transitioned to propranolol given H/O esophageal varices (6) Acute kidney injury: Plan: JAZMINE Metabolic acidosis Cr baseline ~ 0.9 Received IV fluids Avoid nephrotoxic agents as able Resolved (7) Alcohol abuse: Plan: Counseled to quit (8) Cirrhosis: Plan: On diuretics per [facility] Normal ammonia level Resumed on spironolactone at lower dose (9) Hypertension: Plan: BP stable (10) Diabetes mellitus, type II: Plan: HbA1c 5.5 Monitor blood glucose levels SSI PRN while hospitalized Thrombocytopenia Likely secondary to cirrhosis, alcohol use Monitor platelet count DVT Px: Was on Heparin SQ SCDs Re: Hematochezia Code status: FULL CODE Disposition: Rehab when arranged Admission and Anticipated Discharge Date Admission Date: April 23, 2021 Subjective Patient is seen and examined at bedside Mental status improved but on and off confused per RN Oriented during my encounter Waiting for placement Denies chest pain, dyspnea, dizziness Review of Systems Review of Systems: All systems reviewed & are unremarkable except as noted in Subjective Physical Exam Physical Exam: Physical Exam: Vitals signs as noted above General Appearance:Moderately built and nourished, no apparent distress Head: normocephalic, Atraumatic Eyes: normal inspection, EOMI Neck: supple, Trachea midline Respiratory/Chest: Normal breath sounds, CTA, No accessory muscle use Cardiovascular: S1, S2, No murmur Abdomen/GI:Soft, Non tender, Bowel sounds present Extremities/Musculoskeletal:normal inspection, no edema Neurologic/Psych:AAO, grossly no focal neurological deficits Skin: normal color, warm Results & Data Results & Data ([facility]) Vital Signs (Past 12 Hours) Vital Signs Temp Pulse Resp BP BP Pulse Ox 05/10/21 16:21 36.3 C L 85 20 131/80 100 05/10/21 12:10 36.3 C L 114 H 20 129/85 100 05/10/21 08:08 36.8 C 86 18 149/92 H 99 Laboratory Results Short CBC 05/10/21 Range/Units 08:11 Hgb 9.2 L (12.0-16.0) g/dL Hct 28.6 L (37-47) % BMP 05/10/21 08:11 Sodium 142 Potassium 3.8 Chloride 112 H Carbon Dioxide 20 L BUN 15 Creatinine 1.02 Glucose 103 H Calcium 10.7 H
[2021-05-11] MEDS: INSULIN ASPART 100 UNITS/ML 3 ML PEN SC SCH ×4 (07:45→20:38)
[2021-05-11] MEDS: FOLIC ACID 1 MG TAB PO SCH (07:51)
[2021-05-11] MEDS: FERROUS SULFATE 325 MG TAB PO SCH ×2 (07:51→20:40)
[2021-05-11] MEDS: CYANOCOBALAMIN 500 MCG TABLET (VITAMIN B-12) PO SCH (07:51)
[2021-05-11] MEDS: MAGNESIUM OXIDE 400 MG TAB PO SCH ×2 (07:51→20:40)
[2021-05-11] MEDS: GABAPENTIN 100 MG CAP PO SCH ×2 (07:51→20:39)
[2021-05-11] MEDS: ATORVASTATIN 40 MG TAB PO SCH (07:51)
[2021-05-11] MEDS: SPIRONOLACTONE 25 MG TAB PO SCH (07:52)
[2021-05-11] MEDS: PANTOprazole 40 MG TAB PO SCH ×2 (07:52→20:39)
[2021-05-11] MEDS: MULTIVITAMIN TAB PO SCH (07:52)
[2021-05-11] MEDS: PROPRANOLOL HCL LA 80 MG CAPCR PO SCH (07:52)
[2021-05-11] MEDS: POTASSIUM CHLORIDE CRTAB 20 MEQ TABCR PO SCH (07:52)
[2021-05-11] MEDS: THIAMINE HCL 100 MG TAB PO SCH (07:52)
--- NOTE | 2021-05-11 18:53 | Hospitalist Progress Note ---
Date of Service May 11, 2021 Assessment & Plan (1) Septic shock: Plan: Patient is a 60 yr F with H/O Alcoholism with cirrhosis, hx of esophageal varices, type 2 diabetes, hypertension who presents with altered mental status known since this morning presenting with hypothermia and septic shock. (As per Admitting team: Found to be obtunded and covered in vomit this morning by boyfriend after 6 days of intractable nausea, vomiting and generalized weakness. Presented with AMS temp of 32 C, as well as hypotensive with SBP 80s-90s) Septic shock Hypothermia Pneumonia possibly due to aspiration Lactic acidosis: resolved Procalcitonin 0.75 Blood cultures: negative S/P LP: CSF culture negative Off pressors Completed 5-day course of antibiotics : arun Andrew Appreciate critical care, neurology input Appreciate ID input Hypothermia resolved Shock Resolved Hematochezia H/O esophageal varices Hold anticoagulation Continue PPI We will consider GI evaluation if recurrence of bleeding Monitor CBC Last Hb 9.2 Fall Asymptomatic Fall precautions Diarrhea C. difficile negative Resolved (2) Acute metabolic encephalopathy: Plan: Acute Metabolic Encephalopathy--Likely Multifactorial -MRI Brain:No acute intracranial abnormality DD: sepsis, Wernicke's encephalopathy Completed IV thiamine >> transitioned to p.o. thiamine Appreciate Neurology Input Completed gabapentin protocol Mental status improved (3) Hypothermia: Plan: Resolved (4) Acute hypokalemia: Plan: Likely secondary to GI losses :nausea and vomiting, poor oral intake Replace electrolytes as needed Monitor Hypomagnesemia Replace electrolytes as needed (5) Cardiac arrhythmia: Plan: Wide-complex tachycardia Likely artifactual Appreciate cardiology input Replace electrolytes as needed Metoprolol 12.5mg BID>> Transitioned to propranolol given H/O esophageal varices (6) Acute kidney injury: Plan: JAZMINE Metabolic acidosis Cr baseline ~ 0.9 Received IV fluids Avoid nephrotoxic agents as able Resolved (7) Alcohol abuse: Plan: Counseled to quit (8) Cirrhosis: Plan: On diuretics per [facility] Normal ammonia level Resumed on spironolactone at lower dose (9) Hypertension: Plan: BP stable (10) Diabetes mellitus, type II: Plan: HbA1c 5.5 Monitor blood glucose levels SSI PRN while hospitalized Thrombocytopenia Likely secondary to cirrhosis, alcohol use Monitor platelet count DVT Px: Was on Heparin SQ SCDs Re: Hematochezia Code status: FULL CODE Disposition: Waiting for Rehab Placement Admission and Anticipated Discharge Date Admission Date: April 23, 2021 Subjective Patient is seen and examined at bedside Patient fell this morning and bumped her head Denies any headache, change in vision, dizziness, focal weakness Updated patient's family over the phone Also denies chest pain, dyspnea, dizziness Review of Systems Review of Systems: All systems reviewed & are unremarkable except as noted in Subjective Physical Exam Physical Exam: Physical Exam: Vitals signs as noted above General Appearance:Moderately built and nourished, no apparent distress Head: normocephalic, Atraumatic Eyes: normal inspection, EOMI Neck: supple, Trachea midline Respiratory/Chest: Normal breath sounds, CTA, No accessory muscle use Cardiovascular: S1, S2, No murmur Abdomen/GI:Soft, Non tender, Bowel sounds present Extremities/Musculoskeletal:normal inspection, no edema Neurologic/Psych:AAO, grossly no focal neurological deficits Skin: normal color, warm Results & Data Results & Data ([facility]) Vital Signs (Past 12 Hours) Vital Signs Temp Pulse Resp BP Pulse Ox 05/11/21 15:11 36.5 C 63 16 127/83 93 05/11/21 11:21 36.5 C 101 H 16 135/86 99 05/11/21 09:08 36.6 C 112 H 20 133/88 95 05/11/21 07:37 36.8 C 98 H 16 126/73 99
[2021-05-12 06:40] LABS: Hemoglobin 8.5 g/dL (12.0-16.0)
[2021-05-12 07:07] LABS: BUN Creatinine Ratio 9.1 (10-20); Calcium 11.2 mg/dl (8.5-10.1); Est GFR (African American) 57.7 ml/min; Est GFR (Non-African American) 49.8 ml/min; Potassium 3.5 mmol/L (3.5-5.1)
[2021-05-12] MEDS: INSULIN ASPART 100 UNITS/ML 3 ML PEN SC SCH ×4 (09:59→19:42)
[2021-05-12] MEDS: SODIUM CHLORIDE 0.9% 1000ML 1,000 ML IV SCH ×2 (11:51→19:11)
[2021-05-12] MEDS: THIAMINE HCL 100 MG TAB PO SCH (11:52)
[2021-05-12] MEDS: PROPRANOLOL HCL LA 80 MG CAPCR PO SCH (11:52)
[2021-05-12] MEDS: PANTOprazole 40 MG TAB PO SCH ×2 (11:52→19:43)
[2021-05-12] MEDS: SPIRONOLACTONE 25 MG TAB PO SCH (11:52)
[2021-05-12] MEDS: POTASSIUM CHLORIDE CRTAB 20 MEQ TABCR PO SCH (11:52)
[2021-05-12] MEDS: FOLIC ACID 1 MG TAB PO SCH (11:53)
[2021-05-12] MEDS: ATORVASTATIN 40 MG TAB PO SCH (11:53)
[2021-05-12] MEDS: MAGNESIUM OXIDE 400 MG TAB PO SCH (11:53)
[2021-05-12] MEDS: MULTIVITAMIN TAB PO SCH (11:53)
[2021-05-12] MEDS: CYANOCOBALAMIN 500 MCG TABLET (VITAMIN B-12) PO SCH (11:53)
[2021-05-12] MEDS: GABAPENTIN 100 MG CAP PO SCH ×2 (11:53→19:42)
[2021-05-12] MEDS: FERROUS SULFATE 325 MG TAB PO SCH ×2 (11:53→19:42)
--- NOTE | 2021-05-12 15:51 | XRay Report ---
XR sacrum coccyx min 2V CLINICAL HISTORY: Fall TECHNIQUE: 2 views of the sacrococcygeal spine were obtained. Comparison: None available at the time of this dictation. FINDINGS: No fractures or subluxations are identified. Alignment appears unremarkable. IMPRESSION: No evidence of acute fracture or subluxation. ACT 112: Negative or not required by law. Electronically signed by: Sylvester Gagnon M.D. 05/12/2021 3:49 PM
--- NOTE | 2021-05-12 16:56 | Hospitalist Progress Note ---
Date of Service May 12, 2021 Assessment & Plan (1) Septic shock: Plan: Patient is a 60 yr F with H/O Alcoholism with cirrhosis, hx of esophageal varices, type 2 diabetes, hypertension who presents with altered mental status known since this morning presenting with hypothermia and septic shock. (As per Admitting team: Found to be obtunded and covered in vomit this morning by boyfriend after 6 days of intractable nausea, vomiting and generalized weakness. Presented with AMS temp of 32 C, as well as hypotensive with SBP 80s-90s) Septic shock Hypothermia Pneumonia possibly due to aspiration Lactic acidosis: resolved Procalcitonin 0.75 Blood cultures: negative S/P LP: CSF culture negative Off pressors Completed 5-day course of antibiotics : arun Andrew Appreciate critical care, neurology input Appreciate ID input Hypothermia resolved Shock Resolved Hypercalcemia Started on IV fluids Work up ordered Nephrology Consulted Hematochezia H/O esophageal varices Hold anticoagulation Continue PPI We will consider GI evaluation if recurrence of bleeding Monitor CBC Last Hb 8.5 Fall Asymptomatic Fall precautions Sacrum/Coccyx X ray showed no evidence of acute fracture or subluxation. Diarrhea C. difficile negative Resolved (2) Acute metabolic encephalopathy: Plan: Acute Metabolic Encephalopathy--Likely Multifactorial -MRI Brain:No acute intracranial abnormality DD: sepsis, Wernicke's encephalopathy Completed IV thiamine >> transitioned to p.o. thiamine Appreciate Neurology Input Completed gabapentin protocol Mental status improved ? developing Korsakoff's psychosis Consider psychiatry for input (3) Hypothermia: Plan: Resolved (4) Acute hypokalemia: Plan: Likely secondary to GI losses :nausea and vomiting, poor oral intake Replace electrolytes as needed Monitor Hypomagnesemia Replace electrolytes as needed (5) Cardiac arrhythmia: Plan: Wide-complex tachycardia Likely artifactual Appreciate cardiology input Replace electrolytes as needed Metoprolol 12.5mg BID>> Transitioned to propranolol given H/O esophageal varices (6) Acute kidney injury: Plan: JAZMINE Metabolic acidosis Cr baseline ~ 0.9 Received IV fluids Avoid nephrotoxic agents as able Resolved (7) Alcohol abuse: Plan: Counseled to quit (8) Cirrhosis: Plan: On diuretics per [facility] rec Normal ammonia level Resumed on spironolactone at lower dose (9) Hypertension: Plan: BP stable (10) Diabetes mellitus, type II: Plan: HbA1c 5.5 Monitor blood glucose levels SSI PRN while hospitalized Thrombocytopenia Likely secondary to cirrhosis, alcohol use Monitor platelet count DVT Px: Was on Heparin SQ SCDs Re: Hematochezia Code status: FULL CODE Disposition: Waiting for Rehab Placement Admission and Anticipated Discharge Date Admission Date: April 23, 2021 Subjective Patient is seen and examined at bedside "[facility] [employer]" Seems to have hallucinations Denies any headache, change in vision, dizziness, focal weakness Also denies chest pain, dyspnea, dizziness Review of Systems Review of Systems: All systems reviewed & are unremarkable except as noted in Subjective Physical Exam Physical Exam: Physical Exam: Vitals signs as noted above General Appearance:Moderately built and nourished, no apparent distress Head: normocephalic, Atraumatic Eyes: normal inspection, EOMI Neck: supple, Trachea midline Respiratory/Chest: Normal breath sounds, CTA, No accessory muscle use Cardiovascular: S1, S2, No murmur Abdomen/GI:Soft, Non tender, Bowel sounds present Extremities/Musculoskeletal:normal inspection, no edema Neurologic/Psych:AAO, grossly no focal neurological deficits Skin: normal color, warm Results & Data Results & Data ([facility]) Vital Signs (Past 12 Hours) Vital Signs Temp Pulse Resp BP BP Pulse Ox 05/12/21 15:25 36.5 C 57 L 16 126/84 99 05/12/21 09:05 109 H 05/12/21 07:34 36.5 C 104 H 18 130/82 98 Laboratory Results Short CBC 05/12/21 Range/Units 05:41 Hgb 8.5 L (12.0-16.0) g/dL Hct 26.0 L (37-47) % BMP 05/12/21 05:41 Sodium 139 Potassium 3.5 Chloride 110 H Carbon Dioxide 20 L BUN 11 Creatinine 1.20 Glucose 104 H Calcium 11.2 H
--- NOTE | 2021-05-12 18:26 | Nephrology Consultation ---
Date of Consultation May 12, 2021 Assessment & Plan (1) Hypercalcemia: hypercalcemia which emerged gradually late in the course of a prolonged admission after presenting with septic shock/aspiration pneumonia; she was also admitted here 19 days ago and is still quite weak - doing only supine exercises w/ PT currently. PTH is appropriately suppressed; 25 OHD not elevated. TSH was WNL at admissionStarted on NS this am at 125 mL hourly for hypercalcemia. though she tells me she is not taking meds, she has had MVI consistently and mag supplement about 3/4 of doses or more over past several days >suspect this relates either to medications or to immobility; doubt calcium level high enough to explain/contribute to MS changes -needs ionized calcium level w/ next draw and mag, bmp recheck - so ordered along w/ rechecks in am -f/u pending PTHrp -mag ox can promote renal retention of Ca > halved dose -stopped MVI -changed IVF from NS to half-normal saline with 75 mEq/L sodium bicarbonate and 30 mEq/L potassium to improve acid base status and K while correcting Ca and lowered rate to 80 mL hourly History of Present Illness Reason for Consultation: Hypercalcemia Requesting Physician: Dr. Morse Attending Physician: Juno Morse MD History of Present Illness 60-year-old female admitted here 19 days ago with septic shock and acute metabolic encephalopathy has had progressive calcium elevation up to 11.2 today from low normal values at admission after initial hydration. Her partner called 911 after finding her obtunded and covered in vomit in the wake of 6 days of nausea vomiting and generalized weakness; she presented with altered mental status, temperature of 32 C, hypotension with systolics in the 80s and 90s. Septic shock attributed to pneumonia, possibly aspiration pneumonia. CSF and blood cultures negative. Past medical history includes alcoholic liver disease actively drinking and with esophageal varices, 2 diabetes, hypertension. Her PTH is 6; 25 OHD 32; PTHrp pending. When I evaluated her she is sitting on the side of the bed using her arms to support herself. she tells me that she took no meds today "b/c I don't trust the people who are giving them to me." When I asked if she wanted to talk more about that she declined. She endorses constipation and some tailbone pain but otherwise denies worsening weakness, arthralgias/myalgias, dyspnea, new/worrisome voiding sx. She tells me she's eating ok. no rash or f/c. Allergies Allergy/AdvReac Type Severity Reaction Status Date / Time sulfamethoxazole Allergy Intermediate RASH Verified 04/27/21 16:39 trimethoprim Allergy Intermediate RASH Verified 04/27/21 16:39 Bactrim Allergy Unknown RASH Verified 06/14/17 07:47 Penicillins Allergy Unknown unknown Unverified 04/24/21 08:29 Home Medications Medication Instructions Recorded Confirmed Type atorvastatin 40 mg tablet 40 mg PO DAILY 04/23/21 04/23/21 History ferrous sulfate 325 mg (65 mg 325 mg PO BID 04/23/21 04/23/21 History iron) tablet magnesium chloride 64 mg 128 mg PO DAILY 04/23/21 04/23/21 History tablet,extended release metformin 500 mg tablet,extended 1,000 mg PO BID 04/23/21 04/23/21 History release 24 hr multivitamin 1 tab PO DAILY 04/23/21 04/23/21 History omeprazole 20 mg capsule,delayed 20 mg PO DAILY 04/23/21 04/23/21 History release pantoprazole 40 mg tablet,delayed 40 mg PO DAILY 04/23/21 04/23/21 History release propranolol 60 mg tablet 60 mg PO DAILY 04/23/21 04/23/21 History semaglutide (Ozempic) See Rx Instructions .ROUTE .COMPLEX 04/23/21 History spironolactone 100 mg tablet 100 mg PO DAILY 04/23/21 04/23/21 History Patient History Medical History Alcohol abuse Cirrhosis Diabetes mellitus, type II Hypertension Surgical History H/O colonoscopy History of cryosurgery History of esophagogastroduodenoscopy (EGD) Family History Other Diabetes Hypertension Kidney disease Social History Smoking Status: Former smoker Hx Alcohol Use: Yes Alcohol type: wine Hx Substance Use: No Preferred Language: Slovenian Communication Ability: Effective Sleeve Turner Required: No Beliefs That Will Affect Care: None Current Living Situation: Other Current Living Situation Comment: Lives with friend Other Information That Helps Us Care for You: No Feels Safe at Home: Yes Safety Concerns: Feels Safe At This Time Assistive Devices: None Review of Systems 2 Review of Systems: All systems reviewed & are unremarkable except as noted in HPI & below Physical Exam Constitutional: well developed, + thin, + behavioral limitations and + frail appearing; no acute distress Eyes: EOM intact bilaterally ENMT: Ears: no external ear abnormality Nose: no external nose abnormality Mouth: + dry oral mucous membranes Neck: no nuchal rigidity Respiratory: normal respiratory effort Auscultation: + diminished lung sounds Cardiovascular: Rate/Rhythm: + tachycardic Heart Sounds: normal S1 and normal S2 Extremities: no edema Gastrointestinal (Abdomen): Inspection/Auscultation: normal bowel sounds Percussion/Palpation: abdomen soft; abdomen nontender Musculoskeletal: Extremities: + abnormal strength Skin: no rashes, warm and dry Neurologic: spivey, fluent but limited speech, slight tremor Psychiatric: Orientation: oriented x 3 Eye Contact: + fair eye contact Speech: normal rate/rhythm/volume of speech Affect: + irritable affect Insight: + limited insight Judgement: + limited judgement Genitourinary: no aguiar Results & Data ([facility]) Vital Signs (Past 12 Hours) Vital Signs Temp Pulse Resp BP BP Pulse Ox 05/12/21 15:25 36.5 C 57 L 16 126/84 99 05/12/21 09:05 109 H 05/12/21 07:34 36.5 C 104 H 18 130/82 98 Laboratory Results 05/12/21 05:41 05/12/21 05:41 Diagnostic Findings sacrum/coccyx XR > no acute fracture
[2021-05-12 19:36] LABS: Calcium 10.8 mg/dl (8.5-10.1); Creatinine Clr Calc Pharmacy 46.8 ml/min; Est GFR (African American) 58.9 ml/min; Est GFR (Non-African American) 50.8 ml/min; Magnesium 1.3 mg/dl (1.8-2.4); Potassium 3.6 mmol/L (3.5-5.1)
[2021-05-12] MEDS: [UNRECOGNIZED DRUG - OTHER] IV SCH (19:42)
[2021-05-12] MEDS: POTASSIUM ACETATE IV SCH (19:42)
[2021-05-12] MEDS: SODIUM BICARBONATE IV SCH (19:42)
[2021-05-13] MEDS: MAGNESIUM OXIDE 400 MG TAB PO SCH ×2 (08:44→12:34)
[2021-05-13] MEDS: GABAPENTIN 100 MG CAP PO SCH ×3 (08:44→20:24)
[2021-05-13] MEDS: ATORVASTATIN 40 MG TAB PO SCH ×2 (08:45→12:33)
[2021-05-13] MEDS: THIAMINE HCL 100 MG TAB PO SCH ×2 (08:45→12:35)
[2021-05-13] MEDS: CYANOCOBALAMIN 500 MCG TABLET (VITAMIN B-12) PO SCH ×2 (08:45→12:33)
[2021-05-13] MEDS: PANTOprazole 40 MG TAB PO SCH ×3 (08:45→20:24)
[2021-05-13] MEDS: PROPRANOLOL HCL LA 80 MG CAPCR PO SCH ×2 (08:46→12:34)
[2021-05-13] MEDS: SPIRONOLACTONE 25 MG TAB PO SCH ×2 (08:46→12:35)
[2021-05-13] MEDS: FOLIC ACID 1 MG TAB PO SCH ×2 (08:46→12:33)
[2021-05-13] MEDS: FERROUS SULFATE 325 MG TAB PO SCH ×3 (08:47→20:24)
[2021-05-13] MEDS: POTASSIUM CHLORIDE CRTAB 20 MEQ TABCR PO SCH ×2 (08:50→12:34)
[2021-05-13] MEDS: INSULIN ASPART 100 UNITS/ML 3 ML PEN SC SCH ×4 (09:05→20:33)
[2021-05-13 09:38] LABS: BUN Creatinine Ratio 10.7 (10-20); Calcium 10.9 mg/dl (8.5-10.1); Creatinine Clr Calc Pharmacy 54.6 ml/min; Est GFR (African American) 71.1 ml/min; Est GFR (Non-African American) 61.3 ml/min; Magnesium 1.4 mg/dl (1.8-2.4); Potassium 3.5 mmol/L (3.5-5.1)
--- NOTE | 2021-05-13 12:34 | Psychiatric Consultation ---
Date of Consultation May 13, 2021 Impression / Recommendations Impression 60 yo female with a history of heavy Etoh use, unclear if hx of withdrawal seizures, suspect decreased ETOH intake during several days of GI distress at home culminating in withdrawal seizure, aspiration pneumonia and subsequent sepsis, again collateral re: baseline functioning would be important. Has been receiving thiamine. EEG would likely just so residual encephalopathy. Now that more alert/interacting she is also paranoid and this is causing some confusion/resistance to care. Classic triad for Wernicke's encephalopathy present earlier in stay, eye findings can resolve quickly with thiamine, particularly if acute onset. 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 At this point encephalopathy is still resolving and the paranoia can be attributed primarily to that vs hospital acquired delirium vs. underlying later onset psychosis with self- medicating with EToh, Etoh induced psychosis, etc. (1) Acute alteration in mental status: Main treatment for Wernicke's is thiamine, typically avoid atypicals if not aggressive but her paranoia has been persistent in past few days and interfering with care so defer to hospitalist. Risperdal 0.5 mg hs to start would be appropriate with use of prn Zyprexa if needed. Dose of Risperdal could be increased to BID based on tolerability. Less sedating than Zyprexa and Seroquel (given gait issues) and less likely to prolong QTc than Haldol. Psych History Identifying Data Ms. Sanchez is a 60 yo female from [place] admit on 04/23/21 for septic shock with AMS. Consult is by Dr. 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 Chief Complaint "I saw her put something in my urine, now test it so I can get out of here". History of Present Illness The patient is a difficult historian, very slowed in her thinking/responses. Liaison LM for her significant other. At baseline she doesn't drive and walks with a walker. 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 Seemingly unaware of why she is in the hospital. Drinks unknown amount of wine and vodka prior to admission. Hasn't worked since August 25. There is an ED note from 2019 where she presented with a ROYER 347 and near syncope at home and admitted to past EToh withdrawal (?non specific). Work up this stay extensive, of note her tox was negative, MRI unremarkable (no cerebellar atrophy). She was uncooperative with full cerebellar testing and full gait testing was not assessed as such weakness/deconditioning had difficulty rising from bedside commode. Was suspicious of nurse and required a doctor present to witness what was happening with her care. She has been uncooperative with meds and at times and unhooking her IV due to paranoia. No nystagmus/opthalmoplegia appreciated on exam but reportedly present earlier in stay. Past Psychiatric History Previous Psych History: denied but need to confirm, no prior psych consult or hospitalization in EHR. Allergies Allergy/AdvReac Type Severity Reaction Status Date / Time sulfamethoxazole Allergy Intermediate RASH Verified 04/27/21 16:39 trimethoprim Allergy Intermediate RASH Verified 04/27/21 16:39 Bactrim Allergy Unknown RASH Verified 06/14/17 07:47 Penicillins Allergy Unknown unknown Unverified 04/24/21 08:29 Home Medications Medication Instructions Recorded Confirmed Type atorvastatin 40 mg tablet 40 mg PO DAILY 04/23/21 04/23/21 History ferrous sulfate 325 mg (65 mg 325 mg PO BID 04/23/21 04/23/21 History iron) tablet magnesium chloride 64 mg 128 mg PO DAILY 04/23/21 04/23/21 History tablet,extended release metformin 500 mg tablet,extended 1,000 mg PO BID 04/23/21 04/23/21 History release 24 hr multivitamin 1 tab PO DAILY 04/23/21 04/23/21 History omeprazole 20 mg capsule,delayed 20 mg PO DAILY 04/23/21 04/23/21 History release pantoprazole 40 mg tablet,delayed 40 mg PO DAILY 04/23/21 04/23/21 History release propranolol 60 mg tablet 60 mg PO DAILY 04/23/21 04/23/21 History semaglutide (Ozempic) See Rx Instructions .ROUTE .COMPLEX 04/23/21 History spironolactone 100 mg tablet 100 mg PO DAILY 04/23/21 04/23/21 History Personal History Highest Grade Completed: Some College Beliefs That Will Affect Care: None Patient History Medical History Alcohol abuse Cirrhosis Diabetes mellitus, type II Hypertension Surgical History H/O colonoscopy History of cryosurgery History of esophagogastroduodenoscopy (EGD) Family History Other Diabetes Hypertension Kidney disease Social History Smoking Status: Former smoker Hx Alcohol Use: Yes Alcohol type: wine Hx Substance Use: No Preferred Language: Guamanian Communication Ability: Effective Lease Administration Analyst Required: No Beliefs That Will Affect Care: None Current Living Situation: Other Current Living Situation Comment: Lives with friend Other Information That Helps Us Care for You: No Feels Safe at Home: Yes Safety Concerns: Feels Safe At This Time Assistive Devices: None Physical Exam Psychiatric: Orientation: alert and + guarded Apperance: + disheveled Eye Contact: + poor eye contact Motor Behavior: + psychomotor retardation and + tremor (seemingly worse with intention) speech is non spontaneous Affect: + blunted affect Mood: + irritable mood Thought Process: + concrete thought process Thought Content: + paranoid Suicidal Thoughts: denies suicidal thoughts Homicidal Thoughts: denies homicidal thoughts Hallucinations: no auditory hallucinations and no visual hallucinations Cognition: + attention not intact Insight: + poor insight Judgement: + poor judgement Vital Signs (Past 24 Hours): Last Vital Signs Temp 37.1 C 05/13/21 08:13 Pulse 103 H 05/13/21 08:13 Resp 20 05/13/21 08:13 BP 124/79 05/13/21 08:13 Pulse Ox 100 05/13/21 08:13 Review of Systems Unobtainable due to cognitive status Results & Data (PSY) Laboratory Results 05/13/21 05/13/21 05/13/21 Range/Units 11:36 10:18 08:31 Sodium (136-145) mmol/L Potassium (3.5-5.1) mmol/L Chloride (98-107) mmol/L Carbon Dioxide (21-32) mmol/L Anion Gap (3-11) BUN (7-18) mg/dl Creatinine (0.6-1.2) mg/dl Est Cr Clr Drug Dosing ml/min Est GFR ( Amer) ml/min Est GFR (Non-Af Amer) ml/min BUN/Creatinine Ratio (10-20) Glucose (70-99) mg/dl POC Glucose 99 (70-99) mg/dl Calcium (8.5-10.1) mg/dl Ionized Calcium 1.26 Cancelled (1.12-1.32) mmol/L Magnesium (1.8-2.4) mg/dl Total Protein (PEP) Albumin (PEP) Friaf-9-Wgvlunybj Konoo-9-Dokhhyevj Rwtb-3-Siealsdx Wrsf-3-Tayirmey Gamma Globulins Monoclonal Peak 3 Ser Monoclonl Protein Ser Monoclonal Prot 2 PEP Interpretation 05/13/21 05/13/21 05/13/21 Range/Units 08:31 08:31 07:49 Sodium 139 (136-145) mmol/L Potassium 3.5 (3.5-5.1) mmol/L Chloride 107 (98-107) mmol/L Carbon Dioxide 21 (21-32) mmol/L Anion Gap 11.0 (3-11) BUN 11 (7-18) mg/dl Creatinine 1.01 (0.6-1.2) mg/dl Est Cr Clr Drug Dosing 54.6 ml/min Est GFR ( Amer) 71.1 ml/min Est GFR (Non-Af Amer) 61.3 ml/min BUN/Creatinine Ratio 10.7 (10-20) Glucose 99 (70-99) mg/dl POC Glucose 95 (70-99) mg/dl Calcium 10.9 H (8.5-10.1) mg/dl Ionized Calcium (1.12-1.32) mmol/L Magnesium 1.4 L (1.8-2.4) mg/dl Total Protein (PEP) Pending Albumin (PEP) Pending Qnlfk-3-Oqupzcdqt Pending Oolgc-7-Wtrmucolb Pending Dtsr-3-Qdqubaxh Pending Bmaf-9-Qbjgzrnw Pending Gamma Globulins Pending Monoclonal Peak 3 Pending Ser Monoclonl Protein Pending Ser Monoclonal Prot 2 Pending PEP Interpretation Pending 05/12/21 05/12/21 05/12/21 Range/Units 20:01 19:12 19:12 Sodium 139 (136-145) mmol/L Potassium 3.6 (3.5-5.1) mmol/L Chloride 109 H (98-107) mmol/L Carbon Dioxide 19 L (21-32) mmol/L Anion Gap 11.0 (3-11) BUN 13 (7-18) mg/dl Creatinine 1.18 (0.6-1.2) mg/dl Est Cr Clr Drug Dosing 46.8 ml/min Est GFR ( Amer) 58.9 ml/min Est GFR (Non-Af Amer) 50.8 ml/min BUN/Creatinine Ratio 11.0 (10-20) Glucose 105 H (70-99) mg/dl POC Glucose 99 (70-99) mg/dl Calcium 10.8 H (8.5-10.1) mg/dl Ionized Calcium 1.29 (1.12-1.32) mmol/L Magnesium 1.3 L (1.8-2.4) mg/dl Total Protein (PEP) Albumin (PEP) Rkwph-0-Misrgyrds Zenfs-3-Ybogesidk Tipa-5-Rfgifuoz Dotf-2-Wbqsxjcu Gamma Globulins Monoclonal Peak 3 Ser Monoclonl Protein Ser Monoclonal Prot 2 PEP Interpretation 05/12/21 Range/Units 16:28 Sodium (136-145) mmol/L Potassium (3.5-5.1) mmol/L Chloride (98-107) mmol/L Carbon Dioxide (21-32) mmol/L Anion Gap (3-11) BUN (7-18) mg/dl Creatinine (0.6-1.2) mg/dl Est Cr Clr Drug Dosing ml/min Est GFR ( Amer) ml/min Est GFR (Non-Af Amer) ml/min BUN/Creatinine Ratio (10-20) Glucose (70-99) mg/dl POC Glucose 109 H (70-99) mg/dl Calcium (8.5-10.1) mg/dl Ionized Calcium (1.12-1.32) mmol/L Magnesium (1.8-2.4) mg/dl Total Protein (PEP) Albumin (PEP) Atycw-3-Glfsjaagz Hfuyw-3-Eqbqjuqxa Edrb-6-Aybqcgwa Kyyb-3-Eqmiypfb Gamma Globulins Monoclonal Peak 3 Ser Monoclonl Protein Ser Monoclonal Prot 2 PEP Interpretation Medications Administered Acetaminophen (Acetaminophen 325 Mg Tab) 650 mg PO Q4H PRN PRN Reason: Pain Stop: 06/04/21 14:21 Last Admin: 05/05/21 15:49 Dose: 650 mg Documented by: [id number] Atorvastatin Calcium (Atorvastatin 40 Mg Tab) 40 mg PO DAILY [facility] Stop: 06/01/21 08:59 Last Admin: 05/13/21 08:45 Dose: 40 mg Documented by: [id number] Admin: 05/12/21 11:53 Dose: Not Given Documented by: [id number] Admin: 05/11/21 07:51 Dose: 40 mg Documented by: [id number] Admin: 05/10/21 08:15 Dose: 40 mg Documented by: [id number] Admin: 05/09/21 08:06 Dose: 40 mg Documented by: [id number] Admin: 05/08/21 08:06 Dose: 40 mg Documented by: [id number] Admin: 05/07/21 09:03 Dose: 40 mg Documented by: [id number] Admin: 05/06/21 09:16 Dose: 40 mg Documented by: [id number] Admin: 05/05/21 08:18 Dose: 40 mg Documented by: [id number] Admin: 05/04/21 08:33 Dose: 40 mg Documented by: [id number] Admin: 05/03/21 09:31 Dose: 40 mg Documented by: [id number] Admin: 05/02/21 08:29 Dose: 40 mg Documented by: [id number] Cyanocobalamin (Cyanocobalamin 500 Mcg Tablet (Vitamin B-12)) 1,000 mcg PO QAM [facility] Stop: 06/02/21 08:59 Last Admin: 05/13/21 08:45 Dose: 1,000 mcg Documented by: [id number] Admin: 05/12/21 11:53 Dose: Not Given Documented by: [id number] Admin: 05/11/21 07:51 Dose: 1,000 mcg Documented by: [id number] Admin: 05/10/21 08:15 Dose: 1,000 mcg Documented by: [id number] Admin: 05/09/21 08:06 Dose: 1,000 mcg Documented by: [id number] Admin: 05/08/21 08:06 Dose: 1,000 mcg Documented by: [id number] Admin: 05/07/21 09:03 Dose: 1,000 mcg Documented by: [id number] Admin: 05/06/21 09:16 Dose: 1,000 mcg Documented by: [id number] Admin: 05/05/21 08:18 Dose: 1,000 mcg Documented by: [id number] Admin: 05/04/21 08:33 Dose: 1,000 mcg Documented by: [id number] Admin: 05/03/21 10:43 Dose: 1,000 mcg Documented by: [id number] Ferrous Sulfate (Ferrous Sulfate 325 Mg Tab) 325 mg PO BID [facility] Stop: 06/01/21 01:44 Last Admin: 05/13/21 08:47 Dose: 325 mg Documented by: [id number] Admin: 05/12/21 19:42 Dose: Not Given Documented by: [id number] Admin: 05/12/21 11:53 Dose: Not Given Documented by: [id number] Admin: 05/11/21 20:40 Dose: 325 mg Documented by: [id number] Admin: 05/11/21 07:51 Dose: 325 mg Documented by: [id number] Admin: 05/10/21 20:44 Dose: Not Given Documented by: [id number] Admin: 05/10/21 08:16 Dose: 325 mg Documented by: [id number] Admin: 05/09/21 20:51 Dose: 325 mg Documented by: [id number] Admin: 05/09/21 08:06 Dose: 325 mg Documented by: [id number] Admin: 05/08/21 21:09 Dose: 325 mg Documented by: [id number] Admin: 05/08/21 08:07 Dose: 325 mg Documented by: [id number] Admin: 05/07/21 20:20 Dose: 325 mg Documented by: [id number] Admin: 05/07/21 09:03 Dose: 325 mg Documented by: [id number] Admin: 05/06/21 20:52 Dose: 325 mg Documented by: [id number] Admin: 05/06/21 09:16 Dose: 325 mg Documented by: [id number] Admin: 05/05/21 21:15 Dose: 325 mg Documented by: [id number] Admin: 05/05/21 08:17 Dose: 325 mg Documented by: [id number] Admin: 05/04/21 21:01 Dose: 325 mg Documented by: [id number] Admin: 05/04/21 08:33 Dose: 325 mg Documented by: [id number] Admin: 05/03/21 20:30 Dose: 325 mg Documented by: [id number] Admin: 05/03/21 09:31 Dose: 325 mg Documented by: [id number] Admin: 05/02/21 20:38 Dose: 325 mg Documented by: [id number] Admin: 05/02/21 08:29 Dose: 325 mg Documented by: [id number] Admin: 05/02/21 04:52 Dose: 325 mg Documented by: [id number] Folic Acid (Folic Acid 1 Mg Tab) 1 mg PO QAM [facility] Stop: 05/26/21 08:59 Last Admin: 05/13/21 08:46 Dose: 1 mg Documented by: [id number] Admin: 05/12/21 11:53 Dose: Not Given Documented by: [id number] Admin: 05/11/21 07:51 Dose: 1 mg Documented by: [id number] Admin: 05/10/21 08:15 Dose: 1 mg Documented by: [id number] Admin: 05/09/21 08:06 Dose: 1 mg Documented by: [id number] Admin: 05/08/21 08:07 Dose: 1 mg Documented by: [id number] Admin: 05/07/21 09:03 Dose: 1 mg Documented by: [id number] Admin: 05/06/21 09:16 Dose: 1 mg Documented by: [id number] Admin: 05/05/21 08:18 Dose: 1 mg Documented by: [id number] Admin: 05/04/21 08:33 Dose: 1 mg Documented by: [id number] Admin: 05/03/21 09:31 Dose: 1 mg Documented by: [id number] Admin: 05/02/21 08:31 Dose: 1 mg Documented by: [id number] Admin: 05/01/21 07:50 Dose: 1 mg Documented by: [id number] Admin: 04/30/21 08:09 Dose: 1 mg Documented by: [id number] Admin: 04/29/21 08:59 Dose: 1 mg Documented by: [id number] Admin: 04/28/21 08:22 Dose: 1 mg Documented by: [id number] Admin: 04/27/21 07:50 Dose: 1 mg Documented by: [id number] Admin: 04/26/21 08:52 Dose: 1 mg Documented by: [id number] Gabapentin (Gabapentin 100 Mg Cap) 100 mg PO BID [facility] Stop: 05/29/21 20:59 Last Admin: 05/13/21 08:44 Dose: 100 mg Documented by: [id number] Admin: 05/12/21 19:42 Dose: Not Given Documented by: [id number] Admin: 05/12/21 11:53 Dose: Not Given Documented by: [id number] Admin: 05/11/21 20:39 Dose: 100 mg Documented by: [id number] Admin: 05/11/21 07:51 Dose: 100 mg Documented by: [id number] Admin: 05/10/21 20:44 Dose: Not Given Documented by: [id number] Admin: 05/10/21 08:15 Dose: 100 mg Documented by: [id number] Admin: 05/09/21 20:51 Dose: 100 mg Documented by: [id number] Admin: 05/09/21 08:06 Dose: 100 mg Documented by: [id number] Admin: 05/08/21 21:10 Dose: 100 mg Documented by: [id number] Admin: 05/08/21 08:07 Dose: 100 mg Documented by: [id number] Admin: 05/07/21 20:20 Dose: 100 mg Documented by: [id number] Admin: 05/07/21 09:03 Dose: 100 mg Documented by: [id number] Admin: 05/06/21 20:52 Dose: 100 mg Documented by: [id number] Admin: 05/06/21 09:16 Dose: 100 mg Documented by: [id number] Admin: 05/05/21 21:16 Dose: 100 mg Documented by: [id number] Admin: 05/05/21 08:17 Dose: 100 mg Documented by: [id number] Admin: 05/04/21 21:01 Dose: 100 mg Documented by: [id number] Admin: 05/04/21 08:33 Dose: 100 mg Documented by: [id number] Admin: 05/03/21 20:30 Dose: 100 mg Documented by: [id number] Admin: 05/03/21 09:31 Dose: 100 mg Documented by: [id number] Admin: 05/02/21 20:38 Dose: 100 mg Documented by: [id number] Admin: 05/02/21 08:31 Dose: 100 mg Documented by: [id number] Admin: 05/01/21 19:43 Dose: 100 mg Documented by: [id number] Admin: 05/01/21 07:50 Dose: 100 mg Documented by: [id number] Admin: 04/30/21 21:34 Dose: 100 mg Documented by: [id number] Admin: 04/30/21 08:09 Dose: 100 mg Documented by: [id number] Admin: 04/29/21 22:03 Dose: 100 mg Documented by: [id number] Promethazine HCl 12.5 mg/ (Sodium Chloride) 50.5 mls @ 202 mls/hr IV Q6H PRN PRN Reason: Nausea And Vomiting Stop: 05/27/21 20:01 Last Infusion: 04/27/21 20:45 Dose: 0 mls/hr Documented by: [id number] Admin: 04/27/21 20:26 Dose: 202 mls/hr Documented by: [id number] Sodium Bicarbonate 75 meq/Potassium Acetate 30 meq/Sodium Chloride 1,090 mls @ 80 mls/hr IV .[id number] [facility] Stop: 06/11/21 19:14 Last Infusion: 05/13/21 11:49 Dose: 0 mls/hr Documented by: [id number] Infusion: 05/13/21 02:07 Dose: 80 mls/hr Documented by: [id number] Infusion: 05/12/21 20:11 Dose: 0 mls/hr Documented by: [id number] Admin: 05/12/21 19:42 Dose: 80 mls/hr Documented by: [id number] Insulin Aspart (Insulin Aspart 100 Units/Ml 3 Ml Pen) 0 units SC ACHS [facility] Stop: 05/24/21 11:29 Last Admin: 05/13/21 09:05 Dose: Not Given Documented by: [id number] Admin: 05/12/21 19:42 Dose: Not Given Documented by: [id number] Admin: 05/12/21 18:18 Dose: Not Given Documented by: [id number] Admin: 05/12/21 13:14 Dose: Not Given Documented by: [id number] Admin: 05/12/21 09:59 Dose: Not Given Documented by: [id number] Admin: 05/11/21 20:38 Dose: Not Given Documented by: [id number] Admin: 05/11/21 17:25 Dose: Not Given Documented by: [id number] Admin: 05/11/21 12:24 Dose: Not Given Documented by: [id number] Admin: 05/11/21 07:45 Dose: Not Given Documented by: [id number] Cosigned by: [id number] Admin: 05/10/21 20:27 Dose: Not Given Documented by: [id number] Admin: 05/10/21 17:22 Dose: Not Given Documented by: [id number] Admin: 05/10/21 12:43 Dose: 2 units Documented by: [id number] Cosigned by: [id number] Admin: 05/10/21 08:13 Dose: 4 units Documented by: [id number] Cosigned by: [id number] Admin: 05/09/21 20:44 Dose: Not Given Documented by: [id number] Cosigned by: [id number] Admin: 05/09/21 17:29 Dose: 3 units Documented by: [id number] Cosigned by: [id number] Admin: 05/09/21 12:19 Dose: 3 units Documented by: [id number] Cosigned by: [id number] Admin: 05/09/21 08:08 Dose: Not Given Documented by: [id number] Admin: 05/08/21 22:21 Dose: Not Given Documented by: [id number] Cosigned by: [id number] Admin: 05/08/21 17:59 Dose: 3 units Documented by: [id number] Cosigned by: [id number] Admin: 05/08/21 12:53 Dose: Not Given Documented by: [id number] Admin: 05/08/21 08:15 Dose: Not Given Documented by: [id number] Admin: 05/07/21 21:05 Dose: Not Given Documented by: [id number] Admin: 05/07/21 17:35 Dose: 3 units Documented by: [id number] Cosigned by: [id number] Admin: 05/07/21 12:58 Dose: 4 units Documented by: [id number] Cosigned by: [id number] Admin: 05/07/21 08:56 Dose: Not Given Documented by: [id number] Admin: 05/06/21 20:56 Dose: Not Given Documented by: [id number] Cosigned by: [id number] Admin: 05/06/21 17:07 Dose: Not Given Documented by: [id number] Admin: 05/06/21 12:34 Dose: 4 units Documented by: [id number] Cosigned by: [id number] Admin: 05/06/21 09:15 Dose: Not Given Documented by: [id number] Admin: 05/05/21 21:35 Dose: Not Given Documented by: [id number] Cosigned by: [id number] Admin: 05/05/21 17:48 Dose: Not Given Documented by: [id number] Admin: 05/05/21 12:38 Dose: 4 units Documented by: [id number] Cosigned by: [id number] Admin: 05/05/21 08:23 Dose: Not Given Documented by: [id number] Admin: 05/04/21 20:51 Dose: Not Given Documented by: [id number] Cosigned by: [id number] Admin: 05/04/21 17:33 Dose: 4 units Documented by: [id number] Cosigned by: [id number] Admin: 05/04/21 12:26 Dose: 4 units Documented by: [id number] Cosigned by: [id number] Admin: 05/04/21 08:35 Dose: Not Given Documented by: [id number] Admin: 05/03/21 20:30 Dose: Not Given Documented by: [id number] Cosigned by: [id number] Admin: 05/03/21 17:38 Dose: 4 units Documented by: [id number] Cosigned by: [id number] Admin: 05/03/21 13:12 Dose: 1 units Documented by: [id number] Cosigned by: [id number] Admin: 05/03/21 09:33 Dose: 3 units Documented by: [id number] Cosigned by: [id number] Admin: 05/02/21 20:36 Dose: Not Given Documented by: [id number] Cosigned by: [id number] Admin: 05/02/21 17:14 Dose: 1 units Documented by: [id number] Cosigned by: [id number] Admin: 05/02/21 12:15 Dose: 3 units Documented by: [id number] Cosigned by: [id number] Admin: 05/02/21 08:34 Dose: Not Given Documented by: [id number] Admin: 05/01/21 19:46 Dose: Not Given Documented by: [id number] Admin: 05/01/21 16:44 Dose: 4 units Documented by: [id number] Cosigned by: [id number] Admin: 05/01/21 12:15 Dose: Not Given Documented by: [id number] Admin: 05/01/21 07:51 Dose: 3 units Documented by: [id number] Cosigned by: [id number] Admin: 04/30/21 21:33 Dose: Not Given Documented by: [id number] Cosigned by: [id number] Admin: 04/30/21 16:43 Dose: 3 units Documented by: [id number] Cosigned by: [id number] Admin: 04/30/21 11:41 Dose: Not Given Documented by: [id number] Admin: 04/30/21 07:43 Dose: Not Given Documented by: [id number] Admin: 04/29/21 22:04 Dose: Not Given Documented by: [id number] Admin: 04/29/21 17:57 Dose: 5 units Documented by: [id number] Cosigned by: [id number] Admin: 04/29/21 12:11 Dose: 3 units Documented by: [id number] Cosigned by: [id number] Admin: 04/29/21 08:58 Dose: 3 units Documented by: [id number] Cosigned by: [id number] Admin: 04/28/21 22:12 Dose: Not Given Documented by: [id number] Admin: 04/28/21 16:49 Dose: 4 units Documented by: [id number] Cosigned by: [id number] Admin: 04/28/21 12:57 Dose: Not Given Documented by: [id number] Admin: 04/28/21 08:09 Dose: 3 units Documented by: [id number] Cosigned by: [id number] Admin: 04/27/21 20:34 Dose: Not Given Documented by: [id number] Admin: 04/27/21 16:31 Dose: 4 units Documented by: [id number] Cosigned by: [id number] Admin: 04/27/21 13:35 Dose: Not Given Documented by: [id number] Admin: 04/27/21 07:48 Dose: 2 units Documented by: [id number] Cosigned by: [id number] Admin: 04/26/21 21:00 Dose: Not Given Documented by: [id number] Admin: 04/26/21 16:52 Dose: Not Given Documented by: [id number] Admin: 04/26/21 12:43 Dose: Not Given Documented by: [id number] Admin: 04/26/21 08:51 Dose: Not Given Documented by: [id number] Admin: 04/25/21 21:19 Dose: Not Given Documented by: [id number] Cosigned by: [id number] Admin: 04/25/21 19:36 Dose: Not Given Documented by: [id number] Cosigned by: [id number] Admin: 04/25/21 11:38 Dose: Not Given Documented by: [id number] Admin: 04/25/21 07:39 Dose: Not Given Documented by: [id number] Admin: 04/24/21 21:07 Dose: Not Given Documented by: [id number] Cosigned by: [id number] Admin: 04/24/21 15:47 Dose: Not Given Documented by: [id number] Admin: 04/24/21 11:39 Dose: Not Given Documented by: [id number] Magnesium Oxide (Magnesium Oxide 400 Mg Tab) 400 mg PO DAILY [facility] Stop: 06/12/21 08:59 Last Admin: 05/13/21 08:44 Dose: 400 mg Documented by: [id number] Pantoprazole Sodium (Pantoprazole 40 Mg Tab) 40 mg PO BID [facility] Stop: 05/30/21 20:59 Last Admin: 05/13/21 08:45 Dose: 40 mg Documented by: [id number] Admin: 05/12/21 19:43 Dose: Not Given Documented by: [id number] Admin: 05/12/21 11:52 Dose: Not Given Documented by: [id number] Admin: 05/11/21 20:39 Dose: 40 mg Documented by: [id number] Admin: 05/11/21 07:52 Dose: 40 mg Documented by: [id number] Admin: 05/10/21 20:44 Dose: Not Given Documented by: [id number] Admin: 05/10/21 08:14 Dose: 40 mg Documented by: [id number] Admin: 05/09/21 20:51 Dose: 40 mg Documented by: [id number] Admin: 05/09/21 08:06 Dose: 40 mg Documented by: [id number] Admin: 05/08/21 21:12 Dose: 40 mg Documented by: [id number] Admin: 05/08/21 08:06 Dose: 40 mg Documented by: [id number] Admin: 05/07/21 20:20 Dose: 40 mg Documented by: [id number] Admin: 05/07/21 09:03 Dose: 40 mg Documented by: [id number] Admin: 05/06/21 20:52 Dose: 40 mg Documented by: [id number] Admin: 05/06/21 09:16 Dose: 40 mg Documented by: [id number] Admin: 05/05/21 21:18 Dose: 40 mg Documented by: [id number] Admin: 05/05/21 08:18 Dose: 40 mg Documented by: [id number] Admin: 05/04/21 21:01 Dose: 40 mg Documented by: [id number] Admin: 05/04/21 08:33 Dose: 40 mg Documented by: [id number] Admin: 05/03/21 20:30 Dose: 40 mg Documented by: [id number] Admin: 05/03/21 09:31 Dose: 40 mg Documented by: [id number] Admin: 05/02/21 20:37 Dose: 40 mg Documented by: [id number] Admin: 05/02/21 08:31 Dose: 40 mg Documented by: [id number] Admin: 05/01/21 19:44 Dose: 40 mg Documented by: [id number] Admin: 05/01/21 07:49 Dose: 40 mg Documented by: [id number] Admin: 04/30/21 21:34 Dose: 40 mg Documented by: [id number] Potassium Chloride (Potassium Chloride Crtab 20 Meq Tabcr) 20 meq PO QAM [facility] Stop: 06/01/21 08:59 Last Admin: 05/13/21 08:50 Dose: 20 meq Documented by: [id number] Admin: 05/12/21 11:52 Dose: Not Given Documented by: [id number] Admin: 05/11/21 07:52 Dose: 20 meq Documented by: [id number] Admin: 05/10/21 08:20 Dose: 20 meq Documented by: [id number] Admin: 05/09/21 08:15 Dose: 20 meq Documented by: [id number] Admin: 05/08/21 08:12 Dose: 20 meq Documented by: [id number] Admin: 05/07/21 09:04 Dose: 20 meq Documented by: [id number] Admin: 05/06/21 09:18 Dose: 20 meq Documented by: [id number] Admin: 05/05/21 08:24 Dose: 20 meq Documented by: [id number] Admin: 05/04/21 08:36 Dose: 20 meq Documented by: [id number] Admin: 05/03/21 10:02 Dose: 20 meq Documented by: [id number] Admin: 05/02/21 08:30 Dose: 20 meq Documented by: [id number] Propranolol HCl (Propranolol Hcl La 80 Mg Capcr) 80 mg PO QAM [facility] Stop: 05/31/21 08:59 Last Admin: 05/13/21 08:46 Dose: 80 mg Documented by: [id number] Admin: 05/12/21 11:52 Dose: Not Given Documented by: [id number] Admin: 05/11/21 07:52 Dose: 80 mg Documented by: [id number] Admin: 05/10/21 08:15 Dose: 80 mg Documented by: [id number] Admin: 05/09/21 08:06 Dose: 80 mg Documented by: [id number] Admin: 05/08/21 08:06 Dose: 80 mg Documented by: [id number] Admin: 05/07/21 09:03 Dose: 80 mg Documented by: [id number] Admin: 05/06/21 09:16 Dose: 80 mg Documented by: [id number] Admin: 05/05/21 08:18 Dose: 80 mg Documented by: [id number] Admin: 05/04/21 08:33 Dose: 80 mg Documented by: [id number] Admin: 05/03/21 09:30 Dose: 80 mg Documented by: [id number] Admin: 05/02/21 08:30 Dose: 80 mg Documented by: [id number] Admin: 05/01/21 07:49 Dose: 80 mg Documented by: [id number] Spironolactone (Spironolactone 25 Mg Tab) 25 mg PO QAM ALEXIS Stop: 05/28/21 09:59 Last Admin: 05/13/21 08:46 Dose: 25 mg Documented by: [id number] Admin: 05/12/21 11:52 Dose: Not Given Documented by: [id number] Admin: 05/11/21 07:52 Dose: 25 mg Documented by: [id number] Admin: 05/10/21 08:15 Dose: 25 mg Documented by: [id number] Admin: 05/09/21 08:06 Dose: 25 mg Documented by: [id number] Admin: 05/08/21 08:06 Dose: 25 mg Documented by: [id number] Admin: 05/07/21 09:03 Dose: 25 mg Documented by: [id number] Admin: 05/06/21 09:16 Dose: 25 mg Documented by: [id number] Admin: 05/05/21 08:18 Dose: 25 mg Documented by: [id number] Admin: 05/04/21 08:33 Dose: 25 mg Documented by: [id number] Admin: 05/03/21 09:30 Dose: 25 mg Documented by: [id number] Admin: 05/02/21 08:31 Dose: 25 mg Documented by: [id number] Admin: 05/01/21 07:49 Dose: 25 mg Documented by: [id number] Admin: 04/30/21 08:08 Dose: 25 mg Documented by: [id number] Admin: 04/29/21 09:01 Dose: 25 mg Documented by: [id number] Admin: 04/28/21 11:34 Dose: 25 mg Documented by: [id number] Thiamine HCl (Thiamine Hcl 100 Mg Tab) 100 mg PO QAM ALEXIS Stop: 05/31/21 08:59 Last Admin: 05/13/21 08:45 Dose: 100 mg Documented by: [id number] Admin: 05/12/21 11:52 Dose: Not Given Documented by: [id number] Admin: 05/11/21 07:52 Dose: 100 mg Documented by: [id number] Admin: 05/10/21 08:15 Dose: 100 mg Documented by: [id number] Admin: 05/09/21 08:06 Dose: 100 mg Documented by: [id number] Admin: 05/08/21 08:06 Dose: 100 mg Documented by: [id number] Admin: 05/07/21 09:03 Dose: 100 mg Documented by: [id number] Admin: 05/06/21 09:16 Dose: 100 mg Documented by: [id number] Admin: 05/05/21 08:18 Dose: 100 mg Documented by: [id number] Admin: 05/04/21 08:33 Dose: 100 mg Documented by: [id number] Admin: 05/03/21 09:30 Dose: 100 mg Documented by: [id number] Admin: 05/02/21 08:30 Dose: 100 mg Documented by: [id number] Admin: 05/01/21 07:49 Dose: 100 mg Documented by: [id number] Coding Level of Care Code 65576 [facility] Intl Hosp Care Lvl 2 Diagnoses Acute alteration in mental status R41.82
[2021-05-13] MEDS: POTASSIUM ACETATE IV SCH (13:52)
[2021-05-13] MEDS: SODIUM BICARBONATE IV SCH (13:52)
[2021-05-13] MEDS: [UNRECOGNIZED DRUG - OTHER] IV SCH (13:52)
[2021-05-13] MEDS: ACETAMINOPHEN 325 MG TAB PO PRN (13:52)
--- NOTE | 2021-05-13 13:55 | Nephrology Progress Note ---
Date of Service May 13, 2021 Assessment & Plan (1) Hypercalcemia: Plan: hypercalcemia which emerged gradually late in the course of a prolonged admission after presenting with septic shock/aspiration pneumonia; she was also admitted here 19 days ago and is still quite weak - doing only supine exercises w/ PT currently. PTH is appropriately suppressed; 25 OHD not elevated. TSH was WNL at admission. though she tells me she is not taking meds, she has had MVI consistently and mag supplement about 3/4 of doses or more over past several days >suspect this relates either to medications or to immobility; doubt calcium level high enough to explain/contribute to MS changes -needs ionized calcium level w/ next draw and mag, bmp recheck - so ordered along w/ rechecks in am -f/u pending PTHrp -mag ox can promote renal retention of Ca > halved dose -stopped MVI -We will give Ringer's lactate at 80 mL hourly (2) Hypomagnesemia: Plan: Magnesium level 1.4 today. Will give mag sulfate 2 g. Continue oral mag oxide as well. Admission and Anticipated Discharge Date Admission Date: April 23, 2021 Subjective Seen for hypercalcemia. She feels well denies any shortness of breath. She is eating and drinking well. Patient remains weak. Calcium of 10.9 today Review of Systems Review of Systems: All other systems were reviewed and negative except as noted in HPI Physical Exam Physical Exam: General exam: Appears comfortable, no acute distress HEENT: Pupils are equal and reactive to light Neck: No JVD, neck is supple trachea is midline Respiratory system: Clear breath sounds bilaterally. Gastrointestinal: Abdomen is soft, non distended, non tender, bowel sounds are present CVS: Regular rate and rhythm. No murmurs, rubs or gallops Musculoskeletal: No joint or muscle tenderness Extremities: Non tender, no edema, peripheral pulses are present Neuro: Oriented, no tremors, no focal neurological deficits Skin: No rashes Results & Data ([facility]) Vital Signs (Past 12 Hours) Vital Signs Temp Pulse Resp BP Pulse Ox 05/13/21 08:13 37.1 C 103 H 20 124/79 100 Laboratory Results 05/13/21 08:31 05/13/21 08:31 Albumin 3.2 L
[2021-05-13] MEDS: MAGNESIUM SULFATE / D5W 1 GM/100 ML BAG IV SCH ×2 (14:16→15:21)
[2021-05-13] MEDS: LACTATED RINGER'S 1,000 ML IV SCH (14:17)
[2021-05-13] MEDS: OLANZapine 10 MG/2.1 ML SDV IM PRN (15:10)
--- NOTE | 2021-05-13 16:52 | Hospitalist Progress Note ---
Date of Service May 13, 2021 Assessment & Plan (1) Septic shock: Plan: Patient is a 60 yr F with H/O Alcoholism with cirrhosis, hx of esophageal varices, type 2 diabetes, hypertension who presents with altered mental status known since this morning presenting with hypothermia and septic shock. (As per Admitting team: Found to be obtunded and covered in vomit this morning by boyfriend after 6 days of intractable nausea, vomiting and generalized weakness. Presented with AMS temp of 32 C, as well as hypotensive with SBP 80s-90s) Septic shock Hypothermia Pneumonia possibly due to aspiration Lactic acidosis: resolved Procalcitonin 0.75 Blood cultures: negative S/P LP: CSF culture negative Off pressors Completed 5-day course of antibiotics : arun Andrew Appreciate critical care, neurology input Appreciate ID input Hypothermia resolved Shock Resolved Hypercalcemia Calcium levels improved to 10.9 Ionized calcium within normal limits PTH not elevated PTH related protein pending Vitamin D level within normal limits SPEP pending Continue IV fluids Appreciate Nephrology Input Magnesium oxide dose decreased to once daily Hematochezia H/O esophageal varices Hold anticoagulation Continue PPI We will consider GI evaluation if recurrence of bleeding Monitor CBC Last Hb 8.5 Fall Asymptomatic Fall precautions Sacrum/Coccyx X ray showed no evidence of acute fracture or subluxation. Diarrhea C. difficile negative Resolved (2) Acute metabolic encephalopathy: Plan: Acute Metabolic Encephalopathy--Likely Multifactorial -MRI Brain:No acute intracranial abnormality DD: sepsis, Wernicke's encephalopathy Completed IV thiamine >> transitioned to p.o. thiamine Appreciate Neurology Input Completed gabapentin protocol Mental status improved Paranoia Appreciate psychiatry input We will avoid atypicals if possible Consider risperidone 2.5 mg at bedtime if needed only (3) Hypothermia: Plan: Resolved (4) Acute hypokalemia: Plan: Likely secondary to GI losses :nausea and vomiting, poor oral intake Replace electrolytes as needed Monitor Hypomagnesemia Replace electrolytes as needed Monitor (5) Cardiac arrhythmia: Plan: Wide-complex tachycardia Likely artifactual Appreciate cardiology input Replace electrolytes as needed Metoprolol 12.5mg BID>> Transitioned to propranolol given H/O esophageal varices (6) Acute kidney injury: Plan: JAZMINE Metabolic acidosis Cr baseline ~ 0.9 Received IV fluids Avoid nephrotoxic agents as able Resolved (7) Alcohol abuse: Plan: Counseled to quit (8) Cirrhosis: Plan: On diuretics per [id number] rec Normal ammonia level Resumed on spironolactone at lower dose (9) Hypertension: Plan: BP stable (10) Diabetes mellitus, type II: Plan: HbA1c 5.5 Monitor blood glucose levels SSI PRN while hospitalized Thrombocytopenia Likely secondary to cirrhosis, alcohol use Monitor platelet count DVT Px: Was on Heparin SQ SCDs Re: Hematochezia Code status: FULL CODE Disposition: Waiting for Rehab Placement Admission and Anticipated Discharge Date Admission Date: April 23, 2021 Subjective Patient is seen and examined at bedside States feeling tired Calcium levels better Denies any chest pain, dyspnea, dizziness Review of Systems Review of Systems: All systems reviewed & are unremarkable except as noted in Subjective Physical Exam Physical Exam: Physical Exam: Vitals signs as noted above General Appearance:Moderately built and nourished, no apparent distress Head: normocephalic, Atraumatic Eyes: normal inspection, EOMI Neck: supple, Trachea midline Respiratory/Chest: Normal breath sounds, CTA, No accessory muscle use Cardiovascular: S1, S2, No murmur Abdomen/GI:Soft, Non tender, Bowel sounds present Extremities/Musculoskeletal:normal inspection, no edema Neurologic/Psych:AAO, grossly no focal neurological deficits Skin: normal color, warm Results & Data Results & Data ([facility]) Vital Signs (Past 12 Hours) Vital Signs Temp Pulse Resp BP Pulse Ox 05/13/21 15:42 36.4 C L 79 16 156/90 H 92 05/13/21 08:13 37.1 C 103 H 20 124/79 100 Laboratory Results [facility] 05/12/21 05/13/21 19:12 08:31 Sodium 139 139 Potassium 3.6 3.5 Chloride 109 H 107 Carbon Dioxide 19 L 21 BUN 13 11 Creatinine 1.18 1.01 Glucose 105 H 99 Calcium 10.8 H 10.9 H Liver Function 05/13/21 Range/Units 08:31 Albumin 3.2 L (3.4-5.0) gm/dl
[2021-05-14] MEDS: LACTATED RINGER'S 1,000 ML IV SCH ×2 (04:48→18:41)
[2021-05-14 06:35] LABS: BUN Creatinine Ratio 11.1 (10-20); Calcium 10.7 mg/dl (8.5-10.1); Creatinine Clr Calc Pharmacy 63.4 ml/min; Est GFR (African American) 85.1 ml/min; Est GFR (Non-African American) 73.4 ml/min; Magnesium 1.5 mg/dl (1.8-2.4); Potassium 3.6 mmol/L (3.5-5.1)
[2021-05-14] MEDS: SPIRONOLACTONE 25 MG TAB PO SCH (08:32)
[2021-05-14] MEDS: PROPRANOLOL HCL LA 80 MG CAPCR PO SCH (08:32)
[2021-05-14] MEDS: FERROUS SULFATE 325 MG TAB PO SCH ×3 (08:38→19:39)
[2021-05-14] MEDS: ATORVASTATIN 40 MG TAB PO SCH ×2 (08:38→12:08)
[2021-05-14] MEDS: FOLIC ACID 1 MG TAB PO SCH ×2 (08:38→12:09)
[2021-05-14] MEDS: MAGNESIUM OXIDE 400 MG TAB PO SCH ×2 (08:38→12:06)
[2021-05-14] MEDS: CYANOCOBALAMIN 500 MCG TABLET (VITAMIN B-12) PO SCH ×2 (08:38→12:08)
[2021-05-14] MEDS: POTASSIUM CHLORIDE CRTAB 20 MEQ TABCR PO SCH ×2 (08:39→12:11)
[2021-05-14] MEDS: THIAMINE HCL 100 MG TAB PO SCH ×2 (08:39→12:07)
[2021-05-14] MEDS: PANTOprazole 40 MG TAB PO SCH ×2 (08:39→19:39)
[2021-05-14] MEDS: INSULIN ASPART 100 UNITS/ML 3 ML PEN SC SCH ×4 (10:37→20:42)
[2021-05-14] MEDS: GABAPENTIN 100 MG CAP PO SCH ×3 (10:38→19:38)
--- NOTE | 2021-05-14 12:41 | Nephrology Progress Note ---
Date of Service May 14, 2021 Assessment & Plan (1) Hypercalcemia: Plan: hypercalcemia which emerged gradually late in the course of a prolonged admission after presenting with septic shock/aspiration pneumonia; she was also admitted here 19 days ago and is still quite weak - doing only supine exercises w/ PT currently. PTH is appropriately suppressed; 25 OHD not elevated. TSH was WNL at admission. though she tells me she is not taking meds, she has had MVI consistently and mag supplement about 3/4 of doses or more over past several days >suspect this relates either to medications or to immobility; doubt calcium level high enough to explain/contribute to MS changes. Ca today 10.7 slowly imroving -f/u pending PTHrp -mag ox can promote renal retention of Ca > halved dose -stopped MVI -We will give Ringer's lactate at 80 mL hourly (2) Hypomagnesemia: Plan: Magnesium level 1.5 today. Will give mag sulfate 2 g. Continue oral mag oxide as well. Admission and Anticipated Discharge Date Admission Date: April 23, 2021 Subjective Patient seen for hypercalcemia and other electrolyte problems. She feels well. No SOB. Not eating much. Review of Systems Review of Systems: All other systems were reviewed and negative except as noted in HPI Physical Exam Physical Exam: General exam: Appears comfortable, no acute distress HEENT: Pupils are equal and reactive to light Neck: No JVD, neck is supple trachea is midline Respiratory system: Clear breath sounds bilaterally. Gastrointestinal: Abdomen is soft, non distended, non tender, bowel sounds are present CVS: Regular rate and rhythm. No murmurs, rubs or gallops Musculoskeletal: No joint or muscle tenderness Extremities: Non tender, no edema, peripheral pulses are present Neuro: Oriented, no tremors, no focal neurological deficits Skin: No rashes Results & Data ([facility]) Vital Signs (Past 12 Hours) Vital Signs Temp Pulse Resp BP Pulse Ox 05/14/21 07:40 36.5 C 125 H 16 152/90 H 99 Laboratory Results 05/14/21 05:43 05/13/21 08:31 Albumin 3.2 L
[2021-05-14] MEDS: MAGNESIUM SULFATE / D5W 1 GM/100 ML BAG IV SCH ×2 (13:48→16:34)
--- NOTE | 2021-05-14 17:51 | Hospitalist Progress Note ---
Date of Service May 14, 2021 Assessment & Plan (1) Septic shock: Plan: Patient is a 60 yr F with H/O Alcoholism with cirrhosis, hx of esophageal varices, type 2 diabetes, hypertension who presents with altered mental status known since this morning presenting with hypothermia and septic shock. (As per Admitting team: Found to be obtunded and covered in vomit this morning by boyfriend after 6 days of intractable nausea, vomiting and generalized weakness. Presented with AMS temp of 32 C, as well as hypotensive with SBP 80s-90s) Septic shock Hypothermia Pneumonia possibly due to aspiration Lactic acidosis: resolved Procalcitonin 0.75 Blood cultures: negative S/P LP: CSF culture negative Off pressors Completed 5-day course of antibiotics : arun Andrew Appreciate critical care, neurology input Appreciate ID input Hypothermia resolved Shock Resolved Hypercalcemia Ionized calcium within normal limits PTH not elevated PTH related protein pending Vitamin D level within normal limits SPEP pending Appreciate Nephrology Input Magnesium oxide dose decreased to once daily Calcium levels 10.7 today Continue IV fluids as per nephrology Hematochezia H/O esophageal varices Hold anticoagulation Continue PPI We will consider GI evaluation if recurrence of bleeding Monitor CBC Last Hb 8.5 Fall Asymptomatic Fall precautions Sacrum/Coccyx X ray showed no evidence of acute fracture or subluxation. Diarrhea C. difficile negative Resolved (2) Acute metabolic encephalopathy: Plan: Acute Metabolic Encephalopathy--Likely Multifactorial -MRI Brain:No acute intracranial abnormality DD: sepsis, Wernicke's encephalopathy Completed IV thiamine >> transitioned to p.o. thiamine Appreciate Neurology Input Completed gabapentin protocol Mental status improved Paranoia Appreciate psychiatry input We will avoid atypicals if possible Consider risperidone 2.5 mg at bedtime if needed only (3) Hypothermia: Plan: Resolved (4) Acute hypokalemia: Plan: Likely secondary to GI losses :nausea and vomiting, poor oral intake Replace electrolytes as needed Monitor Hypomagnesemia Replace electrolytes as needed Monitor (5) Cardiac arrhythmia: Plan: Wide-complex tachycardia Likely artifactual Appreciate cardiology input Replace electrolytes as needed Metoprolol 12.5mg BID>> Transitioned to propranolol given H/O esophageal varices (6) Acute kidney injury: Plan: JAZMINE Metabolic acidosis Cr baseline ~ 0.9 Received IV fluids Avoid nephrotoxic agents as able Resolved (7) Alcohol abuse: Plan: Counseled to quit (8) Cirrhosis: Plan: On diuretics per [email or web address] rec Normal ammonia level Resumed on spironolactone at lower dose (9) Hypertension: Plan: BP stable (10) Diabetes mellitus, type II: Plan: HbA1c 5.5 Monitor blood glucose levels SSI PRN while hospitalized Thrombocytopenia Likely secondary to cirrhosis, alcohol use Monitor platelet count DVT Px: Was on Heparin SQ SCDs Re: Hematochezia Code status: FULL CODE Disposition: Waiting for Rehab Placement Admission and Anticipated Discharge Date Admission Date: April 23, 2021 Subjective Patient is seen and examined at bedside Intermittently confused Refuses medications at times No distress on exam Denies any chest pain, dyspnea, dizziness Patient has delusions Review of Systems Review of Systems: All systems reviewed & are unremarkable except as noted in Subjective Physical Exam Physical Exam: Physical Exam: Vitals signs as noted above General Appearance:Moderately built and nourished, no apparent distress Head: normocephalic, Atraumatic Eyes: normal inspection, EOMI Neck: supple, Trachea midline Respiratory/Chest: Normal breath sounds, CTA, No accessory muscle use Cardiovascular: S1, S2, No murmur Abdomen/GI:Soft, Non tender, Bowel sounds present Extremities/Musculoskeletal:normal inspection, no edema Neurologic/Psych:AAO, grossly no focal neurological deficits Skin: normal color, warm Results & Data Results & Data ([facility]) Vital Signs (Past 12 Hours) Vital Signs Temp Pulse Pulse Resp BP BP Pulse Ox 05/14/21 16:05 36.3 C L 96 H 15 139/88 100 05/14/21 07:40 36.5 C 125 H 16 152/90 H 99 Laboratory Results [facility] 05/14/21 05:43 Sodium 142 Potassium 3.6 Chloride 110 H Carbon Dioxide 23 BUN 10 Creatinine 0.87 Glucose 81 Calcium 10.7 H
[2021-05-15] MEDS: LACTATED RINGER'S 1,000 ML IV SCH (04:44)
[2021-05-15 07:16] LABS: BUN Creatinine Ratio 5.9 (10-20); Calcium 10.6 mg/dl (8.5-10.1); Creatinine Clr Calc Pharmacy 47.6 ml/min; Est GFR (African American) 60.1 ml/min; Est GFR (Non-African American) 51.9 ml/min; Magnesium 1.7 mg/dl (1.8-2.4); Potassium 3.3 mmol/L (3.5-5.1)
[2021-05-15] MEDS: FOLIC ACID 1 MG TAB PO SCH (09:04)
[2021-05-15] MEDS: CYANOCOBALAMIN 500 MCG TABLET (VITAMIN B-12) PO SCH (09:04)
[2021-05-15] MEDS: GABAPENTIN 100 MG CAP PO SCH ×2 (09:04→20:29)
[2021-05-15] MEDS: ATORVASTATIN 40 MG TAB PO SCH (09:04)
[2021-05-15] MEDS: FERROUS SULFATE 325 MG TAB PO SCH ×2 (09:04→20:29)
[2021-05-15] MEDS: THIAMINE HCL 100 MG TAB PO SCH (09:05)
[2021-05-15] MEDS: SPIRONOLACTONE 25 MG TAB PO SCH (09:05)
[2021-05-15] MEDS: POTASSIUM CHLORIDE CRTAB 20 MEQ TABCR PO SCH ×2 (09:05→20:29)
[2021-05-15] MEDS: MAGNESIUM OXIDE 400 MG TAB PO SCH (09:05)
[2021-05-15] MEDS: PROPRANOLOL HCL LA 80 MG CAPCR PO SCH (09:05)
[2021-05-15] MEDS: PANTOprazole 40 MG TAB PO SCH ×2 (09:05→20:29)
[2021-05-15] MEDS: INSULIN ASPART 100 UNITS/ML 3 ML PEN SC SCH ×4 (09:15→20:49)
--- NOTE | 2021-05-15 09:48 | Nephrology Progress Note ---
Date of Service May 15, 2021 Assessment & Plan Admission and Anticipated Discharge Date Admission Date: April 23, 2021 Subjective Assessment & Plan (1) Hypercalcemia: Plan: hypercalcemia which emerged gradually late in the course of a prolonged admission after presenting with septic shock/aspiration pneumonia; she is still quite weak - doing only supine exercises w/ PT currently. PTH is appropriately suppressed; 25-Vit D not elevated. TSH was WNL at admission. though she tells me she is not taking meds, she has had MVI consistently and mag supplement about 3/4 of doses or more over past several days >suspect this relates either to medications or to immobility; doubt calcium level high enough to explain/contribute to MS changes. Ca today 10.6 very slowly improving -f/u pending PTHrp -mag ox can promote renal retention of Ca > halved dose -stopped MVI Stop iv fluid for today (2) Hypomagnesemia: Plan: Continue oral mag oxide as well. Subjective Patient seen for hypercalcemia and other electrolyte problems. She feels well. No SOB. Not eating much. Review of Systems Review of Systems: All other systems were reviewed and negative except as noted in HPI Physical Exam Physical Exam: General exam: Appears comfortable, no acute distress HEENT: Pupils are equal and reactive to light Neck: No JVD, neck is supple trachea is midline Respiratory system: Clear breath sounds bilaterally. Gastrointestinal: Abdomen is soft, non distended, non tender, bowel sounds are present CVS: Regular rate and rhythm. No murmurs, rubs or gallops Musculoskeletal: No joint or muscle tenderness Extremities: Non tender, no edema, peripheral pulses are present Neuro: Oriented, no tremors, no focal neurological deficits Results & Data ([facility]) Vital Signs (Past 12 Hours) Vital Signs Temp Pulse Resp BP BP Pulse Ox 05/15/21 07:31 36.4 C L 85 16 155/79 H 98 05/14/21 22:11 37.0 C 79 18 148/86 H 99
[2021-05-15 18:35] LABS: Albumin 3.5 g/dL (3.8-4.8); Alpha 1 Globulin 0.4 g/dL (0.2-0.3); Alpha 2 Globulin 0.9 g/dL (0.5-0.9); Beta-1-Globulin 0.6 g/dL (0.4-0.6); Beta-2-Globulin 0.6 g/dL (0.2-0.5); Gamma Globulin 1.5 g/dL (0.8-1.7); Monoclonal Protein Band 1 DNR g/dL (NONE DETECTED); Monoclonal Protein Band 2 DNR g/dL (NONE DETECTED); Monoclonal Protein Band 3 DNR g/dL (NONE DETECTED); Total Protein 7.5 g/dL (6.1-8.1)
--- NOTE | 2021-05-15 18:53 | Hospitalist Progress Note ---
Date of Service May 15, 2021 Assessment & Plan (1) Septic shock: Plan: Patient is a 60 yr F with H/O Alcoholism with cirrhosis, hx of esophageal varices, type 2 diabetes, hypertension who presents with altered mental status known since this morning presenting with hypothermia and septic shock. (As per Admitting team: Found to be obtunded and covered in vomit this morning by boyfriend after 6 days of intractable nausea, vomiting and generalized weakness. Presented with AMS temp of 32 C, as well as hypotensive with SBP 80s-90s) Septic shock Hypothermia Pneumonia possibly due to aspiration Lactic acidosis: resolved Procalcitonin 0.75 Blood cultures: negative S/P LP: CSF culture negative Off pressors Completed 5-day course of antibiotics : arun Andrew Appreciate critical care, neurology input Appreciate ID input Hypothermia resolved Shock Resolved Hypercalcemia Ionized calcium within normal limits PTH not elevated PTH related protein pending Vitamin D level within normal limits SPEP consistent with acute phase reaction Appreciate Nephrology Input Magnesium oxide dose decreased to once daily Calcium levels 10.6 today Received IV fluids Hematochezia H/O esophageal varices Hold anticoagulation Continue PPI We will consider GI evaluation if recurrence of bleeding Monitor CBC Last Hb 8.5 No acute Bleeding issues Fall Asymptomatic Fall precautions Sacrum/Coccyx X ray showed no evidence of acute fracture or subluxation. Diarrhea C. difficile negative Resolved (2) Acute metabolic encephalopathy: Plan: Acute Metabolic Encephalopathy--Likely Multifactorial -MRI Brain:No acute intracranial abnormality DD: sepsis, Wernicke's encephalopathy Completed IV thiamine >> transitioned to p.o. thiamine Appreciate Neurology Input Completed gabapentin protocol Mental status improved Paranoia Appreciate psychiatry input We will avoid atypicals if possible Consider risperidone 2.5 mg at bedtime if needed only (3) Hypothermia: Plan: Resolved (4) Acute hypokalemia: Plan: Likely secondary to GI losses :nausea and vomiting, poor oral intake Replace electrolytes as needed Monitor Hypomagnesemia Replace electrolytes as needed Monitor (5) Cardiac arrhythmia: Plan: Wide-complex tachycardia Likely artifactual Appreciate cardiology input Replace electrolytes as needed Metoprolol 12.5mg BID>> Transitioned to propranolol given H/O esophageal varices (6) Acute kidney injury: Plan: JAZMINE Metabolic acidosis Cr baseline ~ 0.9 Received IV fluids Avoid nephrotoxic agents as able Resolved (7) Alcohol abuse: Plan: Counseled to quit (8) Cirrhosis: Plan: On diuretics per [employer] rec Normal ammonia level Resumed on spironolactone at lower dose (9) Hypertension: Plan: BP stable (10) Diabetes mellitus, type II: Plan: HbA1c 5.5 Monitor blood glucose levels SSI PRN while hospitalized Thrombocytopenia Likely secondary to cirrhosis, alcohol use Monitor platelet count DVT Px: Was on Heparin SQ SCDs Re: Hematochezia Code status: FULL CODE Disposition: Waiting for Rehab Placement Admission and Anticipated Discharge Date Admission Date: April 23, 2021 Subjective Patient is seen and examined at bedside Intermittently confused Calcium levels 10.6 today No new complaints Denies any chest pain, dyspnea, dizziness Review of Systems Review of Systems: All systems reviewed & are unremarkable except as noted in Subjective Physical Exam Physical Exam: Physical Exam: Vitals signs as noted above General Appearance:Moderately built and nourished, no apparent distress Head: normocephalic, Atraumatic Eyes: normal inspection, EOMI Neck: supple, Trachea midline Respiratory/Chest: Normal breath sounds, CTA, No accessory muscle use Cardiovascular: S1, S2, No murmur Abdomen/GI:Soft, Non tender, Bowel sounds present Extremities/Musculoskeletal:normal inspection, no edema Neurologic/Psych:AAO, grossly no focal neurological deficits Skin: normal color, warm Results & Data Results & Data ([facility]) Vital Signs (Past 12 Hours) Vital Signs Temp Pulse Pulse Resp BP Pulse Ox 05/15/21 14:57 36.3 C L 94 H 18 138/83 100 05/15/21 07:31 36.4 C L 85 16 155/79 H 98 Laboratory Results [facility] 05/15/21 05:36 Sodium 142 Potassium 3.3 L Chloride 110 H Carbon Dioxide 23 BUN 7 Creatinine 1.16 Glucose 96 Calcium 10.6 H
[2021-05-16 07:21] LABS: BUN Creatinine Ratio 8.2 (10-20); Calcium 10.9 mg/dl (8.5-10.1); Creatinine Clr Calc Pharmacy 42.1 ml/min; Est GFR (African American) 51.9 ml/min; Est GFR (Non-African American) 44.8 ml/min; Potassium 3.9 mmol/L (3.5-5.1)
[2021-05-16] MEDS: ATORVASTATIN 40 MG TAB PO SCH (08:30)
[2021-05-16] MEDS: PANTOprazole 40 MG TAB PO SCH ×2 (08:30→21:46)
[2021-05-16] MEDS: PROPRANOLOL HCL LA 80 MG CAPCR PO SCH (08:31)
[2021-05-16] MEDS: THIAMINE HCL 100 MG TAB PO SCH (08:31)
[2021-05-16] MEDS: CYANOCOBALAMIN 500 MCG TABLET (VITAMIN B-12) PO SCH (08:31)
[2021-05-16] MEDS: POTASSIUM CHLORIDE CRTAB 20 MEQ TABCR PO SCH ×2 (08:31→21:46)
[2021-05-16] MEDS: SPIRONOLACTONE 25 MG TAB PO SCH (08:31)
[2021-05-16] MEDS: FERROUS SULFATE 325 MG TAB PO SCH ×2 (08:32→21:46)
[2021-05-16] MEDS: MAGNESIUM OXIDE 400 MG TAB PO SCH (08:32)
[2021-05-16] MEDS: FOLIC ACID 1 MG TAB PO SCH (08:32)
[2021-05-16] MEDS: GABAPENTIN 100 MG CAP PO SCH ×2 (08:32→21:46)
[2021-05-16] MEDS: INSULIN ASPART 100 UNITS/ML 3 ML PEN SC SCH ×4 (08:36→21:23)
[2021-05-16 09:27] LABS: Magnesium 1.6 mg/dl (1.8-2.4)
--- NOTE | 2021-05-16 10:09 | Nephrology Progress Note ---
Date of Service May 16, 2021 Assessment & Plan Admission and Anticipated Discharge Date Admission Date: April 23, 2021 Subjective Subjective Assessment & Plan (1) Hypercalcemia: Plan: hypercalcemia which emerged gradually late in the course of a prolonged admission after presenting with septic shock/aspiration pneumonia; she is still quite weak - doing only supine exercises w/ PT currently. PTH is appropriately suppressed; 25-Vit D not elevated. TSH was WNL at admission. though she tells me she is not taking meds, she has had MVI consistently and mag supplement about 3/4 of doses or more over past several days >suspect this relates either to medications or to immobility; doubt calcium level high enough to explain/contribute to MS changes. Ca today 10.9--went up as soon as iv fluid stopped -f/u pending PTHrp -stopped MVI Restart Ivfluid at 80/hr given rise in creat and Ca++ (2) Hypomagnesemia: Plan: Continue oral mag oxide as well. Subjective Patient seen for hypercalcemia and other electrolyte problems. She feels well. No SOB. Not eating much. Review of Systems Review of Systems: All other systems were reviewed and negative except as noted in HPI Physical Exam Physical Exam: General exam: Appears comfortable, no acute distress HEENT: Pupils are equal and reactive to light Neck: No JVD, neck is supple trachea is midline Respiratory system: Clear breath sounds bilaterally. Gastrointestinal: Abdomen is soft, non distended, non tender, bowel sounds are present CVS: Regular rate and rhythm. No murmurs, rubs or gallops Musculoskeletal: No joint or muscle tenderness Extremities: Non tender, no edema, peripheral pulses are present Neuro: Oriented, no tremors, no focal neurological deficits Results & Data ([facility]) Vital Signs (Past 12 Hours) Vital Signs Temp Pulse Resp BP Pulse Ox 05/16/21 07:13 37.0 C 113 H 16 129/79 93
[2021-05-16] MEDS: ACETAMINOPHEN 325 MG TAB PO PRN (11:22)
[2021-05-16] MEDS: SODIUM CHLORIDE 0.45 % 1,000 ML IV SCH (11:25)
--- NOTE | 2021-05-16 12:23 | Communication Note ---
Date of Service: May 16, 2021 interim progress reviewed, patient remains suspicious of staff at times but less cynthia paranoia/refusals. Her calcium level remains elevated and could also have contributed to her MS changes/paranoia. She does not appear to have required prn antipsychotic medication.
--- NOTE | 2021-05-16 19:29 | Hospitalist Progress Note ---
Date of Service May 16, 2021 Assessment & Plan (1) Septic shock: Plan: Patient is a 60 yr F with H/O Alcoholism with cirrhosis, hx of esophageal varices, type 2 diabetes, hypertension who presents with altered mental status known since this morning presenting with hypothermia and septic shock. (As per Admitting team: Found to be obtunded and covered in vomit this morning by boyfriend after 6 days of intractable nausea, vomiting and generalized weakness. Presented with AMS temp of 32 C, as well as hypotensive with SBP 80s-90s) Septic shock Hypothermia Pneumonia possibly due to aspiration Lactic acidosis: resolved Procalcitonin 0.75 Blood cultures: negative S/P LP: CSF culture negative Off pressors Completed 5-day course of antibiotics : arun Andrew Appreciate critical care, neurology input Appreciate ID input Hypothermia resolved Shock Resolved Hypercalcemia Ionized calcium within normal limits PTH not elevated PTH related protein pending Vitamin D level within normal limits SPEP consistent with acute phase reaction Appreciate Nephrology Input Magnesium oxide dose decreased to once daily Calcium levels 10.9 today Restarted IV fluids Hematochezia H/O esophageal varices Hold anticoagulation Continue PPI We will consider GI evaluation if recurrence of bleeding Monitor CBC Last Hb 8.5 No acute Bleeding issues Fall Asymptomatic Fall precautions Sacrum/Coccyx X ray showed no evidence of acute fracture or subluxation. Diarrhea C. difficile negative Resolved (2) Acute metabolic encephalopathy: Plan: Acute Metabolic Encephalopathy--Likely Multifactorial -MRI Brain:No acute intracranial abnormality DD: sepsis, Wernicke's encephalopathy Completed IV thiamine >> transitioned to p.o. thiamine Appreciate Neurology Input Completed gabapentin protocol Mental status improved Paranoia Appreciate psychiatry input Psychiatry following (3) Hypothermia: Plan: Resolved (4) Acute hypokalemia: Plan: Likely secondary to GI losses :nausea and vomiting, poor oral intake Replace electrolytes as needed Monitor Hypomagnesemia Replace electrolytes as needed Monitor (5) Cardiac arrhythmia: Plan: Wide-complex tachycardia Likely artifactual Appreciate cardiology input Replace electrolytes as needed Metoprolol 12.5mg BID>> Transitioned to propranolol given H/O esophageal varices (6) Acute kidney injury: Plan: JAZMINE Metabolic acidosis Cr baseline ~ 0.9 Received IV fluids Avoid nephrotoxic agents as able Resolved (7) Alcohol abuse: Plan: Counseled to quit (8) Cirrhosis: Plan: On diuretics per [facility] med rec Normal ammonia level Resumed on spironolactone at lower dose (9) Hypertension: Plan: BP stable (10) Diabetes mellitus, type II: Plan: HbA1c 5.5 Monitor blood glucose levels SSI PRN while hospitalized Thrombocytopenia Likely secondary to cirrhosis, alcohol use Monitor platelet count DVT Px: Was on Heparin SQ SCDs Re: Hematochezia Code status: FULL CODE Disposition: Waiting for Rehab Placement Admission and Anticipated Discharge Date Admission Date: April 23, 2021 Subjective Patient is seen and examined at bedside Poor appetite Intermittently confused but understands that she gets delusional Calcium levels 10.9 today No new complaints Denies any chest pain, dyspnea, dizziness Review of Systems Review of Systems: All systems reviewed & are unremarkable except as noted in Subjective Physical Exam Physical Exam: Physical Exam: Vitals signs as noted above General Appearance:Moderately built and nourished, no apparent distress Head: normocephalic, Atraumatic Eyes: normal inspection, EOMI Neck: supple, Trachea midline Respiratory/Chest: Normal breath sounds, CTA, No accessory muscle use Cardiovascular: S1, S2, No murmur Abdomen/GI:Soft, Non tender, Bowel sounds present Extremities/Musculoskeletal:normal inspection, no edema Neurologic/Psych:AAO, grossly no focal neurological deficits Skin: normal color, warm Results & Data Results & Data ([facility]) Vital Signs (Past 12 Hours) Vital Signs Temp Pulse Resp BP Pulse Ox 05/16/21 14:56 37.2 C 101 H 16 120/71 98 Laboratory Results [facility] 05/16/21 06:25 Sodium 138 Potassium 3.9 D Chloride 108 H Carbon Dioxide 21 BUN 11 D Creatinine 1.31 H Glucose 115 H Calcium 10.9 H
[2021-05-17] MEDS: SODIUM CHLORIDE 0.45 % 1,000 ML IV SCH ×2 (01:07→11:20)
[2021-05-17 08:41] LABS: Calcium 10.7 mg/dl (8.5-10.1); Creatinine Clr Calc Pharmacy 44.5 ml/min; Est GFR (African American) 55.4 ml/min; Est GFR (Non-African American) 47.8 ml/min; Magnesium 1.1 mg/dl (1.8-2.4); Potassium 4.2 mmol/L (3.5-5.1)
[2021-05-17 08:44] LABS: Hemoglobin 8.7 g/dL (12.0-16.0); Mean Corpuscular Hemoglobin 32.5 pg (25-34); Mean Corpuscular Hgb Conc 32.2 g/dL (32-36); Mean Corpuscular Volume 100.7 fL (80-100); Mean Platelet Volume 9.7 fL (7.4-10.4); Platelet Count 266 K/uL (130-400); RDW Coefficient of Variation 15.5 % (11.5-14.5); RDW Standard Deviation 57.3 fL (36.4-46.3); Red Blood Count 2.68 M/uL (4.2-5.4); White Blood Count 10.34 K/uL (4.8-10.8)
[2021-05-17] MEDS: INSULIN ASPART 100 UNITS/ML 3 ML PEN SC SCH ×4 (08:51→20:58)
[2021-05-17] MEDS: CYANOCOBALAMIN 500 MCG TABLET (VITAMIN B-12) PO SCH (08:52)
[2021-05-17] MEDS: ATORVASTATIN 40 MG TAB PO SCH (08:52)
[2021-05-17] MEDS: THIAMINE HCL 100 MG TAB PO SCH (08:53)
[2021-05-17] MEDS: PROPRANOLOL HCL LA 80 MG CAPCR PO SCH (08:53)
[2021-05-17] MEDS: POTASSIUM CHLORIDE CRTAB 20 MEQ TABCR PO SCH ×3 (08:53→20:50)
[2021-05-17] MEDS: FERROUS SULFATE 325 MG TAB PO SCH ×3 (08:53→20:49)
[2021-05-17] MEDS: GABAPENTIN 100 MG CAP PO SCH ×3 (08:53→20:50)
[2021-05-17] MEDS: MAGNESIUM OXIDE 400 MG TAB PO SCH (08:53)
[2021-05-17] MEDS: SPIRONOLACTONE 25 MG TAB PO SCH (08:53)
[2021-05-17] MEDS: FOLIC ACID 1 MG TAB PO SCH (08:53)
[2021-05-17] MEDS: PANTOprazole 40 MG TAB PO SCH ×3 (08:53→20:50)
--- NOTE | 2021-05-17 09:58 | Nephrology Progress Note ---
Date of Service May 17, 2021 Assessment & Plan Admission and Anticipated Discharge Date Admission Date: April 23, 2021 Subjective Assessment & Plan (1) Hypercalcemia: Plan: hypercalcemia which emerged gradually late in the course of a prolonged admission after presenting with septic shock/aspiration pneumonia; she is still quite weak - doing only supine exercises w/ PT currently. PTH is appropriately suppressed; 25-Vit D not elevated. TSH was WNL at admission. though she tells me she is not taking meds, she has had MVI consistently and mag supplement about 3/4 of doses or more over past several days >suspect this relates either to medications or to immobility; doubt calcium level high enough to explain/contribute to MS changes. Ca today 10.9--went up as soon as iv fluid stopped -f/u pending PTHrp -stopped MVI --trial of Calcitonin 100 units q12 x 3 doses Continue Ivfluid at 80/hr till tomorrow given Poor Po and rise in creat and Ca++ (2) Hypomagnesemia: Plan: Continue oral mag oxide as well. Subjective Patient seen for hypercalcemia and other electrolyte problems. She feels well. No SOB. Not eating much.On iv fluids Review of Systems Review of Systems: All other systems were reviewed and negative except as noted in HPI Physical Exam Physical Exam: General exam: Appears comfortable, no acute distress HEENT: Pupils are equal and reactive to light Neck: No JVD, neck is supple trachea is midline Respiratory system: Clear breath sounds bilaterally. Gastrointestinal: Abdomen is soft, non distended, non tender, bowel sounds are present CVS: Regular rate and rhythm. No murmurs, rubs or gallops Musculoskeletal: No joint or muscle tenderness Extremities: Non tender, no edema, peripheral pulses are present Neuro: Oriented, no tremors, no focal neurological deficits Results & Data ([facility]) Vital Signs (Past 12 Hours) Vital Signs Temp Pulse Resp BP Pulse Ox 05/17/21 08:06 36.9 C 95 H 16 132/86 96 05/16/21 23:31 36.8 C 100 H 16 142/84 H 97
[2021-05-17] MEDS: MAGNESIUM SULFATE / D5W 1 GM/100 ML BAG IV SCH ×2 (10:41→13:05)
[2021-05-17] MEDS: CALCITONIN SALMON 100 UNITS in SYRINGE 0 ML SQ SCH ×3 (11:17→21:20)
--- NOTE | 2021-05-17 12:30 | Psychiatric Progress Note ---
Date of Service May 17, 2021 Impression / Recommendations Impression 60 yo female with a history of heavy Etoh use, unclear if hx of withdrawal seizures, suspect decreased ETOH intake during several days of GI distress at home culminating in withdrawal seizure, aspiration pneumonia and subsequent sepsis, again collateral re: baseline functioning would be important. Has been receiving thiamine. EEG would likely just so residual encephalopathy. Now that more alert/interacting she is also paranoid and this is causing some confusion/resistance to care. Classic triad for Wernicke's encephalopathy present earlier in stay, eye findings can resolve quickly with thiamine, particularly if acute onset. 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 At this point encephalopathy is still resolving and the paranoia can be attributed primarily to that vs hospital acquired delirium vs. underlying later onset psychosis with self- medicating with EToh, Etoh induced psychosis, etc. 05/17/21: significant interval improvement in that less delay in response, reality focussed, no active psychosis. Plan: Will attempt to discuss Etoh use and potential services next contact. No evidence of need for any acute inpatient psychiatric hospitalization. Continue thiamine. (1) Acute alteration in mental status: Interval History Identifying Information 60 yo female, initial consultation on 05/13/21 for encephalopathy. Chief Complaint "Yeah things are going much better out here". Review of Systems Notes denies sleep or appetite issues Subjective Subjective Patient was seen & assessed and interval progress reviewed. She reports her strength is improving and denies being distrustful of staff. She seems to have some memory of being cognitively slowed. She denied needs from our service but answers were a little out of context or vague like "That's a loaded question on a day like today" but not elaborating. Physical Exam Psychiatric Orientation: alert and oriented x 3 Eye Contact: + fair eye contact Speech: normal rate/rhythm/volume of speech Affect: + blunted affect Thought Process: + concrete thought process Suicidal Thoughts: denies suicidal thoughts Homicidal Thoughts: denies homicidal thoughts Hallucinations: no auditory hallucinations and no visual hallucinations Vital Signs (Past 24 Hours) Last Vital Signs Temp 36.9 C 05/17/21 08:06 Pulse 95 H 05/17/21 08:06 Resp 16 05/17/21 08:06 BP 132/86 05/17/21 08:06 Pulse Ox 96 05/17/21 08:06 Results & Data ([facility]) Laboratory Results Laboratory Results - last 24 hr 05/16/21 05/16/21 05/17/21 17:06 20:42 06:47 WBC RBC Hgb Hct MCV MCH MCHC RDW Std Deviation RDW Coeff of Radha Plt Count MPV Sodium 139 Potassium 4.2 Chloride 110 H Carbon Dioxide 21 Anion Gap 8.0 BUN 14 Creatinine 1.24 H Est Cr Clr Drug Dosing 44.5 Est GFR ( Amer) 55.4 Est GFR (Non-Af Amer) 47.8 BUN/Creatinine Ratio 11.0 Glucose 88 POC Glucose 126 H 121 H Calcium 10.7 H Phosphorus Magnesium 1.1 L 05/17/21 05/17/21 05/17/21 06:47 06:47 08:22 WBC 10.34 RBC 2.68 L Hgb 8.7 L Hct 27.0 L MCV 100.7 H MCH 32.5 MCHC 32.2 RDW Std Deviation 57.3 H RDW Coeff of Radha 15.5 H Plt Count 266 MPV 9.7 Sodium Potassium Chloride Carbon Dioxide Anion Gap BUN Creatinine Est Cr Clr Drug Dosing Est GFR ( Amer) Est GFR (Non-Af Amer) BUN/Creatinine Ratio Glucose POC Glucose 89 Calcium Phosphorus 4.1 Magnesium 05/17/21 11:47 WBC RBC Hgb Hct MCV MCH MCHC RDW Std Deviation RDW Coeff of Radha Plt Count MPV Sodium Potassium Chloride Carbon Dioxide Anion Gap BUN Creatinine Est Cr Clr Drug Dosing Est GFR ( Amer) Est GFR (Non-Af Amer) BUN/Creatinine Ratio Glucose POC Glucose 115 H Calcium Phosphorus Magnesium Current Inpatient Medications Current Inpatient Medications: Current Inpatient Medications Acetaminophen (Acetaminophen 325 Mg Tab) 650 mg PO Q4H PRN PRN Reason: Pain Stop: 06/04/21 14:21 Last Admin: 05/16/21 11:22 Dose: 650 mg Documented by: Atorvastatin Calcium (Atorvastatin 40 Mg Tab) 40 mg PO DAILY [facility] Stop: 06/01/21 08:59 Last Admin: 05/17/21 08:52 Dose: 40 mg Documented by: Cyanocobalamin (Cyanocobalamin 500 Mcg Tablet (Vitamin B-12)) 1,000 mcg PO QAM [facility] Stop: 06/02/21 08:59 Last Admin: 05/17/21 08:52 Dose: 1,000 mcg Documented by: Dextrose (Dextrose 50% 50 Ml Syringe) 25 - 50 ml IV UD PRN; Protocol PRN Reason: Hypoglycemia Protocol Stop: 05/24/21 10:59 Ferrous Sulfate (Ferrous Sulfate 325 Mg Tab) 325 mg PO BID [facility] Stop: 06/01/21 01:44 Last Admin: 05/17/21 08:53 Dose: 325 mg Documented by: Folic Acid (Folic Acid 1 Mg Tab) 1 mg PO QAM [facility] Stop: 05/26/21 08:59 Last Admin: 05/17/21 08:53 Dose: 1 mg Documented by: Gabapentin (Gabapentin 100 Mg Cap) 100 mg PO BID [facility] Stop: 05/29/21 20:59 Last Admin: 05/17/21 08:53 Dose: 100 mg Documented by: Glucagon (Glucagon For Inj 1 Mg Vial) 1 mg IM UD PRN; Protocol PRN Reason: Hypoglycemia Protocol Stop: 05/24/21 10:59 Glucose (Glucose 40% Gel 15 Gm Tube) 15 - 30 gm PO UD PRN; Protocol PRN Reason: Hypoglycemia Protocol Stop: 05/24/21 10:59 Glucose (Glucose 10 Tabs/Tube) 4 - 8 tabs PO UD PRN; Protocol PRN Reason: Hypoglycemia Protocol Stop: 05/24/21 10:59 Lorazepam (Ativan) 1 mg in 2 mls @ 2 mls/min IV ONE PRN; Protocol PRN Reason: EtoH Withdrawal AWSS 6-10 Stop: 05/25/21 19:22 Promethazine HCl 12.5 mg/ (Sodium Chloride) 50.5 mls @ 202 mls/hr IV Q6H PRN PRN Reason: Nausea And Vomiting Stop: 05/27/21 20:01 Last Infusion: 04/27/21 20:45 Dose: Infused Documented by: Sodium Chloride (1/2 Nss) 1,000 mls @ 80 mls/hr IV .[id number] [facility] Stop: 06/15/21 10:14 Last Admin: 05/17/21 11:20 Dose: Not Given Documented by: Magnesium Sulfate/Dextrose (Magnesium Sulfate / D5w) 1 gm in 100 mls @ 50 mls/hr IV Q2H [facility] Stop: 05/17/21 13:59 Last Admin: 05/17/21 10:41 Dose: 50 mls/hr Documented by: Calcitonin [place] 100 units/ (Syringe) 0.5 mls @ 1 mls/sec SQ Q12 [facility] Stop: 05/18/21 09:01 Last Admin: 05/17/21 11:17 Dose: 1 mls/sec Documented by: Insulin Aspart (Insulin Aspart 100 Units/Ml 3 Ml Pen) 0 units SC ACHS [facility] Stop: 05/24/21 11:29 Last Admin: 05/17/21 08:51 Dose: Not Given Documented by: Magnesium Oxide (Magnesium Oxide 400 Mg Tab) 400 mg PO DAILY [facility] Stop: 06/12/21 08:59 Last Admin: 05/17/21 08:53 Dose: 400 mg Documented by: Miscellaneous (Carbohydrates For Hypoglycemia ) 15 - 30 gm PO UD PRN PRN Reason: Hypoglycemia Treatment Stop: 05/24/21 10:59 Olanzapine (Olanzapine 10 Mg/2.1 Ml Sdv) 2.5 mg IM Q4H PRN PRN Reason: Anxiety/Agitation Stop: 06/09/21 22:43 Last Admin: 05/13/21 15:10 Dose: 2.5 mg Documented by: Pantoprazole Sodium (Pantoprazole 40 Mg Tab) 40 mg PO BID [facility] Stop: 05/30/21 20:59 Last Admin: 05/17/21 08:53 Dose: 40 mg Documented by: Potassium Chloride (Potassium Chloride Crtab 20 Meq Tabcr) 20 meq PO BID [facility] Stop: 06/14/21 20:59 Last Admin: 05/17/21 08:53 Dose: 20 meq Documented by: Propranolol HCl (Propranolol Hcl La 80 Mg Capcr) [facility] Stop: 05/31/21 08:59 Last Admin: 05/17/21 08:53 Dose: 80 mg Documented by: Spironolactone (Spironolactone 25 Mg Tab) 25 mg PO QAM [facility] Stop: 05/28/21 09:59 Last Admin: 05/17/21 08:53 Dose: 25 mg Documented by: Thiamine HCl (Thiamine Hcl 100 Mg Tab) 100 mg PO QAM [facility] Stop: 05/31/21 08:59 Last Admin: 05/17/21 08:53 Dose: 100 mg Documented by:
[2021-05-17] MEDS: OLANZapine 10 MG/2.1 ML SDV IM PRN ×2 (15:15→21:30)
--- NOTE | 2021-05-17 17:10 | Hospitalist Progress Note ---
Date of Service May 17, 2021 Assessment & Plan (1) Septic shock: Plan: Patient is a 60 yr F with H/O Alcoholism with cirrhosis, hx of esophageal varices, type 2 diabetes, hypertension who presents with altered mental status known since this morning presenting with hypothermia and septic shock. (As per Admitting team: Found to be obtunded and covered in vomit this morning by boyfriend after 6 days of intractable nausea, vomiting and generalized weakness. Presented with AMS temp of 32 C, as well as hypotensive with SBP 80s-90s) Septic shock Hypothermia Pneumonia possibly due to aspiration Lactic acidosis: resolved Procalcitonin 0.75 Blood cultures: negative S/P LP: CSF culture negative Off pressors Completed 5-day course of antibiotics : arun Andrew Appreciate critical care, neurology input Appreciate ID input Hypothermia resolved Shock Resolved Hypercalcemia Ionized calcium within normal limits PTH not elevated PTH related protein pending Vitamin D level within normal limits SPEP consistent with acute phase reaction Appreciate Nephrology Input Magnesium oxide dose decreased to once daily Calcium levels 10.9 today Has been getting IV fluid until this morning with electrolyte supplementation She pulled out her IV line and does not want to have next one She remains otherwise stable-we will check electrolytes tomorrow and if stable she may be discharged Hematochezia H/O esophageal varices Hold anticoagulation Continue PPI We will consider GI evaluation if recurrence of bleeding Monitor CBC Last Hb 8.5 No acute Bleeding issues Fall Asymptomatic Fall precautions Sacrum/Coccyx X ray showed no evidence of acute fracture or subluxation. Diarrhea C. difficile negative Resolved (2) Acute metabolic encephalopathy: Plan: Acute Metabolic Encephalopathy--Likely Multifactorial -MRI Brain:No acute intracranial abnormality DD: sepsis, Wernicke's encephalopathy Completed IV thiamine >> transitioned to p.o. thiamine Appreciate Neurology Input Completed gabapentin protocol Mental status improved Paranoia Appreciate psychiatry input Psychiatry following -appreciate input and recommendation She has not been aggressive and remains pleasantly confused (3) Hypothermia: Plan: Resolved (4) Acute hypokalemia: Plan: Likely secondary to GI losses :nausea and vomiting, poor oral intake Replace electrolytes as needed Monitor Hypomagnesemia Replace electrolytes as needed Monitor (5) Cardiac arrhythmia: Plan: Wide-complex tachycardia Likely artifactual Appreciate cardiology input Replace electrolytes as needed Metoprolol 12.5mg BID>> Transitioned to propranolol given H/O esophageal varices (6) Acute kidney injury: Plan: JAZMINE Metabolic acidosis Cr baseline ~ 0.9 Received IV fluids Avoid nephrotoxic agents as able Creatinine has been little up today at 1.24-likely secondary to dehydration Strongly advised to drink more fluid (7) Alcohol abuse: Plan: Counseled to quit (8) Cirrhosis: Plan: On diuretics per [facility] med rec Normal ammonia level Resumed on spironolactone at lower dose (9) Hypertension: Plan: BP stable (10) Diabetes mellitus, type II: Plan: HbA1c 5.5 Monitor blood glucose levels SSI PRN while hospitalized Thrombocytopenia Likely secondary to cirrhosis, alcohol use Monitor platelet count -platelets have been normalized DVT Px: Was on Heparin SQ SCDs Re: Hematochezia Code status: FULL CODE Disposition: Waiting for Rehab Placement -she has been accepted We will repeat electrolytes and likely discharge tomorrow Admission and Anticipated Discharge Date Admission Date: April 23, 2021 Subjective 05/17/2021 The patient was seen and examined in medical floor She remains weak and lethargic and is pleasantly confused She denies any significant symptoms except ongoing paranoia Review of Systems Review of Systems: Unobtainable due to cognitive status Physical Exam Physical Exam: Sitting on a chair without any acute distress Constitutional: + ill appearing and average body habitus Eyes: PERRL, conjunctivae normal, anicteric sclerae ENMT: external ear and nose normal, oropharynx normal Respiratory: no respiratory distress Auscultation: lungs clear to auscultation bilaterally Cardiovascular: Rate/Rhythm: regular rate and regular rhythm; not tachycardic Heart Sounds: normal S1 and normal S2; no murmur Extremities: no edema Gastrointestinal (Abdomen): Inspection/Auscultation: normal bowel sounds; abdomen not distended Percussion/Palpation: abdomen soft; abdomen nontender Musculoskeletal: No acute arthritis in any joint Neurologic: Alert and awake. Pleasantly confused. Has significant paranoia. Lymphatic: no cervical or axillary lymphadenopathy Results & Data Results & Data ([facility]) Vital Signs (Past 12 Hours) Vital Signs Temp Pulse Resp BP BP Pulse Ox 05/17/21 15:30 36.3 C L 86 16 133/79 100 05/17/21 08:06 36.9 C 95 H 16 132/86 96 Laboratory Results Short CBC 05/17/21 Range/Units 06:47 WBC 10.34 (4.8-10.8) K/uL Hgb 8.7 L (12.0-16.0) g/dL Hct 27.0 L (37-47) % Plt Count 266 (130-400) K/uL [facility] 05/17/21 06:47 Sodium 139 Potassium 4.2 Chloride 110 H Carbon Dioxide 21 BUN 14 Creatinine 1.24 H Glucose 88 Calcium 10.7 H Medications Administered Current Inpatient Medications Acetaminophen (Acetaminophen 325 Mg Tab) 650 mg PO Q4H PRN PRN Reason: Pain Stop: 06/04/21 14:21 Last Admin: 05/16/21 11:22 Dose: 650 mg Documented by: Atorvastatin Calcium (Atorvastatin 40 Mg Tab) 40 mg PO DAILY [facility] Stop: 06/01/21 08:59 Last Admin: 05/17/21 08:52 Dose: 40 mg Documented by: Cyanocobalamin (Cyanocobalamin 500 Mcg Tablet (Vitamin B-12)) 1,000 mcg PO QAM [facility] Stop: 06/02/21 08:59 Last Admin: 05/17/21 08:52 Dose: 1,000 mcg Documented by: Dextrose (Dextrose 50% 50 Ml Syringe) 25 - 50 ml IV UD PRN; Protocol PRN Reason: Hypoglycemia Protocol Stop: 05/24/21 10:59 Ferrous Sulfate (Ferrous Sulfate 325 Mg Tab) 325 mg PO BID [facility] Stop: 06/01/21 01:44 Last Admin: 05/17/21 08:53 Dose: 325 mg Documented by: Folic Acid (Folic Acid 1 Mg Tab) 1 mg PO QAM [facility] Stop: 05/26/21 08:59 Last Admin: 05/17/21 08:53 Dose: 1 mg Documented by: Gabapentin (Gabapentin 100 Mg Cap) 100 mg PO BID [facility] Stop: 05/29/21 20:59 Last Admin: 05/17/21 08:53 Dose: 100 mg Documented by: Glucagon (Glucagon For Inj 1 Mg Vial) 1 mg IM UD PRN; Protocol PRN Reason: Hypoglycemia Protocol Stop: 05/24/21 10:59 Glucose (Glucose 40% Gel 15 Gm Tube) 15 - 30 gm PO UD PRN; Protocol PRN Reason: Hypoglycemia Protocol Stop: 05/24/21 10:59 Glucose (Glucose 10 Tabs/Tube) 4 - 8 tabs PO UD PRN; Protocol PRN Reason: Hypoglycemia Protocol Stop: 05/24/21 10:59 Lorazepam (Ativan) 1 mg in 2 mls @ 2 mls/min IV ONE PRN; Protocol PRN Reason: EtoH Withdrawal AWSS 6-10 Stop: 05/25/21 19:22 Promethazine HCl 12.5 mg/ (Sodium Chloride) 50.5 mls @ 202 mls/hr IV Q6H PRN PRN Reason: Nausea And Vomiting Stop: 05/27/21 20:01 Last Infusion: 04/27/21 20:45 Dose: Infused Documented by: Sodium Chloride (1/2 Nss) 1,000 mls @ 80 mls/hr IV .[id number] [facility] Stop: 06/15/21 10:14 Last Infusion: 05/17/21 15:43 Dose: Infused Documented by: Calcitonin [place] 100 units/ (Syringe) 0.5 mls @ 1 mls/sec SQ Q12 [facility] Stop: 05/18/21 09:01 Last Admin: 05/17/21 11:17 Dose: 1 mls/sec Documented by: Insulin Aspart (Insulin Aspart 100 Units/Ml 3 Ml Pen) 0 units SC ACHS [facility] Stop: 05/24/21 11:29 Last Admin: 05/17/21 13:05 Dose: Not Given Documented by: Magnesium Oxide (Magnesium Oxide 400 Mg Tab) 400 mg PO DAILY [facility] Stop: 06/12/21 08:59 Last Admin: 05/17/21 08:53 Dose: 400 mg Documented by: Miscellaneous (Carbohydrates For Hypoglycemia ) 15 - 30 gm PO UD PRN PRN Reason: Hypoglycemia Treatment Stop: 05/24/21 10:59 Olanzapine (Olanzapine 10 Mg/2.1 Ml Sdv) 2.5 mg IM Q4H PRN PRN Reason: Anxiety/Agitation Stop: 06/09/21 22:43 Last Admin: 05/17/21 15:15 Dose: 2.5 mg Documented by: Pantoprazole Sodium (Pantoprazole 40 Mg Tab) 40 mg PO BID [facility] Stop: 05/30/21 20:59 Last Admin: 05/17/21 08:53 Dose: 40 mg Documented by: Potassium Chloride (Potassium Chloride Crtab 20 Meq Tabcr) 20 meq PO BID [facility] Stop: 06/14/21 20:59 Last Admin: 05/17/21 08:53 Dose: 20 meq Documented by: Propranolol HCl (Propranolol Hcl La 80 Mg Capcr) 80 mg PO QAM [facility] Stop: 05/31/21 08:59 Last Admin: 05/17/21 08:53 Dose: 80 mg Documented by: Spironolactone (Spironolactone 25 Mg Tab) 25 mg PO [facility] Stop: 05/28/21 09:59 Last Admin: 05/17/21 08:53 Dose: 25 mg Documented by: Thiamine HCl (Thiamine Hcl 100 Mg Tab) 100 mg PO [facility] Stop: 05/31/21 08:59 Last Admin: 05/17/21 08:53 Dose: 100 mg Documented by:
[2021-05-17] MEDS ORDERED: CALCITONIN SALMON 400 UNITS/2 ML SQ SCH (21:00)
[2021-05-17] MEDS ORDERED: OLANZapine 10 MG/2.1 ML SDV IM STA (22:59)
[2021-05-18] MEDS: SODIUM CHLORIDE 0.45 % 1,000 ML IV SCH (00:59)
[2021-05-18 07:39] LABS: Calcium 9.9 mg/dl (8.5-10.1); Creatinine Clr Calc Pharmacy 54.6 ml/min; Est GFR (African American) 71.1 ml/min; Est GFR (Non-African American) 61.3 ml/min; Magnesium 1.8 mg/dl (1.8-2.4); Phosphorus 4.2 mg/dl (2.5-4.9); Potassium 3.5 mmol/L (3.5-5.1)
[2021-05-18] MEDS: GABAPENTIN 100 MG CAP PO SCH ×2 (08:45→20:53)
[2021-05-18] MEDS: CYANOCOBALAMIN 500 MCG TABLET (VITAMIN B-12) PO SCH (08:45)
[2021-05-18] MEDS: MAGNESIUM OXIDE 400 MG TAB PO SCH (08:45)
[2021-05-18] MEDS: PANTOprazole 40 MG TAB PO SCH ×2 (08:46→20:54)
[2021-05-18] MEDS: ATORVASTATIN 40 MG TAB PO SCH (08:46)
[2021-05-18] MEDS: SPIRONOLACTONE 25 MG TAB PO SCH (08:46)
[2021-05-18] MEDS: FOLIC ACID 1 MG TAB PO SCH (08:46)
[2021-05-18] MEDS: POTASSIUM CHLORIDE CRTAB 20 MEQ TABCR PO SCH ×2 (08:46→20:54)
[2021-05-18] MEDS: THIAMINE HCL 100 MG TAB PO SCH (08:46)
[2021-05-18] MEDS: PROPRANOLOL HCL LA 80 MG CAPCR PO SCH (08:46)
[2021-05-18] MEDS: FERROUS SULFATE 325 MG TAB PO SCH ×2 (08:46→20:53)
[2021-05-18] MEDS: INSULIN ASPART 100 UNITS/ML 3 ML PEN SC SCH ×4 (08:50→21:27)
[2021-05-18] MEDS: CALCITONIN SALMON 100 UNITS in SYRINGE 0 ML SQ SCH (09:01)
--- NOTE | 2021-05-18 17:31 | Hospitalist Progress Note ---
Date of Service May 18, 2021 Assessment & Plan (1) Septic shock: Plan: Patient is a 60 yr F with H/O Alcoholism with cirrhosis, hx of esophageal varices, type 2 diabetes, hypertension who presents with altered mental status known since this morning presenting with hypothermia and septic shock. (As per Admitting team: Found to be obtunded and covered in vomit this morning by boyfriend after 6 days of intractable nausea, vomiting and generalized weakness. Presented with AMS temp of 32 C, as well as hypotensive with SBP 80s-90s) Septic shock Hypothermia Pneumonia possibly due to aspiration Lactic acidosis: resolved Procalcitonin 0.75 Blood cultures: negative S/P LP: CSF culture negative Off pressors Completed 5-day course of antibiotics : arun Andrew Appreciate critical care, neurology input Appreciate ID input Hypothermia resolved Shock Resolved-awaiting placement Hypercalcemia Ionized calcium within normal limits PTH not elevated PTH related protein pending Vitamin D level within normal limits SPEP consistent with acute phase reaction Appreciate Nephrology Input Magnesium oxide dose decreased to once daily Calcium levels 10.9 today Has been getting IV fluid until this morning with electrolyte supplementation She pulled out her IV line and does not want to have next one She remains otherwise stable-we will check electrolytes tomorrow and if stable she may be discharged Her hypercalcemia is resolved No calcium and/or vitamin D on discharge Hematochezia H/O esophageal varices Hold anticoagulation Continue PPI We will consider GI evaluation if recurrence of bleeding Monitor CBC Last Hb 8.5 No acute Bleeding issues Fall Asymptomatic Fall precautions Sacrum/Coccyx X ray showed no evidence of acute fracture or subluxation. Diarrhea C. difficile negative Resolved (2) Acute metabolic encephalopathy: Plan: Acute Metabolic Encephalopathy--Likely Multifactorial -MRI Brain:No acute intracranial abnormality DD: sepsis, Wernicke's encephalopathy Completed IV thiamine >> transitioned to p.o. thiamine Appreciate Neurology Input Completed gabapentin protocol Mental status improved Paranoia Appreciate psychiatry input Psychiatry following -appreciate input and recommendation She has not been aggressive and remains pleasantly confused Will provide Risperdal on discharge as per psychiatrist (3) Hypothermia: Plan: Resolved (4) Acute hypokalemia: Plan: Likely secondary to GI losses :nausea and vomiting, poor oral intake Replace electrolytes as needed Monitor Hypomagnesemia Replace electrolytes as needed Monitor (5) Cardiac arrhythmia: Plan: Wide-complex tachycardia Likely artifactual Appreciate cardiology input Replace electrolytes as needed Metoprolol 12.5mg BID>> Transitioned to propranolol given H/O esophageal varices (6) Acute kidney injury: Plan: JAZMINE Metabolic acidosis Cr baseline ~ 0.9 Received IV fluids Avoid nephrotoxic agents as able Creatinine has been little up today at 1.24-likely secondary to dehydration Strongly advised to drink more fluid (7) Alcohol abuse: Plan: Counseled to quit (8) Cirrhosis: Plan: On diuretics per [facility] med rec Normal ammonia level Resumed on spironolactone at lower dose (9) Hypertension: Plan: BP stable (10) Diabetes mellitus, type II: Plan: HbA1c 5.5 Monitor blood glucose levels SSI PRN while hospitalized Thrombocytopenia Likely secondary to cirrhosis, alcohol use Monitor platelet count -platelets have been normalized DVT Px: Was on Heparin SQ SCDs Re: Hematochezia Code status: FULL CODE Disposition: Waiting for Rehab Placement -she has been accepted We will repeat electrolytes and likely discharge tomorrow Admission and Anticipated Discharge Date Admission Date: April 23, 2021 Subjective 05/17/2021 The patient was seen and examined in medical floor She remains weak and lethargic and is pleasantly confused She denies any significant symptoms except ongoing paranoia 05/18/2021 The patient was seen and examined in medical floor She has been feeling much better today but unfortunately required Zyprexa last night She will not be going [facility] today Review of Systems Review of Systems: All systems reviewed and are unremarkable except as noted below Physical Exam Physical Exam: Sitting on a chair without any acute distress Constitutional: + ill appearing and average body habitus Eyes: PERRL, conjunctivae normal, anicteric sclerae ENMT: external ear and nose normal, oropharynx normal Respiratory: no respiratory distress Auscultation: lungs clear to auscultation bilaterally Cardiovascular: Rate/Rhythm: regular rate and regular rhythm; not tachycardic Heart Sounds: normal S1 and normal S2; no murmur Extremities: no edema Gastrointestinal (Abdomen): Inspection/Auscultation: normal bowel sounds; abdomen not distended Percussion/Palpation: abdomen soft; abdomen nontender Musculoskeletal: No acute arthritis in any joint Neurologic: Alert awake. Pleasantly confused Lymphatic: no cervical or axillary lymphadenopathy Results & Data Results & Data ([facility]) Vital Signs (Past 12 Hours) Vital Signs Temp Pulse Resp BP BP Pulse Ox 05/18/21 16:23 36.4 C L 94 H 16 130/84 98 05/18/21 06:08 36.9 C 95 H 18 130/83 96 Laboratory Results BMP 05/18/21 06:33 Sodium 139 Potassium 3.5 D Chloride 110 H Carbon Dioxide 18 L BUN 13 Creatinine 1.01 Glucose 91 Calcium 9.9 Medications Administered Current Inpatient Medications Acetaminophen (Acetaminophen 325 Mg Tab) 650 mg PO Q4H PRN PRN Reason: Pain Stop: 06/04/21 14:21 Last Admin: 05/16/21 11:22 Dose: 650 mg Documented by: Atorvastatin Calcium (Atorvastatin 40 Mg Tab) 40 mg PO DAILY ALEXIS Stop: 06/01/21 08:59 Last Admin: 05/18/21 08:46 Dose: 40 mg Documented by: Cyanocobalamin (Cyanocobalamin 500 Mcg Tablet (Vitamin B-12)) 1,000 mcg PO QAM ALEXIS Stop: 06/02/21 08:59 Last Admin: 05/18/21 08:45 Dose: 1,000 mcg Documented by: Dextrose (Dextrose 50% 50 Ml Syringe) 25 - 50 ml IV UD PRN; Protocol PRN Reason: Hypoglycemia Protocol Stop: 05/24/21 10:59 Ferrous Sulfate (Ferrous Sulfate 325 Mg Tab) 325 mg PO BID [facility] Stop: 06/01/21 01:44 Last Admin: 05/18/21 08:46 Dose: 325 mg Documented by: Folic Acid (Folic Acid 1 Mg Tab) 1 mg PO QAM ALEXIS Stop: 05/26/21 08:59 Last Admin: 05/18/21 08:46 Dose: 1 mg Documented by: Gabapentin (Gabapentin 100 Mg Cap) 100 mg PO BID ALEXIS Stop: 05/29/21 20:59 Last Admin: 05/18/21 08:45 Dose: 100 mg Documented by: Glucagon (Glucagon For Inj 1 Mg Vial) 1 mg IM UD PRN; Protocol PRN Reason: Hypoglycemia Protocol Stop: 05/24/21 10:59 Glucose (Glucose 40% Gel 15 Gm Tube) 15 - 30 gm PO UD PRN; Protocol PRN Reason: Hypoglycemia Protocol Stop: 05/24/21 10:59 Glucose (Glucose 10 Tabs/Tube) 4 - 8 tabs PO UD PRN; Protocol PRN Reason: Hypoglycemia Protocol Stop: 05/24/21 10:59 Lorazepam (Ativan) 1 mg in 2 mls @ 2 mls/min IV ONE PRN; Protocol PRN Reason: EtoH Withdrawal AWSS 6-10 Stop: 05/25/21 19:22 Promethazine HCl 12.5 mg/ (Sodium Chloride) 50.5 mls @ 202 mls/hr IV Q6H PRN PRN Reason: Nausea And Vomiting Stop: 05/27/21 20:01 Last Infusion: 04/27/21 20:45 Dose: Infused Documented by: Insulin Aspart (Insulin Aspart 100 Units/Ml 3 Ml Pen) 0 units SC ACHS [facility] Stop: 05/24/21 11:29 Last Admin: 05/18/21 12:34 Dose: 4 units Documented by: Magnesium Oxide (Magnesium Oxide 400 Mg Tab) 400 mg PO DAILY [facility] Stop: 06/12/21 08:59 Last Admin: 05/18/21 08:45 Dose: 400 mg Documented by: Miscellaneous (Carbohydrates For Hypoglycemia ) 15 - 30 gm PO UD PRN PRN Reason: Hypoglycemia Treatment Stop: 05/24/21 10:59 Olanzapine (Olanzapine 10 Mg/2.1 Ml Sdv) 2.5 mg IM Q4H PRN PRN Reason: Anxiety/Agitation Stop: 06/09/21 22:43 Last Admin: 05/17/21 21:30 Dose: 2.5 mg Documented by: Pantoprazole Sodium (Pantoprazole 40 Mg Tab) 40 mg PO BID [facility] Stop: 05/30/21 20:59 Last Admin: 05/18/21 08:46 Dose: 40 mg Documented by: Potassium Chloride (Potassium Chloride Crtab 20 Meq Tabcr) 20 meq PO BID [facility] Stop: 06/14/21 20:59 Last Admin: 05/18/21 08:46 Dose: 20 meq Documented by: Propranolol HCl (Propranolol Hcl La 80 Mg Capcr) 80 mg PO QAM [facility] Stop: 05/31/21 08:59 Last Admin: 05/18/21 08:46 Dose: 80 mg Documented by: Spironolactone (Spironolactone 25 Mg Tab) 25 mg PO QAM [facility] Stop: 05/28/21 09:59 Last Admin: 05/18/21 08:46 Dose: 25 mg Documented by: Thiamine HCl (Thiamine Hcl 100 Mg Tab) 100 mg PO QAM [facility] Stop: 05/31/21 08:59 Last Admin: 05/18/21 08:46 Dose: 100 mg Documented by:
--- NOTE | 2021-05-19 08:16 | Electrocardiogram Report ---
Test Reason : Blood Pressure : / mmHG Vent. Rate : 096 BPM Atrial Rate : 096 BPM P-R Int : 156 ms QRS Dur : 082 ms QT Int : 384 ms P-R-T Axes : 114 160 170 degrees QTc Int : 485 ms Normal sinus rhythm Limb lead reversal Inferior infarct (cited on or before 28-APR-2021) Cannot rule out Anterior infarct (cited on or before 28-APR-2021) Nonspecific ST abnormality Abnormal ECG When compared with ECG of 28-APR-2021 10:32, Limb lead revesal is now present Confirmed by Kevin Chong ([id number]) on 05/19/2021 8:16:11 AM Referred By: NO PCP Confirmed By:Kevin Chong
[2021-05-19] MEDS: GABAPENTIN 100 MG CAP PO SCH (08:48)
[2021-05-19] MEDS: SPIRONOLACTONE 25 MG TAB PO SCH (08:48)
[2021-05-19] MEDS: FERROUS SULFATE 325 MG TAB PO SCH (08:48)
[2021-05-19] MEDS: THIAMINE HCL 100 MG TAB PO SCH (08:48)
[2021-05-19] MEDS: CYANOCOBALAMIN 500 MCG TABLET (VITAMIN B-12) PO SCH (08:48)
[2021-05-19] MEDS: FOLIC ACID 1 MG TAB PO SCH (08:48)
[2021-05-19] MEDS: ATORVASTATIN 40 MG TAB PO SCH (08:48)
[2021-05-19] MEDS: MAGNESIUM OXIDE 400 MG TAB PO SCH (08:48)
[2021-05-19] MEDS: PROPRANOLOL HCL LA 80 MG CAPCR PO SCH (08:48)
[2021-05-19] MEDS: PANTOprazole 40 MG TAB PO SCH (08:48)
[2021-05-19] MEDS: POTASSIUM CHLORIDE CRTAB 20 MEQ TABCR PO SCH (08:48)
[2021-05-19] MEDS: INSULIN ASPART 100 UNITS/ML 3 ML PEN SC SCH ×2 (08:49→13:09)
--- NOTE | 2021-05-19 11:28 | Discharge Summary ---
Date of Service May 19, 2021 Admission HPI Per Admitting Provider This is a 60yo F with a PMH of alcoholism with cirrhosis, history of esophageal varices, type 2 diabetes, hypertension and other medical problems listed below who presents with altered mental status known since this morning. History obtained from patient and boyfriend at bedside. Patient has been feeling unwell for the past week with nausea and vomiting. Limited ability to keep down food and water with bilious emesis intermittently over the past week. Did have one episode that was red in color this morning but boyfriend attributes this to multivitamin Gummies. Has felt to weak and sick to get out of bed. Patient has been week and endorses falling out of bed 3 days ago, remaining on the floor for 12 hours. Since then, boyfriend has noticed unusual eye movements and staring. Patient also complaining of double vision over the past few days. Does have history of vertigo but states this feels different and vision is more affected. No focal weakness. Has been intermittently confused over the past few days and refused medical care, per boyfriend. When he returned from working overnight shift he found patient obtunded and covered in vomit in bed. Called EMS and patient was brought to ED for further evaluation. Was initially disoriented with T of 32 C and hypotensive with SBP 80s-90s. Mentation has improved with 4 L fluid given total including banana bag. SBP still 80s-90. Wearing Amber hugger with T now 34.5 C. Continues to experience double vision but not feeling nausea at the moment. Denies any headache. Unsure if she has had fever at home but endorses chills. Intermittent chest and abdominal discomfort in past few days but does not have either right now. No palpitations. Most recent vomiting this morning. No dysuria. No bowel movement in past 5 days in setting of limited PO intake. Is a chronic drinker but has not felt well enough to drink for past week. Admission Exam Per Admitting Provider General Appearance:vitals as above, lying in bed, alert and responding to questions, shivering with Amber hugger in place Head: normocephalic, atraumatic Eyes:PERRL, conjunctivae normal, anicteric sclerae, + L eye with lateral gaze palsy ENT: external ear and nose normal, oropharynx normal Neck:normal visual inspection, trachea midline, no thyromegaly Respiratory:normal respiratory effort, coarse breath sounds, no wheeze, rales, rhonchi. No accessory muscle use Cardiovascular: regular rate, rhythm, no murmur appreciated, normal peripheral pulses, no BLE edema. Vessels: no JVD Chest: normal inspection of chest Abdomen/GI: normal bowel sounds, soft, nontender, no hepatosplenomegaly Extremities/Musculoskeletal: no cyanosis or clubbing, extremities motor strength 5/5 Neurologic: PERRL, EOMI, accommodation nl, no face palsy, no dysarthria, CN's II-XI intact bilaterally and moves all extremities Psychiatric:A+Ox3, euthymic affect Skin: no rashes, normal color, warm/dry Principal Diagnosis Septic shock Warnicke's encephalopathy Discharge Exam Constitutional WD/WN, vitals as above Sitting up in the chair Respiratory normal respiratory effort, lungs clear to auscultation Cardiovascular Rate/Rhythm: regular rate and regular rhythm Vessels: normal peripheral pulses Extremities: no edema Gastrointestinal (Abdomen) Percussion/Palpation: abdomen soft; abdomen nontender Skin no rashes, warm and dry Neurologic no focal motor deficits Psychiatric Orientation: alert and oriented x 3 Insight: + poor insight Discharge Data Allergies Allergy/AdvReac Type Severity Reaction Status Date / Time sulfamethoxazole Allergy Intermediate RASH Verified 04/27/21 16:39 trimethoprim Allergy Intermediate RASH Verified 04/27/21 16:39 Bactrim Allergy Unknown RASH Verified 06/14/17 07:47 Penicillins Allergy Unknown unknown Unverified 04/24/21 08:29 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 04/23/[address] IMPRESSION: No acute intracerebral pathology. 04/23/2021 C-spine CT IMPRESSION: No acute abnormality with mild degenerative disc and degenerative joint disease. 04/23/2021 ABD/pelvis CT IMPRESSION: 1. The stomach is distended with liquid and food stuff. 2. The gallbladder is distended with cholelithiasis. There is no CT evidence for acute cholecystitis. 3. No other evidence for acute intra-abdominal or pelvic abnormality on these limited noncontrast images. 4. Additional nonacute findings as delineated above. 04/23/[address] IMPRESSION: 1. There are small patchy alveolar opacities within the right lower lobe posterior medially suspicious for early pneumonia. 2. There is no other evidence for no acute chest disease on these noncontrast images. 04/24/2021 brain MRI IMPRESSION: No acute intracranial abnormality. 04/24/2021 left knee x-ray IMPRESSION: Soft tissue swelling and small joint effusion with no fracture identified. 04/24/2021 right knee x-ray IMPRESSION: Soft tissue swelling and small joint effusion with no acute bony abnormality identified. 04/28/2021 renal ultrasound IMPRESSION: 1. No hydronephrosis. 2. Mild increased renal echogenicity. 3. Small amount of fluid within the pelvis. 05/12/2021 sacral x-ray IMPRESSION: No evidence of acute fracture or subluxation. Hospital Course (1) Septic shock: (2) Acute metabolic encephalopathy: (3) Acute kidney injury: (4) Wide-complex tachycardia: (5) Electrolyte abnormality: (6) Alcohol abuse: (7) Cirrhosis: (8) Diabetes mellitus, type II: Patient is a 60 yr F with H/O Alcoholism with cirrhosis, hx of esophageal varices, type 2 diabetes, hypertension who presented with altered mental status, hypothermia, suspected septic shock. Patient was found to be obtunded and covered in emesis by her boyfriend after 6 days of intractable nausea, vomiting, generalized weakness. On presentation, temperature 32 C and hypotensive with systolic BPs in the 80s to 90s. Patient was admitted to the intensive care unit and briefly required IV vasopressors. CT chest was suggesting signs of aspiration pneumonia which was felt to be the possible source of patient's sepsis. She completed a course of Zosyn and doxycycline. Cultures from the lumbar puncture and blood were negative. Urine culture grew gamma strep which was suspected to be a contaminant. Patient was also evaluated by neurology and given her history of alcoholism, there was also suspected Warnicke's encephalopathy. She was treated with IV thiamine and transitioned to p.o. thiamine. Patient completed gabapentin protocol for alcohol withdrawal however given complaints of lower extremity neuropathic pain, she was continued on gabapentin 100 mg twice daily. A wide-complex tachycardia was noted, likely due to electrolyte abnormalities. Electrolytes were corrected and patient was initially started on metoprolol however this was transitioned to propanolol given history of esophageal varices. Hypercalcemia was noted with calcium peaking at 11.2. Ionized calcium WNL, PTH not elevated, PTH related protein pending, vitamin D level WNL, SPEP consistent with acute phase reaction. Patient was evaluated by nephrology. Calcium gradually improved with IVF. Recommend to stop vitamin D, calcium, MVI supplements. She will need outpatient follow-up with nephrology in 2 to 3 weeks. There was an episode of hematochezia observed. Hemoglobin remained stable at around 8.0. Patient likely has underlying anemia and thrombocytopenia due to alcoholic cirrhosis. Platelet count was intermittently around 100 K however on 05/17, platelet count 266K. Patient will continue on PPI. Recommend follow-up with GI as an outpatient for alcoholic cirrhosis. Per outpatient record, patient was prescribed spironolactone 100 mg daily however it was unclear patient was taking medicines as prescribed. Spironolactone was resumed at 25 mg daily. Patient had JAZMINE on presentation with creatinine of 3.0, this improved with IVF. Creatinine on 05/18 was 1.0. Patient with history of diabetes, Hgb A1c 5.5. Recommend resuming Ozempic and Metformin at discharge. Due to paranoia, patient was evaluated by psychiatry. Risperdal 0.5 mg nightly was recommended however patient was hesitant to take. Patient has remained pleasant without persistent signs of agitation. On the day of discharge, patient was sitting up in the chair in no acute distress. She is oriented x3 however with limited short-term memory and very poor insight. Patient is stable for discharge to [facility]. Total Time Total Time Spent Total Time Spent (In Minutes): 45 Discharge Plan Discharge Items Patient Disposition: Transfer Inpatient Rehab Fac Reason For Visit: Altered mental status Discharge Diagnosis: Septic shock Wernicke's encephalopathy Condition on Discharge: Fair Activity: Resume your previous activity Activity Comment: Will need continued PT and OT Non-emergency contact: Primary Care Provider Call non-emergency contact if: you have any medication questions and your symptoms worsen Follow-up/Referrals: Jesse Christianson, [Primary Care Provider] - Diet: Carb Consistent or DM2 and Lactose Intolerant Diet Texture: Easy to Chew Addtl Attending Provider Instructions: Patient admitted on 04/23. Presented with altered mental status, hypothermia, septic shock. Septic shock likely due to aspiration pneumonia. Completed course of antibiotics. AMS likely multifactorial due to sepsis and Warnicke's encephalopathy. Treated with thiamine, will be discharged on p.o. thiamine. Also noted to have paranoia, evaluated by psychiatry. Psychiatry recommended Risperdal 0.5 mg nightly however patient declined to take. Patient has remained overall pleasant without agitation. Found to have hypercalcemia, improved with IVF. PTH related protein pending at discharge. Nephrology consulted, will need outpatient follow-up in 2 to 3 weeks. Hold MVI, vitamin D, and calcium supplements. Started on gabapentin for neuropathic leg pain. Outpatient medication list needed the patient was on spironolactone 100 mg daily however it was unclear if patient was taking medications as prescribed. Spironolactone was resumed at 25 mg daily. Should follow-up with GI as an outpatient for alcoholic cirrhosis. Pending Studies at Discharge: Yes Studies:: PTH related protein Stand-Alone Forms: [facility] Skilled Items Patient informed of condition?: Yes DNR: No Discharge Level of Care: Acute rehab Communicable Disease: No Discharge Prognosis: Improving Lines: None Urinary Catheter: No Medications and DC Order Prescriptions: New spironolactone 25 mg Tablet 25 mg PO QAM Qty: 7 RF: 0 gabapentin 100 mg Capsule 100 mg PO BID Qty: 7 RF: 0 potassium chloride 20 mEq Tablet,Er Particles/Crystals 20 meq PO BID Qty: 7 RF: 0 cyanocobalamin (vitamin B-12) 500 mcg Tablet 1,000 mcg PO QAM Qty: 7 RF: 0 folic acid 1 mg Tablet 1 mg PO QAM Qty: 7 RF: 0 thiamine HCl (vitamin B1) [Vitamin B-1] 100 mg Tablet 100 mg PO QAM Qty: 7 RF: 0 propranolol 80 mg Capsule,Extended Release 24 Hr 80 mg PO QAM Qty: 7 RF: 0 Continued atorvastatin 40 mg Tablet 40 mg PO DAILY RF: 0 magnesium chloride 64 mg Tablet Extended Release 128 mg PO DAILY RF: 0 pantoprazole 40 mg Tablet,Delayed Release (Dr/Ec) 40 mg PO DAILY RF: 0 ferrous sulfate 325 mg (65 mg iron) Tablet 325 mg PO BID RF: 0 metformin 500 mg Tablet Extended Release 24 Hr 1,000 mg PO BID RF: 0 Ozempic 0.25 mg or 0.5 mg(2 mg/1.5 mL) Pen Injector See Rx Instructions .ROUTE .COMPLEX RF: 0 Discontinued omeprazole 20 mg Capsule,Delayed Release(Dr/Ec) 20 mg PO DAILY RF: 0 multivitamin Tablet 1 tab PO DAILY RF: 0 spironolactone 100 mg Tablet 100 mg PO DAILY RF: 0 propranolol 60 mg Tablet 60 mg PO DAILY RF: 0 Discharge Orders: Discharge Order (Routine); Ordered 05/19/21 Ordered By: Radha Robles/Other Patient Handouts: High Blood Sugar (Hyperglycemia), Hypoglycemia (Low Blood Sugar), Managing Type 2 Diabetes, Special Foot Care for Diabetes Admission Data Admit Date/Time: 04/23/21 13:47 Attending Provider: Monica Ortega Admit Provider: Monica Ortega Primary Care Provider: Jesse Christianson Other Providers: Juno Morse ; Monica Ortega ; Ryan Muniz ; Pj Moe ; Carly Browning ; Jian Parish I. ; Gera Pozo II ; Lizette Henry ; Christiano Morales ; Kaveh Rodriguez ; Mike Coto ; Carlos Dominguez ; [facility] ; Doris Pickett ; Anuja Bass ; Le Das ; Barbara Galan ; Mirza Up Other Interventions: Discharge Summary Assessment (RN) Last Done: 05/19/21 12:09 Supervising Physician Co-Signing Physician Notes Attending addendum: The patient was seen and examined in medical floor She has been stable without any significant symptoms except ongoing paranoia She is not aggressive to herself or to others and she has been complying with inpatient medications and instructions She will be transferred to [facility] this afternoon On examination Sitting at the edge of the bed without any apparent distress but looks very anxious Hemodynamically stable Chest-clear to auscultate bilaterally Heart-S1-S2, regular Abdomen-benign Extremities-negative for any edema 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 Pleasantly confused. Has paranoia Her recent labs and medications reviewed Remains medically stable to be transferred to [facility] for continued rehab Agree with assessment and plan as outlined above by Radha Ortega
[2021-05-19 13:07] LABS: Angiotensin Converting Enzyme 33 U/L (9-67); PTH Related Protein 16 pg/mL (11-20)
== END 2021-05-19 15:10 | DRG 871 ==
LOC: EDSEX → ED 08:30 → 1E 13:47 → SUATTDRO 13:47 → 1E 15:23 → 2N 05-02 01:26 → 3N 05-13 13:41